=== PATIENT | male | born 1950 | race Caucasian/White ===

== ENCOUNTER → 2017-02-04 | Outpatient (CLI) | payer BC ==
[~2017-02-04] MED LIST: ATOR-24 PO; CLOP1TAB15 PO
[2017-02-04 13:48] LABS: ALT/SGPT 40 U/L (12-78); BLOOD UREA NITROGEN 16 mg/dl (7-18); BUN/CREATININE RATIO 14.3 (10-20); CALCIUM 9.1 mg/dl (8.5-10.1); CARBON DIOXIDE 30 mmol/L (21-32); CHLORIDE 104 mmol/L (98-107); CHOLESTEROL 141 mg/dl (0-200); ESTIMATED AVERAGE GLUCOSE 134 mg/dl; GLUCOSE 109 mg/dl (70-99); HA1C FLAG Normal (Normal); POTASSIUM 4.2 mmol/L (3.5-5.1); SODIUM 140 mmol/L (136-145); TRIGLYCERIDES 83 mg/dl (0-150); VERY LOW DENSITY LIPOPROT CALC 17 mg/dl
[2017-02-04 13:52] LABS: ALB/GLOB RATIO 1.2 (0.9-2); ALKALINE PHOSPHATASE 66 U/L (45-117); AST/SGOT 20 U/L (15-37); CHOLESTEROL/HDL RATIO 3.2; HDL CHOLESTEROL 44 mg/dl; LDL CHOLESTEROL CALCULATED 80 mg/dl
== END | disposition home or self-care (01) ==
LOC: C.LABBC 10:33
PROVIDERS: ATTEND Internal Medicine
DX: I10 Essential (primary) hypertension (principal); R73.01 Impaired fasting glucose; E78.5 Hyperlipidemia, unspecified; Z12.5 Encounter for screening for malignant neoplasm of prostate

== ENCOUNTER 2017-03-09 13:59 | Inpatient (IN) | payer BC, OTHER ==
[~2017-03-09] VITALS: Ht 172.7 cm; Wt 73.0 kg
[~2017-03-09 13:59] MED LIST changes: -ATOR-24 PO
--- NOTE | 2017-03-09 14:53 | DIAGNOSTIC IMAGING REPORT ---
CHEST ONE VIEW PORTABLE CLINICAL HISTORY: Stroke mental status change COMPARISON STUDY: No previous studies for comparison. FINDINGS: The bones soft tissues and hemidiaphragms are normal. The cardiomediastinal silhouette is normal. The lungs are clear. The pulmonary vasculature is normal. There are several old left-sided rib fractures IMPRESSION: Negative chest. Electronically signed by: Jeffry Anguiano M.D. 03/09/2017 2:51 PM Dictated Date/Time: 03/09/2017 2:51 PM
[2017-03-09 15:10] LABS: BASO % 0.3 %; BASO ABS # 0.02 K/uL (0-0.2); COMPLETE YES; EOS % 1.8 %; HEMATOCRIT 48.3 % (42-52); IG% 0.3 %; LYMPH % 13.2 %; LYMPH ABS # 0.97 K/uL (1.2-3.4); MEAN CELL VOLUME 88.6 fL (80-100); MEAN CORPUSCULAR HEMOGLOBIN 30.6 pg (25-34); MEAN CORPUSCULAR HGB CONC 34.6 g/dl (32-36); MONO % 5.7 %; NEUT % 78.7 %; PLATELET COUNT 253 K/uL (130-400); RED BLOOD COUNT 5.45 M/uL (4.7-6.1); WHITE BLOOD COUNT 7.35 K/uL (4.8-10.8)
[2017-03-09 15:23] LABS: PARTIAL THROMBOPLASTIN RATIO 0.9; PROTHROMBIN TIME (PATIENT) 10.6 SECONDS (9.0-12.0)
[2017-03-09 15:29] LABS: BLOOD UREA NITROGEN 20 mg/dl (7-18); BUN/CREATININE RATIO 17.7 (10-20); CALCIUM 9.6 mg/dl (8.5-10.1); CARBON DIOXIDE 29 mmol/L (21-32); CHLORIDE 105 mmol/L (98-107); GLUCOSE 96 mg/dl (70-99); POTASSIUM 3.9 mmol/L (3.5-5.1); SODIUM 141 mmol/L (136-145)
[2017-03-09] MEDS: SODIUM CHLORIDE 0.9% 1000ML 1,000 ML IV SCH ×2 (15:30→18:42)
[2017-03-09 15:34] LABS: CKMB/CK RATIO 1.8 (0-3.0)
--- NOTE | 2017-03-09 15:43 | DIAGNOSTIC IMAGING REPORT ---
LUMBAR SPINE CT CT DOSE: 1724.71 mGy.cm HISTORY: Trauma eval for fx TECHNIQUE: Multiaxial CT images of the lumbar spine were performed and reformatted in the sagittal and coronal plane without the use of contrast. COMPARISON: None. FINDINGS: No fractures. No subluxation. Paraspinal soft tissues are unremarkable. Note is made of moderate multifactorial spinal stenosis L4-L5. IMPRESSION: No fractures within the lumbar spine. No acute bony abnormality. Moderate multifactorial narrowing of spinal canal at L4-L5. Electronically signed by: Jeffry Anguiano M.D. 03/09/2017 3:42 PM Dictated Date/Time: 03/09/2017 3:41 PM
--- NOTE | 2017-03-09 15:45 | DIAGNOSTIC IMAGING REPORT ---
CT SCAN OF THE BRAIN WITHOUT IV CONTRAST CLINICAL HISTORY: Strokelike symptoms. Fall. Left-sided weakness. COMPARISON STUDY: CT of the brain dated 01/01/2015. TECHNIQUE: Unenhanced axial CT scan of the brain is performed from the vertex to the skull base. The skull base was scanned twice due to motion artifact. FINDINGS: Brain parenchyma: Encephalomalacia in the right frontal lobe and the right basal ganglia is unchanged and consistent with remote infarct. Wallerian degeneration is noted in the right aspect of the rupesh. There are age-related involutional changes noting mild subcortical and periventricular microangiopathic change. There is no hemorrhage, mass effect, or evidence of acute territorial ischemia by CT criteria. Vital-white matter is preserved. No extra-axial fluid collection is seen. Ventricles, sulci, cisterns: Prominent secondary to involutional change. There is ex vacuo dilatation of the frontal horn of the right lateral ventricle. Intracranial vasculature: There is atherosclerotic calcification of the cavernous carotid arteries. Calvarium: There is no depressed calvarial fracture. Sinuses and mastoids: Trace mucosal thickening is seen in the left maxillary antrum. Trace fluid is noted in the sphenoid sinuses. The remaining paranasal sinuses are clear. The mastoid air cells are well pneumatized. Orbits: The bony orbits are grossly intact. IMPRESSION: 1. There is no hemorrhage, mass effect, or evidence of acute territorial ischemia by CT criteria. 2. Age-related changes and remote right hemispheric infarct as above. Electronically signed by: Marino King M.D. 03/09/2017 3:44 PM Dictated Date/Time: 03/09/2017 3:40 PM
[2017-03-09] MEDS ORDERED: ATOR-24 PO (17:04)
[2017-03-09 17:13] VITALS: O2SAT 97; Ht 172.7 cm; Wt 73.0 kg
--- NOTE | 2017-03-09 17:13 | History and Physical ---
History & Physical Date & Time of Service: March 09, 2017 at 17:05 Chief Complaint: Back Pain Primary Care Physician: Diego Naidu M.D. History of Present Illness Source: patient, family (sister) Pt is a 66 yo male who presents to the ER with complaints of persistent back pain that began approximately three weeks ago s/p fall he sustained after sneezing and landing on his back. Pt reports following the fall, he was noted to have more weakness in left leg and has almost sedentary since. Pt does have a prior stroke in 2012 in which he does have residual left leg numbness and weakness in which he states has worsened since the fall. Pt normally ambulates with a quad walker but otherwise lives at home with occasional visits from ex who helps with groceries and cooking. Pt denies any difficulty speaking, headache, chest pain, shortness of breath, fever, nausea, vomiting, or recent illness. He denies any right sided weakness or numbness. He has had no fecal or urinary incontinence. He states he has some slight pressure in his lower back but the pain is not severe. Past Medical/Surgical History Medical Problems: (1) Benign hypertension Status: Chronic (2) Eczema Status: Chronic (3) Embolic cerebral infarction Status: Chronic (4) History of - pneumonia Status: Chronic (5) Stroke Status: Resolved Family History Patient reports no known family medical history. Social History Smoking Status: Former Smoker Alcohol Use: socially Marital Status: single Housing status: lives with family Occupational Status: employed, retired Immunizations History of Influenza Vaccine: Yes History of Tetanus Vaccine?: Unknown History of Pneumococcal: No History of Hepatitis B Vaccine: No Multi-Drug Resistant Organisms History of MDRO: No Allergies Coded Allergies: No Known Allergies (Unverified , 03/09/17) Uncoded Allergies: NKA (Allergy, Unknown, 04/10/15) No Known Allergies Home Medications Scheduled Atorvastatin (Lipitor), 40 MG PO DAILY Clopidogrel (Plavix), 75 MG PO DAILY Review of Systems Constitutional: No chills, No sweats Respiratory: No cough, No sputum Cardiovascular: No chest pain, No orthopnea Abdomen: No diarrhea, No nausea, No pain, No vomiting Musculoskeletal: + joint pain, + muscle pain Genitourinary - Male: No dysuria, No hematuria Neurologic: + numbness/tingling, + weakness, No paralysis Psychiatric: No anxiety, No depression symptoms Endocrine: No excessive thirst, No fatigue Physical Exam Vital Signs Date Time Temp Pulse Resp B/P Pulse Ox O2 Delivery O2 Flow Rate FiO2 03/09/17 16:15 81 03/09/17 15:50 75 16 187/110 97 Room Air 03/09/17 15:50 97 Room Air 03/09/17 14:12 36.8 83 16 181/123 96 Room Air General Appearance: WD/WN, no apparent distress Neck: supple, no adenopathy Respiratory/Chest: lungs clear, normal breath sounds Cardiovascular: no edema, no gallop Abdomen/GI: non tender, soft Back: no muscle spasm, + pertinent finding (lower back pain) Neurologic/Psych: alert, normal mood/affect, normal reflexes, oriented x 3, + motor weakness (left lower extremity weakness 4/5), + sensory deficit (numbness left ankle and foot) Diagnostics Laboratory Results Results Past 24 Hours Test 03/09/17 14:53 03/09/17 15:00 Range/Units Bedside Glucose 92 70-99 mg/dl White Blood Count 7.35 4.8-10.8 K/uL Red Blood Count 5.45 4.7-6.1 M/uL Hemoglobin 16.7 14.0-18.0 g/dL Hematocrit 48.3 42-52 % Mean Corpuscular Volume 88.6 80-100 fL Mean Corpuscular Hemoglobin 30.6 25-34 pg Mean Corpuscular Hemoglobin Concent 34.6 32-36 g/dl Platelet Count 253 130-400 K/uL Mean Platelet Volume 9.0 7.4-10.4 fL Neutrophils (%) (Auto) 78.7 % Lymphocytes (%) (Auto) 13.2 % Monocytes (%) (Auto) 5.7 % Eosinophils (%) (Auto) 1.8 % Basophils (%) (Auto) 0.3 % Neutrophils # (Auto) 5.79 1.4-6.5 K/uL Lymphocytes # (Auto) 0.97 1.2-3.4 K/uL Monocytes # (Auto) 0.42 0.11-0.59 K/uL Eosinophils # (Auto) 0.13 0-0.5 K/uL Basophils # (Auto) 0.02 0-0.2 K/uL RDW Standard Deviation 42.5 36.4-46.3 fL RDW Coefficient of Variation 13.1 11.5-14.5 % Immature Granulocyte % (Auto) 0.3 % Immature Granulocyte # (Auto) 0.02 0.00-0.02 K/uL Prothrombin Time 10.6 9.0-12.0 SECONDS Prothromb Time International Ratio 1.0 0.9-1.1 Activated Partial Thromboplast Time 23.8 21.0-31.0 SECONDS Partial Thromboplastin Ratio 0.9 Sodium Level 141 136-145 mmol/L Potassium Level 3.9 3.5-5.1 mmol/L Chloride Level 105 98-107 mmol/L Carbon Dioxide Level 29 21-32 mmol/L Anion Gap 7.0 3-11 mmol/L Blood Urea Nitrogen 20 7-18 mg/dl Creatinine 1.10 0.60-1.40 mg/dl Est Creatinine Clear Calc Drug Dose 64.8 ml/min Estimated GFR () 81.2 Estimated GFR (Non- 70.1 BUN/Creatinine Ratio 17.7 10-20 Random Glucose 96 70-99 mg/dl Calcium Level 9.6 8.5-10.1 mg/dl Total Creatine Kinase 99 39-308 U/L Creatine Kinase MB 1.8 0.5-3.6 ng/ml Creatine Kinase MB Ratio 1.8 0-3.0 Troponin I < 0.015 0-0.045 ng/ml Impression Assessment and Plan Pt is a 66 yo male with hx of CVA, KRIS who presents with worsening left lower ext weakness and numbness s/p fall 3 weeks ago Left leg numbness/weakness likely due to deconditioning s/p fall. CT lumbar spine did not determine any acute fx but did note moderate stenosis. Will consult PT/OT at this time and utilize heating pad in addition to lidoderm path. Case management consulted for dispo as pt and sister deemed his current home unsafe. Hx of CVA will cont statin and plavix at this time. Head CT neg for any intracranial abnormalities VTE Prophylaxis VTE Risk Assessment Done? Y/N: Yes Risk Level: Moderate
[2017-03-09] MEDS ORDERED: ONDANSETRON INJ 2 MG/ML 2 ML VIAL IV PRN (17:15)
[2017-03-09] MEDS ORDERED: CLOPIDOGREL BISULFATE 75 MG TAB PO STA (17:22)
--- NOTE | 2017-03-09 17:28 | EMERGENCY ROOM VISIT NOTE ---
History Report prepared by Gali: Yisel Torres Under the Supervision of: Dr. Dhruv Ardon M.D. First contact with patient: 14:22 Chief Complaint: BACK PAIN Stated Complaint: BACK PAIN History of Present Illness The patient is a 66 year old male who presents to the Emergency Room with complaints of persistent back pain that began approximately three weeks ago. He currently rates his discomfort as a 5/10 in severity. The patient states that he has a history of a stroke in 2011, noting that it has left his left side weak and numb. He states that three weeks ago he sneezed, which caused him to fall onto his back. The patient states that two days after his fall he developed a pressure in his lower back, and increased numbness and weakness to his left leg. The patient states that today around 1230 he fell while walking in his kitchen, noting that he has had difficulty ambulating due to the left leg weakness and numbness. The patient states that he takes Plavix, 75 mg daily. He states that he hit the back of his head during his fall today. The patient denies any difficulty speaking, headache, chest pain, shortness of breath, fever, nausea, vomiting, or recent illness. He denies any right sided weakness or numbness. He has had no fecal or urinary incontinence. He states he has some slight pressure in his lower back but the pain is not severe. Source of History: patient Onset: three weeks ago Position: back (lower) Symptom Intensity: 5/10 Quality: pressure Timing: other (persistent) Associated Symptoms: + numbness (left side), + weakness (left side), No SOB , No chest pain, No fevers, No headache, No nausea, No vomiting Note: Associated Symptoms: difficulty ambulating, two falls Review of Systems See HPI for pertinent positives & negatives. A total of 10 systems reviewed and were otherwise negative. Past Medical & Surgical Medical Problems: (1) Benign hypertension (2) Eczema (3) Embolic cerebral infarction (4) History of - pneumonia (5) Physical deconditioning (6) Stroke Family History Patient reports no known family medical history. Social History Smoking Status: Former Smoker Alcohol Use: occasionally Marital Status: single Housing Status: lives with family, other Occupation Status: employed, retired Current/Historical Medications Scheduled Atorvastatin (Lipitor), 40 MG PO DAILY Clopidogrel (Plavix), 75 MG PO DAILY Allergies Coded Allergies: No Known Allergies (Unverified , 03/09/17) Uncoded Allergies: NKA (Allergy, Unknown, 04/10/15) No Known Allergies Physical Exam Vital Signs Date Time Temp Pulse Resp B/P Pulse Ox O2 Delivery O2 Flow Rate FiO2 03/09/17 17:00 78 21 171/87 97 03/09/17 16:30 77 19 168/103 03/09/17 16:15 81 03/09/17 16:00 72 23 187/108 98 03/09/17 15:50 75 16 187/110 97 Room Air 03/09/17 15:50 187/110 03/09/17 15:50 97 Room Air 03/09/17 15:44 181/101 03/09/17 14:12 36.8 83 16 181/123 96 Room Air Physical Exam Constitutional: Vital signs reviewed. Eyes: Pupils are equal round reactive to light. Conjunctiva are noninjected. ENT: Pharynx is clear without erythema or exudate. Mucous membranes are moist. Neck supple without meningeal signs. No midline tenderness to the cervical spine. Respiratory: Clear to auscultation bilaterally. Breath sounds are equal bilaterally. Cardiovascular: Regular rate and rhythm. No rubs or gallops. GI: Soft, nondistended and nontender. Bowel sounds are present. Musculoskeletal: No tenderness to the hips, no tenderness to the thoracic or lumbosacral spine. Integumentary: No cyanosis. Neurological: Flaccid paralysis of the left wrist and hand. Left upper extremity weakness as well as lower extremity weakness with diminished sensation in the left upper and lower extremity. Left facial droop sparing the forehead. Psychiatric: Normal affect. Medical Decision & Procedures ER Provider Diagnostic Interpretation: Radiology results as stated below per my review and the radiologist's interpretation: CT SCAN OF THE BRAIN WITHOUT IV CONTRAST CLINICAL HISTORY: Strokelike symptoms. Fall. Left-sided weakness. COMPARISON STUDY: CT of the brain dated 01/01/2015. TECHNIQUE: Unenhanced axial CT scan of the brain is performed from the vertex to the skull base. The skull base was scanned twice due to motion artifact. FINDINGS: Brain parenchyma: Encephalomalacia in the right frontal lobe and the right basal ganglia is unchanged and consistent with remote infarct. Wallerian degeneration is noted in the right aspect of the rupesh. There are age-related involutional changes noting mild subcortical and periventricular microangiopathic change. There is no hemorrhage, mass effect, or evidence of acute territorial ischemia by CT criteria. Vital-white matter is preserved. No extra-axial fluid collection is seen. Ventricles, sulci, cisterns: Prominent secondary to involutional change. There is ex vacuo dilatation of the frontal horn of the right lateral ventricle. Intracranial vasculature: There is atherosclerotic calcification of the cavernous carotid arteries. Calvarium: There is no depressed calvarial fracture. Sinuses and mastoids: Trace mucosal thickening is seen in the left maxillary antrum. Trace fluid is noted in the sphenoid sinuses. The remaining paranasal sinuses are clear. The mastoid air cells are well pneumatized. Orbits: The bony orbits are grossly intact. IMPRESSION: 1. There is no hemorrhage, mass effect, or evidence of acute territorial ischemia by CT criteria. 2. Age-related changes and remote right hemispheric infarct as above. Electronically signed by: Marino King M.D. 03/09/2017 3:44 PM Dictated Date/Time: 03/09/2017 3:[address] DOSE: 1724.71 mGy.cm HISTORY: Trauma eval for fx TECHNIQUE: Multiaxial CT images of the lumbar spine were performed and reformatted in the sagittal and coronal plane without the use of contrast. COMPARISON: None. FINDINGS: No fractures. No subluxation. Paraspinal soft tissues are unremarkable. Note is made of moderate multifactorial spinal stenosis L4-L5. IMPRESSION: No fractures within the lumbar spine. No acute bony abnormality. Moderate multifactorial narrowing of spinal canal at L4-L5. Electronically signed by: Jeffry Anguiano M.D. 03/09/2017 3:42 PM Dictated Date/Time: 03/09/2017 3:41 PM CHEST ONE VIEW PORTABLE CLINICAL HISTORY: Stroke mental status change COMPARISON STUDY: No previous studies for comparison. FINDINGS: The bones soft tissues and hemidiaphragms are normal. The cardiomediastinal silhouette is normal. The lungs are clear. The pulmonary vasculature is normal. There are several old left-sided rib fractures IMPRESSION: Negative chest. Electronically signed by: Jeffry Anguiano M.D. 03/09/2017 2:51 PM Dictated Date/Time: 03/09/2017 2:51 PM Laboratory Results 03/09/17 15:00 Red Blood Count 5.45, Mean Corpuscular Volume 88.6, Mean Corpuscular Hemoglobin 30.6, Mean Corpuscular Hemoglobin Concent 34.6, Mean Platelet Volume 9.0, Neutrophils (%) (Auto) 78.7, Lymphocytes (%) (Auto) 13.2, Monocytes (%) (Auto) 5.7, Eosinophils (%) (Auto) 1.8, Basophils (%) (Auto) 0.3, Neutrophils # (Auto) 5.79, Lymphocytes # (Auto) 0.97, Monocytes # (Auto) 0.42, Eosinophils # (Auto) 0.13, Basophils # (Auto) 0.02 03/09/17 15:00 Test 03/09/17 14:53 03/09/17 15:00 Bedside Glucose 92 mg/dl (70-99) White Blood Count 7.35 K/uL (4.8-10.8) Red Blood Count 5.45 M/uL (4.7-6.1) Hemoglobin 16.7 g/dL (14.0-18.0) Hematocrit 48.3 % (42-52) Mean Corpuscular Volume 88.6 fL (80-100) Mean Corpuscular Hemoglobin 30.6 pg (25-34) Mean Corpuscular Hemoglobin Concent 34.6 g/dl (32-36) Platelet Count 253 K/uL (130-400) Mean Platelet Volume 9.0 fL (7.4-10.4) Neutrophils (%) (Auto) 78.7 % Lymphocytes (%) (Auto) 13.2 % Monocytes (%) (Auto) 5.7 % Eosinophils (%) (Auto) 1.8 % Basophils (%) (Auto) 0.3 % Neutrophils # (Auto) 5.79 K/uL (1.4-6.5) Lymphocytes # (Auto) 0.97 K/uL (1.2-3.4) Monocytes # (Auto) 0.42 K/uL (0.11-0.59) Eosinophils # (Auto) 0.13 K/uL (0-0.5) Basophils # (Auto) 0.02 K/uL (0-0.2) RDW Standard Deviation 42.5 fL (36.4-46.3) RDW Coefficient of Variation 13.1 % (11.5-14.5) Immature Granulocyte % (Auto) 0.3 % Immature Granulocyte # (Auto) 0.02 K/uL (0.00-0.02) Prothrombin Time 10.6 SECONDS (9.0-12.0) Prothromb Time International Ratio 1.0 (0.9-1.1) Activated Partial Thromboplast Time 23.8 SECONDS (21.0-31.0) Partial Thromboplastin Ratio 0.9 Anion Gap 7.0 mmol/L (3-11) Est Creatinine Clear Calc Drug Dose 64.8 ml/min Estimated GFR () 81.2 Estimated GFR (Non- 70.1 BUN/Creatinine Ratio 17.7 (10-20) Calcium Level 9.6 mg/dl (8.5-10.1) Total Creatine Kinase 99 U/L (39-308) Creatine Kinase MB 1.8 ng/ml (0.5-3.6) Creatine Kinase MB Ratio 1.8 (0-3.0) Troponin I < 0.015 ng/ml (0-0.045) Laboratory results as reviewed by me. Medications Administered Medications (Trade) Dose Ordered Sig/Florentino Route Start Time Stop Time Status Last Admin Dose Admin Sodium Chloride (Nss 1000ml) 1,000 ml @ 50 mls/hr Q20H IV 03/09/17 14:32 04/08/17 14:31 03/09/17 15:30 50 MLS/HR ECG Indication: weakness Rate (beats per minute): 74 Rhythm: normal sinus Findings: no acute ischemic change, no ectopy ED Course 1425: The patient was evaluated in room C2B. A complete history and physical exam was performed. 1432: Ordered Sodium Chloride 1000 ml @ 50 mls/hr IV. 1553: I reevaluated the patient and he is resting comfortably. I discussed the exam findings with him and I discussed the treatment plan. I recommended evaluation for further treatment. He verbalized complete understanding and agreement. He will be evaluated for further treatment. 1559: I discussed the patients case with Dr. Deras [facility]. He is going to evaluate the patient for further treatment. Medical Decision This is a 66-year-old male who presents with left leg weakness and numbness and back pain as well as head injury after fall. Differential diagnosis includes subacute CVA, acute CVA, intracranial hemorrhage, lumbar disc disease, cauda equina syndrome. I did perform a limited focused review of portions of the patient's old chart on the electronic medical record. The patient has had no recent pertinent visits to this hospital. I did evaluate the patient as noted above. He is presenting with left leg weakness and numbness. It started several weeks ago 2 days after he fell onto his buttocks. He states he has pain in his back but it is a pressure sensation which is not bad. He does have a prior history of stroke. His leg weakness made him fall today. IV access was established. The patient was placed on a continuous administrative program specialist. I did order and personally review the patient's 12- lead EKG and chest x-ray as described above. I did order and review the patient 's blood work as noted in the electronic medical record. I did order a CT of the head and lumbar spine. I did review the images myself as well as the radiology report as described above. There is no evidence of acute stroke. No bleeding. No acute fracture. I did discuss the test results with the patient. I did recommend hospitalization for further evaluation of his symptoms. At this time is not clear whether his symptoms could be an acute or subacute stroke or possibly lumbar disc disease. I did recommend hospitalization for MRI of his head and back. I did discuss the case with the hospitalist and case therapist. Consults Time Called: [phone] Consulting Physician: VICTORINO Martinez Returned Call: [phone] I discussed the patients case with VICTORINO Martinez. He is going to evaluate the patient for further treatment. Impression Primary Impression: Left leg weakness Additional Impressions: Left leg numbness Fall Acute head injury Low back pain Scribe Attestation The scribe's documentation has been prepared under my direct and personally reviewed by me in its entirety. I confirm that the note above accurately reflects all work, treatment, procedures, and medical decision making performed by me. Departure Information Dispostion Being Evaluated By Hospitalist Referrals Diego Naidu M.D. (PCP) Problem Qualifiers Additional Impressions: Fall Encounter type: initial encounter Qualified Codes: W19.XXXA - Unspecified fall, initial encounter Acute head injury Encounter type: initial encounter Qualified Codes: S09.90XA - Unspecified injury of head, initial encounter Low back pain Chronicity: acute Back pain laterality: unspecified Sciatica presence: unspecified whether sciatica present Qualified Codes: M54.5 - Low back pain
[2017-03-09 18:06] VITALS: BP 192/108; PULSE 69; TEMP 36.8; O2SAT 97
[2017-03-09] MEDS ORDERED: NURSING VERBAL MED ORDER ONE (18:30)
[2017-03-09] MEDS ORDERED: HydrALAZINE HCL 20 MG/ML VIAL ONE (18:39)
[2017-03-09 19:53] VITALS: BP 146/90
[2017-03-09 20:00] VITALS: O2SAT 97
[2017-03-09 20:37] VITALS: BP 147/80
[2017-03-09] MEDS: HydrALAZINE HCL 20 MG/ML VIAL IV. PRN (23:01)
[2017-03-09] MEDS: ACETAMINOPHEN 325 MG TAB PO PRN (23:01)
[2017-03-09 23:58] VITALS: BP 163/95; PULSE 82; TEMP 36.4; O2SAT 97
[2017-03-10] VITALS (8 sets, daily range): BP systolic 103–163; BP diastolic 63–90; PULSE 72–99; TEMP 36.6–36.8; O2SAT 95–97
[2017-03-10] MEDS: ATORVASTATIN 20 MG TAB PO SCH (08:11)
[2017-03-10] MEDS: CLOPIDOGREL BISULFATE 75 MG TAB PO SCH (08:11)
[2017-03-10] MEDS: ACETAMINOPHEN 325 MG TAB PO PRN (08:12)
[2017-03-10] MEDS: HydrALAZINE HCL 20 MG/ML VIAL IV. PRN (08:13)
[2017-03-10] MEDS: SODIUM CHLORIDE 0.9% 1000ML 1,000 ML IV SCH (08:20)
[2017-03-10] MEDS ORDERED: LIDODERM (LIDOCAINE) PATCH 5% TD SCH (09:00)
[2017-03-10] MEDS ORDERED: TRAMADOL HCL 50 MG TAB PO PRN (10:30)
--- NOTE | 2017-03-10 14:10 | Progress Note ---
Subjective Date of Service: March 10, 2017. Subjective Pt evaluation today including: conversation w/ patient, physical exam, chart review, lab review, review of studies, review of inpatient medication list Resting comfortably in bed Left lower leg weakness about the same No worsening numbness Problem List Medical Problems: (1) Acute head injury Status: Acute (2) Fall Status: Acute (3) Left leg numbness Status: Acute (4) Left leg weakness Status: Acute (5) Low back pain Status: Acute Review of Systems Constitutional: No chills, No fever Respiratory: No cough, No shortness of breath, No sputum, No wheezing Cardiac: No chest pain, No orthopnea Abdomen: No nausea, No pain, No vomiting Musculoskeletal: No joint pain, No muscle pain Male : No dysuria, No urinary frequency Neurologic: + numbness/tingling, + weakness Psychiatric: No anxiety, No depression symptoms Objective Vital Signs Date Time Temp Pulse Resp B/P Pulse Ox O2 Delivery O2 Flow Rate FiO2 03/10/17 12:51 99 103/63 03/10/17 09:37 Room Air 03/10/17 09:10 99 133/82 96 03/10/17 07:18 36.6 72 20 163/88 95 Room Air 03/10/17 00:39 141/86 03/10/17 00:00 97 Room Air 03/09/17 23:58 36.4 82 20 163/95 97 Room Air 03/09/17 20:37 147/80 03/09/17 20:00 97 Room Air 03/09/17 19:53 146/90 03/09/17 18:06 36.8 69 18 192/108 97 Room Air 03/09/17 17:51 36.8 71 21 156/104 97 03/09/17 17:35 71 21 03/09/17 17:30 156/104 03/09/17 17:13 97 Room Air 03/09/17 17:05 72 17 03/09/17 17:00 78 21 171/87 97 03/09/17 16:30 77 19 168/103 03/09/17 16:15 81 03/09/17 16:00 72 23 187/108 98 03/09/17 15:50 75 16 187/110 97 Room Air 03/09/17 15:50 187/110 03/09/17 15:50 97 Room Air 03/09/17 15:44 181/101 03/09/17 14:12 36.8 83 16 181/123 96 Room Air Physical Exam General Appearance: WD/WN, no apparent distress Neck: supple, no adenopathy Respiratory/Chest: lungs clear, normal breath sounds Cardiovascular: no edema, no gallop Abdomen: non tender, soft Extremities: non-tender, normal inspection Neurologic/Psychiatric: alert, oriented x 3 Laboratory Results Last 24 Hours Test 03/09/17 14:53 03/09/17 15:00 Bedside Glucose 92 mg/dl White Blood Count 7.35 K/uL Red Blood Count 5.45 M/uL Hemoglobin 16.7 g/dL Hematocrit 48.3 % Mean Corpuscular Volume 88.6 fL Mean Corpuscular Hemoglobin 30.6 pg Mean Corpuscular Hemoglobin Concent 34.6 g/dl Platelet Count 253 K/uL Mean Platelet Volume 9.0 fL Neutrophils (%) (Auto) 78.7 % Lymphocytes (%) (Auto) 13.2 % Monocytes (%) (Auto) 5.7 % Eosinophils (%) (Auto) 1.8 % Basophils (%) (Auto) 0.3 % Neutrophils # (Auto) 5.79 K/uL Lymphocytes # (Auto) 0.97 K/uL Monocytes # (Auto) 0.42 K/uL Eosinophils # (Auto) 0.13 K/uL Basophils # (Auto) 0.02 K/uL RDW Standard Deviation 42.5 fL RDW Coefficient of Variation 13.1 % Immature Granulocyte % (Auto) 0.3 % Immature Granulocyte # (Auto) 0.02 K/uL Prothrombin Time 10.6 SECONDS Prothromb Time International Ratio 1.0 Activated Partial Thromboplast Time 23.8 SECONDS Partial Thromboplastin Ratio 0.9 Sodium Level 141 mmol/L Potassium Level 3.9 mmol/L Chloride Level 105 mmol/L Carbon Dioxide Level 29 mmol/L Anion Gap 7.0 mmol/L Blood Urea Nitrogen 20 mg/dl Creatinine 1.10 mg/dl Est Creatinine Clear Calc Drug Dose 64.8 ml/min Estimated GFR () 81.2 Estimated GFR (Non- 70.1 BUN/Creatinine Ratio 17.7 Random Glucose 96 mg/dl Calcium Level 9.6 mg/dl Total Creatine Kinase 99 U/L Creatine Kinase MB 1.8 ng/ml Creatine Kinase MB Ratio 1.8 Troponin I < 0.015 ng/ml Assessment and Plan Pt is a 66 yo male with hx of CVA, KRIS who presents with worsening left lower ext weakness and numbness s/p fall 3 weeks ago Left leg numbness/weakness likely due to deconditioning s/p fall. CT lumbar spine did not determine any acute fx but did note moderate stenosis. Will consult PT/OT at this time and utilize heating pad. Case management consulted for dispo as pt and sister deemed his current home unsafe. Hx of CVA will cont statin and plavix at this time. Head CT neg for any intracranial abnormalities
[2017-03-11 07:13] VITALS: BP 154/81; PULSE 70; TEMP 36.8; O2SAT 94
[2017-03-11] MEDS: ATORVASTATIN 20 MG TAB PO SCH (08:54)
[2017-03-11] MEDS: CLOPIDOGREL BISULFATE 75 MG TAB PO SCH (08:54)
--- NOTE | 2017-03-11 12:33 | Progress Note ---
Subjective Date of Service: March 11, 2017. Subjective Pt evaluation today including: conversation w/ patient, physical exam, chart review, lab review, review of studies, review of inpatient medication list States still feeling weak and doing poorly with PT No worsening numbness, states left ankle pain still but unchanged Problem List Medical Problems: (1) Acute head injury Status: Acute (2) Fall Status: Acute (3) Left leg numbness Status: Acute (4) Left leg weakness Status: Acute (5) Low back pain Status: Acute Review of Systems Constitutional: + fatigue, + weakness, No chills, No fever Respiratory: No cough, No shortness of breath, No sputum, No wheezing Cardiac: No chest pain Abdomen: No diarrhea, No nausea, No pain, No vomiting Musculoskeletal: + joint pain, No muscle pain Male : No dysuria, No urinary frequency Neurologic: + numbness/tingling, + weakness, No memory loss Objective Vital Signs Date Time Temp Pulse Resp B/P Pulse Ox O2 Delivery O2 Flow Rate FiO2 03/11/17 09:00 Room Air 03/11/17 07:13 36.8 70 20 154/81 94 Room Air 03/11/17 00:00 Room Air 03/10/17 23:31 36.8 83 16 155/90 95 Room Air 03/10/17 16:00 Room Air 03/10/17 15:49 36.7 81 18 144/82 95 Room Air 03/10/17 12:51 99 103/63 Physical Exam General Appearance: WD/WN, no apparent distress Neck: supple, no adenopathy Respiratory/Chest: lungs clear, normal breath sounds Cardiovascular: no edema, no gallop Abdomen: non tender, soft Neurologic/Psychiatric: alert, normal mood/affect, oriented x 3 Assessment and Plan Pt is a 66 yo male with hx of CVA, KRIS who presents with worsening left lower ext weakness and numbness s/p fall 3 weeks ago Left leg numbness/weakness likely due to deconditioning s/p fall. CT lumbar spine did not determine any acute fx but did note moderate stenosis. Will consult PT/OT at this time and utilize heating pad. Case management consulted for dispo as pt and sister deemed his current home unsafe. Hx of CVA will cont statin and plavix at this time. Head CT neg for any intracranial abnormalities DISPO: Awaiting rehab at this time
[2017-03-11 14:56] VITALS: BP 153/89; PULSE 73; TEMP 36.6; O2SAT 94
[2017-03-11 23:06] VITALS: BP 154/95; PULSE 74; TEMP 36.7; O2SAT 95
[2017-03-12] MEDS: SODIUM CHLORIDE 0.9% 1000ML 1,000 ML IV SCH (02:17)
[2017-03-12 07:59] VITALS: BP 152/83; PULSE 59; TEMP 36.5; O2SAT 94
[2017-03-12] MEDS: CLOPIDOGREL BISULFATE 75 MG TAB PO SCH (09:08)
[2017-03-12] MEDS: ATORVASTATIN 20 MG TAB PO SCH (09:08)
--- NOTE | 2017-03-12 10:28 | Discharge Instructions ---
Discharge Instructions Date of Service March 12, 2017. Admission Reason for Admission: Fall, Physical Deconditioning Discharge Discharge Diagnosis / Problem: Fall, prvious stroke, deconditioning Discharge Goals Goal(s): Decrease discomfort, Improve function, Increase independence, Improve disease control, Learn about illness, Diagnostic testing, Prevent Disease Progression Activity Recommendations Activity Limitations: resume your previous activity Shower/Bathe: no limitations . Instructions / Follow-Up Instructions / Follow-Up Patient to be discharged to long-term facility Will need extensive rehab therapy No changes in medications at this time If worsening numbness, pain, fevers, or chills please report to ER Current Hospital Diet Patient's current hospital diet: Low Fat Diet Discharge Diet Recommended Diet: Low Fat Diet Pending Studies Studies pending at discharge: no Laboratory Results Hemoglobin A1c Test 02/04/17 10:36 Range/Units Estimated Average Glucose 134 mg/dl Hemoglobin A1c 6.3 H 4.5-5.6 % Lipid Panel Test 02/04/17 10:36 Range/Units Triglycerides Level 83 0-150 mg/dl Cholesterol Level 141 0-200 mg/dl HDL Cholesterol 44 mg/dl Cholesterol/HDL Ratio 3.2 LDL Cholesterol, Calculated 80 mg/dl Medical Emergencies . Who to Call and When: Medical Emergencies: If at any time you feel your situation is an emergency, please call 911 immediately. . Non-Emergent Contact Non-Emergency issues call your: Primary Care Provider Call Non-Emergent contact if: your pain is worsening . . "Provider Documentation" section prepared by Karan Trujillo. . VTE Core Measure Inpt VTE Proph given/why not?: Other Anticoagulation (plavix)
[2017-03-12 11:44] VITALS: BP 152/83; PULSE 59; TEMP 36.5; O2SAT 94
--- NOTE | 2017-03-12 12:13 | DIAGNOSTIC IMAGING REPORT ---
LEFT ANKLE MIN 3 VIEWS ROUTINE CLINICAL HISTORY: left ankle pain pain COMPARISON: None. DISCUSSION: The bones and joint spaces appear intact. There is no evidence of fracture, dislocation or bony disease. There is no evidence for soft tissue swelling. IMPRESSION: Negative study. Electronically signed by: Jeffry Anguiano M.D. 03/12/2017 12:11 PM Dictated Date/Time: 03/12/2017 12:06 PM
--- NOTE | 2017-03-12 14:26 | Discharge Summary ---
Discharge Summary Date of Service March 12, 2017. Discharge Summary Admission Date: March 09, 2017 at 17:02 Discharge Date: March 12, 2017 Discharge Disposition: [facility] facility ([facility]) Principal Diagnosis: Deconditioning Immunizations: Have You Had Influenza Vaccine: Yes History of Tetanus Vaccine?: Unknown History of Pneumococcal: No History of Hepatitis B Vaccine: No Medication Reconciliation Continued Medications: Atorvastatin (Lipitor) 40 Mg Tab 40 MG PO DAILY, TAB Clopidogrel (Plavix) 75 Mg Tab 75 MG PO DAILY, TAB Discharge Exam Review of Systems: Constitutional: No chills, No fever Respiratory: No cough, No dyspnea on exertion, No shortness of breath, No sputum, No wheezing Cardiovascular: No chest pain, No orthopnea Abdomen: No diarrhea, No nausea, No pain, No vomiting Musculoskeletal: + joint pain, No muscle pain Genitourinary - Male: No dysuria, No hematuria, No urinary frequency Neurologic: + weakness, No paralysis Psychiatric: No anxiety, No depression symptoms Physical Exam: General Appearance: WD/WN, no apparent distress Neck: supple, no adenopathy Respiratory/Chest: lungs clear, normal breath sounds Cardiovascular: no edema, no gallop Abdomen / GI: non tender, soft Neurologic/Psychiatric: alert, oriented x 3, + motor weakness (left lower leg weakness 3/5) Hospital Course Pt is a 66 yo male with hx of CVA, KRIS who presents with worsening left lower ext weakness and numbness s/p fall 3 weeks ago Left leg numbness/weakness likely due to deconditioning s/p fall. CT lumbar spine did not determine any acute fx but did note moderate stenosis. Will consult PT/OT at this time and utilize heating pad. Case management consulted for dispo as pt and sister deemed his current home unsafe. Unable to tolerate PT. Discharge to [facility]. Hx of CVA will cont statin and plavix at this time. Head CT neg for any intracranial abnormalities DISPO: Awaiting rehab at this time Total Time Spent: Greater than 30 minutes This includes examination of the patient, discharge planning, medication reconciliation, and communication with other providers. Discharge Instructions Please refer to the electronic Patient Visit Report (Discharge Instructions) for additional information. Additional Copies To Diego Naidu M.D.
== END 2017-03-12 13:15 | disposition home or self-care (01) | DRG 948 ==
LOC: ENRESERVDT → ENRESERVTM → EDBD 13:59 → C.EDC 14:02 → C.MS2W 17:02
PROVIDERS: ADMIT Hospitalist; ATTEND Hospitalist
DX: R53.1 Weakness (principal); I69.354 Hemiplegia and hemiparesis following cerebral infarction affecting left non-dominant side; R20.0 Anesthesia of skin; S09.90XA Unspecified injury of head, initial encounter; M48.06 Spinal stenosis, lumbar region; I10 Essential (primary) hypertension; Z87.891 Personal history of nicotine dependence; Z79.899 Other long term (current) drug therapy; Z79.02 Long term (current) use of antithrombotics/antiplatelets; W19.XXXA Unspecified fall, initial encounter; Y92.000 Kitchen of unspecified non-institutional (private) residence as the place of occurrence of the external cause; Y93.01 Activity, walking, marching and hiking; Y99.8 Other external cause status

== ENCOUNTER → 2017-04-13 | Outpatient (CLI) | payer BC ==
[~2017-04-13] MED LIST changes: +ATOR-24 PO
[2017-04-13 12:21] LABS: HEMATOCRIT 48.8 % (42-52); MEAN CELL VOLUME 89.7 fL (80-100); MEAN CORPUSCULAR HEMOGLOBIN 29.2 pg (25-34); MEAN CORPUSCULAR HGB CONC 32.6 g/dl (32-36); MEAN PLATELET VOLUME 9.1 fL (7.4-10.4); PLATELET COUNT 233 K/uL (130-400); RED BLOOD COUNT 5.44 M/uL (4.7-6.1); WHITE BLOOD COUNT 5.88 K/uL (4.8-10.8)
[2017-04-13 13:46] LABS: BLOOD UREA NITROGEN 16 mg/dl (7-18); BUN/CREATININE RATIO 15.9 (10-20); CARBON DIOXIDE 28 mmol/L (21-32); CHLORIDE 109 mmol/L (98-107); GLUCOSE 92 mg/dl (70-99); SODIUM 146 mmol/L (136-145)
[2017-04-13 13:49] LABS: CALCIUM 8.6 mg/dl (8.5-10.1)
== END | disposition home or self-care (01) ==
LOC: C.LABWYN 10:27
PROVIDERS: ATTEND Internal Medicine
DX: R03.0 Elevated blood-pressure reading, without diagnosis of hypertension (principal)

== ENCOUNTER → 2017-05-04 | Outpatient (CLI) | payer BC ==
[2017-05-04 14:26] LABS: BLOOD UREA NITROGEN 16 mg/dl (7-18); CARBON DIOXIDE 25 mmol/L (21-32); CHLORIDE 108 mmol/L (98-107); CREATININE 0.93 mg/dl (0.60-1.40); GLUCOSE 88 mg/dl (70-99); POTASSIUM 3.8 mmol/L (3.5-5.1); SODIUM 142 mmol/L (136-145)
== END | disposition home or self-care (01) ==
LOC: C.LABWYN 13:17
PROVIDERS: ATTEND Internal Medicine
DX: R26.9 Unspecified abnormalities of gait and mobility (principal)

== ENCOUNTER → 2017-11-11 | Outpatient (CLI) | payer BC ==
[2017-11-11 12:52] LABS: HEMATOCRIT 44.2 % (42-52); HEMOGLOBIN 15.2 g/dL (14.0-18.0); MEAN CELL VOLUME 88.4 fL (80-100); MEAN CORPUSCULAR HEMOGLOBIN 30.4 pg (25-34); MEAN CORPUSCULAR HGB CONC 34.4 g/dl (32-36); MEAN PLATELET VOLUME 8.9 fL (7.4-10.4); PLATELET COUNT 227 K/uL (130-400); RED CELL DISTRIBUTION WIDTH CV 13.1 % (11.5-14.5); RED CELL DISTRIBUTION WIDTH SD 42.1 fL (36.4-46.3); WHITE BLOOD COUNT 5.04 K/uL (4.8-10.8)
[2017-11-11 13:54] LABS: BLOOD UREA NITROGEN 19 mg/dl (7-18); CALCIUM 8.6 mg/dl (8.5-10.1); CARBON DIOXIDE 27 mmol/L (21-32); CREATININE 1.02 mg/dl (0.60-1.40); GLUCOSE 103 mg/dl (70-99); POTASSIUM 3.9 mmol/L (3.5-5.1); SODIUM 139 mmol/L (136-145)
[2017-11-11 14:00] LABS: CHOLESTEROL 137 mg/dl (0-200); LDL CHOLESTEROL CALCULATED 83 mg/dl
== END ==
LOC: C.LABWYN 12:07
PROVIDERS: ATTEND Nurse Practitioner Adult Health
DX: I10 Essential (primary) hypertension (principal); E78.5 Hyperlipidemia, unspecified

== ENCOUNTER 2018-01-03 11:05 | Emergency (ER) | payer BC ==
[~2018-01-03] VITALS: Ht 172.7 cm; Wt 84.6 kg
[2018-01-03 11:15] VITALS: TEMP 36.6; Ht 172.7 cm; Wt 84.6 kg
[2018-01-03 11:17] VITALS: O2SAT 97
[2018-01-03] MEDS ORDERED: CZR25 PO (11:36)
--- NOTE | 2018-01-03 11:46 | EMERGENCY ROOM VISIT NOTE ---
History Report prepared by Gali: Michael Maciel Under the Supervision of: Dr. Diego Leonardo D.O. First contact with patient: 11:11 Chief Complaint: CVA SYMPTOMS Stated Complaint: CVA SYMTPOMS Nursing Triage Summary: pt has hx of cva 2012 with lef sided weakness and facial droop. uses walder at home. this am about 0830 had a feeling of "head bustos and seeing stars in ight eye" had brief h/a. took tylenol. denies pain or sx a this time History of Present Illness The patient is a 67 year old male who presents to the Emergency Room with complaints of mild CVA symptoms that occurred earlier this morning. He has a past medical history of a previous stroke in 2012 resulting in a left-sided deficit. His physician believes the stroke to be from his neck, which has not been treated or followed up recently. This morning, the patient woke up normally with a mild headache and went to breakfast. He was given some Tylenol which resolved his headache. He was eating when he suddenly saw "stars" in his right periphery that only lasted a couple of seconds. He then felt a bustos in the right side of his head. He experienced similar symptoms five years ago associated with his first stroke. He denies any fevers, chest pain, shortness of breath, nausea, vomiting, abdominal pain, palpitations, recent falls, injuries, or medication changes. His ex- says he that is speaking well and normally. Source of History: patient, friend Onset: earlier this morning Position: other (Global) Symptom Intensity: mild Quality: other (CVA symptoms) Timing: resolved Associated Symptoms: No headache, No chest pain, No SOB, No nausea, No vomiting, No abdominal pain Note: He was experiencing a mild headache with right sided "stars" in his periphery. He denies these currently. Review of Systems See HPI for pertinent positives & negatives. A total of 10 systems reviewed and were otherwise negative. Past Medical & Surgical Medical Problems: (1) Benign hypertension (2) Eczema (3) Embolic cerebral infarction (4) History of - pneumonia (5) Physical deconditioning (6) Stroke Family History Patient reports no known family medical history. Social History Smoking Status: Former Smoker Alcohol Use: occasionally Marital Status: single Housing Status: lives with family, other Occupation Status: employed, retired Current/Historical Medications Scheduled Atorvastatin (Lipitor), 40 MG PO DAILY Clopidogrel (Plavix), 75 MG PO DAILY Losartan Potassium (Losartan Potassium), 25 MG PO DAILY Allergies Coded Allergies: No Known Allergies (Unverified , 01/03/18) Physical Exam Vital Signs Date Time Temp Pulse Resp B/P (MAP) Pulse Ox O2 Delivery O2 Flow Rate FiO2 01/03/18 13:18 74 18 144/73 97 Room Air 01/03/18 12:30 86 19 151/102 97 Room Air 01/03/18 11:36 65 01/03/18 11:17 97 Room Air 01/03/18 11:15 36.6 72 17 175/101 97 Room Air Physical Exam GENERAL: Patient is awake, alert, and in no acute distress. Patient is resting comfortably and showing no signs of anxiety EYES: The conjunctivae are clear. The pupils are round and reactive. EARS, NOSE, MOUTH AND THROAT: The nose is without any evidence of any deformity. Mucous membranes are moist tongue is midline NECK: The neck is nontender and supple. RESPIRATORY: Normal respiratory effort is noted there is no evidence of wheezing rhonchi or rales CARDIOVASCULAR: Regular rate and rhythm noted there no murmurs rubs or gallops normal S1 normal S2 GASTROINTESTINAL: The abdomen is soft. Bowel sounds are present in all quadrants. Abdomen is nontender MUSCULOSKELETAL/EXTREMITIES: There is no evidence of gross deformity full range of motion is noted in the hips and shoulders SKIN: Trace pedal edema bilaterally. There is no obvious evidence of any rash. There are no petechiae, pallor or cyanosis noted. NEUROLOGIC: Patient is awake alert and oriented x3. Diminished equipment monitor phototypesetting strength in the LUE compared to the right. Patient was able to lift each leg off of the bed with weakness noted in the LLE. Medical Decision & Procedures ER Provider Diagnostic Interpretation: Radiology results as stated below per my review and radiologist interpretation: HEAD WITHOUT CONTRAST (CT) CLINICAL HISTORY: 67 years-old Male presenting with EVALUATE ALTERED MENTAL STATUS/WEAKNESS. TECHNIQUE: Multidetector CT imaging of the head was performed without the use of intravenous contrast. IV contrast: None. A dose lowering technique was used consistent with the principles of ALARA (as low as reasonably achievable). COMPARISON: 03/09/2017. CT DOSE (mGy.cm): The estimated cumulative dose is 687.98 mGy.cm. FINDINGS: Editor Newspaper topogram: Unremarkable. Ventricles and sulci normal in size. Cystic encephalomalacia and gliosis in the right frontal and right insular cortex consistent with prior infarct. No mass effect or midline shift. No hemorrhage or acute territorial infarct. No extra-axial fluid collection. Extensive mucosal thickening in the bilateral maxillary sinuses. Calvarium intact. IMPRESSION: 1. No acute intracranial abnormality. 2. 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 3. Extensive mucosal thickening in the bilateral maxillary sinuses. Electronically signed by: Good Villar M.D. 01/03/2018 12:11 PM Dictated Date/Time: 01/03/2018 12:08 PM CHEST ONE VIEW PORTABLE CLINICAL HISTORY: 67 years-old Male presenting with EVALUATE ALTERED MENTAL STATUS/WEAKNESS. TECHNIQUE: Portable upright AP view of the chest was obtained. COMPARISON: 03/09/2017. FINDINGS: Atherosclerosis of the aortic arch. Cardiac silhouette normal in size. Lungs and pleural spaces clear. Evidence of old left rib fractures. Upper abdomen normal. IMPRESSION: 1. No acute cardiopulmonary disease. Electronically signed by: Good Villar M.D. 01/03/2018 11:52 AM Dictated Date/Time: 01/03/2018 11:51 AM Laboratory Results 01/03/18 11:48 Red Blood Count 5.32, Mean Corpuscular Volume 87.4, Mean Corpuscular Hemoglobin 30.1, Mean Corpuscular Hemoglobin Concent 34.4, Mean Platelet Volume 8.6, Neutrophils (%) (Auto) 65.6, Lymphocytes (%) (Auto) 20.3, Monocytes (%) (Auto) 10.2, Eosinophils (%) (Auto) 3.5, Basophils (%) (Auto) 0.2, Neutrophils # (Auto ) 3.20, Lymphocytes # (Auto) 0.99, Monocytes # (Auto) 0.50, Eosinophils # (Auto ) 0.17, Basophils # (Auto) 0.01 01/03/18 11:48 Test 01/03/18 11:41 01/03/18 11:47 01/03/18 11:48 01/03/18 12:20 Bedside Glucose 126 mg/dl (70-99) Prothrombin Time 10.4 SECONDS (9.0-12.0) Prothromb Time International Ratio 1.0 (0.9-1.1) Activated Partial Thromboplast Time 25.0 SECONDS (21.0-31.0) Partial Thromboplastin Ratio 1.0 White Blood Count 4.88 K/uL (4.8-10.8) Red Blood Count 5.32 M/uL (4.7-6.1) Hemoglobin 16.0 g/dL (14.0-18.0) Hematocrit 46.5 % (42-52) Mean Corpuscular Volume 87.4 fL (80-100) Mean Corpuscular Hemoglobin 30.1 pg (25-34) Mean Corpuscular Hemoglobin Concent 34.4 g/dl (32-36) Platelet Count 211 K/uL (130-400) Mean Platelet Volume 8.6 fL (7.4-10.4) Neutrophils (%) (Auto) 65.6 % Lymphocytes (%) (Auto) 20.3 % Monocytes (%) (Auto) 10.2 % Eosinophils (%) (Auto) 3.5 % Basophils (%) (Auto) 0.2 % Neutrophils # (Auto) 3.20 K/uL (1.4-6.5) Lymphocytes # (Auto) 0.99 K/uL (1.2-3.4) Monocytes # (Auto) 0.50 K/uL (0.11-0.59) Eosinophils # (Auto) 0.17 K/uL (0-0.5) Basophils # (Auto) 0.01 K/uL (0-0.2) RDW Standard Deviation 41.1 fL (36.4-46.3) RDW Coefficient of Variation 12.8 % (11.5-14.5) Immature Granulocyte % (Auto) 0.2 % Immature Granulocyte # (Auto) 0.01 K/uL (0.00-0.02) Anion Gap 6.0 mmol/L (3-11) Est Creatinine Clear Calc Drug Dose 70.6 ml/min Estimated GFR () 81.5 Estimated GFR (Non- 70.4 BUN/Creatinine Ratio 15.2 (10-20) Calcium Level 8.6 mg/dl (8.5-10.1) Magnesium Level 2.0 mg/dl (1.8-2.4) Total Bilirubin 0.5 mg/dl (0.2-1) Direct Bilirubin 0.1 mg/dl (0-0.2) Aspartate Amino Transf (AST/SGOT) 18 U/L (15-37) Alanine Aminotransferase (ALT/SGPT) 50 U/L (12-78) Alkaline Phosphatase 61 U/L (45-117) Troponin I < 0.015 ng/ml (0-0.045) Total Protein 6.9 gm/dl (6.4-8.2) Albumin 3.6 gm/dl (3.4-5.0) Thyroid Stimulating Hormone (TSH) 1.880 uIu/ml (0.300-4.500) Urine Color YELLOW Urine Appearance CLEAR (CLEAR) Urine pH 6.5 (4.5-7.5) Urine Specific Hercules 1.006 (1.000-1.030) Urine Protein NEG (NEG) Urine Glucose (UA) NEG (NEG) Urine Ketones NEG (NEG) Urine Occult Blood NEG (NEG) Urine Nitrite NEG (NEG) Urine Bilirubin NEG (NEG) Urine Urobilinogen NEG (NEG) Urine Leukocyte Esterase NEG (NEG) Laboratory results per my review. ECG Per My Interpretation Indication: weakness Rate (beats per minute): 73 Rhythm: normal sinus Findings: nonspecific-ST abn (Anterior), other (No PVC) Comparison ECG Date: 03/09/17 Change: no significant change ED Course 1111: The patient was evaluated in room C6. A complete history and physical examination were performed. 1323: Upon reevaluation, the patient is resting. I discussed the results and treatment plan with him. He verbalized agreement of the treatment plan. He was discharged home. Medical Decision Differential diagnosis: Etiologies such as metabolic, infection, hypo/hyperglycemia, electrolyte abnormalities, cardiac sources, intracerebral event, toxicologic, neurologic, as well as others were entertained. Nursing notes reviewed. The patient is a 67-year-old male who presented to the emergency department for a brief episode of floaters and flashing lights in his right eye. The patient has a history of stroke and states that the symptoms were similar in the past. The patient had no new focal neurologic deficits on physical exam. His eye complaints had resolved. I discussed the patient's laboratory and radiographic studies with him. At this time I feel he may have had a TIA but he may also require dilation and direct visualization of his retina. I discussed the patient's laboratory and radiographic studies with him. He was encouraged to follow-up with his family doctor for further evaluation and also for further testing including carotid Dopplers echocardiogram and MRI but also I encouraged him to follow up with his primary circulation worker for further evaluation. I also encouraged him to return the emergency department immediately if symptoms change worsen or the need arises. Medication Reconcilliation Current Medication List: was personally reviewed by me Blood Pressure Screening Patient's blood pressure: Elevated blood pressure Blood pressure disposition: Referred to PCP Impression Primary Impression: TIA (transient ischemic attack) Additional Impression: Floaters Scribe Attestation The scribe's documentation has been prepared under my direction and personally reviewed by me in its entirety. I confirm that the note above accurately reflects all work, treatment, procedures, and medical decision making performed by me. Departure Information Dispostion Home / Self-Care Referrals JEAN PIERRE CRAIG (PCP) Forms HOME CARE DOCUMENTATION FORM, IMPORTANT VISIT INFORMATION, WORK / SCHOOL INSTRUCTIONS Patient Instructions Flashes and Floaters, [facility], TIA Additional Instructions Follow-up with your family doctor for further evaluation. He may require an echocardiogram and carotid Dopplers to further evaluate any further treatment. Return in the emergency department immediately if symptoms change worsen or the need arises. Follow-up with your primary eye doctor as well. He may require a dilation of your eye and a formal evaluation of your retina. Continue all medications as prescribed. Problem Qualifiers Primary Impression: TIA (transient ischemic attack) Transient cerebral ischemia type: unspecified Qualified Codes: G45.9 - Transient cerebral ischemic attack, unspecified Additional Impression: Floaters Laterality: unspecified laterality Qualified Codes: H43.399 - Other vitreous opacities, unspecified eye
--- NOTE | 2018-01-03 11:53 | DIAGNOSTIC IMAGING REPORT ---
CHEST ONE VIEW PORTABLE CLINICAL HISTORY: 67 years-old Male presenting with EVALUATE ALTERED MENTAL STATUS/WEAKNESS. TECHNIQUE: Portable upright AP view of the chest was obtained. COMPARISON: 03/09/2017. FINDINGS: Atherosclerosis of the aortic arch. Cardiac silhouette normal in size. Lungs and pleural spaces clear. Evidence of old left rib fractures. Upper abdomen normal. IMPRESSION: 1. No acute cardiopulmonary disease. Electronically signed by: Good Villar M.D. 01/03/2018 11:52 AM Dictated Date/Time: 01/03/2018 11:51 AM
[2018-01-03 12:00] LABS: BASO % 0.2 %; BASO ABS # 0.01 K/uL (0-0.2); EOS % 3.5 %; EOS ABS # 0.17 K/uL (0-0.5); HEMATOCRIT 46.5 % (42-52); IG# 0.01 K/uL (0.00-0.02); LYMPH % 20.3 %; LYMPH ABS # 0.99 K/uL (1.2-3.4); MEAN CELL VOLUME 87.4 fL (80-100); MEAN CORPUSCULAR HEMOGLOBIN 30.1 pg (25-34); MEAN CORPUSCULAR HGB CONC 34.4 g/dl (32-36); MEAN PLATELET VOLUME 8.6 fL (7.4-10.4); MONO % 10.2 %; NEUT % 65.6 %; PLATELET COUNT 211 K/uL (130-400); RED CELL DISTRIBUTION WIDTH CV 12.8 % (11.5-14.5); RED CELL DISTRIBUTION WIDTH SD 41.1 fL (36.4-46.3); WHITE BLOOD COUNT 4.88 K/uL (4.8-10.8)
--- NOTE | 2018-01-03 12:12 | DIAGNOSTIC IMAGING REPORT ---
HEAD WITHOUT CONTRAST (CT) CLINICAL HISTORY: 67 years-old Male presenting with EVALUATE ALTERED MENTAL STATUS/WEAKNESS. TECHNIQUE: Multidetector CT imaging of the head was performed without the use of intravenous contrast. IV contrast: None. A dose lowering technique was used consistent with the principles of ALARA (as low as reasonably achievable). COMPARISON: 03/09/2017. CT DOSE (mGy.cm): The estimated cumulative dose is 687.98 mGy.cm. FINDINGS: Radiology Receptionist topogram: Unremarkable. Ventricles and sulci normal in size. Cystic encephalomalacia and gliosis in the right frontal and right insular cortex consistent with prior infarct. No mass effect or midline shift. No hemorrhage or acute territorial infarct. No extra-axial fluid collection. Extensive mucosal thickening in the bilateral maxillary sinuses. Calvarium intact. IMPRESSION: 1. No acute intracranial abnormality. 2. 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 3. Extensive mucosal thickening in the bilateral maxillary sinuses. Electronically signed by: Good Villar M.D. 01/03/2018 12:11 PM Dictated Date/Time: 01/03/2018 12:08 PM
[2018-01-03 12:14] LABS: ALBUMIN 3.6 gm/dl (3.4-5.0); ALT/SGPT 50 U/L (12-78); BLOOD UREA NITROGEN 17 mg/dl (7-18); CALCIUM 8.6 mg/dl (8.5-10.1); CARBON DIOXIDE 28 mmol/L (21-32); CREATININE 1.09 mg/dl (0.60-1.40); GLUCOSE 119 mg/dl (70-99); POTASSIUM 3.6 mmol/L (3.5-5.1); SODIUM 140 mmol/L (136-145)
[2018-01-03 12:24] LABS: ALKALINE PHOSPHATASE 61 U/L (45-117); AST/SGOT 18 U/L (15-37); TOTAL PROTEIN 6.9 gm/dl (6.4-8.2)
[2018-01-03 13:18] VITALS: BP 144/73; PULSE 74; O2SAT 97
== END 2018-01-03 13:31 | disposition home or self-care (01) ==
LOC: EDBD 11:05 → C.EDC 11:06
DX: G45.9 Transient cerebral ischemic attack, unspecified (principal); H43.391 Other vitreous opacities, right eye; I10 Essential (primary) hypertension; Z79.02 Long term (current) use of antithrombotics/antiplatelets; Z87.891 Personal history of nicotine dependence; Z86.73 Personal history of transient ischemic attack (TIA), and cerebral infarction without residual deficits

== ENCOUNTER 2018-06-04 19:47 | Emergency (ER) | payer BC ==
[~2018-06-04 19:47] MED LIST changes: +CZR25 PO
[2018-06-04 19:51] VITALS: TEMP 36.8; Ht 172.7 cm
--- NOTE | 2018-06-04 20:06 | EMERGENCY ROOM VISIT NOTE ---
History Report prepared by Gali: Dhruv Jimenez Under the Supervision of: Dr. Alexys Ambrosio M.D. First contact with patient: 19:52 Chief Complaint: HYPERTENSION Stated Complaint: HIGH BLOOD PRESSURE History of Present Illness The patient is a 67 year old male who presents to the Emergency Room with complaints of intermittent hypertension that began today. Patient states his blood pressure is "out of control" with it hovering around the "160's". He states he started a new blood pressure medication which caused him to feel fatigued and "washed out". Patient adds he also has an intermittent headache that began a week ago. He states the headache is located in the back of his neck /head. He denies a history of headaches. Patient states he was seen in the ER in December for similar symptoms. Past medical history includes a stroke in 2012. Patient states he is a former smoker. He adds he lives at [facility]. Patient states he took Losartan and Plavix today. He adds he has taken Cozaar in the past. Patient denies trouble speaking, changes in vision, recent falls, chest pain, generalized pain, and leg swelling/soreness. Patient is present with his daughter. Source of History: patient Onset: Today Position: chest Symptom Intensity: "160's" Quality: other ("out of control") Timing: intermittent Modifying Factors (Relieving): other (None) Associated Symptoms: + headache, + fatigue, + weakness, No chest pain Note: Negative trouble speaking, changes in vision, recent falls, generalized pain, and leg swelling/soreness. Review of Systems See HPI for pertinent positives and negatives. A total of ten systems were reviewed and were otherwise negative. Past Medical & Surgical Medical Problems: (1) Benign hypertension (2) Eczema (3) Embolic cerebral infarction (4) History of - pneumonia (5) Physical deconditioning (6) Stroke Family History Patient reports no known family medical history. Social History Smoking Status: Former Smoker Alcohol Use: occasionally Marital Status: single Housing Status: lives with family, other Occupation Status: employed, retired Current/Historical Medications Scheduled Amlodipine Besylate (Norvasc), 2.5 MG PO QAM Atorvastatin (Lipitor), 40 MG PO QPM Clopidogrel (Plavix), 75 MG PO DAILY Losartan Potassium (Losartan Potassium), 25 MG PO QPM Scheduled PRN Acetaminophen Tab (Tylenol), 650 MG PO Q6H PRN for Mild Pain Tramadol (Ultram), 50 MG PO Q6H PRN for Headache Allergies Coded Allergies: No Known Allergies (Unverified , 01/03/18) Physical Exam Vital Signs Date Time Temp Pulse Resp B/P (MAP) Pulse Ox O2 Delivery O2 Flow Rate FiO2 06/04/18 21:08 69 18 153/102 95 Room Air 06/04/18 20:35 96 Room Air 06/04/18 20:35 96 Room Air 06/04/18 20:29 82 06/04/18 20:26 73 06/04/18 20:19 174/93 06/04/18 19:51 36.8 83 18 198/106 94 Room Air Physical Exam GENERAL: Awake, alert, well-appearing, in no distress HENT: Normocephalic, atraumatic. Oropharynx unremarkable. EYES: Normal conjunctiva. Sclera non-icteric. NECK: Supple. No nuchal rigidity. RESPIRATORY: Clear to auscultation. No wheezes. Normal respiratory effort. CARDIAC: Normal rate. Normal rhythm. Extremities warm and well perfused. GI: Soft, non-distended. No tenderness to palpation. No rebound or guarding. No masses. RECTAL: Deferred. MUSCULOSKELETAL: Atraumatic. Chest examination reveals no tenderness. The back is symmetrical on inspection without obvious abnormality. There is no CVA tenderness to palpation. LOWER EXTREMITIES: Calves are equal size bilaterally and non-tender. No edema NEURO: LUE weakness and mild contractures particularly in forearm and hand reported to be at baseline. LLE with muscle contracture and decreased movement/ weakness reported to be at baseline. Slight left facial droop reported to be at baseline otherwise normal sensorium. No sensory or motor deficits noted. SKIN: Warm and dry. No rash or jaundice noted. Medical Decision & Procedures ER Provider Diagnostic Interpretation: Radiology results as stated below per my review and radiologist interpretation: CHEST ONE VIEW PORTABLE CLINICAL HISTORY: severe hypertension COMPARISON STUDY: January 03, 2018 FINDINGS: The cardiac and mediastinal contours remain stable. There is mild basilar interstitial thickening unchanged the prior study. There are old left-sided rib fractures. There is no overt failure. There is no lobar consolidation. There are no pleural effusions.[ IMPRESSION: No active disease in the chest. Electronically signed by: Balta Jones M.D. 06/04/2018 8:24 PM Laboratory Results 06/04/18 20:11 Red Blood Count 5.49, Mean Corpuscular Volume 89.6, Mean Corpuscular Hemoglobin 30.4, Mean Corpuscular Hemoglobin Concent 33.9, Mean Platelet Volume 8.9, Neutrophils (%) (Auto) 50.6, Lymphocytes (%) (Auto) 33.9, Monocytes (%) (Auto) 10.5, Eosinophils (%) (Auto) 4.5, Basophils (%) (Auto) 0.3, Neutrophils # (Auto ) 3.12, Lymphocytes # (Auto) 2.09, Monocytes # (Auto) 0.65, Eosinophils # (Auto ) 0.28, Basophils # (Auto) 0.02 06/04/18 20:11 Test 06/04/18 20:11 06/04/18 20:32 White Blood Count 6.17 K/uL (4.8-10.8) Red Blood Count 5.49 M/uL (4.7-6.1) Hemoglobin 16.7 g/dL (14.0-18.0) Hematocrit 49.2 % (42-52) Mean Corpuscular Volume 89.6 fL (80-100) Mean Corpuscular Hemoglobin 30.4 pg (25-34) Mean Corpuscular Hemoglobin Concent 33.9 g/dl (32-36) Platelet Count 230 K/uL (130-400) Mean Platelet Volume 8.9 fL (7.4-10.4) Neutrophils (%) (Auto) 50.6 % Lymphocytes (%) (Auto) 33.9 % Monocytes (%) (Auto) 10.5 % Eosinophils (%) (Auto) 4.5 % Basophils (%) (Auto) 0.3 % Neutrophils # (Auto) 3.12 K/uL (1.4-6.5) Lymphocytes # (Auto) 2.09 K/uL (1.2-3.4) Monocytes # (Auto) 0.65 K/uL (0.11-0.59) Eosinophils # (Auto) 0.28 K/uL (0-0.5) Basophils # (Auto) 0.02 K/uL (0-0.2) RDW Standard Deviation 43.6 fL (36.4-46.3) RDW Coefficient of Variation 13.2 % (11.5-14.5) Immature Granulocyte % (Auto) 0.2 % Immature Granulocyte # (Auto) 0.01 K/uL (0.00-0.02) Prothrombin Time 9.7 SECONDS (9.0-12.0) Prothromb Time International Ratio 0.9 (0.9-1.1) Activated Partial Thromboplast Time 22.9 SECONDS (21.0-31.0) Partial Thromboplastin Ratio 0.9 Anion Gap 7.0 mmol/L (3-11) Estimated GFR () 67.8 Estimated GFR (Non- 58.5 BUN/Creatinine Ratio 14.7 (10-20) Calcium Level 8.6 mg/dl (8.5-10.1) Total Bilirubin 0.3 mg/dl (0.2-1) Direct Bilirubin 0.1 mg/dl (0-0.2) Aspartate Amino Transf (AST/SGOT) 24 U/L (15-37) Alanine Aminotransferase (ALT/SGPT) 68 U/L (12-78) Alkaline Phosphatase 61 U/L (45-117) Troponin I < 0.015 ng/ml (0-0.045) Total Protein 7.8 gm/dl (6.4-8.2) Albumin 3.9 gm/dl (3.4-5.0) Lipase 158 U/L (73-393) Thyroid Stimulating Hormone (TSH) 2.730 uIu/ml (0.300-4.500) Urine Color YELLOW Urine Appearance CLEAR (CLEAR) Urine pH 5.0 (4.5-7.5) Urine Specific [place] 1.012 (1.000-1.030) Urine Protein NEG (NEG) Urine Glucose (UA) NEG (NEG) Urine Ketones NEG (NEG) Urine Occult Blood NEG (NEG) Urine Nitrite NEG (NEG) Urine Bilirubin NEG (NEG) Urine Urobilinogen NEG (NEG) Urine Leukocyte Esterase NEG (NEG) Laboratory results reviewed by me ECG Per My Interpretation Indication: weakness Rate (beats per minute): 77 Rhythm: normal sinus Findings: other (Normal axis, normal intervals, no ST segment elevations) Comparison ECG Date: 01/03/18 Change: no significant change (Nonspecific inferior T-wave changes which are unchanged) ED Course 1952: The patient was evaluated in room C4. A complete history and physical exam was performed. 2119: I reevaluated the patient and updated him on his findings. Discussed results and discharge instructions. He verbalized understanding and agreement. The patient is ready for discharge. Medical Decision Prior records/ancillary studies reviewed regarding the history above. Triage Nursing notes reviewed. The patient's history was concerning for hypertension. Differential diagnosis: Etiologies such as benign hypertension, hypertensive emergency, cardiovascular pathology, pheochromocytoma, electrolyte abnormality, renal disease, endorgan damage, as well as others were entertained. Patient presents stating all week she has had some issues with hypertension with blood pressures transiently in the 160s over 90s. Lives at the [facility] and talked with his regular doctor who has increased his regular losartan and added today for the first time amlodipine. States that this he felt a little bit of stomach upset and again continues to endorse generalized and posterior headache intermittently at times and generalized fatigue. Denies any new neurological symptoms. Denies and no evidence of new weakness or numbness or dysarthria or speech change. Patient does have some residual deficits from prior CVA. States that he is here just because he wants to get his blood pressure under better control. Very anxious regarding this. Denies fevers or other infectious symptomatologies. Basic labs, EKG, chest x-ray were completed. Discussed with him options head CT but has is not having any neurological symptoms at this time do not believe it has acute utility and they are in agreement. He seems acutely anxious and preoccupied about his blood pressure numbers. Not in acute hypertensive emergency. Discussed with him findings and recommended that he continue to follow with his regular doctor as an outpatient. BP improving during stay here. Discussed with him that aggressive blood pressure control acutely may result in hypotension and possible stroke. Recommended again that he continue to follow with his outpatient doctor. Recommended Tylenol as necessary for his headache. Medication Reconcilliation Current Medication List: was personally reviewed by me Blood Pressure Screening Patient's blood pressure: Elevated blood pressure Blood pressure disposition: Referred to PCP Impression Primary Impression: Hypertension Scribe Attestation The scribe's documentation has been prepared under my direction and personally reviewed by me in its entirety. I confirm that the note above accurately reflects all work, treatment, procedures, and medical decision making performed by me. Departure Information Dispostion Home / Self-Care Referrals Dmitri Watt D.O. (PCP) Forms HOME CARE DOCUMENTATION FORM, IMPORTANT VISIT INFORMATION, WORK / SCHOOL INSTRUCTIONS Patient Instructions Hypertension Control, My [facility] Additional Instructions Continue to keep good hydration and good fluid intake. Please monitor for any new symptoms developing particularly any neurological symptoms such as numbness weakness or visual change. As we discussed here, given that you just took your new blood pressure medicine several hours ago would give it some time before determining how effective it is. Will continue to take it tomorrow and the next day and see how your blood pressure is doing over this time. We will continue to follow closely with your regular doctor regarding your blood pressure control. If you have new symptoms or concerns at any time please feel free to return here for reevaluation. Problem Qualifiers Primary Impression: Hypertension Hypertension type: essential hypertension Qualified Codes: I10 - Essential ( primary) hypertension
[2018-06-04 20:21] LABS: BASO % 0.3 %; BASO ABS # 0.02 K/uL (0-0.2); EOS % 4.5 %; EOS ABS # 0.28 K/uL (0-0.5); HEMATOCRIT 49.2 % (42-52); HEMOGLOBIN 16.7 g/dL (14.0-18.0); IG# 0.01 K/uL (0.00-0.02); LYMPH % 33.9 %; LYMPH ABS # 2.09 K/uL (1.2-3.4); MEAN CELL VOLUME 89.6 fL (80-100); MEAN CORPUSCULAR HEMOGLOBIN 30.4 pg (25-34); MEAN CORPUSCULAR HGB CONC 33.9 g/dl (32-36); MEAN PLATELET VOLUME 8.9 fL (7.4-10.4); MONO % 10.5 %; MONO ABS # 0.65 K/uL (0.11-0.59); NEUT % 50.6 %; NEUT ABS # 3.12 K/uL (1.4-6.5); PLATELET COUNT 230 K/uL (130-400); RED CELL DISTRIBUTION WIDTH CV 13.2 % (11.5-14.5); RED CELL DISTRIBUTION WIDTH SD 43.6 fL (36.4-46.3); WHITE BLOOD COUNT 6.17 K/uL (4.8-10.8)
--- NOTE | 2018-06-04 20:25 | DIAGNOSTIC IMAGING REPORT ---
CHEST ONE VIEW PORTABLE CLINICAL HISTORY: severe hypertension COMPARISON STUDY: January 03, 2018 FINDINGS: The cardiac and mediastinal contours remain stable. There is mild basilar interstitial thickening unchanged the prior study. There are old left-sided rib fractures. There is no overt failure. There is no lobar consolidation. There are no pleural effusions.[ IMPRESSION: No active disease in the chest. Electronically signed by: Balta Jones M.D. 06/04/2018 8:24 PM Dictated Date/Time: 06/04/2018 8:23 PM
[2018-06-04 20:33] LABS: INR 0.9 (0.9-1.1); PTT PATIENT 22.9 SECONDS (21.0-31.0)
[2018-06-04 20:35] VITALS: O2SAT 96
[2018-06-04] MEDS ORDERED: ATOR-24 PO (20:56)
[2018-06-04] MEDS ORDERED: AMLO2.5T PO (20:56)
[2018-06-04] MEDS ORDERED: TRAM-10 PO (20:56)
[2018-06-04] MEDS ORDERED: ACET-1693 PO (20:56)
[2018-06-04 20:57] LABS: ALBUMIN 3.9 gm/dl (3.4-5.0); ALKALINE PHOSPHATASE 61 U/L (45-117); ALT/SGPT 68 U/L (12-78); AST/SGOT 24 U/L (15-37); BLOOD UREA NITROGEN 19 mg/dl (7-18); CALCIUM 8.6 mg/dl (8.5-10.1); CARBON DIOXIDE 26 mmol/L (21-32); CREATININE 1.27 mg/dl (0.60-1.40); GLUCOSE 145 mg/dl (70-99); LIPASE 158 U/L (73-393); POTASSIUM 3.6 mmol/L (3.5-5.1); SODIUM 139 mmol/L (136-145); TOTAL PROTEIN 7.8 gm/dl (6.4-8.2)
[2018-06-04 21:08] VITALS: BP 153/102; PULSE 69; O2SAT 95
== END 2018-06-04 21:20 | disposition home or self-care (01) ==
LOC: C.EDB 19:48 → C.EDC 21:20
DX: I10 Essential (primary) hypertension (principal); R51 Headache; R53.83 Other fatigue; R53.1 Weakness; Z79.02 Long term (current) use of antithrombotics/antiplatelets; Z79.899 Other long term (current) drug therapy; Z86.73 Personal history of transient ischemic attack (TIA), and cerebral infarction without residual deficits; Z87.891 Personal history of nicotine dependence

== ENCOUNTER 2023-10-20 00:03 | Observation (INO) ==
[2023-10-20] MEDS ORDERED: FAMOTIDINE 20MG IV PUSH 20 MG/5 ML SYR IV STA (00:10)
--- NOTE | 2023-10-20 00:15 | Emergency Department Note ---
History of Present Illness General Chief complaint: Chest Pain Stated complaint: CHEST PAIN Time Seen by Provider: 10/20/23 00:06 History of Present Illness This 71-year-old male presents the ER complaining of chest pain for the past few nights that has been lasting for about half hour. Nothing makes it better or worse. EMS gave aspirin and nitroglycerin. Patient denies fever, chills, cough, congestion, abdominal pain, back pain, leg pain or swelling. He has a distant history of a PE. No prior heart attack. 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 Home Medications Medication Instructions Recorded Confirmed Type atorvastatin 40 mg tablet 40 mg PO QPM #90 tabs 06/22/19 10/20/23 Rx hydrochlorothiazide 12.5 mg tablet 12.5 mg PO QAM 01/01/20 10/20/23 History losartan 50 mg tablet 50 mg PO BID 01/01/20 10/20/23 History acetaminophen 325 mg tablet 650 mg PO QID 10/20/23 10/20/23 History (Tylenol) amlodipine 5 mg tablet 5 mg PO QAM 10/20/23 10/20/23 History clopidogrel 75 mg tablet 75 mg PO QDL 10/20/23 10/20/23 History glipizide 10 mg tablet 10 mg PO BID 10/20/23 10/20/23 History metformin 850 mg tablet 850 mg PO BID 10/20/23 10/20/23 History polyethylene glycol 3350 17 17 g PO DAILY 10/20/23 10/20/23 History gram/dose oral powder (Miralax) Allergies Allergy/AdvReac Type Severity Reaction Status Date / Time No Known Allergies Allergy Verified 10/20/23 01:09 Past Med/Surg History Medical History (Updated 10/20/23 @ 02:46 by Beverly Russell PA-C) History of eczema History of stroke History of palpitations History of pulmonary embolism Surgical History No significant past surgical history Family History Other Coronary arteriosclerosis Diabetes Hypertension Denies family history of Ovarian cancer Prostate cancer Myocardial infarction Breast cancer Social History Smoking Status: Former smoker Tobacco Type: Cigarettes Do You Dip or Chew Tobacco: No; Hx Alcohol Use: Yes Hx Substance Use: No Preferred Language: Hebrew Communication Ability: Effective Visual Impairment: No Limitations Hearing 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: Normal 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 marital status: Current Living Situation: Personal Care Facility current occupational status: disabled Feels Safe at Home: Yes Review of Systems A total of 10 systems reviewed and were otherwise negative Physical Exam Vital Signs Vital Signs - 24 hr 10/20/23 00:09 10/20/23 00:09 10/20/23 00:11 Temperature 36.7 C Temperature Source Oral Pulse Rate 112 H 110 H Pulse Rate [Apical] Respiratory Rate 20 Respiratory Effort / Characteristics Non-Labored Spontaneous Respiratory Depth Normal Respiratory Pattern Regular Blood Pressure 146/85 H Blood Pressure [Right Arm] Blood Pressure Mean 105 Blood Pressure Mean [Right Arm] Pulse Oximetry 94 94 Oxygen Delivery Method Room Air Room Air Sepsis New/Unexplained Change in Mental Status No Sepsis Action Taken by Nursing No Action Required 10/20/23 00:50 10/20/23 02:01 Temperature Temperature Source Pulse Rate Pulse Rate [Apical] 98 H 85 Respiratory Rate 21 20 Respiratory Effort / Characteristics Non-Labored Spontaneous Non-Labored Spontaneous Respiratory Depth Normal Normal Respiratory Pattern Regular Regular Blood Pressure Blood Pressure [Right Arm] 117/66 130/92 Blood Pressure Mean Blood Pressure Mean [Right Arm] 83 104 Pulse Oximetry 95 93 Oxygen Delivery Method Room Air Room Air Sepsis New/Unexplained Change in Mental Status Sepsis Action Taken by Nursing VITALS: Vitals are noted on the nurse's note and reviewed by myself. Vital signs stable. GENERAL: Pleasant gentleman, in no acute distress, nondiaphoretic, well- developed well-nourished. SKIN: Capillary reflex less than 2 seconds. HEENT: Normocephalic. PERRLA. EOMI. Nares patent. Mucous membranes moist. Neck is supple without nuchal rigidity. HEART: Regular rate and rhythm LUNGS: Clear to auscultation bilaterally without wheezes, rales or rhonchi. No retractions or accessory muscle use. ABDOMEN: Positive bowel sounds x 4. Normal tympanic percussion. Soft, nontender, without masses or organomegaly. Pelaez sign negative. No guarding or rebound tenderness. MUSCULOSKELETAL: No gross musculoskeletal defects. NEURO: Patient was alert and oriented to person place and time. No focal neurological deficits. Course Administered Medications Discontinued Medications Famotidine (Pepcid 20mg Iv Push) 20 mg in 5 mls @ 2.5 mls/min IV NOW STA Stop: 10/20/23 00:11 Last Admin: 10/20/23 00:44 Dose: 2.5 mls/min Documented By: ELISE Ioversol (Optiray 320 125ml) 125 ml IV ONCE ONE Stop: 10/20/23 01:08 Last Admin: 10/20/23 01:08 Dose: 90 ml Documented By: PARAM Medical Decision Making Medical Records Attestation: I reviewed the patient's medical records. Home Medications Current Medication List: was personally reviewed by me Laboratory Data Attestation: I reviewed the patient's lab results. 10/20/23 00:30 10/20/23 00:30 Lab Results 10/20/23 10/20/23 10/20/23 Range/Units 00:30 00:40 01:30 WBC 8.65 (4.8-10.8) K/ul RBC 5.48 (4.70-6.10) M/uL Hgb 16.5 (14.0-18.0) g/dl POC Hgb 17.3 (14.0-18.0) g/dl Hct 48.9 (42.0-52.0) % POC Hct 51 (42-52) % MCV 89.2 (80.0-100.0) fL MCH 30.1 (25.0-34.0) pg MCHC 33.7 (32.0-36.0) g/dL RDW Std Deviation 40.3 (36.4-46.3) fL RDW Coeff of Megan 12.3 (11.5-14.5) % Plt Count 364 (130-400) K/uL MPV 8.6 L (9.4-12.4) fL Immature Gran % (Auto) 0.3 % Neut % (Auto) 63.8 % Lymph % (Auto) 25.5 % Gordon % (Auto) 6.4 % Eos % (Auto) 3.5 % Baso % (Auto) 0.5 % Neut # (Auto) 5.52 (1.40-6.50) K/uL Lymph # (Auto) 2.21 (1.20-3.40) K/uL Gordon # (Auto) 0.55 (0.11-0.59) K/uL Eos # (Auto) 0.30 (0.00-0.50) K/uL Baso # (Auto) 0.04 (0.00-0.20) K/uL Immature Gran # (Auto) 0.03 (0.01-0.20) K/uL POC Sodium 139 (135-144) mmol/L Sodium 139 (136-145) mmol/L POC Potassium 3.6 (3.3-5.0) mmol/L Potassium 3.7 (3.5-5.1) mmol/L POC Chloride 101 (101-112) mmol/L Chloride 99 (98-107) mmol/L Carbon Dioxide 27 (21-32) mmol/L POC Total CO2 26 (24-31) mmol/L Anion Gap 13 H (3-11) POC Anion Gap 17.0 (16-25) mmol/L POC BUN 21 H (7-18) mg/dl BUN 20 (6-23) mg/dl Creatinine 1.05 (0.6-1.4) mg/dl POC Creatinine 1.0 (0.6-1.3) mg/dl Est Cr Clr Drug Dosing 67.1 ml/min Est GFR ( Amer) 81.8 ml/min Est GFR (Non-Af Amer) 70.6 ml/min BUN/Creatinine Ratio 19.0 (10-20) Glucose 117 H (70-99(Fasting)) mg/dl POC Glucose (other) 123 H (70-99) mg/dl Calcium 10.6 H (8.6-10.3) mg/dl POC Ioniz Calcium Lev 1.21 (1.12-1.32) mmol/l Total Bilirubin 0.6 (0.2-1.0) mg/dl AST 27 (13-39) U/L ALT 43 (7-52) U/L Alkaline Phosphatase 59 (34-104) U/L Troponin I High Sens 22.7 H (0-20) pg/ml Total Protein 8.3 (6.0-8.3) gm/dl Albumin 4.9 (3.4-5.0) gm/dl Globulin 3.4 (2.5-4.0) gm/dl Albumin/Globulin Ratio 1.4 (0.9-2) Lipase 69 (11-82) U/L SARS-CoV-2, RNA, NAAT POSITIVE A* (NEGATIVE) Imaging Data Attestation: I personally reviewed and interpreted this imaging study as follows: Radiologist's Impression: Chest CTA 10/20/23 00:10 Exam(s): CTA CHEST IV Amt: 90 ML OPTIRAY 320 EXAM: CT Angiography Chest With Intravenous Contrast CLINICAL HISTORY: Chest Pain, eval for PE, hx PE. TECHNIQUE: Axial computed tomographic angiography images of the chest with intravenous contrast. CTDI is 34.68 mGy and DLP is 781.99 mGy-cm. Automated exposure control was utilized for the study. A dose lowering technique was utilized adhering to the principles of ALARA. MIP reconstructed images were created and reviewed. COMPARISON: CTA chest dated 02/27/2013 FINDINGS: Limitations: There is respiratory artifact, most notable through the lung bases, which degrades image quality on multiple image slices. Pulmonary arteries: Accounting for limitations with respiratory artifact, there is no evidence for pulmonary embolism. Several distal subsegmental pulmonary artery segments are of nondiagnostic quality, particularly through the lung bases. No obvious residual thrombotic burden in the pulmonary artery segments serving the left lower lobe. Aorta: No acute findings. No thoracic aortic aneurysm. Lungs: Dependent subsegmental changes noted involving both lungs. No focal airspace consolidation. Pleural space: Unremarkable. No significant effusion. No pneumothorax. Heart: Cardiac chambers are within normal limits in size. Coronary artery calcification is of uncertain clinical significance in patients of this age group. No pericardial effusion. Bones/joints: No acute fracture. No dislocation. Soft tissues: Unremarkable. Lymph nodes: Unremarkable. No enlarged lymph nodes. IMPRESSION: 1. Accounting for limitations with respiratory artifact, there is no evidence for pulmonary embolism. Several distal subsegmental pulmonary artery segments are of nondiagnostic quality, particularly through the lung bases. 2. Dependent subsegmental presumed atelectatic changes noted involving both lungs with expiratory lung volumes. No focal airspace consolidation. No pleural effusion or pneumothorax. Electronically signed by: Nahid Strauss MD 10/20/23 02:[address] [facility] Narrative Prior records/ancillary studies reviewed. Triage Nursing notes reviewed. Additional history obtained from EMS. The patient's history was concerning for chest pain. Differential diagnosis: Etiologies such as cardiac ischemia, aortic dissection, pulmonary embolism, pneumonia, pneumothorax, musculoskeletal, infections, pericarditis, myocarditis, esophageal rupture, gastrointestinal, as well as others were entertained. Physical examination: As above. ER treatment provided: An order was placed for continuous cardiac monitoring. The monitor shows a rate of 60-120 with a sinus rhythm per my interpretation. Pepcid was ordered On reassessment the patient felt better. Diagnostic interpretation by me: #1 the electrocardiogram was ordered for chest pain EKG: Normal sinus, poor baseline, ST depression in the anterolateral leads, rate of 115. Impression sinus tachycardia with ST depression in the anterior lateral leads independently interpreted by myself and compared to EKG from 01-JAN-2020 and findings seem similar in appearance per my independent interpretation. I think arrhythmia is unlikely. EKG shows normal sinus rhythm with no interval abnormalities such as QT prolongation or WPW. There are no findings to suggest Brugada syndrome. Cardiac monitoring in the emergency department reveals no tachycardic or bradycardic dysrhythmia. Hypertrophic cardiomyopathy was considered but there are no clear historical elements pointing toward this. EKG is not suggestive. The QRS voltage is not extremely large and there are no suggestive Q waves. #2 the electrocardiogram was ordered for chest pain EKG: Normal sinus, poor baseline, ST depression in the anterolateral leads, rate of 115. Impression sinus tachycardia with ST depression in the anterior lateral leads independently interpreted by myself and compared to EKG from 01-JAN-2020 and findings seem similar in appearance per my independent interpretation. I think arrhythmia is unlikely. EKG shows normal sinus rhythm with no interval abnormalities such as QT prolongation or WPW. There are no findings to suggest Brugada syndrome. Cardiac monitoring in the emergency department reveals no tachycardic or bradycardic dysrhythmia. Hypertrophic cardiomyopathy was considered but there are no clear historical elements pointing toward this. EKG is not suggestive. The QRS voltage is not extremely large and there are no suggestive Q waves. The labs Independently Interpreted by myself revealed minimally elevated troponin and repeat was ordered No worrisome leukocytosis, stable H&H Imaging studies: Chest x-ray with no acute consolidation, pneumothorax or free air per my independent interpretation CTA was negative PE per radiology and per my independent review HEART SCORE: Hx: high/mod/low suspicion: 1 ECG: ST depression/nonspecific changes/normal: 1 Age: Greater than 65/45-64/less than 45: 2 Risk factors: (Hypertension, hyperlipidemia, diabetes, coronary disease, tobacco use, cocaine use): 1 Troponin: Greater than 2 times normal limits/1-2 times normal limits/normal: 1 Total: 6 Consultation: A consultation was placed with the hospitalist. The case was discussed and diagnostics were reviewed. The patient was evaluated in the ER for further treatment. Exam and history seem consistent chest pain with concerns for possible cardiac in etiology. First troponin was slightly elevated. Repeat was ordered. Repeat EKG was unchanged. Patient is agreeable treatment plan of admission. No recent cardiac workup and patient has no prior cardiac disease. Medicine was consulted and the case was discussed. Patient will be admitted to the medical service. By the evaluation outlined above emergent etiologies such as aortic dissection, pulmonary embolism, pneumonia, pneumothorax, infections, pericarditis, myocarditis, gastrointestinal, as well as others were deemed relatively unlikely. The pt informed about the findings as listed above. All questions were answered and pleased with the treatment. The chart was completed utilizing [employer] Speech voice recognition software. Grammatical errors, random word insertions, pronoun errors, and incomplete sentences are an occassional consequence of this system due to software limitations, ambient noise, and hardware issues. Any formal questions or concerns about the content, text, or information contained within the body of this dictation should be directly addressed to the physician collections assistant for clarification. Impression & Plan Chest pain, COVID-19, Elevated troponin Discharge Plan Visit Data Chief Complaint: Chest Pain Stated Complaint: CHEST PAIN ED Provider: Turner Saleh ED Midlevel Provider: Beveryl Russell Discharge Problem: Chest pain, COVID-19, Elevated troponin Patient Disposition: Admitted As Inpatient Condition: Good Discharge Instructions Interventions: ED Discharge Assessment Last Done: 10/20/23 02:39 Discharge Problem: Chest pain Qualifiers: Chest pain type: unspecified Qualified Code(s): R07.9 - Chest pain, unspecified
[2023-10-20 00:53] LABS: iSTAT Hemoglobin 17.3 g/dl (14.0-18.0); iSTAT Ionized Calcium 1.21 mmol/l (1.12-1.32); iSTAT Potassium 3.6 mmol/L (3.3-5.0)
[2023-10-20 00:56] LABS: Basophils # (auto) 0.04 K/uL (0.00-0.20); Basophils % (auto) 0.5 %; Eosinophils % (auto) 3.5 %; Hematocrit (blood only) 48.9 % (42.0-52.0); Hemoglobin 16.5 g/dl (14.0-18.0); Immature Granulocytes # (auto) 0.03 K/uL (0.01-0.20); Immature Granulocytes % (auto) 0.3 %; Lymphocytes # (auto) 2.21 K/uL (1.20-3.40); Lymphocytes % (auto) 25.5 %; Mean Corpuscular Hemoglobin 30.1 pg (25.0-34.0); Mean Corpuscular Hgb Conc 33.7 g/dL (32.0-36.0); Mean Corpuscular Volume 89.2 fL (80.0-100.0); Mean Platelet Volume 8.6 fL (9.4-12.4); Monocytes # (auto) 0.55 K/uL (0.11-0.59); Monocytes % (auto) 6.4 %; Neutrophils # (auto) 5.52 K/uL (1.40-6.50); Neutrophils % (auto) 63.8 %; Platelet Count 364 K/uL (130-400); RDW Coefficient of Variation 12.3 % (11.5-14.5); RDW Standard Deviation 40.3 fL (36.4-46.3); Red Blood Count 5.48 M/uL (4.70-6.10); White Blood Count 8.65 K/ul (4.8-10.8)
[2023-10-20 01:06] LABS: Est GFR (African American) 81.8 ml/min; Potassium 3.7 mmol/L (3.5-5.1)
[2023-10-20 01:07] LABS: Albumin Globulin Ratio 1.4 (0.9-2); Albumin Level 4.9 gm/dl (3.4-5.0); Bilirubin,Total 0.6 mg/dl (0.2-1.0); Calcium 10.6 mg/dl (8.6-10.3); Creatinine Clr Calc Pharmacy 67.1 ml/min; Est GFR (Non-African American) 70.6 ml/min; Globulin 3.4 gm/dl (2.5-4.0); Total Protein 8.3 gm/dl (6.0-8.3)
[2023-10-20] MEDS ORDERED: OPTIRAY 320 125ml IV ONE (01:07)
[2023-10-20 01:13] LABS: Troponin I High Sensitivity 22.7 pg/ml (0-20)
--- NOTE | 2023-10-20 01:22 | Emergency Department Note ---
ED Visit Note I was consulted by the Advanced Practice Provider. I personally made/approved the management plan and take responsibility for the patient management. I performed a substantive portion of the visit. This includes the aspects of: [-History/Physical/Personally seeing the patient] [-MDM] [-I independently interpreted the following studies:][Studies and results] [-I consulted with] [who recommended,] [- >50% time spent by physician] .
[2023-10-20] MEDS ORDERED: NITROGLYCERIN SL 0.4 MG/TAB TAB SL PRN (02:38)
[2023-10-20] MEDS ORDERED: GLUCOSE 40% GEL 15 GM TUBE PO PRN (02:38)
[2023-10-20] MEDS ORDERED: POLYETHYLENE (MIRALAX) 17 GM PACK PO PRN (02:38)
[2023-10-20] MEDS ORDERED: ACETAMINOPHEN 325 MG TAB PO PRN (02:38)
[2023-10-20] MEDS ORDERED: CARBOHYDRATES FOR HYPOGLYCEMIA PO PRN (02:38)
[2023-10-20] MEDS ORDERED: GLUCAGON FOR INJ 1 MG VIAL SQ PRN (02:38)
[2023-10-20] MEDS ORDERED: DEXTROSE 50% 50 ML SYRINGE IV PRN (02:38)
[2023-10-20] MEDS ORDERED: GLUCOSE 10 TAB/TUBE PO PRN (02:38)
--- NOTE | 2023-10-20 02:41 | History & Physical Report ---
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 Patient states since last 4 nights he is having chest pains radiating to his throat seems someone pressing with a fist ,moderate in severity and it last for 30 minutes and goes on its own and comes back next night Chest pain Comes in the night for 30 minutes for last 4 days EKG okay Troponin 22.7 Will observe in tele N.p.o. for now Serial cardiac enzymes and echocardiogram Consult cardiology in a.m. History of hypertension on hydrochlorothiazide, amlodipine and losartan We will monitor History of CVA Left-sided flaccid paralysis Wheelchair-bound On Plavix and statin Hyperlipidemia On statin Diabetes Hold home p.o. 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 Patient states since last 4 nights he is having chest pains radiating to his throat seems someone pressing with a fist ,moderate in severity and it last for 30 minutes and goes on its own and comes back next night. Currently resting comfortably. Denies any headache. No nausea. No sweating. States had cold symptoms couple of weeks ago. Has mild cough. No fevers. No shortness of breath. No abdominal pain. Constipated and uses MiraLAX. Normal bladder movements. Past medical history. As mentioned above Past surgical history. Cyst removal on his left arm Social history. Currently living at [facility]. Smoked 1 pack a day for 35 years. Quit in 2012. Currently not drinking alcohol. No drug use. Family history. Father had diabetes, heart disorder, hypertension. Mother had hypertension Allergies Allergy/AdvReac Type Severity Reaction Status Date / Time No Known Allergies Allergy Verified 10/20/23 01:09 Home Medications Medication Instructions Recorded Confirmed Type atorvastatin 40 mg tablet 40 mg PO QPM #90 tabs 06/22/19 10/20/23 Rx hydrochlorothiazide 12.5 mg tablet 12.5 mg PO QAM 01/01/20 10/20/23 History losartan 50 mg tablet 50 mg PO BID 01/01/20 10/20/23 History acetaminophen 325 mg tablet 650 mg PO QID 10/20/23 10/20/23 History (Tylenol) amlodipine 5 mg tablet 5 mg PO QAM 10/20/23 10/20/23 History clopidogrel 75 mg tablet 75 mg PO QDL 10/20/23 10/20/23 History glipizide 10 mg tablet 10 mg PO BID 10/20/23 10/20/23 History metformin 850 mg tablet 850 mg PO BID 10/20/23 10/20/23 History polyethylene glycol 3350 17 17 g PO DAILY 10/20/23 10/20/23 History gram/dose oral powder (Miralax) Past Med/Surg History Medical History (Updated 10/20/23 @ 02:46 by Beverly Russell PA-C) History of eczema History of stroke History of palpitations History of pulmonary embolism Surgical History No significant past surgical history Family History Other Coronary arteriosclerosis Diabetes Hypertension Denies family history of Ovarian cancer Prostate cancer Myocardial infarction Breast cancer Social History Smoking Status: Former smoker Tobacco Type: Cigarettes Do You Dip or Chew Tobacco: No; Hx Alcohol Use: No Hx Substance Use: No Preferred Language: Kinyarwanda Communication Ability: Effective Visual Impairment: No Limitations Hearing Ability: Normal 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 ENT- oropharynx clear Neck- supple, no JVD. Lungs- clear to auscultation, no wheezing or crackles Heart- regular rhythm; no murmur, no gallop. Abdomen- normal bowel sounds, soft, nontender, no distension. Extremities- no pretibial edema, no erythema seen. Neuro- alert, oriented x 3; PERRL, no dysarthria; Left sided weakness Skin- warm & dry Results & Data Results & Data Vital Signs (Past 12 Hours) Vital Signs Temp Pulse Pulse Resp BP BP Pulse Ox 10/20/23 00:50 98 H 21 117/66 95 10/20/23 00:11 110 H 10/20/23 00:09 94 10/20/23 00:09 36.7 C 112 H 20 146/85 H 94 O2 Del Method 10/20/23 00:50 Room Air 10/20/23 00:11 10/20/23 00:09 Room Air 10/20/23 00:09 Room Air Diagnostic Findings Laboratory Results WBC 8.65 K/ul (4.8-10.8) 10/20/23 00:30 RBC 5.48 M/uL (4.70-6.10) 10/20/23 00:30 Hgb 16.5 g/dl (14.0-18.0) 10/20/23 00:30 POC Hgb 17.3 g/dl (14.0-18.0) 10/20/23 00:40 Hct 48.9 % (42.0-52.0) 10/20/23 00:30 POC Hct 51 % (42-52) 10/20/23 00:40 MCV 89.2 fL (80.0-100.0) 10/20/23 00:30 MCH 30.1 pg (25.0-34.0) 10/20/23 00:30 MCHC 33.7 g/dL (32.0-36.0) 10/20/23 00:30 RDW Std Deviation 40.3 fL (36.4-46.3) 10/20/23 00:30 RDW Coeff of Megan 12.3 % (11.5-14.5) 10/20/23 00:30 Plt Count 364 K/uL (130-400) 10/20/23 00:30 MPV 8.6 fL (9.4-12.4) L 10/20/23 00:30 Immature Gran % (Auto) 0.3 % 10/20/23 00:30 Neut % (Auto) 63.8 % 10/20/23 00:30 Lymph % (Auto) 25.5 % 10/20/23 00:30 Towns % (Auto) 6.4 % 10/20/23 00:30 Eos % (Auto) 3.5 % 10/20/23 00:30 Baso % (Auto) 0.5 % 10/20/23 00:30 Neut # (Auto) 5.52 K/uL (1.40-6.50) 10/20/23 00:30 Lymph # (Auto) 2.21 K/uL (1.20-3.40) 10/20/23 00:30 Towns # (Auto) 0.55 K/uL (0.11-0.59) 10/20/23 00:30 Eos # (Auto) 0.30 K/uL (0.00-0.50) 10/20/23 00:30 Baso # (Auto) 0.04 K/uL (0.00-0.20) 10/20/23 00:30 Immature Gran # (Auto) 0.03 K/uL (0.01-0.20) 10/20/23 00:30 POC Sodium 139 mmol/L (135-144) 10/20/23 00:40 Sodium 139 mmol/L (136-145) 10/20/23 00:30 POC Potassium 3.6 mmol/L (3.3-5.0) 10/20/23 00:40 Potassium 3.7 mmol/L (3.5-5.1) 10/20/23 00:30 POC Chloride 101 mmol/L (101-112) 10/20/23 00:40 Chloride 99 mmol/L (98-107) 10/20/23 00:30 Carbon Dioxide 27 mmol/L (21-32) 10/20/23 00:30 POC Total CO2 26 mmol/L (24-31) 10/20/23 00:40 Anion Gap 13 (3-11) H 10/20/23 00:30 POC Anion Gap 17.0 mmol/L (16-25) 10/20/23 00:40 POC BUN 21 mg/dl (7-18) H 10/20/23 00:40 BUN 20 mg/dl (6-23) 10/20/23 00:30 Creatinine 1.05 mg/dl (0.6-1.4) 10/20/23 00:30 POC Creatinine 1.0 mg/dl (0.6-1.3) 10/20/23 00:40 Est Cr Clr Drug Dosing 67.1 ml/min 10/20/23 00:30 Est GFR ( Amer) 81.8 ml/min 10/20/23 00:30 Est GFR (Non-Af Amer) 70.6 ml/min 10/20/23 00:30 BUN/Creatinine Ratio 19.0 (10-20) 10/20/23 00:30 Glucose 117 mg/dl (70-99(Fasting)) H 10/20/23 00:30 POC Glucose (other) 123 mg/dl (70-99) H 10/20/23 00:40 Calcium 10.6 mg/dl (8.6-10.3) H 10/20/23 00:30 POC Ioniz Calcium Lev 1.21 mmol/l (1.12-1.32) 10/20/23 00:40 Total Bilirubin 0.6 mg/dl (0.2-1.0) 10/20/23 00:30 AST 27 U/L (13-39) 10/20/23 00:30 ALT 43 U/L (7-52) 10/20/23 00:30 Alkaline Phosphatase 59 U/L (34-104) 10/20/23 00:30 Troponin I High Sens 22.7 pg/ml (0-20) H 10/20/23 00:30 Total Protein 8.3 gm/dl (6.0-8.3) 10/20/23 00:30 Albumin 4.9 gm/dl (3.4-5.0) 10/20/23 00:30 Globulin 3.4 gm/dl (2.5-4.0) 10/20/23 00:30 Albumin/Globulin Ratio 1.4 (0.9-2) 10/20/23 00:30 Lipase 69 U/L (11-82) 10/20/23 00:30 SARS-CoV-2, RNA, NAAT POSITIVE (NEGATIVE) A* 10/20/23 01:30 ECG Additional Comments: ECG. Normal sinus rhythm rate of 97. Nonspecific ST-T abnormalities. No significant change was found. Code Status & VTE Plan VTE Prophylaxis Plan VTE Prophylaxis will be ordered: Yes (1) Chest pain Chest pain type: unspecified Qualified Code(s): R07.9 - Chest pain, unspecified
--- NOTE | 2023-10-20 02:44 | CT Scan Report ---
Exam(s): CTA CHEST IV Amt: 90 ML OPTIRAY 320 EXAM: CT Angiography Chest With Intravenous Contrast CLINICAL HISTORY: Chest Pain, eval for PE, hx PE. TECHNIQUE: Axial computed tomographic angiography images of the chest with intravenous contrast. CTDI is 34.68 mGy and DLP is 781.99 mGy-cm. Automated exposure control was utilized for the study. A dose lowering technique was utilized adhering to the principles of ALARA. MIP reconstructed images were created and reviewed. COMPARISON: CTA chest dated 02/27/2013 FINDINGS: Limitations: There is respiratory artifact, most notable through the lung bases, which degrades image quality on multiple image slices. Pulmonary arteries: Accounting for limitations with respiratory artifact, there is no evidence for pulmonary embolism. Several distal subsegmental pulmonary artery segments are of nondiagnostic quality, particularly through the lung bases. No obvious residual thrombotic burden in the pulmonary artery segments serving the left lower lobe. Aorta: No acute findings. No thoracic aortic aneurysm. Lungs: Dependent subsegmental changes noted involving both lungs. No focal airspace consolidation. Pleural space: Unremarkable. No significant effusion. No pneumothorax. Heart: Cardiac chambers are within normal limits in size. Coronary artery calcification is of uncertain clinical significance in patients of this age group. No pericardial effusion. Bones/joints: No acute fracture. No dislocation. Soft tissues: Unremarkable. Lymph nodes: Unremarkable. No enlarged lymph nodes. IMPRESSION: 1. Accounting for limitations with respiratory artifact, there is no evidence for pulmonary embolism. Several distal subsegmental pulmonary artery segments are of nondiagnostic quality, particularly through the lung bases. 2. Dependent subsegmental presumed atelectatic changes noted involving both lungs with expiratory lung volumes. No focal airspace consolidation. No pleural effusion or pneumothorax. Electronically signed by: Nahid Strauss MD 10/20/23 02:43 AM
[2023-10-20 05:59] LABS: Basophils # (auto) 0.03 K/uL (0.00-0.20); Basophils % (auto) 0.4 %; Eosinophils # (auto) 0.14 K/uL (0.00-0.50); Eosinophils % (auto) 1.9 %; Hematocrit (blood only) 41.7 % (42.0-52.0); Hemoglobin 14.1 g/dl (14.0-18.0); Immature Granulocytes # (auto) 0.03 K/uL (0.01-0.20); Immature Granulocytes % (auto) 0.4 %; Lymphocytes # (auto) 1.39 K/uL (1.20-3.40); Lymphocytes % (auto) 18.5 %; Mean Corpuscular Hemoglobin 29.9 pg (25.0-34.0); Mean Corpuscular Hgb Conc 33.8 g/dL (32.0-36.0); Mean Corpuscular Volume 88.5 fL (80.0-100.0); Mean Platelet Volume 8.5 fL (9.4-12.4); Monocytes # (auto) 0.57 K/uL (0.11-0.59); Monocytes % (auto) 7.6 %; Neutrophils # (auto) 5.34 K/uL (1.40-6.50); Neutrophils % (auto) 71.2 %; Platelet Count 303 K/uL (130-400); RDW Coefficient of Variation 12.3 % (11.5-14.5); RDW Standard Deviation 39.8 fL (36.4-46.3); Red Blood Count 4.71 M/uL (4.70-6.10)
[2023-10-20 06:16] LABS: BUN Creatinine Ratio 18.9 (10-20); Calcium 9.8 mg/dl (8.6-10.3); Creatinine Clr Calc Pharmacy 78.3 ml/min; Est GFR (African American) 98.5 ml/min; Magnesium 1.7 mg/dl (1.7-2.4); Potassium 3.8 mmol/L (3.5-5.1)
[2023-10-20 06:23] LABS: Troponin I High Sensitivity 25.2 pg/ml (0-20)
[2023-10-20] MEDS: INSULIN ASPART PER UNIT CHARGE SC SCH ×4 (06:39→20:07)
--- NOTE | 2023-10-20 06:58 | XRay Report ---
SINGLE VIEW CHEST CLINICAL HISTORY: Atypical chest pain FINDINGS: An AP, portable, upright chest radiograph is compared to study dated 06/04/2018. The heart i s enlarged noting atherosclerotic calcification of the thoracic aorta. The pulmonary vasculature is n oncongested. Chronic interstitial thickening is similar to previous. Scarring/atelectasis is noted at the lung bases. The lungs and pleural spaces are otherwise clear. No pneumothorax is seen. The skele luis manuel structures are osteopenic. There are chronic/healed left-sided rib fractures. IMPRESSION: Cardiomegaly with no active disease in the chest. ACT 112: Negative or not required by law. Electronically signed by: Marino King M.D. 10/20/2023 6:57 AM
[2023-10-20 07:40] LABS: Estimated Average Glucose 177 mg/dl; Hemoglobin A1C 7.8 % (4.5-5.6)
--- NOTE | 2023-10-20 08:05 | Cardiology Consultation ---
Date of Consultation October 20, 2023 Assessment & Plan (1) Chest pain: (2) Elevated troponin: (3) COVID-19: Plan Assessment: 73 year old male presents from assisted living facility with 4 day history of intermittent Atypical chest pain at night time with no other associated symptoms, aggravating or alleviating factors. Found to be COVID positive. Plan: Case discussed with Dr. Meza, please see attestation for further recommendations and plan of care. Supervising Physician Co-Signing Physician Notes Attending Staff: Pt seen and evaluated with [facility] staff Concur with observations and plans 73 yo man presenting with 4-days of intermittent chest pain * Nocturnal * Central Chest pain * Radiation to neck * Noted mostly after taking PM meds * Occasionally alleviated by Tums * Resolved Spontaneously * 30 min in duration * No exertional symptoms * Pt s/p CVA - moves around with wheelchair - no challenges * No exertional dyspnea or chest discomfort * EKG - ST depressions in V2 - nonspecific ST/T wave abnormalities - no major acute ischemic changes * Troponin - 22, 20, 25 * CXR- No infiltrates, no CHF. No effusions. No caridomegaly * CT PE - negative for PE * COVID + * No hypoxia on presentation (94% on RA) ASCVD hx: * HTN * Hyperlipidemia * DM Type II * Previous CVA * Remote PE Plans: * Atypical chest pain * Suspect that chest pain may be related to taking PM meds (pill esophagitis?) vs GERD (positional) * Start PPI * ECHOcardiogram - Ordered * No major troponin elevation * SBP 149 mmHg * Continue Losartan 50 mg po BID (may consider consolidating to one dose) * Stop HCTZ * Start Chlorthalindone 25 mg po per day * Start Toprol XL 12.5 mg po per day * Norvasc (HOLD) until we see ECHO * K+ goal 4.5-5 * Kdur 40 meq po x 1 * Mag goal >1 * Check fasting lipid panel * Continue Lipitor 40 mg per day * Continue Plavix 75 mg po per day (S/P CVA) * DM management * + COVID - no hypoxia Juan Meza History of Present Illness Reason for Consultation: Chest pain Requesting Physician: [facility] Attending Physician: Lola Sheriff MD History of Present Illness Patient is a 73 year old male with PMHx significant for HTN, 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 EKG obtained in the ED showing Sinus Tachycardia rate [address]-T wave abnormality, also cited on EKG dating back to 2019. Troponin 22.7 with flat trend 20.8 and 25.2pg/ml CTA negative for PE. Patient is scheduled for echocardiogram today Allergies Allergy/AdvReac Type Severity Reaction Status Date / Time No Known Allergies Allergy Verified 10/20/23 01:09 Home Medications Medication Instructions Recorded Confirmed Type atorvastatin 40 mg tablet 40 mg PO QPM #90 tabs 06/22/19 10/20/23 Rx hydrochlorothiazide 12.5 mg tablet 12.5 mg PO QAM 01/01/20 10/20/23 History losartan 50 mg tablet 50 mg PO BID 01/01/20 10/20/23 History acetaminophen 325 mg tablet 650 mg PO QID 10/20/23 10/20/23 History (Tylenol) amlodipine 5 mg tablet 5 mg PO QAM 10/20/23 10/20/23 History clopidogrel 75 mg tablet 75 mg PO QDL 10/20/23 10/20/23 History glipizide 10 mg tablet 10 mg PO BID 10/20/23 10/20/23 History metformin 850 mg tablet 850 mg PO BID 10/20/23 10/20/23 History polyethylene glycol 3350 17 17 g PO DAILY 10/20/23 10/20/23 History gram/dose oral powder (Miralax) Patient History Medical History (Updated 10/20/23 @ 02:46 by Beverly Russell PA-C) History of eczema History of stroke History of palpitations History of pulmonary embolism Surgical History No significant past surgical history Family History Other Coronary arteriosclerosis Diabetes Hypertension Denies family history of Ovarian cancer Prostate cancer Myocardial infarction Breast cancer Social History Smoking Status: Former smoker Tobacco Type: Cigarettes Do You Dip or Chew Tobacco: No; Hx Alcohol Use: No Hx Substance Use: No Preferred Language: Filipino Communication Ability: Effective Visual Impairment: No Limitations Hearing Ability: Normal 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 [employer] 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 Paralegal Required: No Beliefs That Will Affect Care: Orthodoxy marital status: Current Living Situation: Alone Current Living Situation Comment: [facility] current occupational status: disabled Other Information That Helps Us Care for You: No Feels Safe at Home: Yes Assistive Devices: Glasses and Wheelchair Review of Systems Review of Systems: All systems reviewed & are unremarkable except as noted in HPI & below Physical Exam Physical Exam: in NAD JVP at base of neck No chest pain elicited with palpation S1S2 Soft 2/6 systolic murmur CTA B No C/C/E Warm and perfusing Results & Data Vital Signs (Past 12 Hours) Vital Signs Temp Pulse Pulse Resp BP BP Pulse Ox 10/20/23 07:07 82 10/20/23 04:17 86 10/20/23 02:52 10/20/23 02:52 82 20 130/92 96 10/20/23 02:01 85 20 130/92 93 10/20/23 00:50 98 H 21 117/66 95 10/20/23 00:11 110 H 10/20/23 00:09 94 10/20/23 00:09 36.7 C 112 H 20 146/85 H 94 Pulse Ox O2 Del Method O2 Del Method 10/20/23 07:07 10/20/23 04:17 10/20/23 02:52 95 Room Air 10/20/23 02:52 Room Air 10/20/23 02:01 Room Air 10/20/23 00:50 Room Air 10/20/23 00:11 10/20/23 00:09 Room Air 10/20/23 00:09 Room Air Laboratory Results Cardiac Enzymes 10/20/23 10/20/23 10/20/23 Range/Units 00:30 02:33 05:32 AST 27 (13-39) U/L Troponin I High Sens 22.7 H 20.8 H 25.2 H (0-20) pg/ml CBC 10/20/23 10/20/23 Range/Units 00:30 05:32 WBC 8.65 7.50 (4.8-10.8) K/ul RBC 5.48 4.71 (4.70-6.10) M/uL Hgb 16.5 14.1 (14.0-18.0) g/dl Hct 48.9 41.7 L (42.0-52.0) % Plt Count 364 303 (130-400) K/uL Neut # (Auto) 5.52 5.34 (1.40-6.50) K/uL Lymph # (Auto) 2.21 1.39 (1.20-3.40) K/uL Grady # (Auto) 0.55 0.57 (0.11-0.59) K/uL Eos # (Auto) 0.30 0.14 (0.00-0.50) K/uL Baso # (Auto) 0.04 0.03 (0.00-0.20) K/uL Comprehensive Metabolic Panel 10/20/23 10/20/23 Range/Units 00:30 05:32 Sodium 139 139 (136-145) mmol/L Potassium 3.7 3.8 (3.5-5.1) mmol/L Chloride 99 104 (98-107) mmol/L Carbon Dioxide 27 26 (21-32) mmol/L BUN 20 17 (6-23) mg/dl Creatinine 1.05 0.90 (0.6-1.4) mg/dl Glucose 117 H 148 H (70-99(Fasting)) mg/dl Calcium 10.6 H 9.8 (8.6-10.3) mg/dl AST 27 (13-39) U/L ALT 43 (7-52) U/L Alkaline Phosphatase 59 (34-104) U/L Total Protein 8.3 (6.0-8.3) gm/dl Albumin 4.9 (3.4-5.0) gm/dl Intake and Output 10/19/23 10/20/23 10/20/23 22:59 06:59 14:59 Other: Weight 84 kg Weight Measurement Method Chair Scale Medications Administered Current Inpatient Medications Acetaminophen (Acetaminophen 325 Mg Tab) 650 mg PO Q4H PRN PRN Reason: Pain or Fever Stop: 11/19/23 02:37 Acetaminophen (Acetaminophen 325 Mg Tab) 650 mg PO QID [facility] Stop: 11/19/23 08:59 Last Admin: 10/20/23 12:30 Dose: 650 mg Amlodipine Besylate (Amlodipine Besylate 5 Mg Tab) 5 mg PO QAM [facility] Stop: 11/19/23 08:59 Last Admin: 10/20/23 09:09 Dose: 5 mg Atorvastatin Calcium (Atorvastatin 40 Mg Tab) 40 mg PO QPM [facility] Stop: 11/19/23 20:59 Chlorthalidone (Chlorthalidone 25 Mg Tab) 25 mg PO QAM [facility] Stop: 11/20/23 08:59 Clopidogrel Bisulfate (Clopidogrel Bisulfate 75 Mg Tab) 75 mg PO QDL [facility] Stop: 11/19/23 11:29 Last Admin: 10/20/23 12:30 Dose: 75 mg Dextrose (Dextrose 50% 50 Ml Syringe) 25 - 50 ml IV UD PRN; Protocol PRN Reason: Hypoglycemia Protocol Stop: 11/19/23 02:37 Glucagon (Glucagon For Inj 1 Mg Vial) 1 mg SQ UD PRN; Protocol PRN Reason: Hypoglycemia Protocol Stop: 11/19/23 02:37 Glucose (Glucose 10 Tab/Tube) 4 - 8 tab PO UD PRN; Protocol PRN Reason: Hypoglycemia Treatment Stop: 11/19/23 02:37 Glucose (Glucose 40% Gel 15 Gm Tube) 15 - 30 gm PO UD PRN; Protocol PRN Reason: Hypoglycemia Protocol Stop: 11/19/23 02:37 Insulin Aspart (Insulin Aspart Per Unit Charge) 0 units SC Q6 [facility] Stop: 11/19/23 05:59 Last Admin: 10/20/23 12:57 Dose: Not Given Losartan Potassium (Losartan Potassium 50 Mg Tab) 50 mg PO BID [facility] Stop: 11/19/23 08:59 Last Admin: 10/20/23 09:09 Dose: 50 mg Metoprolol Succinate (Metoprolol Succ 25mg Ext Rel Tab) [facility] [place] Stop: 11/19/23 11:14 Last Admin: 10/20/23 12:56 Dose: 12.5 mg Miscellaneous (Carbohydrates For Hypoglycemia ) 15 - 30 gm PO UD PRN PRN Reason: Hypoglycemia Protocol Stop: 11/19/23 02:37 Nitroglycerin (Nitroglycerin Sl 0.4 Mg/Tab Tab) 0.4 mg SL Q5M PRN PRN Reason: Chest Pain Stop: 11/19/23 02:37 Pantoprazole Sodium (Pantoprazole 40 Mg Tab) 40 mg PO QAM [facility] Stop: 11/19/23 14:59 Polyethylene Glycol (Polyethylene (Miralax) 17 Gm Pack) 17 gm PO DAILY PRN PRN Reason: Constipation Stop: 11/19/23 02:37 Polyethylene Glycol (Polyethylene (Miralax) 17 Gm Pack) 17 gm PO DAILY [facility] Stop: 11/19/23 08:59 Last Admin: 10/20/23 09:08 Dose: 17 gm (1) Chest pain Chest pain type: unspecified Qualified Code(s): R07.9 - Chest pain, unspecified
[2023-10-20] MEDS ORDERED: amLODIPine BESYLATE 5 MG TAB PO SCH (09:00)
[2023-10-20] MEDS ORDERED: hydroCHLOROthiazide 25 MG TAB PO SCH (09:00)
[2023-10-20] MEDS: ACETAMINOPHEN 325 MG TAB PO SCH ×4 (09:08→22:13)
[2023-10-20] MEDS: POLYETHYLENE (MIRALAX) 17 GM PACK PO SCH (09:08)
[2023-10-20] MEDS: LOSARTAN POTASSIUM 50 MG TAB PO SCH ×2 (09:09→21:05)
[2023-10-20] MEDS ORDERED: POTASSIUM CHLORIDE CRTAB 20 MEQ TABCR PO STA (11:11)
[2023-10-20] MEDS: CLOPIDOGREL BISULFATE 75 MG TAB PO SCH (12:30)
[2023-10-20] MEDS: METOPROLOL SUCC 25MG EXT REL TAB PO SCH (12:56)
--- NOTE | 2023-10-20 14:28 | Electrocardiogram Report ---
Test Reason : Blood Pressure : / mmHG Vent. Rate : 115 BPM Atrial Rate : 115 BPM P-R Int : 134 ms QRS Dur : 074 ms QT Int : 326 ms P-R-T Axes : 044 024 050 degrees QTc Int : 450 ms Sinus tachycardia Nonspecific ST and T wave abnormality Abnormal ECG When compared with ECG of 01-JAN-2020 18:21, No significant change was found Confirmed by Harvey Kaiser ([id number]) on 10/20/2023 2:28:29 PM Referred By: Rachid Freitas [place] Confirmed By:Harvey Kaiser
[2023-10-20] MEDS ORDERED: PANTOprazole 40 MG TAB PO SCH (15:00)
--- NOTE | 2023-10-20 20:44 | Communication Note ---
Date of Service: October 20, 2023 Pt was seen and examined at bedside for CP r/o ACS. Troponin trends in 20s to 30s. EKG w/ nonspecific t wave abn. ECHO reviewed. Cardio following. Also reports some improvement in chest symptoms w/ tums and iv famotidine received in the ED. More likely reflux dz as symptoms occuring w/ lying down in bed. Will use PPI BID, cosider OP GI f/u. Will observe overnight for further chest symptoms or resolution of such. will follow cardio recs as well.
[2023-10-20] MEDS ORDERED: ATORVASTATIN 40 MG TAB PO SCH (21:00)
[2023-10-20] MEDS: PANTOprazole 40 MG TAB PO SCH (21:05)
[2023-10-21 06:22] LABS: Hematocrit (blood only) 42.4 % (42.0-52.0); Hemoglobin 14.3 g/dl (14.0-18.0); Mean Corpuscular Hemoglobin 30.2 pg (25.0-34.0); Mean Corpuscular Hgb Conc 33.7 g/dL (32.0-36.0); Mean Corpuscular Volume 89.5 fL (80.0-100.0); Mean Platelet Volume 8.6 fL (9.4-12.4); Platelet Count 320 K/uL (130-400); RDW Coefficient of Variation 12.5 % (11.5-14.5); RDW Standard Deviation 41.1 fL (36.4-46.3); Red Blood Count 4.74 M/uL (4.70-6.10); White Blood Count 6.04 K/ul (4.8-10.8)
[2023-10-21 06:36] LABS: Calcium 9.5 mg/dl (8.6-10.3); Magnesium 1.9 mg/dl (1.7-2.4); Potassium 3.9 mmol/L (3.5-5.1)
[2023-10-21 06:42] LABS: BUN Creatinine Ratio 19.4 (10-20); Creatinine Clr Calc Pharmacy 75.8 ml/min; Est GFR (African American) 94.7 ml/min; Est GFR (Non-African American) 81.7 ml/min; Phosphorus 4.1 mg/dl (2.5-4.9)
[2023-10-21 06:46] LABS: Chol HDL Ratio 3.9 (0-5)
--- NOTE | 2023-10-21 07:58 | Cardiology Progress Note ---
Date of Service October 21, 2023 Assessment & Plan Admission and Anticipated Discharge Date Admission Date: October 20, 2023 Supervising Physician Co-Signing Physician Notes Attending Staff: Pt seen and evaluated with [facility] staff Concur with observations and plans 73 yo man presenting with 4-days of intermittent chest pain * Nocturnal * Central Chest pain * Radiation to neck * Noted mostly after taking PM meds * Occasionally alleviated by Tums * Resolved Spontaneously * 30 min in duration * No exertional symptoms * Pt s/p CVA - moves around with wheelchair - no challenges * No exertional dyspnea or chest discomfort * EKG - ST depressions in V2 - nonspecific ST/T wave abnormalities - no major acute ischemic changes * Troponin - 22, 20, 25 * CXR- No infiltrates, no CHF. No effusions. No caridomegaly * CT PE - negative for PE * COVID + * No hypoxia on presentation (94% on RA) ASCVD hx: * HTN * Hyperlipidemia * DM Type II * Previous CVA * Remote PE Plans: * Atypical chest pain * Suspect that chest pain may be related to taking PM meds (pill esophagitis?) vs GERD (positional) * On Protonix * ECHOcardiogram - LVEF 60-65%, No WMA. RV normal size and function. Aortic Sclerosis - no stenosis. * No major troponin elevation * SBP 134 mmHg * Continue Losartan 50 mg po BID (may consider consolidating to one dose) * HCTZ (OFF) * Continue Chlorthalindone 25 mg po per day * Increase Toprol XL to 25 mg po per day * Norvasc (would not restart) - re-evaluate need for Norvasc as an outpt * K+ goal 4.5-5 * Kdur 40 meq po x 1 * Mag goal >2 * LDL - 72 * Continue Lipitor 40 mg per day * Consider adding Zetia 10 mg po per day * Continue Plavix 75 mg po per day (S/P CVA) * DM management * + COVID - no hypoxia * Plans to follow up with [facility] * Would re-evaluate as an outpt with low threshold for Ischemic Risk stratification if Sx recur - Coronary CTA may prove helpful Juan Meza Subjective Events overnight: * No events * Chest pain resolved Subjective: * No complaints Review of Systems Review of Systems: All systems reviewed & are unremarkable except as noted in HPI & below Physical Exam Physical Exam: in NAD JVP at base of neck No chest pain elicited with palpation S1S2 Soft 2/6 systolic murmur CTA B No C/C/E Warm and perfusing Results & Data Vital Signs (Past 12 Hours) Vital Signs Temp Pulse Pulse Resp BP Pulse Ox O2 Del Method 10/21/23 07:54 36.7 C 90 18 134/81 95 Room Air 10/20/23 23:03 90 10/20/23 22:52 36.7 C 97 H 18 132/85 93 Room Air 10/20/23 22:18 92 H Laboratory Results Cardiac Enzymes 10/20/23 10/20/23 Range/Units 10:58 16:54 Troponin I High Sens 34.6 H 32.3 H (0-20) pg/ml Lipids 10/21/23 Range/Units 05:12 Triglycerides 153 H (0-150) mg/dl Cholesterol 114 (0-200) mg/dl HDL Cholesterol 29 mg/dl Cholesterol/HDL Ratio 3.9 (0-5) CBC 10/21/23 Range/Units 05:12 WBC 6.04 (4.8-10.8) K/ul RBC 4.74 (4.70-6.10) M/uL Hgb 14.3 (14.0-18.0) g/dl Hct 42.4 (42.0-52.0) % Plt Count 320 (130-400) K/uL Comprehensive Metabolic Panel 10/21/23 Range/Units 05:12 Sodium 140 (136-145) mmol/L Potassium 3.9 (3.5-5.1) mmol/L Chloride 106 (98-107) mmol/L Carbon Dioxide 25 (21-32) mmol/L BUN 18 (6-23) mg/dl Creatinine 0.93 (0.6-1.4) mg/dl Glucose 122 H (70-99(Fasting)) mg/dl Calcium 9.5 (8.6-10.3) mg/dl Intake and Output 10/20/23 10/21/23 10/21/23 22:59 06:59 14:59 Intake Total 200 / 300 100 / 300 Output Total 20 / 20 Balance 200 / 280 80 / 280 Intake: Oral 200 / 300 100 / 300 Output: Urine 20 / 20 Other: Weight 84 kg Weight Measurement Method [facility] Medications Administered Current Inpatient Medications Acetaminophen (Acetaminophen 325 Mg Tab) 650 mg PO Q4H PRN PRN Reason: Pain or Fever Stop: 11/19/23 02:37 Acetaminophen (Acetaminophen 325 Mg Tab) 650 mg PO QID [facility] Stop: 11/19/23 08:59 Last Admin: 10/20/23 22:13 Dose: Not Given Amlodipine Besylate (Amlodipine Besylate 5 Mg Tab) 5 mg PO QAM [facility] Stop: 11/19/23 08:59 Last Admin: 10/20/23 09:09 Dose: 5 mg Atorvastatin Calcium (Atorvastatin 40 Mg Tab) 40 mg PO QPM [facility] Stop: 11/19/23 20:59 Last Admin: 10/20/23 21:05 Dose: 40 mg Chlorthalidone (Chlorthalidone 25 Mg Tab) 25 mg PO QAM [facility] Stop: 11/20/23 08:59 Clopidogrel Bisulfate (Clopidogrel Bisulfate 75 Mg Tab) 75 mg PO QDL [facility] Stop: 11/19/23 11:29 Last Admin: 10/20/23 12:30 Dose: 75 mg Dextrose (Dextrose 50% 50 Ml Syringe) 25 - 50 ml IV UD PRN; Protocol PRN Reason: Hypoglycemia Protocol Stop: 11/19/23 02:37 Glucagon (Glucagon For Inj 1 Mg Vial) 1 mg SQ UD PRN; Protocol PRN Reason: Hypoglycemia Protocol Stop: 11/19/23 02:37 Glucose (Glucose 10 Tab/Tube) 4 - 8 tab PO UD PRN; Protocol PRN Reason: Hypoglycemia Treatment Stop: 11/19/23 02:37 Glucose (Glucose 40% Gel 15 Gm Tube) 15 - 30 gm PO UD PRN; Protocol PRN Reason: Hypoglycemia Protocol Stop: 11/19/23 02:37 Insulin Aspart (Insulin Aspart Per Unit Charge) 0 units SC ACHS [facility] Stop: 11/19/23 20:59 Last Admin: 10/20/23 20:07 Dose: Not Given Losartan Potassium (Losartan Potassium 50 Mg Tab) 50 mg PO BID [facility] Stop: 11/19/23 08:59 Last Admin: 10/20/23 21:05 Dose: 50 mg Metoprolol Succinate (Metoprolol Succ 25mg Ext Rel Tab) 12.5 mg PO QAM [facility] Stop: 11/19/23 11:14 Last Admin: 10/20/23 12:56 Dose: 12.5 mg Miscellaneous (Carbohydrates For Hypoglycemia ) 15 - 30 gm PO UD PRN PRN Reason: Hypoglycemia Protocol Stop: 11/19/23 02:37 Nitroglycerin (Nitroglycerin Sl 0.4 Mg/Tab Tab) 0.4 mg SL Q5M PRN PRN Reason: Chest Pain Stop: 11/19/23 02:37 Pantoprazole Sodium (Pantoprazole 40 Mg Tab) 40 mg PO BID [facility] Stop: 11/19/23 20:59 Last Admin: 10/20/23 21:05 Dose: 40 mg Polyethylene Glycol (Polyethylene (Miralax) 17 Gm Pack) 17 gm PO DAILY PRN PRN Reason: Constipation Stop: 11/19/23 02:37 Polyethylene Glycol (Polyethylene (Miralax) 17 Gm Pack) 17 gm PO DAILY [facility] Stop: 11/19/23 08:59 Last Admin: 10/20/23 09:08 Dose: 17 gm
--- NOTE | 2023-10-21 08:40 | Electrocardiogram Report ---
Test Reason : Blood Pressure : / mmHG Vent. Rate : 071 BPM Atrial Rate : 071 BPM P-R Int : 134 ms QRS Dur : 088 ms QT Int : 398 ms P-R-T Axes : 025 001 002 degrees QTc Int : 432 ms Normal sinus rhythm Diffuse Nonspecific T wave abnormality Abnormal ECG When compared with ECG of 20-OCT-2023 00:09, Vent. rate has decreased BY [address] no longer depressed in Septal leads Nonspecific T wave abnormality, worse in Lateral leads Confirmed by Kenn Arenas ([id number]) on 10/21/2023 8:39:53 AM Referred By: Rachid Freitas [place] Confirmed By:Kenn Arenas
--- NOTE | 2023-10-21 08:41 | Electrocardiogram Report ---
Test Reason : Blood Pressure : / mmHG Vent. Rate : 085 BPM Atrial Rate : 085 BPM P-R Int : 130 ms QRS Dur : 092 ms QT Int : 384 ms P-R-T Axes : 039 008 -10 degrees QTc Int : 456 ms Normal sinus rhythm Abnormal ECG When compared with ECG of 20-OCT-2023 08:36, T-wave inversion in Anterior leads now present Confirmed by Kenn Arenas ([id number]) on 10/21/2023 8:40:18 AM Referred By: Rachid Freitas [place] Confirmed By:Kenn Arenas
[2023-10-21] MEDS ORDERED: CHLORTHALIDONE 25 MG TAB PO SCH (09:00)
[2023-10-21] MEDS: INSULIN ASPART PER UNIT CHARGE SC SCH ×2 (09:21→11:03)
[2023-10-21] MEDS: ACETAMINOPHEN 325 MG TAB PO SCH ×2 (09:22→11:52)
[2023-10-21] MEDS: METOPROLOL SUCC 25MG EXT REL TAB PO SCH (09:23)
[2023-10-21] MEDS: PANTOprazole 40 MG TAB PO SCH (09:23)
[2023-10-21] MEDS: LOSARTAN POTASSIUM 50 MG TAB PO SCH (09:25)
[2023-10-21] MEDS: POLYETHYLENE (MIRALAX) 17 GM PACK PO SCH (09:25)
[2023-10-21] MEDS ORDERED: POTASSIUM CHLORIDE CRTAB 20 MEQ TABCR PO STA (10:19)
[2023-10-21] MEDS ORDERED: METOPROLOL SUCC 25MG EXT REL TAB PO STA (10:29)
[2023-10-21] MEDS ORDERED: EZETIMIBE 10 MG TAB PO SCH (10:30)
--- NOTE | 2023-10-21 11:51 | Discharge Summary ---
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 Patient states since last 4 nights he is having chest pains radiating to his throat seems someone pressing with a fist ,moderate in severity and it last for 30 minutes and goes on its own and comes back next night. Currently resting comfortably. Denies any headache. No nausea. No sweating. States had cold symptoms couple of weeks ago. Has mild cough. No fevers. No shortness of breath. No abdominal pain. Constipated and uses MiraLAX. Normal bladder movements. Past medical history. As mentioned above Past surgical history. Cyst removal on his left arm Social history. Currently living at [facility]. Smoked 1 pack a day for 35 years. Quit in 2012. Currently not drinking alcohol. No drug use. Family history. Father had diabetes, heart disorder, hypertension. Mother had hypertension Admission Exam Per Admitting Provider General- Not in distress Head- atraumatic Eyes- PERRL. ENT- oropharynx clear Neck- supple, no JVD. Lungs- clear to auscultation, no wheezing or crackles Heart- regular rhythm; no murmur, no gallop. Abdomen- normal bowel sounds, soft, nontender, no distension. Extremities- no pretibial edema, no erythema seen. Neuro- alert, oriented x 3; PERRL, no dysarthria; Left sided weakness Skin- warm & dry Principal Diagnosis Atypical chest pain Likely reflux disease Discharge Exam GENERAL: Alert and oriented x3. NAD, on RA. HEENT: No pallor, no icterus. Pupils equal, round and reactive to light. Oral mucosa moist. NECK: No JVD, no neck masses. HEART: S1 and S2 heard. Regular rate and rhythm. No murmur, no gallop. RESPIRATORY SYSTEM: Normal AP diameter. No accessory muscle use. No wheezing, no crackles. ABDOMEN: Soft, bowel sounds present, nontender, no distention. CENTRAL NERVOUS SYSTEM: No facial droop. Speech is clear. Obeys simple commands. Moves extremities. EXTREMITIES: No edema, no erythema seen. 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 He reported somewhat improvement with Tums and IV famotidine. Cardiology evaluated him, medications has been opti mized, metoprolol added, amlodipine discontinued, hydrochlorothiazide discontinued, chlorthalidone added. EKG and echo reviewed, troponin flat trended in 20s to 30s. Patient with no further chest pain. Patient being discharged on Protonix in the line of reflux disease, if not improving patient to follow-up with GI as an outpatient in coordination with his PCP office. Patient to follow-up with cardiology for further evaluation in 2 to 4 weeks time upon discharge. He is being discharged back to [facility] with following instruction at the point of discharge: Follow-up with your primary care physician within a week time and likely you will need labs CBC/CMP/magnesium/phosphorus. For possible gastric reflux disease, you will be discharged on Protonix twice a day for 4 weeks, then you can take once a day protonix. Do not use Prilosec as you are on Plavix. If ongoing symptoms, you will benefit from GI doctor evaluation. Coordinate with the PCP office to set up the referral in that case. Cardiology evaluated you for atypical chest pain, your medications has been optimized. Take your medications as prescribed. Follow-up with cardiology in 2 to 4 weeks time upon discharge. You were diagnosed with COVID on 10/20/2023, maintain self-isolation for 5 days and then use facial mask around people for next 5 days. Take your medications as prescribed. Please make sure that you are able to get your medications today by calling your pharmacy before you leave the hospital so that your treatment continuity is not broken. [facility] Attestation I certify that this patient is under my care and that I, or a physicians child life assistant working with me, had a face to-face encounter that meets the [id number] encounter requirements with this patient. The encounter with the patient was in whole, or in part, for the following medical condition, which is the primary reason for home health care (list medical condition): I certify that, based on my findings, the following services are medically necessary home health services: My clinical findings support the need for the above services because: Further, I certify that my clinical findings support that this patient is homebound (i.e. absences from home require considerable and taxing effort and are for medical reasons or restorationism services or infrequently or of short duration when for other reasons) because: Certification for Home Health Services: Based on the above findings, I certify that this patient is confined to the home and needs intermittent halfway care, physical therapy and/or speech therapy or continues to need occupational therapy. The patient is under my care, and I have initiated the establishment of the plan of care. This patient will be followed by a physician who will periodically review the plan of care. Total Time Total Time Spent Total Time Spent (In Minutes): 45 Discharge Plan Discharge Items Patient Disposition: Personal Custodial Reason For Visit: CHEST PAIN Discharge Diagnosis: Atypical chest pain Likely reflux disease Condition on Discharge: Good Activity: Resume your previous activity Non-emergency contact: Primary Care Provider Call non-emergency contact if: you have any medication questions, your pain is not controlled and your temperature is above 101.5 Follow-up/Referrals: Rachid Lozano [Primary Care Provider] - Kaila Villanueva CRNP [Nurse Practitioner] - (Date & Time 12/13/2023 11:30 AM Provider Kaila Villanueva CRNP Department Cardiology, [facility] ) Diet: Heart Healthy Add Attending Provider Instructions: Follow-up with your primary care physician within a week time and likely you will need labs CBC/CMP/magnesium/phosphorus. For possible gastric reflux disease, you will be discharged on Protonix twice a day for 4 weeks, then you can take once a day protonix. Do not use Prilosec as you are on Plavix. If ongoing symptoms, you will benefit from GI doctor evaluation. Coordinate with the PCP office to set up the referral in that case. Cardiology evaluated you for atypical chest pain, your medications has been optimized. Take your medications as prescribed. Follow-up with cardiology in 2 to 4 weeks time upon discharge. You were diagnosed with COVID on 10/20/2023, maintain self-isolation for 5 days and then use facial mask around people for next 5 days. Take your medications as prescribed. Please make sure that you are able to get your medications today by calling your pharmacy before you leave the hospital so that your treatment continuity is not broken. Pending Studies at Discharge: No Stand-Alone Forms: My [facility] [employer], Smoking Cessation Skilled Items Patient informed of condition?: Yes DNR: No Discharge Level of Care: Other Communicable Disease: Yes Discharge Prognosis: Stable Lines: None Urinary Catheter: No Medications and DC Order Prescriptions: New losartan 100 mg tablet 100 mg PO DAILY Qty: 30 0RF ezetimibe 10 mg Tablet 10 mg PO QAM Qty: 30 0RF metoprolol succinate 25 mg Tablet Extended Release 24 Hr 25 mg PO QAM Qty: 30 0RF nitroglycerin [Nitrostat] 0.4 mg Tablet, Sublingual 0.4 mg sublingual UD PRN (Reason: chest pain) Qty: 20 0RF chlorthalidone 25 mg Tablet 25 mg PO QAM Qty: 30 0RF pantoprazole 40 mg Tablet,Delayed Release (Dr/Ec) 40 mg PO BID Qty: 60 0RF Continued atorvastatin 40 mg tablet 40 mg PO QPM Qty: 90 3RF acetaminophen [Tylenol] 325 mg Tablet 650 mg PO QID MDD 3 GRAMS APAP/24 HOURS Rx Instructions: 0800, 1200, 1600, & 2000 glipizide 10 mg tablet 10 mg PO BID Rx Instructions: 0800 & 1900 metformin 850 mg tablet 850 mg PO BID polyethylene glycol 3350 [Miralax] 17 gram/dose Powder 17 g PO DAILY clopidogrel 75 mg tablet 75 mg PO QDL Rx Instructions: TAKE THIS MED DAILY AT NOON. Discontinued losartan 50 mg tablet 50 mg PO BID Rx Instructions: HOLD SBP < 110 hydrochlorothiazide 12.5 mg tablet 12.5 mg PO QAM amlodipine 5 mg tablet 5 mg PO QAM Discharge Orders: Discharge Order (Routine); Ordered 10/21/23 Ordered By: Lola Sheriff Admission Data Admit Date/Time: 10/20/23 02:13 Attending Provider: Lola Sheriff Admit Provider: Hammad Flores Primary Care Provider: Rachid Lozano Other Providers: Hammad Flores
[2023-10-21] MEDS: CLOPIDOGREL BISULFATE 75 MG TAB PO SCH (11:52)
[2023-10-22] MEDS ORDERED: METOPROLOL SUCC 25MG EXT REL TAB PO SCH (09:00)
== END 2023-10-21 14:12 | disposition home or self-care (01) ==
LOC: EDINP 00:03 → ED 00:03 → 2W 02:39

== ENCOUNTER 2023-10-29 23:27 | Inpatient (IN) ==
--- OUTSIDE RECORDS SUMMARY | 2023-10-29 23:34 | External Medical Summary | Summary of Care ---
Author Name Unknown Organization [facility] Address [address] [facility] [place] [address] Phone [phone] Care Team Providers Care Umbrella Tipper Hand Name Role Phone Unavailable Primary Care Provider Unavailabl e Reason for Visit * Reason Onset Date Comments Appointment 10/21/2023 Encounter Details Date Type Department Care Team (Late st Contact Info) Description 10/21/2023 Telephone Cardiology, [facility] [address] [address] Kaila Villanueva CRNP [address] [place] [address] Appointment Allergies Active Allergy Reactions Criticality Noted Date Comments Dust Itching 03/02/2011 documented as of this encounter (statuses as of 10/21/2023) Medications Medication Sig Dispensed Refills Start Date End Date Status atorvaSTATin (LIPITOR) 40 MG Tablet Take 1 Tab by mouth at bedtime. 30 Tab 0 03/29/2017 Active clopidogrel (PLAVIX) 75 MG Tablet Take 1 Tab by mouth daily. 30 Tab 0 03/29/2017 Active acetaminophen (TYLENOL) 325 MG Tablet Take 2 Tabs by mouth every 4 hours as needed for Pain or Fever (mild pain). 100 Tab 0 03/29/2017 Active traMADol (ULTRAM) 50 MG Tablet Take 0.5-1 Tabs by mouth every 8 hours as needed for Pain. 15 Tab 0 03/29/2017 Active Ezetimibe 10 MG Oral Tablet (Zetia) Take 1 Tablet by mouth in the morning. 0 10/21/2023 Active Chlorthalidone 25 MG Oral Tablet (Hygroton) Take 1 Tablet by mouth in the morning. 0 10/21/2023 Active Losartan Potassium 50 MG Oral Tablet (Cozaar) Take 1 Tablet by mouth in the morning and 1 Tablet before bedtime. 0 10/21/2023 Active Metoprolol Succinate ER 25 MG Oral Tablet Extended Release 24 Hour (toPROL XL) Take 1 Tablet by mouth in the morning. 0 10/21/2023 Active documented as of this encounter (statuses as of 10/21/2023) Active Problems Problem Noted Date Diagnosed Date Flaccid hemiplegia of left n ondominant side due to infarction of brain 03/21/2017 Left leg weakness 03/21/2017 Lumbar spinal stenosis 03/21/2017 H/O: CVA (cerebrovascular accident) 03/21/2017 Insomnia 03/02/2011 Overview: ICD-10 update of inactive term Other atopic dermatitis 10/16/2010 Overview: ICD-10 update of inactive term HYPERTENSION NOS documented as of this encounter (statuses as of 10/21/2023) Resolved Problems Problem Noted Date Diagnosed Date Resolved Date Major depressive disorder 11/18/2001 Overview: ICD-10 update of inactive term documented as of this encounter (statuses as of 10/21/2023) Social History Tobacco Use Types Packs/Day Years Used Date Smoking Tobacco: Every Day Cigarettes 1 35 Smokeless Tobacco: Never Comments:no passive smoke Alcohol Use Standard Drinks/Week Comments Yes 1.7 (1 standard drink = 0.6 oz p ure alcohol) Sex and Gender Information Value Date Recorded Sex Assigned at Not on file Gender Identity Not on file Sexual Orientation Not on file documented as of this encounter Miscellaneous Notes * Telephone Encounter - Felisa Randhawa OSA - 10/21/2023 10:32 AM EST HD scheduled 12/13 @ 11:30 with Kaila Villanueva. * Telephone Encounter - Kaila Villanueva CRNP - 10/21/2023 10:19 AM EST Patient admitted to [facility] on 10/20 Anticipate Discharge within the next 24 to 48 hours. Scheduling: Please assist with [facility] follow-up within the next 6-8 weeks. This is a NEW patient. Any provider appropriate. Seen by the undersigned or [facility] inpatient If scheduling with [facility] please allow 60 minutes for this appointment and label appt [facility]. Labs in 1 week. Cards progress note 10/21/2023: 73 yo man presenting with 4-days of intermittent chest pain Nocturnal Central Chest pain Radiation to neck Noted mostly after taking PM meds Occasionally alleviated by Tums Resolved Spontaneously 30 min in duration No exertional symptoms Pt s/p CVA - moves around with wheelchair - no challenges No exertional dyspnea or chest discomfort EKG - ST depressions in V2 - nonspecific ST/T wave abnormalities - no major acute ischemic changes Troponin - 22, 20, 25 CXR- No infiltrates, no CHF. No effusions. No caridomegaly CT PE - negative for PE COVID + No hypoxia on presentation (94% on RA) ASCVD hx: HTN Hyperlipidemia DM Type II Previous CVA Remote PE Plans: Atypical chest pain Suspect that chest pain may be related to taking PM meds (pill esophagitis?) vs GERD (positional) On Protonix ECHOcardiogram - LVEF 60-65%, No WMA. RV normal size and function. Aortic Sclerosis - no stenosis. No major troponin elevation SBP 134 mmHg Continue Losartan 50 mg po BID (may consider consolidating to one dose) HCTZ (OFF) Continue Chlorthalindone 25 mg po per day Increase Toprol XL to 25 mg po per day Norvasc (would not restart) - re-evaluate need for Norvasc as an outpt K+ goal 4.5-5 Kdur 40 meq po x 1 Mag goal >2 LDL - 72 Continue Lipitor 40 mg per day Consider adding Zetia 10 mg po per day Continue Plavix 75 mg po per day (S/P CVA) DM management + COVID - no hypoxia Plans to follow up with [facility] Cardiology Would re-evaluate as an outpt with low threshold for Ischemic Risk stratification if Sx recur - Coronary CTA may prove helpful -Juan Meza documented in this encounter Plan of Treatment Upcoming Encounters Date Type Department Care Team (Late st Contact Info) Description 12/13/2023 11:30 AM EST Office Visit Cardiology, [facility] [address] [place] [address] Kaila Villanueva CRNP [address] [place] [address] Scheduled Orders Name Type Priority Associated Diagnoses Orde r Schedule BASIC METABOLIC PANEL Lab Routine HTN, goal below 140/90 Expected: 10/28/2023, Expires: 10/21/2024 Health Maintenance Due Date Last Done Comments COVID-19 Vaccine (#1) 1950 Pneumococcal Vaccine: 65+ Years (1 - PCV) 1957 Depression Screening 1963 Albumin/Creatinine Ratio 1969 Hepatitis C Screening 1969 DTaP,Tdap,and Td Vaccines (1 - Tdap) 1970 Cologuard 1996 Colonoscopy 1996 Colorectal Cancer Screening 1996 Fecal Occult Blood Test 1996 Sigmoidoscopy 1996 LUNG CANCER SCREENING - USE SMARTSET [id number] 2001 Zoster Vaccines (1 of 2) 2001 GFR 09/10/2011 09/10/2010, 04/21/2001 AAA Screening 2016 Influenza Vaccine (FLU shot) (#1) 2023 GARDASIL-HPV IMMUNIZATION SERIES Aged Out No longer eligible b ased on patient's age to complete this topic Hepatitis B Aged Out No longer eligi ble based on patient's age to complete this topic MENINGOCOCCAL (MENACTRA/MENVEO) Aged Out No longer eligible b ased on patient's age to complete this topic documented as of this encounter Medical Devices Not on filedocumented as of this encounter Visit Diagnoses Diagnosis HTN, goal below 140/90- Primary Unspecified essential hypertension documented in this encounter
[2023-10-29] MEDS ORDERED: ASPIRIN CHEW 324 MG PO STA (23:49)
[2023-10-29] MEDS ORDERED: ONDANSETRON INJ 2 MG/ML 2 ML VIAL IV STA (23:49)
[2023-10-29] MEDS ORDERED: MoRPHine SULFATE 4 MG/ML 1 ML CARP\\VIAL IV STA (23:49)
[2023-10-29] MEDS ORDERED: SODIUM CHLORIDE 0.9% 1,000 ML IV ONE (23:50)
--- NOTE | 2023-10-29 23:55 | Emergency Department Note ---
Impression & Plan ST elevation myocardial infarction (STEMI) ADMIT ED Provider Note HPI: History obtained from patient. The patient is a 74-year-old gentleman with history of type 2 diabetes, hyperlipidemia, previous CVA, longstanding smoking history, presents emergency department with chief complaint of chest pain. Patient states he has had some pain for about the past 4 hours that is on the right side towards the upper part of his chest that radiates up the right side of his neck. Patient does note that he was here about a week ago for chest pain and was admitted to the inpatient service and ultimately discharged home. Patient states at that time his chest pain was more central and now is more radiating off to the right side. Patient denies any nausea or vomiting, denies any abdominal pain. On arrival here to the ED the patient is hypertensive at 152/97, he is otherwise hemodynamically stable and saturating well on room air. ROS: - Per HPI Differential Diagnosis: Acute coronary syndrome, pulmonary embolism, aortic dissection, pneumothorax, esophagitis, amongst other potential pathologies. *Outpatient medications and allergy history reviewed. PE: General: Alert HEENT: Normocephalic, trachea midline Eyes: Extraocular eye movement is intact, no scleral erythema Pulmonary: Clear to auscultation bilaterally, no wheezing Cardio: Regular rate and rhythm GI: Abdomen is soft to palpation : No suprapubic tenderness MSK: No evidence of trauma or malformation of the extremities, no edema Skin: No evidence of rash Neuro: Alert, no focal deficits Psychiatric: Cooperative INDEPENDENT INTERPRETATIONS: property assessment monitor: (As interpreted by myself): - An order was placed for continuous cardiac monitoring - Patient was noted to be in sinus rhythm with a rate of 105 EKG: (As interpreted by myself): Rate: 99 Rhythm: Normal sinus rhythm Intervals: Within normal limits ST changes: Marked ST depression in lead V2 with ST elevation noted in lead III consistent with acute myocardial infarction Time: 2343 Chest x-ray: (As interpreted by myself): -No acute disease Interventions provided in ED: -Aspirin, IV morphine, IV Zofran Medical Decision Making: Patient presented to the emergency department with a chief complaint of right- sided chest pain that radiated up his right side of the neck. Patient is hypertensive but otherwise hemodynamically stable on arrival and saturating well on room air. EKG reviewed by myself shortly after the patient arrived shows evidence of deep ST depressions in lead V2 as well as some ST elevation in lead III concerning for ST elevation myocardial infarction in the inferior wall and possible posterior wall involvement. Given the patient's pain and risk factors, heart alert was activated. Patient was given IV morphine and IV Zofran for his pain, patient was also given aspirin. Heart alert was activated, patient was transferred to the cardiac catheterization lab in stable condition for further care. Consultants: -Interventional cardiology Disposition discussion held by myself with: -Patient * CRITICAL CARE TIME: ( 33 ) minutes -Time spent at the bedside and management of patient with ST elevation myocardial infarction requiring cardiac catheterization lab to be activated, interpretation of EKG and diagnostic studies Diagnosis: 1. ST elevation myocardial infarction, inferior wall 2. Chest pain, acute Disposition: Admission Jeffry Cardona DO Emergency Medicine Past Med/Surg History Medical History HLD (hyperlipidemia) DMII (diabetes mellitus, type 2) History of eczema History of stroke History of palpitations History of pulmonary embolism Surgical History No significant past surgical history Family History Other Coronary arteriosclerosis Diabetes Hypertension Denies family history of Ovarian cancer Prostate cancer Myocardial infarction Breast cancer Social History Smoking Status: Former smoker Tobacco Type: Cigarettes Second Hand Exposure: No; Do You Dip or Chew Tobacco: No; Hx Alcohol Use: No Hx Substance Use: No Preferred Language: Serbian Communication Ability: Unable Visual Impairment: No Limitations Hearing Ability: Normal Credit Collection Associate Required: No Beliefs That Will Affect Care: None marital status: Current Living Situation: Personal Care Facility Current Living Situation Comment: [facility] [employer] current occupational status: disabled Feels Safe at Home: Yes Assistive Devices: Walker Allergies Allergies Allergy/AdvReac Type Severity Reaction Status Date / Time No Known Allergies Allergy Verified 10/20/23 01:09 Home Meds Home Medications Medication Instructions Recorded Confirmed acetaminophen 325 mg tablet 650 mg PO QID 10/20/23 10/20/23 (Tylenol) clopidogrel 75 mg tablet 75 mg PO QDL 10/20/23 10/30/23 glipizide 10 mg tablet 10 mg PO BID 10/20/23 10/20/23 metformin 850 mg tablet 850 mg PO BID 10/20/23 10/20/23 polyethylene glycol 3350 17 17 g PO DAILY 10/20/23 10/20/23 gram/dose oral powder (Miralax) Previous Rx's Medication Instructions Recorded atorvastatin 40 mg tablet 40 mg PO QPM #90 tabs 06/22/19 chlorthalidone 25 mg tablet 25 mg PO QAM #30 tabs 10/21/23 ezetimibe 10 mg tablet 10 mg PO QAM #30 tabs 10/21/23 losartan 100 mg tablet 100 mg PO DAILY #30 tabs 10/21/23 metoprolol succinate 25 mg 25 mg PO QAM #30 tabs 10/21/23 tablet,extended release 24 hr nitroglycerin 0.4 mg sublingual 0.4 mg sublingual UD PRN chest 10/21/23 tablet (Nitrostat) pain #20 tabs pantoprazole 40 mg tablet,delayed 40 mg PO BID #60 tabs 10/21/23 release Results & Data (ED) Vital Signs Vital Signs - 24 hr 10/29/23 23:23 Pulse Rate 98 H Respiratory Rate 18 Blood Pressure 152/97 H Blood Pressure Mean 115 Pulse Oximetry 97 Oxygen Delivery Method Room Air Sepsis Recent Fever Within 48 Hours No Sepsis New/Unexplained Change in Mental Status No Sepsis Action Taken by Nursing No Action Required Laboratory Data 10/30/23 03:17 10/30/23 03:17 Lab Results 10/29/23 Range/Units 23:59 WBC 15.01 H (4.8-10.8) K/ul RBC 5.12 (4.70-6.10) M/uL Hgb 15.4 (14.0-18.0) g/dl Hct 45.0 (42.0-52.0) % MCV 87.9 (80.0-100.0) fL MCH 30.1 (25.0-34.0) pg MCHC 34.2 (32.0-36.0) g/dL RDW Std Deviation 40.1 (36.4-46.3) fL RDW Coeff of Megan 12.2 (11.5-14.5) % Plt Count 400 (130-400) K/uL MPV 8.7 L (9.4-12.4) fL Immature Gran % (Auto) 0.3 % Neut % (Auto) 81.5 % Lymph % (Auto) 11.3 % [place] % (Auto) 6.3 % Eos % (Auto) 0.3 % Baso % (Auto) 0.3 % Neut # (Auto) 12.24 H (1.40-6.50) K/uL Lymph # (Auto) 1.70 (1.20-3.40) K/uL [place] # (Auto) 0.94 H (0.11-0.59) K/uL Eos # (Auto) 0.05 (0.00-0.50) K/uL Baso # (Auto) 0.04 (0.00-0.20) K/uL Immature Gran # (Auto) 0.04 (0.01-0.20) K/uL PT 10.9 (9.0-12.0) Seconds INR 1.0 (0.9-1.1) Sodium 136 (136-145) mmol/L Potassium 3.6 (3.5-5.1) mmol/L Chloride 96 L (98-107) mmol/L Carbon Dioxide 26 (21-32) mmol/L Anion Gap 14 H (3-11) BUN 27 H (6-23) mg/dl Creatinine 1.51 H (0.6-1.4) mg/dl Est Cr Clr Drug Dosing 42.8 ml/min Est GFR ( Amer) 52.7 ml/min Est GFR (Non-Af Amer) 45.5 ml/min BUN/Creatinine Ratio 17.9 (10-20) Glucose 158 H (70-99(Fasting)) mg/dl Calcium 10.3 (8.6-10.3) mg/dl Total Bilirubin 0.7 (0.2-1.0) mg/dl AST 39 (13-39) U/L ALT 28 (7-52) U/L Alkaline Phosphatase 50 (34-104) U/L Troponin I High Sens 3720.0 H* (0-20) pg/ml Total Protein 8.0 (6.0-8.3) gm/dl Albumin 4.5 (3.4-5.0) gm/dl Globulin 3.5 (2.5-4.0) gm/dl Albumin/Globulin Ratio 1.3 (0.9-2) Lipase 50 (11-82) U/L Administered Medications Aspirin (Aspirin 81 Mg Ectab) [facility] Stop: 11/29/23 08:59 Last Admin: 10/30/23 11:04 Dose: 81 mg Documented By: RIAZ Atorvastatin Calcium (Atorvastatin 40 Mg Tab) [facility] Stop: 11/29/23 08:59 Last Admin: 10/30/23 11:05 Dose: 80 mg Documented By: RIAZ Parenteral Electrolytes (Plasma-Lyte A Ph 7.4) 1,000 mls @ 80 mls/hr IV .[id number] ONE Stop: 10/30/23 16:23 Last Admin: 10/30/23 04:53 Dose: 80 mls/hr Documented By: JOY Magnesium Sulfate/Dextrose (Magnesium Sulfate / D5w) 1 gm in 100 mls @ 50 mls/hr IV Q2H [facility] Stop: 10/30/23 15:59 Last Admin: 10/30/23 14:12 Dose: 50 mls/hr Documented By: Infusion: 10/30/23 14:12 Dose: Infused Documented By: Admin: 10/30/23 12:39 Dose: 50 mls/hr Documented By: Infusion: 10/30/23 12:39 Dose: Infused Documented By: Admin: 10/30/23 11:08 Dose: 50 mls/hr Documented By: Infusion: 10/30/23 11:00 Dose: Infused Documented By: Admin: 10/30/23 09:00 Dose: 50 mls/hr Documented By: RIAZ Losartan Potassium (Losartan Potassium 50 Mg Tab) 100 mg PO [facility] Stop: 11/29/23 08:59 Last Admin: 10/30/23 10:12 Dose: Not Given Documented By: RIAZ Metoprolol Succinate (Metoprolol Succ 25mg Ext Rel Tab) 25 mg PO [facility] Stop: 11/29/23 08:59 Last Admin: 10/30/23 11:05 Dose: 25 mg Documented By: RIAZ Miscellaneous (Icu Protocol For Hyperglycemia) 1 each N/A ACHS [facility] Stop: 11/01/23 07:29 Last Admin: 10/30/23 11:36 Dose: 1 each Documented By: Admin: 10/30/23 08:59 Dose: 1 each Documented By: RIAZ Miscellaneous (Icu Electrolyte Replacement Protocol) 1 each N/A BID@,18 [facility]; Protocol Stop: 11/06/23 05:59 Last Admin: 10/30/23 07:30 Dose: 1 each Documented By: RIAZ Pantoprazole Sodium (Pantoprazole 40 Mg Tab) 40 mg PO BID [facility] Stop: 11/29/23 08:59 Last Admin: 10/30/23 11:05 Dose: 40 mg Documented By: RIAZ Discontinued Medications Aspirin (Aspirin Chew 324 Mg) 324 mg PO NOW STA Stop: 10/29/23 23:50 Last Admin: 10/30/23 00:00 Dose: 324 mg Documented By: YUMIKO Atropine Sulfate (Atropine Sulfate 0.1 Mg/Ml 10ml Syr) Confirm Administered Dose 1 mg IV .STK-MED ONE Stop: 10/30/23 10:22 Last Admin: 10/30/23 12:40 Dose: Not Given Documented By: RIAZ Dopamine HCl/Dextrose (Dopamine 400mg / 250ml D5w ([employer] Use Only)) Confirm Administered Dose 400 mg IV .STK-MED ONE Stop: 10/30/23 00:41 Last Admin: 10/30/23 02:36 Dose: Not Given Documented By: RICO Fentanyl Citrate (Fentanyl Citrate Pf 100 Mcg/2 Ml Vial) Confirm Administered Dose 100 mcg .ROUTE .STK-MED ONE Stop: 10/30/23 00:11 Last Admin: 10/30/23 02:33 Dose: 125 mcg Documented By: RICO Fentanyl Citrate (Fentanyl Citrate Pf 100 Mcg/2 Ml Vial) Confirm Administered Dose 100 mcg .ROUTE .STK-MED ONE Stop: 10/30/23 02:27 Last Admin: 10/30/23 02:37 Dose: Not Given Documented By: RICO Heparin Sodium (Porcine) (Heparin (Porcine) 1000 Unit/Ml 10 Ml ([employer] Use Only)) Confirm Administered Dose 10,000 units .ROUTE .STK-MED ONE Stop: 10/30/23 00:11 Last Admin: 10/30/23 02:33 Dose: 11,000 units Documented By: RICO Heparin Sodium (Porcine) (Heparin (Porcine) 1000 Unit/Ml 10 Ml ([employer] Use Only)) Confirm Administered Dose 10,000 units .ROUTE .STK-MED ONE Stop: 10/30/23 02:16 Last Admin: 10/30/23 02:36 Dose: Not Given Documented By: RICO Heparin Sodium/Sodium Chloride (Heparin In Nss Infusion 1000 Unit/500 Ml (2 U/Ml) Bag) Confirm Administered Dose 3,000 units IV .STK-MED ONE Stop: 10/30/23 00:11 Last Admin: 10/30/23 02:34 Dose: 3,000 units Documented By: RICO Sodium Chloride (Nss) 1,000 mls @ 999 mls/hr IV .Q1H1M ONE Stop: 10/30/23 00:50 Last Infusion: 10/30/23 03:42 Dose: Infused Documented By: Admin: 10/30/23 00:01 Dose: 999 mls/hr Documented By: YUMIKO Sodium Chloride (Nss) 1,000 mls @ 75 mls/hr IV .[id number] [facility] Stop: 11/29/23 02:44 Last Admin: 10/30/23 05:09 Dose: Not Given Documented By: JOY Insulin Aspart (Insulin Aspart Per Unit Charge) 0 units SC Q6 [facility] Stop: 11/29/23 05:59 Last Admin: 10/30/23 11:46 Dose: Not Given Documented By: Admin: 10/30/23 06:53 Dose: Not Given Documented By: JOY Lidocaine HCl (Lidocaine 1% Local 20 Ml Vial) Confirm Administered Dose 1 ml .ROUTE .STK-MED ONE Stop: 10/30/23 00:12 Last Admin: 10/30/23 02:35 Dose: 1 ml Documented By: RICO Midazolam HCl (Midazolam Hcl 1 Mg/Ml 2ml Vial) Confirm Administered Dose 2 mg .ROUTE .STK-MED ONE Stop: 10/30/23 00:11 Last Admin: 10/30/23 02:34 Dose: 3 mg Documented By: RICO Midazolam HCl (Midazolam Hcl 1 Mg/Ml 2ml Vial) Confirm Administered Dose 2 mg .ROUTE .STK-MED ONE Stop: 10/30/23 01:50 Last Admin: 10/30/23 02:36 Dose: Not Given Documented By: RICO Morphine Sulfate (Morphine Sulfate 4 Mg/Ml 1 Ml Carp\Vial) 4 mg IV NOW [facility] Stop: 10/29/23 23:50 Last Admin: 10/30/23 00:00 Dose: 4 mg Documented By: YUMIKO Nicardipine HCl (Nicardipine Hcl Inj 2.5 Mg/Ml 10 Ml Amp) Confirm Administered Dose 25 mg .ROUTE .STK-MED ONE Stop: 10/30/23 00:11 Last Admin: 10/30/23 02:34 Dose: 25 mg Documented By: RICO Nitroglycerin/Dextrose (Nitroglycerin/D5w 100mcg/Ml 20ml Syr) Confirm Administered Dose 2,000 mcg .ROUTE .STK-MED ONE Stop: 10/30/23 00:11 Last Admin: 10/30/23 02:35 Dose: 2,000 mcg Documented By: RICO Ondansetron HCl (Ondansetron Inj 2 Mg/Ml 2 Ml Vial) 4 mg IV NOW STA Stop: 10/29/23 23:50 Last Admin: 10/30/23 00:01 Dose: 4 mg Documented By: YUMIKO Potassium Chloride (Potassium Chloride Crtab 20 Meq Tabcr) 20 meq PO NOW STA Stop: 10/30/23 07:54 Last Admin: 10/30/23 11:04 Dose: 20 meq Documented By: RIAZ Potassium Chloride (Potassium Chloride Crtab 20 Meq Tabcr) 20 meq PO ONE ONE Stop: 10/30/23 15:01 Last Admin: 10/30/23 14:52 Dose: 20 meq Documented By: RIAZ Ticagrelor (Ticagrelor 90 Mg Tab) Confirm Administered Dose 180 mg .ROUTE .STK- MED ONE Stop: 10/30/23 02:44 Last Admin: 10/30/23 08:59 Dose: Not Given Documented By: RIAZ Imaging Data Radiologist's Impression: Chest X-Ray 10/29/23 23:49 XR chest 1V portable CLINICAL HISTORY: Chest pain, nonspecific. COMPARISON STUDY: Chest radiograph and chest CT October 20, 2023. FINDINGS: There is no pneumothorax or pleural effusion. No consolidation is identified. There is no evidence for pulmonary edema. Cardiomediastinal silhouette is stable. Multiple old left-sided rib fractures are incidentally noted. IMPRESSION: No acute cardiopulmonary findings. No change in appearance of the chest. ACT 112: Negative or not required by law. Electronically signed by: Feroz Waller M.D. 10/30/2023 7:24 AM Discharge Plan Visit Data Chief Complaint: Cardiac Assessment Stated Complaint: CHEST PAIN, HERE 1 WK AGO FOR SAME ED Provider: Jeffry Cardona Discharge Problem: ST elevation myocardial infarction (STEMI) Patient Disposition: Admitted As Inpatient Discharge Instructions Interventions: ED Discharge Assessment Last Done: 10/30/23 00:28 Discharge Problem: ST elevation myocardial infarction (STEMI) Qualifiers: Involved coronary artery: unspecified coronary artery Qualified Code(s): I21.3 - ST elevation (STEMI) myocardial infarction of unspecified site
[2023-10-30] MEDS ORDERED: MIDAZOLAM HCL 1 MG/ML 2ML VIAL ONE ×2 (00:10→01:49)
[2023-10-30] MEDS ORDERED: HEPARIN (PORCINE) 1000 UNIT/ML 10 ML (CATH LAB USE ONLY) ONE ×2 (00:10→02:15)
[2023-10-30] MEDS ORDERED: fentaNYL citrate PF 100 MCG/2 ML VIAL ONE ×2 (00:10→02:26)
[2023-10-30] MEDS ORDERED: niCARdipine HCL INJ 2.5 MG/ML 10 ML AMP ONE (00:10)
[2023-10-30] MEDS ORDERED: NITROGLYCERIN/D5W 100MCG/ML 20ML SYR ONE (00:10)
[2023-10-30] MEDS ORDERED: LIDOCAINE 1% LOCAL 20 ML VIAL ONE (00:11)
[2023-10-30 00:35] LABS: Basophils # (auto) 0.04 K/uL (0.00-0.20); Basophils % (auto) 0.3 %; Eosinophils # (auto) 0.05 K/uL (0.00-0.50); Eosinophils % (auto) 0.3 %; Hemoglobin 15.4 g/dl (14.0-18.0); Immature Granulocytes # (auto) 0.04 K/uL (0.01-0.20); Immature Granulocytes % (auto) 0.3 %; Lymphocytes % (auto) 11.3 %; Mean Corpuscular Hemoglobin 30.1 pg (25.0-34.0); Mean Corpuscular Hgb Conc 34.2 g/dL (32.0-36.0); Mean Corpuscular Volume 87.9 fL (80.0-100.0); Mean Platelet Volume 8.7 fL (9.4-12.4); Monocytes # (auto) 0.94 K/uL (0.11-0.59); Monocytes % (auto) 6.3 %; Neutrophils # (auto) 12.24 K/uL (1.40-6.50); Neutrophils % (auto) 81.5 %; Platelet Count 400 K/uL (130-400); RDW Coefficient of Variation 12.2 % (11.5-14.5); RDW Standard Deviation 40.1 fL (36.4-46.3); Red Blood Count 5.12 M/uL (4.70-6.10); White Blood Count 15.01 K/ul (4.8-10.8)
[2023-10-30] MEDS ORDERED: DOPamine 400MG / 250ML D5W (Cath Lab Use ONLY) IV ONE (00:40)
[2023-10-30 00:41] LABS: Albumin Globulin Ratio 1.3 (0.9-2); Albumin Level 4.5 gm/dl (3.4-5.0); BUN Creatinine Ratio 17.9 (10-20); Bilirubin,Total 0.7 mg/dl (0.2-1.0); Calcium 10.3 mg/dl (8.6-10.3); Creatinine Clr Calc Pharmacy 42.8 ml/min; Est GFR (African American) 52.7 ml/min; Est GFR (Non-African American) 45.5 ml/min; Globulin 3.5 gm/dl (2.5-4.0); Potassium 3.6 mmol/L (3.5-5.1)
[2023-10-30 00:55] LABS: Prothrombin Time 10.9 Seconds (9.0-12.0)
[2023-10-30] MEDS ORDERED: TICAGRELOR 90 MG TAB ONE (02:43)
[2023-10-30] MEDS ORDERED: SODIUM CHLORIDE 0.9% 1,000 ML IV SCH (02:45)
--- NOTE | 2023-10-30 02:55 | Pre Anesthesia Assessment ---
Date of Service October 30, 2023 Pre Sedation Assessment Vital Signs Pulse Resp BP Pulse Ox O2 Del Method 10/29/23 23:23 98 H 18 152/97 H 97 Room Air Cardiovascular RRR, no murmur, no edema Respiratory normal respiratory effort, lungs clear to auscultation Pre-Sedation Airway Assessment Smoking Status: Former smoker Mallampati 3 ASA 4 Notes The planned sedation has been discussed with the patient. Informed Consent was obtained. I have identified the patient, determined the appropriateness of sedation and have assessed the patient immediately prior to the procedure. All medicine(s) and interventions are by my order.
--- NOTE | 2023-10-30 02:57 | Post Anesthesia Assessment ---
Date of Service October 30, 2023 Post Sedation Assessment Vital Signs Pulse Resp BP Pulse Ox O2 Del Method 10/29/23 23:23 98 H 18 152/97 H 97 Room Air Recovery Score Activity: Moves 4 extremities Respiration: Deep Breath/Cough Circulation: +/-20% PreAnes Value Consciousness: Fully Awake Oxygen Saturation: > 92% On Room Air Discharge Sedation Level of Care: Fast Track Phase II Post Sedation Plan On clinical assessment, the patient appears to have tolerated the sedation without complications. Patient is recovering as anticipated. Patient will continue to be monitored by nursing and may be discharged when se dation discharge criteria are met per below protocol. Upon Completions of procedure up to 15 minutes continue every 5 minute vital signs and the P.A.R. score; then discharge to a Phase I or Fast Track to Phase II per the following guidelines: * Discharge Patient to appropriate Phase II area if PAR is 8 or greater or return to pre- procedure baseline. The post - procedure orders will be as directed. * If PAR score is less than 8 or not return to pre-procedure baseline then patient will follow Phase I monitoring till PAR is reached for Phase II. The Phase I may be done in procedure room or may call to secure a Phase I area. * If naloxone or flumazenil are used for reversal, hold in Phase I for continued monitoring from when last reversal dose was given for a minimum of 60 minutes or longer pending the nurse and/or physician discretion of patient condition before discharge to Phase II. Please call the Sedation Physician to re-evaluate and complete post-note for discharge to Phase II area. Do NOT discharge from procedure sedation or Phase 1 until post- sedation evaluation note is complete by procedure /sedation MD Sedation Discharge Instructions to be given to the patient at discharge to home. [facility] Procedure Codes (Charges) Indication for Procedure Indication for procedure: Acute AR Sedation/Anesthesia Procedure 1: Sedation/Anesthesia: 61981 Mod Sedation by the same physician;Init15 Min Child Age 5 & Up (Initial 15 minutes, start 1229) Total Sedation Time (minutes): 123 Procedure 2: Sedation/Anesthesia: 94960 Mod Sedation by the same physician; Ea [id number] Minutes (Additional 108 minutes, end time 0232) Total Sedation Time (minutes): 123
--- NOTE | 2023-10-30 02:59 | Critical Care Consultation ---
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 He is to the ICU without vasopressors and with right groin sheath in place. Neuro - HX of CVA with residual left sided weakness CAM ICU: Negative - No acute needs, patient is awake and alert following commands following procedure - DAPT therapy per Cardiology Cardiac - STEMI, s/p CESAR to RCA, HTN, HLD - Presenting symptoms have resolved, ECG is improved following CESAR - DAPT therapy per cardiology- ASA and Brilinta currently - Continue ARB- pending renal function - Continue BB as hemodynamics permit - High intensity statin - ECHO in morning - Lipid panel pending - HGB A1c Pending - StopBANG- 3- Age, HTN, Male- consider YESSI screening as outpatient - Right groin Sheath with ACT at 0600 - call tech to pull when < 150 - Right radial TR band per protocol Respiratory - No acute needs - Previous smoker GI - GERD - Continue PPI RENAL/LYTES - LAILA, - 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 relation to starting ARB last admission - follow - Provide crystalloid x1 - No acute needs ENDO - DMII - Hold oral hyperglycemics while inpatient- ICU hyperglycemic protocol goal <180 HEME - No acute needs ID - No concern for infectious etiology LINES/IV ACCESS - PIV, right femoral artery sheath Continue use of these lines DVT PROPHYLAXIS - SCDS, chemoprophy when sheath his removed DISPO: ICU until hemodynamics proven stable and monitoring for occlusion is completed I have personally spent 45 minutes of critical care time in the direct management of this patient. This is a life/limb threatening event. This includes time spent evaluating patient, direct bedside care, chart review, placing orders, interpretation of diagnostic studies, discussion with consultants, patient, and family members, as well as other required patient management ac tivities. This time is exclusive of all separately billable procedures, and teaching time and separate from and in addition to any other critical care service time. Thank you for allowing us to participate in the care of this patient. Please refer to my attending physician's documentation for any further recommendations. 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 He is normally wheel chair dependant. Patient presented to the EMD late at night on 10/29/23 as a STEMI alert in the setting of ~ 4 hours of chest pain. Patient reports the pain was 10/10 on his right side of chest that radiated to his back and up in his right neck. This was not associated with dyspnea, diaphoresis, n/v, or jaw pain. Patient was emergently taken to the cardiac cath suite where he underwent angiography via right groin access site and received CESAR x1 to RCA. He arrives to the ICU with TR Band on right wrist, from failed access and right groin femoral sheath in place. He is awake, conversant, on NC, and currently with adequate hemodynamics without any vasopressor agents on. Patient was evaluated last week for complaints of chest pain and was without significant HsCTNI elevation, had an ECHO performed that was with normal EF and no RWMA. He had his hypertensive medications adjusted at that time as well, and feels like he has been tolerating them without difficulty. He was also COVID + during that admission. He has been on Plavix previously following his CVA. Patient reports that the pain he experienced this time was different than the pain he had experienced last admission as this pain was more intense and sharp. CODE: FULL Allergies Allergy/AdvReac Type Severity Reaction Status Date / Time No Known Allergies Allergy Verified 10/20/23 01:09 Home Medications Medication Instructions Recorded Confirmed Type atorvastatin 40 mg tablet 40 mg PO QPM #90 tabs 06/22/19 10/30/23 Rx acetaminophen 325 mg tablet 650 mg PO QID 10/20/23 10/20/23 History (Tylenol) clopidogrel 75 mg tablet 75 mg PO QDL 10/20/23 10/30/23 History glipizide 10 mg tablet 10 mg PO BID 10/20/23 10/20/23 History metformin 850 mg tablet 850 mg PO BID 10/20/23 10/20/23 History polyethylene glycol 3350 17 17 g PO DAILY 10/20/23 10/20/23 History gram/dose oral powder (Miralax) chlorthalidone 25 mg tablet 25 mg PO QAM #30 tabs 10/21/23 10/30/23 Rx ezetimibe 10 mg tablet 10 mg PO QAM #30 tabs 10/21/23 Rx losartan 100 mg tablet 100 mg PO DAILY #30 tabs 10/21/23 Rx metoprolol succinate 25 mg 25 mg PO QAM #30 tabs 10/21/23 Rx tablet,extended release 24 hr nitroglycerin 0.4 mg sublingual 0.4 mg sublingual UD PRN chest 10/21/23 Rx tablet (Nitrostat) pain #20 tabs pantoprazole 40 mg tablet,delayed 40 mg PO BID #60 tabs 10/21/23 Rx release Patient History Medical History (Updated 10/30/23 @ 03:35 by MURRAY De Jesus) HLD (hyperlipidemia) DMII (diabetes mellitus, type 2) History of eczema History of stroke History of palpitations History of pulmonary embolism Surgical History No significant past surgical history Family History Other Coronary arteriosclerosis Diabetes Hypertension Denies family history of Ovarian cancer Prostate cancer Myocardial infarction Breast cancer Social History Smoking Status: Former smoker Tobacco Type: Cigarettes Do You Dip or Chew Tobacco: No; Hx Alcohol Use: No Hx Substance Use: No Preferred Language: Greenlandic Communication Ability: Effective Visual Impairment: No Limitations Hearing Ability: Normal Vision Impaired Teacher Required: No Beliefs That Will Affect Care: Yazdanism marital status: Current Living Situation: Alone Current Living Situation Comment: [facility] current occupational status: disabled Feels Safe at Home: Yes Assistive Devices: Glasses and Wheelchair Review of Systems Review of Systems: REVIEW OF SYSTEMS: Constitutional: No fever, sweats or chills Eyes: No diplopia, no worsening or blurred vision ENT: normal hearing, no trouble swallowing Respiratory: No cough, sputum, dyspnea at rest or on exertion Cardiovascular: (+) chest pain, tightness or palpitations Abdomen: No pain, nausea, vomiting, diarrhea or constipation Musculoskeletal: No joint pain, calf pain, swelling Neurologic: (+) left arm residual weakness with contracture of left hand, No weakness, numbness/tingling, or balance problems Psychiatric: No anxiety or depression Skin: No rash or itch Physical Exam Physical Exam: PHYSICAL EXAM: General: awake, alert, no apparent distress Head: Normocephalic, atraumatic ENT: PERRLA, EOMI, no pharyngeal exudate, mucous membranes moist Neuro: AAO x 3, speech clear and appropriate, strength intact bilaterally 5/5 right upper and lower, 4/5 LLe, 3/5 LUE, and sensation intact and equal all extremities and dermatomes, Chest: equal rise and fall of the chest, no accessory muscle use, no heaves or thrills, Clear to auscultation, on room air, Cardiac: Regular rate and rhythm, telemetry reviewed- NSR ECG reviewed and improved from EMD, skin warm dry, cap refill <3 seconds, peripheral pulses +2 no JVD, no murmur, no edema, Right groin sheath intact without strikethrough, or hematoma, right radial with TR band in place, right ulnar pulse 2+ and sensation intact to all fingers right hand GI: NABS x 4 quadrants, soft, nontender to palpation, no rebound, guarding or tenderness : Spontaneously voiding, no pain, no CVA tenderness, Psych: Normal mood and affect Skin: no rash or erythema Results & Data Results & Data Vital Signs (Past 12 Hours) Vital Signs Pulse Resp BP Pulse Ox O2 Del Method 10/29/23 23:23 98 H 18 152/97 H 97 Room Air Laboratory Results Abnormal lab results 10/29/23 10/30/23 10/30/23 Range/Units 23:59 00:53 01:32 WBC 15.01 H (4.8-10.8) K/ul MPV 8.7 L (9.4-12.4) fL Neut # (Auto) 12.24 H (1.40-6.50) K/uL [place] # (Auto) 0.94 H (0.11-0.59) K/uL Activ Coag Time Kaolin 288 H 277 H (94-140) SECONDS Chloride 96 L (98-107) mmol/L Anion Gap 14 H (3-11) BUN 27 H (6-23) mg/dl Creatinine 1.51 H (0.6-1.4) mg/dl Glucose 158 H (70-99(Fasting)) mg/dl Troponin I High Sens 3720.0 H* (0-20) pg/ml 10/30/23 10/30/23 Range/Units 02:10 02:31 WBC (4.8-10.8) K/ul MPV (9.4-12.4) fL Neut # (Auto) (1.40-6.50) K/uL [place] # (Auto) (0.11-0.59) K/uL Activ Coag Time Kaolin 255 H 266 H (94-140) SECONDS Chloride (98-107) mmol/L Anion Gap (3-11) BUN (6-23) mg/dl Creatinine (0.6-1.4) mg/dl Glucose (70-99(Fasting)) mg/dl Troponin I High Sens (0-20) pg/ml Medications Administered Home Medications atorvastatin 40 mg tablet 40 mg PO QPM #90 tabs 06/22/19 [Rx Confirmed 10/30/23] acetaminophen 325 mg tablet (Tylenol) 650 mg PO QID 10/20/23 [History Confirmed 10/20/23] clopidogrel 75 mg tablet 75 mg PO QDL 10/20/23 [History Confirmed 10/30/23] glipizide 10 mg tablet 10 mg PO BID 10/20/23 [History Confirmed 10/20/23] metformin 850 mg tablet 850 mg PO BID 10/20/23 [History Confirmed 10/20/23] polyethylene glycol 3350 17 gram/dose oral powder (Miralax) 17 g PO DAILY 10/20/23 [History Confirmed 10/20/23] chlorthalidone 25 mg tablet 25 mg PO QAM #30 tabs 10/21/23 [Rx Confirmed 10/30/23] ezetimibe 10 mg tablet 10 mg PO QAM #30 tabs 10/21/23 [Rx] losartan 100 mg tablet 100 mg PO DAILY #30 tabs 10/21/23 [Rx] metoprolol succinate 25 mg tablet,extended release 24 hr 25 mg PO QAM #30 tabs 10/21/23 [Rx] nitroglycerin 0.4 mg sublingual tablet (Nitrostat) 0.4 mg sublingual UD PRN chest pain #20 tabs 10/21/23 [Rx] pantoprazole 40 mg tablet,delayed release 40 mg PO BID #60 tabs 10/21/23 [Rx] Active Medications Aspirin (Aspirin 81 Mg Ectab) 81 mg PO QAM [facility] Stop: 11/29/23 08:59 Atorvastatin Calcium (Atorvastatin 40 Mg Tab) 80 mg PO QAM [facility] Stop: 11/29/23 08:59 Sodium Chloride (Nss) 1,000 mls @ 75 mls/hr IV .[id number] [facility] Stop: 11/29/23 02:44 Losartan Potassium (Losartan Potassium 50 Mg Tab) 100 [facility] [place] Stop: 11/29/23 08:59 Metoprolol Succinate (Metoprolol Succ 25mg Ext Rel Tab) [address] [facility] Stop: 11/29/23 08:59 Miscellaneous (Icu Protocol For Hyperglycemia) 1 each N/A ACHS [facility] Stop: 11/01/23 07:29 Ticagrelor (Ticagrelor 90 Mg Tab) 90 mg PO BID [facility] Stop: 11/29/23 20:59 ECG Additional Comments: Normal sinus rhythm Inferior-posterior infarct , age undetermined Abnormal ECG When compared with ECG of 29-OCT-2023 23:44, (unconfirmed) Inferior-posterior infarct is now Present ST no longer depressed in Lateral leads Coding Level of Care Code 90581 CRITICAL CARE 1ST 30-74M Diagnoses ST elevation myocardial infarction (STEMI) I21.3 Involved coronary artery: unspecified coronary artery Hypertension I10 Stroke I63.9 HLD (hyperlipidemia) E78.5 DMII (diabetes mellitus, type 2) E11.9 (1) ST elevation myocardial infarction (STEMI) Involved coronary artery: unspecified coronary artery Qualified Code(s): I21.3 - ST elevation (STEMI) myocardial infarction of unspecified site
--- NOTE | 2023-10-30 03:01 | Cardiac Catheterization ---
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 Cardiac Status Clinical evaluation leading to the procedure CAD Presenation: STEMI Anginal Classification: CCS IV Heart Failure: No Cardiogenic Shock within 24 Hours: No Cardiac Arrest within 24 Hours: No Imaging Studies Past 6 Months: Yes Stress Studies Past 6 Months: No STEMI OR Non-STEMI Symptom Onset Date: 10/29/23 Symptom Onset Time: 22:00 Thrombolytics: No Coronary Anatomy Dominant: Right Left Main (% Stenosis): Normal LAD (% Stenosis): Proximal (Mild), Mid (Mild) and Distal (70%) D1 (% Stenosis): Normal Circumflex (% Stenosis): Normal OM1 (% Stenosis): Normal L PL1 (% Stenosis): Proximal (50%) RCA (% Stenosis): Proximal (70%), Mid (90 and 95% with thrombus) and Distal (50%) R PDA (% Stenosis): Normal R PL1 (% Stenosis): Normal Diagnostic Physicians Name: Nayan August MD, PhD Closure Device Percutaneous Entry Location: Radial followed by femoral Recommendations: Medical Therapy and/or Counseling and PCI without planned CABG PCI Indication: PCI for STEMI - Stable Reason For Delay in PCI:: Difficult vascular access Lesion Segment Name: Proximal and mid RCA Culprit Artery: Yes Stenosis Prior to Rx (%): Up to 95% Pre-Procedure PABLO Flow: 1 Previously Treated Lesion: No Lesion Complexity: High/C Lesion Length (mm): 25 Thrombus Present: Yes Bifurcation Lesion: No Guidewire Across Lesion: Yes Intraprocedure Events Significant Disection: No Perforation: No Cardiac Cath Procedure Full Procedure Date October 30, 2023 Pre-Procedure Diagnosis Pre-Procedure Diagnosis: STEMI AUC Score AUC Score: 09 Post-Procedure Diagnosis Post-Procedure Diagnosis: Severe CAD and Successful PCI Procedure(s) Performed Procedure(s) Performed: Coronary Angiography, Drug Eluting Stent and Ultrasound Guided Vascular Access Community Action Worker Nayan August MD, PhD Estimated Blood Loss Estimated Blood Loss: 30 mL Medication(s) Medication(s): Fentanyl, Heparin, Lidocaine 1%, Nicardipine, Nitroglycerin and Versed Summary of Findings Brief description: Patient was brought to the cardiac catheterization suite where he was shaved and prepped in a sterile fashion. Sedated using IV Versed and fentanyl. Soft tissues of the right wrist were anesthetized using 2 mL of 1% Xylocaine. The right radial artery was accessed with a modified Seldinger technique and a 6 Gabonese radial artery glide sheath was placed. All catheters were advanced and exchanged over a 0.035 J-tip wire. Patient received antispasmodics including nicardipine and nitroglycerin. Anticoagulation was provided with IV heparin. Right coronary angiography was performed in orthogonal views using a 6 [place]onese JR4 guide catheter. This required use of a Wholey wire to deliver the catheter because of tortuosity in the innominate. Because of the emergent nature of this case we proceeded directly to PCI. A BMW versa guidewire was advanced through the guide catheter and with significant difficulty we were able to position the wire distally. However, we were unable to advance the balloon because of the tortuous innominate artery and the geometry of the ascending aorta. More importantly, the angle of the RCA takeoff and blackburn's crook portion precluded delivery of balloons or stents. Decision was made to abandon radial approach. The guide catheter was removed over the J-wire. Soft tissue the right groin were anesthetized using 10 mL of 1% Xylocaine. Using ultrasound for guidance (image saved), the right femoral artery was accessed and a 6 Gabonese femoral artery sheath was placed. We again encountered difficulty in the abdominal aorta suggesting tortuosity and potential abdominal aortic aneurysm. We were able to deliver catheters using initially a Sarahi wire and then a long exchange J-wire. A 6 Gabonese JR4 guide catheter was used to engage the right coronary. Through this, a BMW versa guidewire was advanced and positioned distally in the RCA. However, we could not advance any additional equipment. We ended up attempting a 6 Gabonese AR-1 and finally a 6 Gabonese AL-1 which gave reasonable backup support allowing delivery of not only the BMW versa guidewire but also the guide liner. Through this a 2.5 x 12 mm trek balloon was used and predilatation was performed to the RCA with 3 inflations up to 14 sam. We were then able to deliver a 2.75 x 15 mm drug-eluting stent across the lesion in the midportion of the RCA and deployed at 19 sam. This was then postdilated using a 3.0 x 9 mm sprinter NC balloon inflated up to 20 sam. We next attempted to deliver a 2.75 x 12 mm Xience stent distal to the initial stent. However, we could not advance a stent distally and further attempts at that approach were abandoned. We decided to attempt a delivery of a 2.75 x 12 mm drug-eluting stent but were again unsuccessful. Decision was made to change guide catheters. A 6 Gabonese 3 DRC guide catheter was used to engage the right coronary. The BMW reversal was again positioned distally and the guide liner catheter was advanced. A 3.0 x 12 mm trek balloon was then used to predilate the proximal lesion up to 17 sam. We attempted to deliver a 3.25 x 15 mm drug-eluting stent multiple times but were unsuccessful because of the blackburn's crook configuration of that segment of the vessel. Therefore, the guidewire, guide liner, and guide catheter were removed. We next performed left coronary angiography using a 5 Gabonese JL 3.5 diagnostic catheter. Decision was made to reattempt PCI of the proximal RCA stenosis. A 6 [place]onese JR4 guide catheter was advanced and used to engage the right coronary. Through this a BMW number so guidewire was positioned distally in the RCA. The guide liner catheter was then advanced over this. A 3.0 x 12 mm trek balloon was then advanced and used to predilate the proximal lesion up to 17 sam. Then, a 3.0 x 12 mm Xience drug-eluting stent was advanced and positioned across the lesion where it was deployed initially at 20 sam. Second inflation up to 22 sam was performed. Finally, the stent was postdilated using a 3.25 x 9 mm NC sprinter balloon up to 13 sam. The balloon was removed followed by the guidewire, and guide liner. Final angiographic evaluation was performed. Guide catheter was removed. Limited right femoral artery angiography was performed to evaluate for closure. Findings were not favorable, therefore, the sheath was sutured in place with plans for removal and manual compression to obtain hemostasis once ACT was less than or equal to 150 seconds. The right radial artery sheath was removed and hemostasis at the air was obtained by using the TR band. Patient was then admitted to the ICU for further workup and management. This ended the case. Coronary angiography findings: LFO-jbeav-bjseuuc vessel with mild proximal to mid calcification. Blackburn's crook takeoff. Proximal lesion of 70% and then as it transitions to the mid segment there is a 95% stenosis with thrombus. There is diffuse mild disease with a focal narrowing of 30 to 40% followed by ectasia and then a early distal lesion of 50 to 60%. Beyond this the vessel has mild luminal irregularities and bifurcates into a branching posterior lateral and the PDA. Peers to be some competitive flow in the PDA and there is only PABLO I to PABLO II flow on initial injection. YWW-yicji-rvektew vessel trifurcating into LAD, ramus, and circumflex. Diffuse mild disease. WSG-lxmud-mtbtclw and apical vessel. Proximal segment with diffuse mild disease with mild calcification less than 30 to 40% stenosis. LAD gives to septal branches and a medium to large caliber branching first diagonal. This has mild luminal irregularities. There is a 70% narrowing in the early distal LAD but the vessel is relatively small caliber and then terminates. JGz-ooxzf-zrvttid and nondominant. Travels in the AV groove. First branch arises almost immediately and goes to the atrium. Proximal vessel has mild lum inal irregularities and provides a small to medium caliber OM1. The AV groove circumflex continues in the mid segment where there is diffuse mild luminal irregularities. Then the vessel essentially becomes a posterolateral and its earliest portion has a focal stenosis of 50%. Ramus-small to medium caliber branching vessel with diffuse luminal irregularities. PCI of RCA Severe mid LAD lesion is reduced to less than 10% residual stenosis post PCI. Proximal severe lesion is reduced to 0% residual stenosis post PCI PABLO-3 flow post PCI No evidence of dissection or perforation post PCI There is residual early distal lesion of 50%. Summary: 1. Severe occlusive coronary disease in the RCA is culprit for acute inferior ST elevation ID. This was successfully treated with implantation of 2 overlapped drug-eluting stents covering the proximal and mid RCA stenosis. Moderate residual early distal RCA stenosis. 2. Predominantly mild left coronary artery system disease. However there is a angiographically severe lesion in the early distal LAD which is not the culprit and may be too small for PCI. 3. Patient has significant tortuosity in the innominate artery making catheterization difficult from the right radial artery approach. He also seems to have significant vascular disease when approached from the right femoral artery and may have aneurysm or tortuosity in the abdominal aorta. This should be evaluated further. 4. Patient will be on dual antiplatelet therapy with aspirin 81 mg daily and Brilinta 90 mg p.o. twice daily. 5. Initiate guideline directed medical therapy for secondary prevention of coronary disease including low-dose aspirin, high intensity statin therapy, beta-catherine, and angiotensin receptor catherine. 6. Recommend echocardiogram to evaluate EF. 7. Patient was seen by [facility] cardiology last week. I would recommend they be consulted for further workup and management at this time. Hemodynamics Rest Ao:: 129/73 mmHg Final Ao: 137/79 mmHg LV: Not performed Recommendations Recommendations: Medical Therapy and/or Counseling and PCI without planned CABG Radiation Exposure (mGy) 4479 mGy, fluoroscopy time 42.8 minutes Contrast (mls) 200 mL Anesthesia 3 mg IV Versed, 125 mcg IV fentanyl. Start 0029, end O232 Procedural Complication(s) None Disposition ICU I attest to the content of the Intraoperative Record and any orders documented therein. Any exceptions are noted below. [facility] Card Cath Procedure Codes Cardiac Catheterization Procedure 1: Cardiovascular Cath Procedures: 51092 Coronaries Therapeutic Services & Ancillary Procedure 1: Cardiovascular Tx and Anc Procedures: 70531 Ultrasonic Guidance Vascular Access Moderate Sedation Procedure 1: Sedation/Anesthesia: 19439 Mod Sedation by the same physician;Init15 Min Child Age 5 & Up (Initial 15 min, start time 0029) Procedure 2: Sedation/Anesthesia: 12900 Mod Sedation by the same physician; Ea [id number] Minutes (Additional 108 min, end time 0232) Stenting Procedure 1: Cardiovascular Stent Procedures: 02543 Perc transluminal revascularization of acute sub/total occl, aMI (RCA) PG Care Time/CCT Total # of Minutes Spent Total Time Spent with Patient: Total time spent is greater than 50% in coordination of care (as documented) at patient's floor/unit and/or counseling patient:
[2023-10-30 03:44] LABS: Basophils # (auto) 0.04 K/uL (0.00-0.20); Basophils % (auto) 0.3 %; Eosinophils # (auto) 0.02 K/uL (0.00-0.50); Eosinophils % (auto) 0.1 %; Hematocrit (blood only) 38.4 % (42.0-52.0); Hemoglobin 13.1 g/dl (14.0-18.0); Immature Granulocytes # (auto) 0.06 K/uL (0.01-0.20); Immature Granulocytes % (auto) 0.4 %; Lymphocytes # (auto) 1.31 K/uL (1.20-3.40); Lymphocytes % (auto) 8.6 %; Mean Corpuscular Hgb Conc 34.1 g/dL (32.0-36.0); Mean Corpuscular Volume 88.1 fL (80.0-100.0); Mean Platelet Volume 8.7 fL (9.4-12.4); Monocytes # (auto) 0.73 K/uL (0.11-0.59); Monocytes % (auto) 4.8 %; Neutrophils # (auto) 13.12 K/uL (1.40-6.50); Neutrophils % (auto) 85.8 %; Platelet Count 330 K/uL (130-400); RDW Coefficient of Variation 12.3 % (11.5-14.5); RDW Standard Deviation 39.8 fL (36.4-46.3); Red Blood Count 4.36 M/uL (4.70-6.10); White Blood Count 15.28 K/ul (4.8-10.8)
[2023-10-30] MEDS ORDERED: PLASMA-LYTE A 1,000 ML IV ONE (03:54)
--- NOTE | 2023-10-30 04:20 | History & Physical Report ---
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 Patient states around 8 PM he noticed severe pain in the right side of his chest about 10/10 in severity and he could not go to sleep. No sweating. No shortness of breath. No nausea. No radiation of the pain. He came to the ER and heart alert was called s/p cardiac cath and stent to the RCA. States currently chest pain is mostly gone. Resting comfortably. ST elevated LA S/p stent to RCA Cardiac started high-dose statin, aspirin, Brilinta and beta-catherine Close monitoring ICU Follow echo Post cath management as per cardiology History of hypertension Currently on losartan and metoprolol succinate Will monitor History of CVA Flaccid hemiplegia of left nondominant side Wheelchair-bound Can transfer bed to wheelchair Currently On aspirin and Brilinta and statin. Diabetes Will hold home p.o. medications Sliding scale HbA1c was 7.8 on October 20, 2023 Will monitor COVID Was positive on October 20 Will continue COVID precautions for now covid test came back negative today. 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 Patient states around 8 PM he noticed severe pain in the right side of his chest about 10/10 in severity and he could not go to sleep. No sweating. No shortness of breath. No nausea. No radiation of the pain. He came to the ER and heart alert was called s/p cardiac cath and stent to the RCA. States currently chest pain is mostly gone. Resting comfortably. Recently was diagnosed with COVID on October 20. He states he has some mild headache today. Has some slight runny nose and cough. Feeling weak and tired. Appetite is okay. No abdominal pain. Normal bowel and bladder movements. Past medical history. As mentioned above Past surgical history. Cyst removal on his left arm Social history. Currently living at [facility]. Smoked 1 pack a day for 35 years. Quit in 2012. Currently not drinking alcohol. No drug use. Allergies Allergy/AdvReac Type Severity Reaction Status Date / Time No Known Allergies Allergy Verified 10/20/23 01:09 Home Medications Medication Instructions Recorded Confirmed Type atorvastatin 40 mg tablet 40 mg PO QPM #90 tabs 06/22/19 10/30/23 Rx acetaminophen 325 mg tablet 650 mg PO QID 10/20/23 10/20/23 History (Tylenol) clopidogrel 75 mg tablet 75 mg PO QDL 10/20/23 10/30/23 History glipizide 10 mg tablet 10 mg PO BID 10/20/23 10/20/23 History metformin 850 mg tablet 850 mg PO BID 10/20/23 10/20/23 History polyethylene glycol 3350 17 17 g PO DAILY 10/20/23 10/20/23 History gram/dose oral powder (Miralax) chlorthalidone 25 mg tablet 25 mg PO QAM #30 tabs 10/21/23 10/30/23 Rx ezetimibe 10 mg tablet 10 mg PO QAM #30 tabs 10/21/23 Rx losartan 100 mg tablet 100 mg PO DAILY #30 tabs 10/21/23 Rx metoprolol succinate 25 mg 25 mg PO QAM #30 tabs 10/21/23 Rx tablet,extended release 24 hr nitroglycerin 0.4 mg sublingual 0.4 mg sublingual UD PRN chest 10/21/23 Rx tablet (Nitrostat) pain #20 tabs pantoprazole 40 mg tablet,delayed 40 mg PO BID #60 tabs 10/21/23 Rx release Past Med/Surg History Medical History (Updated 10/30/23 @ 03:35 by MURRAY De Jesus) HLD (hyperlipidemia) DMII (diabetes mellitus, type 2) History of eczema History of stroke History of palpitations History of pulmonary embolism Surgical History No significant past surgical history Family History Other Coronary arteriosclerosis Diabetes Hypertension Denies family history of Ovarian cancer Prostate cancer Myocardial infarction Breast cancer Social History Smoking Status: Former smoker Tobacco Type: Cigarettes Second Hand Exposure: No; Do You Dip or Chew Tobacco: No; Tobacco Cessation Education Requested by Patient: No Hx Alcohol Use: No Hx Substance Use: No Preferred Language: Faroese Communication Ability: Effective Visual Impairment: No Limitations Hearing Ability: Normal Top Stitcher Required: No Beliefs That Will Affect Care: None marital status: Current Living Situation: Personal Care Facility Current Living Situation Comment: [facility] current occupational status: disabled Other Information That Helps Us Care for You: No Feels Safe at Home: Yes Safety Concerns: Feels Safe At This Time Assistive Devices: Wheelchair Review of Systems Review of Systems: All systems reviewed & are unremarkable except as noted in HPI & below Physical Exam Physical Exam: General- Not in distress Head- atraumatic Eyes- EOMI, Neck- supple, no JVD. Lungs- clear to auscultation no wheezing or crackles. Heart- regular rhythm; no murmur, no gallop. Abdomen- normal bowel sounds, soft, nontender, no distension.Right groin cath site no obvious erythema seen. Extremities- no pretibial edema, no erythema Neuro- alert, oriented x 3; EOMI; no dysarthria; left sided weakness. Skin- warm & dry Results & Data Results & Data Vital Signs (Past 12 Hours) Vital Signs Temp Pulse Pulse Resp BP BP Pulse Ox 10/30/23 03:33 106/70 10/30/23 03:33 85 24 97 10/30/23 03:30 87 17 96 10/30/23 03:28 87 10/30/23 03:25 10/30/23 03:15 88 24 97 10/30/23 03:09 36.3 C L 87 21 107/63 97 10/29/23 23:23 98 H 18 152/97 H 97 O2 Del Method O2 Flow Rate 10/30/23 03:33 10/30/23 03:33 10/30/23 03:30 10/30/23 03:28 10/30/23 03:25 Nasal Cannula 2 10/30/23 03:15 10/30/23 03:09 Nasal Cannula 2 10/29/23 23:23 Room Air Diagnostic Findings Laboratory Results WBC 15.28 K/ul (4.8-10.8) H 10/30/23 03:17 RBC 4.36 M/uL (4.70-6.10) L 10/30/23 03:17 Hgb 13.1 g/dl (14.0-18.0) L 10/30/23 03:17 Hct 38.4 % (42.0-52.0) L 10/30/23 03:17 MCV 88.1 fL (80.0-100.0) 10/30/23 03:17 MCH 30.0 pg (25.0-34.0) 10/30/23 03:17 MCHC 34.1 g/dL (32.0-36.0) 10/30/23 03:17 RDW Std Deviation 39.8 fL (36.4-46.3) 10/30/23 03:17 RDW Coeff of Megan 12.3 % (11.5-14.5) 10/30/23 03:17 Plt Count 330 K/uL (130-400) 10/30/23 03:17 MPV 8.7 fL (9.4-12.4) L 10/30/23 03:17 Immature Gran % (Auto) 0.4 % 10/30/23 03:17 Neut % (Auto) 85.8 % 10/30/23 03:17 Lymph % (Auto) 8.6 % 10/30/23 03:17 [place] % (Auto) 4.8 % 10/30/23 03:17 Eos % (Auto) 0.1 % 10/30/23 03:17 Baso % (Auto) 0.3 % 10/30/23 03:17 Neut # (Auto) 13.12 K/uL (1.40-6.50) H 10/30/23 03:17 Lymph # (Auto) 1.31 K/uL (1.20-3.40) 10/30/23 03:17 [place] # (Auto) 0.73 K/uL (0.11-0.59) H 10/30/23 03:17 Eos # (Auto) 0.02 K/uL (0.00-0.50) 10/30/23 03:17 Baso # (Auto) 0.04 K/uL (0.00-0.20) 10/30/23 03:17 Immature Gran # (Auto) 0.06 K/uL (0.01-0.20) 10/30/23 03:17 PT 10.9 Seconds (9.0-12.0) 10/29/23 23:59 INR 1.0 (0.9-1.1) 10/29/23 23:59 Activ Coag Time Kaolin 266 SECONDS (94-140) H 10/30/23 02:31 Sodium 136 mmol/L (136-145) 10/29/23 23:59 Potassium 3.6 mmol/L (3.5-5.1) 10/29/23 23:59 Chloride 96 mmol/L (98-107) L 10/29/23 23:59 Carbon Dioxide 26 mmol/L (21-32) 10/29/23 23:59 Anion Gap 14 (3-11) H 10/29/23 23:59 BUN 27 mg/dl (6-23) H 10/29/23 23:59 Creatinine 1.51 mg/dl (0.6-1.4) H 10/29/23 23:59 Est Cr Clr Drug Dosing 42.8 ml/min 10/29/23 23:59 Est GFR ( Amer) 52.7 ml/min 10/29/23 23:59 Est GFR (Non-Af Amer) 45.5 ml/min 10/29/23 23:59 BUN/Creatinine Ratio 17.9 (10-20) 10/29/23 23:59 Glucose 158 mg/dl (70-99(Fasting)) H 10/29/23 23:59 Calcium 10.3 mg/dl (8.6-10.3) 10/29/23 23:59 Total Bilirubin 0.7 mg/dl (0.2-1.0) 10/29/23 23:59 AST 39 U/L (13-39) 10/29/23 23:59 ALT 28 U/L (7-52) 10/29/23 23:59 Alkaline Phosphatase 50 U/L (34-104) 10/29/23 23:59 Troponin I High Sens 3720.0 pg/ml (0-20) H* 10/29/23 23:59 Total Protein 8.0 gm/dl (6.0-8.3) 10/29/23 23:59 Albumin 4.5 gm/dl (3.4-5.0) 10/29/23 23:59 Globulin 3.5 gm/dl (2.5-4.0) 10/29/23 23:59 Albumin/Globulin Ratio 1.3 (0.9-2) 10/29/23 23:59 Triglycerides 87 mg/dl (0-150) 10/30/23 03:17 Cholesterol 91 mg/dl (0-200) 10/30/23 03:17 LDL Cholesterol, Calc 44 mg/dl 10/30/23 03:17 VLDL Cholesterol, Calc 17 mg/dl (0-30) 10/30/23 03:17 HDL Cholesterol 30 mg/dl 10/30/23 03:17 Cholesterol/HDL Ratio 3.0 (0-5) 10/30/23 03:17 Lipase 50 U/L (11-82) 10/29/23 23:59 ECG Additional Comments: ECG. Normal sinus rhythm at rate of 99. Possible acute posterior infarct. ST depression in anterolateral leads. Code Status & VTE Plan VTE Prophylaxis Plan VTE Prophylaxis will be ordered: Yes (1) ST elevation myocardial infarction (STEMI) Involved coronary artery: unspecified coronary artery Qualified Code(s): I21.3 - ST elevation (STEMI) myocardial infarction of unspecified site
[2023-10-30] MEDS ORDERED: GLUCOSE 40% GEL 15 GM TUBE PO PRN (04:31)
[2023-10-30] MEDS ORDERED: GLUCOSE 10 TAB/TUBE PO PRN (04:31)
[2023-10-30] MEDS ORDERED: GLUCAGON FOR INJ 1 MG VIAL SQ PRN (04:31)
[2023-10-30] MEDS ORDERED: DEXTROSE 50% 50 ML SYRINGE IV PRN (04:31)
[2023-10-30] MEDS ORDERED: CARBOHYDRATES FOR HYPOGLYCEMIA PO PRN (04:31)
[2023-10-30] MEDS: INSULIN ASPART PER UNIT CHARGE SC SCH ×4 (06:53→19:46)
[2023-10-30 07:15] LABS: Estimated Average Glucose 174 mg/dl; Hemoglobin A1C 7.7 % (4.5-5.6)
[2023-10-30 07:21] LABS: BUN Creatinine Ratio 18.9 (10-20); Calcium 9.1 mg/dl (8.6-10.3); Creatinine Clr Calc Pharmacy 48.9 ml/min; Est GFR (Non-African American) 53.5 ml/min; Magnesium 1.5 mg/dl (1.7-2.4); Phosphorus 4.4 mg/dl (2.5-4.9); Potassium 3.6 mmol/L (3.5-5.1)
--- NOTE | 2023-10-30 07:25 | XRay Report ---
XR chest 1V portable CLINICAL HISTORY: Chest pain, nonspecific. COMPARISON STUDY: Chest radiograph and chest CT October 20, 2023. FINDINGS: There is no pneumothorax or pleural effusion. No consolidation is identified. There is no e vidence for pulmonary edema. Cardiomediastinal silhouette is stable. Multiple old left-sided rib frac tures are incidentally noted. IMPRESSION: No acute cardiopulmonary findings. No change in appearance of the chest. ACT 112: Negative or not required by law. Electronically signed by: Feroz Waller M.D. 10/30/2023 7:24 AM
[2023-10-30] MEDS: ICU ELECTROLYTE REPLACEMENT PROTOCOL SCH ×2 (07:30→18:00)
[2023-10-30] MEDS ORDERED: POTASSIUM CHLORIDE CRTAB 20 MEQ TABCR PO STA (07:53)
--- NOTE | 2023-10-30 08:56 | Cardiology Consultation ---
Date of Consultation October 30, 2023 Assessment & Plan (1) ST elevation myocardial infarction (STEMI) of inferior wall: (2) HLD (hyperlipidemia): (3) DMII (diabetes mellitus, type 2): Plan Hold a.m. losartan due to borderline hypotension. Continue metoprolol succinate 25 mg daily. Atorvastatin titrated to 80 mg daily. Continue dual antiplatelet therapy with Brilinta and aspirin for minimum of 1 year post percutaneous intervention/myocardial infarction. Review echocardiogram when available. History of Present Illness Reason for Consultation: STEMI Requesting Physician: Dr. Flores Attending Physician: Rai Bartlett MD History of Present Illness 73-year-old male present to the emergency department last night with chest pain. Discomfort began approximately 4 hours prior to arrival. ECG demonstrating inferior ST elevation. History of diabetes, CVA, dyslipidemia, and longstanding tobacco history. He was taken to the cardiac catheterization lab emergently by Dr. August. 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 Moderate residual proximal disease managed medically. Residual 70% mid LAD stenosis felt to be too small for PCI. Patient prescribed Brilinta and aspirin. Concerns per cath report regarding "significant vascular disease from right femoral approach" possible abdominal aortic aneurysm and/or PVD. Patient feeling well post procedure. No recurrent chest discomfort. Telemetry reveals sinus rhythm in the 80s. Borderline hypotensive blood pressures noted this a.m., however, pressures were obtained via leg cuff. Pressures have improved using a left upper arm cuff although systolic blood pressures remain below 110 mmHg. Losartan placed on hold by the undersigned. Has not received a.m. beta-catherine. Allergies Allergy/AdvReac Type Severity Reaction Status Date / Time No Known Allergies Allergy Verified 10/20/23 01:09 Home Medications Medication Instructions Recorded Confirmed Type atorvastatin 40 mg tablet 40 mg PO QPM #90 tabs 06/22/19 10/30/23 Rx acetaminophen 325 mg tablet 650 mg PO QID 10/20/23 10/20/23 History (Tylenol) clopidogrel 75 mg tablet 75 mg PO QDL 10/20/23 10/30/23 History glipizide 10 mg tablet 10 mg PO BID 10/20/23 10/20/23 History metformin 850 mg tablet 850 mg PO BID 10/20/23 10/20/23 History polyethylene glycol 3350 17 17 g PO DAILY 10/20/23 10/20/23 History gram/dose oral powder (Miralax) chlorthalidone 25 mg tablet 25 mg PO QAM #30 tabs 10/21/23 10/30/23 Rx ezetimibe 10 mg tablet 10 mg PO QAM #30 tabs 10/21/23 Rx losartan 100 mg tablet 100 mg PO DAILY #30 tabs 10/21/23 Rx metoprolol succinate 25 mg 25 mg PO QAM #30 tabs 10/21/23 Rx tablet,extended release 24 hr nitroglycerin 0.4 mg sublingual 0.4 mg sublingual UD PRN chest 10/21/23 Rx tablet (Nitrostat) pain #20 tabs pantoprazole 40 mg tablet,delayed 40 mg PO BID #60 tabs 10/21/23 Rx release Patient History Medical History HLD (hyperlipidemia) DMII (diabetes mellitus, type 2) History of eczema History of stroke History of palpitations History of pulmonary embolism Surgical History No significant past surgical history Family History Other Coronary arteriosclerosis Diabetes Hypertension Denies family history of Ovarian cancer Prostate cancer Myocardial infarction Breast cancer Social History Smoking Status: Former smoker Tobacco Type: Cigarettes Second Hand Exposure: No; Do You Dip or Chew Tobacco: No; Hx Alcohol Use: No Hx Substance Use: No Preferred Language: Indonesian Communication Ability: Effective Visual Impairment: No Limitations Hearing Ability: Normal Oven Unloader Required: No Beliefs That Will Affect Care: None marital status: Current Living Situation: Personal Care Facility Current [facility]: [facility] current occupational status: disabled Feels Safe at Home: Yes Assistive Devices: Wheelchair Review of Systems Review of Systems: All systems reviewed & are unremarkable except as noted in Subjective Physical Exam Constitutional: well nourished; no acute distress Cardiovascular: Rate/Rhythm: regular rate and regular rhythm Heart Sounds: normal S1 and normal S2; no murmur Vessels: radial pulses present; no JVD Extremities: no edema Gastrointestinal (Abdomen): Inspection/Auscultation: abdomen normal to inspe ction and normal bowel sounds; abdomen not distended Percussion/Palpation: abdomen soft; abdomen nontender, no guarding and abdomen not rigid Neurologic: Left-sided weakness. Results & Data Vital Signs (Past 12 Hours) Vital Signs Temp Pulse Pulse Resp BP BP Pulse Ox 10/30/23 06:01 103 H 24 97 10/30/23 06:01 97/73 L 10/30/23 06:00 102 H 29 H 97 10/30/23 05:45 103 H 26 H 99 10/30/23 05:31 111 H 25 H 96 10/30/23 05:30 106 H 25 H 95 10/30/23 05:15 97 H 21 104/79 96 10/30/23 05:00 90 18 98 10/30/23 04:45 88 20 97 10/30/23 04:30 93 H 20 97 10/30/23 04:15 91 H 23 95 10/30/23 04:00 86 16 118/64 97 10/30/23 03:45 85 24 105/82 98 10/30/23 03:33 106/70 10/30/23 03:33 85 24 97 10/30/23 03:30 87 17 96 10/30/23 03:28 87 10/30/23 03:25 10/30/23 03:15 88 24 97 10/30/23 03:09 36.3 C L 87 21 107/63 97 10/29/23 23:23 98 H 18 152/97 H 97 O2 Del Method O2 Flow Rate 10/30/23 06:01 10/30/23 06:01 10/30/23 06:00 10/30/23 05:45 10/30/23 05:31 10/30/23 05:30 10/30/23 05:15 10/30/23 05:00 10/30/23 04:45 10/30/23 04:30 10/30/23 04:15 10/30/23 04:00 10/30/23 03:45 10/30/23 03:33 10/30/23 03:33 10/30/23 03:30 10/30/23 03:28 10/30/23 03:25 Nasal Cannula 2 10/30/23 03:15 10/30/23 03:09 Nasal Cannula 2 12/22/23 23:23 Room Air Laboratory Results Cardiac Enzymes 10/29/23 10/30/23 10/30/23 Range/Units 23:59 03:17 08:32 AST 39 (13-39) U/L Troponin I High Sens 3720.0 H* 09367.3 H* D 39155.1 H* D (0-20) pg/ml Coagulation 10/29/23 Range/Units 23:59 PT 10.9 (9.0-12.0) Seconds Lipids 10/30/23 Range/Units 03:17 Triglycerides 87 (0-150) mg/dl Cholesterol 91 (0-200) mg/dl HDL Cholesterol 30 mg/dl Cholesterol/HDL Ratio 3.0 (0-5) CBC 10/29/23 10/30/23 Range/Units 23:59 03:17 WBC 15.01 H 15.28 H (4.8-10.8) K/ul RBC 5.12 4.36 L (4.70-6.10) M/uL Hgb 15.4 13.1 L (14.0-18.0) g/dl Hct 45.0 38.4 L (42.0-52.0) % Plt Count 400 330 (130-400) K/uL Neut # (Auto) 12.24 H 13.12 H (1.40-6.50) K/uL Lymph # (Auto) 1.70 1.31 (1.20-3.40) K/uL [place] # (Auto) 0.94 H 0.73 H (0.11-0.59) K/uL Eos # (Auto) 0.05 0.02 (0.00-0.50) K/uL Baso # (Auto) 0.04 0.04 (0.00-0.20) K/uL Comprehensive Metabolic Panel 10/29/23 10/30/23 Range/Units 23:59 03:17 Sodium 136 134 L (136-145) mmol/L Potassium 3.6 3.6 (3.5-5.1) mmol/L Chloride 96 L 98 (98-107) mmol/L Carbon Dioxide 26 23 (21-32) mmol/L BUN 27 H 25 H (6-23) mg/dl Creatinine 1.51 H 1.32 (0.6-1.4) mg/dl Glucose 158 H 159 H (70-99(Fasting)) mg/dl Calcium 10.3 9.1 (8.6-10.3) mg/dl AST 39 (13-39) U/L ALT 28 (7-52) U/L Alkaline Phosphatase 50 (34-104) U/L Total Protein 8.0 (6.0-8.3) gm/dl Albumin 4.5 (3.4-5.0) gm/dl Intake and Output 10/29/23 10/30/23 10/30/23 22:59 06:59 14:59 Intake Total 1000 / 1000 100 / 100 Output Total 900 / 900 Balance 1000 / 1000 -800 / -800 Intake: IV 1000 / 1000 100 / 100 Magnesium Sulfate / D5w 1 gm In 100 / 100 100 ml @ 50 mls/hr IV Q2H SWAPNIL Rx#:[id number] Sodium Chloride 0.9% 1,000 ml @ 1000 / 1000 999 mls/hr IV .Q1H1M ONE Rx#: [id number] Oral 0 / 0 0 / 0 Output: Urine Amount (Catheter) 900 / 900 Straight 900 / 900 Other: # Unmeasured Voids 0 0 Weight 75.6 kg Weight Measurement Method Built in [facility] (2) HLD (hyperlipidemia) Hyperlipidemia type: pure hypercholesterolemia Qualified Code(s): E78.00 - Pure hypercholesterolemia, unspecified (3) DMII (diabetes mellitus, type 2) Diabetes mellitus longterm insulin use: without longterm use Diabetes mellitus complication status: with circulatory complication Diabetes mellitus complication detail: with other circulatory complications Qualified Code(s): E11.59 - Type 2 diabetes mellitus with other circulatory complications
[2023-10-30] MEDS: ICU Protocol for HYPERglycemia SCH ×4 (08:59→19:46)
[2023-10-30] MEDS: MAGNESIUM SULFATE / D5W 1 GM/100 ML BAG IV SCH ×4 (09:00→14:12)
[2023-10-30] MEDS ORDERED: LOSARTAN POTASSIUM 50 MG TAB PO SCH (09:00)
[2023-10-30] MEDS ORDERED: ATROPINE SULFATE 0.1 MG/ML 10ML SYR IV ONE (10:21)
[2023-10-30] MEDS: ASPIRIN 81 MG ECTAB PO SCH (11:04)
[2023-10-30] MEDS: ATORVASTATIN 40 MG TAB PO SCH (11:05)
[2023-10-30] MEDS: PANTOprazole 40 MG TAB PO SCH ×2 (11:05→20:49)
[2023-10-30] MEDS: METOPROLOL SUCC 25MG EXT REL TAB PO SCH (11:05)
[2023-10-30] MEDS ORDERED: POTASSIUM CHLORIDE CRTAB 20 MEQ TABCR PO ONE (15:00)
[2023-10-30] MEDS ORDERED: Nursing to Pharmacy Communication SCH (15:45)
[2023-10-30] MEDS: TICAGRELOR 90 MG TAB PO SCH (20:49)
[2023-10-31 03:35] LABS: Basophils # (auto) 0.05 K/uL (0.00-0.20); Basophils % (auto) 0.6 %; Eosinophils % (auto) 1.2 %; Hematocrit (blood only) 38.5 % (42.0-52.0); Hemoglobin 13.1 g/dl (14.0-18.0); Immature Granulocytes # (auto) 0.02 K/uL (0.01-0.20); Immature Granulocytes % (auto) 0.2 %; Lymphocytes # (auto) 1.46 K/uL (1.20-3.40); Lymphocytes % (auto) 17.3 %; Mean Corpuscular Hemoglobin 30.4 pg (25.0-34.0); Mean Corpuscular Volume 89.3 fL (80.0-100.0); Mean Platelet Volume 8.7 fL (9.4-12.4); Monocytes # (auto) 0.72 K/uL (0.11-0.59); Monocytes % (auto) 8.5 %; Neutrophils # (auto) 6.11 K/uL (1.40-6.50); Neutrophils % (auto) 72.2 %; Platelet Count 324 K/uL (130-400); RDW Coefficient of Variation 12.4 % (11.5-14.5); RDW Standard Deviation 40.7 fL (36.4-46.3); Red Blood Count 4.31 M/uL (4.70-6.10); White Blood Count 8.46 K/ul (4.8-10.8)
[2023-10-31 03:40] LABS: Calcium 9.1 mg/dl (8.6-10.3); Creatinine Clr Calc Pharmacy 47.9 ml/min; Est GFR (African American) 60.4 ml/min; Est GFR (Non-African American) 52.1 ml/min; Magnesium 2.2 mg/dl (1.7-2.4); Phosphorus 3.1 mg/dl (2.5-4.9); Potassium 3.5 mmol/L (3.5-5.1)
[2023-10-31] MEDS: POTASSIUM CHLORIDE CRTAB 20 MEQ TABCR PO SCH ×2 (04:29→08:30)
[2023-10-31] MEDS: ICU ELECTROLYTE REPLACEMENT PROTOCOL SCH ×2 (04:29→16:40)
[2023-10-31] MEDS: ICU Protocol for HYPERglycemia SCH ×4 (08:14→20:20)
[2023-10-31] MEDS: ASPIRIN 81 MG ECTAB PO SCH (08:27)
[2023-10-31] MEDS: INSULIN ASPART PER UNIT CHARGE SC SCH ×4 (08:27→20:27)
[2023-10-31] MEDS: ATORVASTATIN 40 MG TAB PO SCH (08:28)
[2023-10-31] MEDS: PANTOprazole 40 MG TAB PO SCH ×2 (08:28→20:19)
[2023-10-31] MEDS: TICAGRELOR 90 MG TAB PO SCH ×2 (08:30→20:19)
--- NOTE | 2023-10-31 09:34 | Electrocardiogram Report ---
Test Reason : Blood Pressure : / mmHG Vent. Rate : 099 BPM Atrial Rate : 099 BPM P-R Int : 126 ms QRS Dur : 096 ms QT Int : 350 ms P-R-T Axes : 037 045 087 degrees QTc Int : 449 ms Normal sinus rhythm Posterior infarct , possibly acute Acute inferior infarction ACUTE MN / STEMI Abnormal ECG When compared with ECG of 21-OCT-2023 06:32, Non-specific change in ST segment in Inferior leads ST now depressed in Anterolateral leads T wave inversion no longer evident in Anterior leads Confirmed by Harvey Kaiser ([id number]) on 10/31/2023 9:34:21 AM Referred By: Rachid Freitas [place] Confirmed By:Harvey Kaiser
--- NOTE | 2023-10-31 09:37 | Electrocardiogram Report ---
Test Reason : Blood Pressure : / mmHG Vent. Rate : 090 BPM Atrial Rate : 090 BPM P-R Int : 126 ms QRS Dur : 096 ms QT Int : 380 ms P-R-T Axes : 043 -09 025 degrees QTc Int : 464 ms Normal sinus rhythm Inferior-posterior infarct , age undetermined Abnormal ECG When compared with ECG of 29-OCT-2023 23:44, (unconfirmed) Serial changes of evolving Inferior-posterior infarct is now Present Confirmed by Harvey Kaiser ([id number]) on 10/31/2023 9:36:38 AM Referred By: Rachid Freitas [place] Confirmed By:Harvey Kaiser
[2023-10-31] MEDS: METOPROLOL SUCC 25MG EXT REL TAB PO SCH (10:34)
--- NOTE | 2023-10-31 11:19 | Cardiology Progress Note ---
Date of Service October 31, 2023 Assessment & Plan (1) ST elevation myocardial infarction (STEMI) of inferior wall: (2) HLD (hyperlipidemia): (3) DMII (diabetes mellitus, type 2): (4) Labile hypertension: Plan Intermittent asymptomatic hypotension noted. Continue metoprolol succinate 25 mg daily. Reduce losartan to 25 mg daily. Atorvastatin titrated to 80 mg daily. Continue dual antiplatelet therapy with Brilinta and aspirin for minimum of 1 year post percutaneous intervention/myocardial infarction. Postprocedural activity restrictions noted below. Patient requesting cardiology follow-up with Dr. August. Please schedule as requested. ACTIVITY RECOMMENDATIONS: It is common to feel weak and fatigue for a few days. * Do not drive or operate any motorized equipment for the next three days. * Limit stair usage (2 or 3 trips a day only) for the next three days. * Do not lift anything heavier than 10 pounds for the next three days. * Do not engage in vigorous exercise or any sports for the next five days. * You may shower the day after your procedure, but do not immerse the area for three days. Cleanse the site gently with soap and water. SPECIAL CARE INSTRUCTIONS: * You may replace the pressure dressing or band-aid the morning after the procedure. * After your procedure, it is normal to have a small bruise or small lump at the site. Examine your site daily for any change in the bruise or lump, redness, swelling, drainage or numbness. Notify your doctor if any change. BLEEDING: * If there is a small amount of bleeding at the site, lie down and apply firm pressure with a clean cloth for ten minutes. When the bleeding stops, lie quietly keeping the procedure limb straight for six hours. Notify your doctor as soon as possible. * If the bleeding does not stop after ten minutes or if there is a large amount of bleeding or spurting, call 911 immediately. Continue to lie down and hold firm pressure until help arrives. SKIN IRRITATION: * You may experience some redness and/or swelling in the area where radiation was administered. If any skin irritation occurs, please contact your family physician. FOLLOW UP VISIT: Keep any scheduled doctor appointments. Admission and Anticipated Discharge Date Admission Date: October 30, 2023 Subjective Patient seen examined the bedside. Feeling better today. Blood pressure labile with episodes of asymptomatic hypotension. Reports that is not unusual for him in the outpatient setting. No recurrent chest discomfort. Telemetry reveals sinus rhythm. Requesting follow-up with Dr. August of [facility] [place]. Offers no other concerns/complaints. Review of Systems Review of Systems: All systems reviewed & are unremarkable except as noted in Subjective Physical Exam Constitutional: well nourished; no acute distress Cardiovascular: Rate/Rhythm: regular rate and regular rhythm Heart Sounds: normal S1 and normal S2; no murmur Vessels: radial pulses present; no JVD Extremities: no edema Gastrointestinal (Abdomen): Inspection/Auscultation: abdomen normal to inspection and normal bowel sounds; abdomen not distended Percussion/Palpation: abdomen soft; abdomen nontender, no guarding and abdomen not rigid Neurologic: CN's II-XI intact bilaterally and moves all extremities; no focal motor deficits Results & Data Vital Signs (Past 12 Hours) Vital Signs Temp Pulse Resp BP Pulse Ox 10/31/23 10:02 89 15 93 10/31/23 10:02 109/69 10/31/23 10:00 78/66 L 10/31/23 10:00 85 16 94 10/31/23 09:01 97/66 L 10/31/23 09:01 82 26 H 95 10/31/23 09:00 80 17 97 10/31/23 08:00 88/62 L 10/31/23 08:00 82 23 93 10/31/23 07:00 84 21 95 10/31/23 07:00 93/74 L 10/31/23 06:01 83 28 H 97/63 L 94 10/31/23 06:00 83 25 H 93 10/31/23 05:00 78 21 106/67 93 10/31/23 04:00 83 20 94/63 L 92 10/31/23 03:30 78 19 97 10/31/23 03:00 97 H 21 112/69 97 10/31/23 02:30 95 H 16 92 10/31/23 02:00 99 H 19 91/65 L 95 10/31/23 01:30 85 22 94 10/31/23 01:06 84 10/31/23 01:01 85 14 96 10/31/23 01:00 82 13 87/61 L 95 10/31/23 00:30 74 14 91 10/31/23 00:00 82 12 92/62 L 96 10/30/23 23:58 36.3 C L 10/30/23 23:30 76 15 90 Laboratory Results Cardiac Enzymes 10/30/23 10/30/23 Range/Units 15:09 21:12 Troponin I High Sens 43472.2 H* D 9616.5 H* D (0-20) pg/ml CBC 10/31/23 Range/Units 03:10 WBC 8.46 (4.8-10.8) K/ul RBC 4.31 L (4.70-6.10) M/uL Hgb 13.1 L (14.0-18.0) g/dl Hct 38.5 L (42.0-52.0) % Plt Count 324 (130-400) K/uL Neut # (Auto) 6.11 (1.40-6.50) K/uL Lymph # (Auto) 1.46 (1.20-3.40) K/uL [place] # (Auto) 0.72 H (0.11-0.59) K/uL Eos # (Auto) 0.10 (0.00-0.50) K/uL Baso # (Auto) 0.05 (0.00-0.20) K/uL Comprehensive Metabolic Panel 10/31/23 Range/Units 03:10 Sodium 136 (136-145) mmol/L Potassium 3.5 (3.5-5.1) mmol/L Chloride 99 (98-107) mmol/L Carbon Dioxide 27 (21-32) mmol/L BUN 23 (6-23) mg/dl Creatinine 1.35 (0.6-1.4) mg/dl Glucose 131 H (70-99(Fasting)) mg/dl Calcium 9.1 (8.6-10.3) mg/dl Intake and Output 10/30/23 10/31/23 10/31/23 22:59 06:59 14:59 Intake Total 1100 / 1400 0 / 0 Output Total 450 / 1675 200 / 1675 250 / 250 Balance 650 / -275 -200 / -275 -250 / -250 Intake: IV 1100 / 1400 Magnesium Sulfate / D5w 1 gm In 100 / 400 100 ml @ 50 mls/hr IV Q2H [facility] Rx#:[id number] Plasma-Lyte A 1,000 ml @ 80 mls 1000 / 1000 /hr IV .[id number] Rx#: [id number] Oral 0 / 0 Output: Urine 350 / 675 200 / 675 250 / 250 Urine Amount (Catheter) 100 / 1000 Straight 100 / 1000 Other: # Unmeasured Voids 0 1 Weight 75.5 kg Weight Measurement Method Built in [facility] (2) HLD (hyperlipidemia) Hyperlipidemia type: pure hypercholesterolemia Qualified Code(s): E78.00 - Pure hypercholesterolemia, unspecified (3) DMII (diabetes mellitus, type 2) Diabetes mellitus care home insulin use: without care home use Diabetes mellitus complication status: with circulatory complication Diabetes mellitus complication detail: with other circulatory complications Qualified Code(s): E11.59 - Type 2 diabetes mellitus with other circulatory complications
--- NOTE | 2023-10-31 17:56 | Hospitalist Progress Note ---
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 Patient states around 8 PM he noticed severe pain in the right side of his chest about 10/10 in severity and he could not go to sleep. No sweating. No shortness of breath. No nausea. No radiation of the pain. He came to the ER and heart alert was called s/p cardiac cath and stent to the RCA. ST elevated [place] S/p stent to RCA Cardiology started high-dose statin, aspirin, Brilinta and beta-catherine Close hemodynamic monitoring Echo obtained - EF 50 to 55%. There is a large sized septal, inferior, and posterior wall motion abnormality with hypokinesis to akinesis of the segments. Aortic valve sclerosis mild, without significant aortic valvular stenosis. There is mild mitral regurg. There is trace tricuspid regurg. Doppler findings do not suggest pulmonary hypertension. Post cath management as per cardiology - Continue metoprolol succinate 25 mg daily. Reduce losartan to 25 mg daily. Atorvastatin titrated to 80 mg daily. Continue dual antiplatelet therapy with Brilinta and aspirin for minimum of 1 year post percutaneous intervention/myocardial infarction. Patient requesting cardiology follow-up with Dr. August. Please schedule as requested. History of hypertension Currently on losartan and metoprolol succinate Will monitor History of CVA Flaccid hemiplegia of left nondominant side Wheelchair-bound Can transfer bed to wheelchair Currently On aspirin and Brilinta and statin. Diabetes Will hold home p.o. medications Sliding scale HbA1c was 7.8 on October 20, 2023 Will monitor COVID Was positive on October 20 Will continue COVID precautions for now covid test came back negative on current admission Hyperlipidemia On statin DVT prophylaxis SCD's Disposition Close monitoring ICU Full code Admission and Anticipated Discharge Date Admission Date: October 30, 2023 Subjective Pt seen in follow up STEMI s/p stents to RCA Currently laying in bed in NAD Reports feeling well, says all the pain stopped as soon as his coronary stents were placed No shortness of breath, or palpitations No abd. pain, n/v Review of Systems Review of Systems: All systems reviewed & are unremarkable except as noted in Subjective Physical Exam Physical Exam: General- Not in distress Head- atraumatic Eyes- EOMI, Neck- supple, no JVD. Lungs- clear to auscultation no wheezing or crackles. Heart- regular rhythm; no murmur Abdomen- normal bowel sounds, soft, nontender, no distension. Extremities- no pretibial edema, no erythema Neuro- alert, oriented x 3; EOMI; no dysarthria; left sided weakness. Skin- warm & dry Results & Data Results & Data Vital Signs (Past 12 Hours) Vital Signs Temp Pulse Resp BP Pulse Ox 10/31/23 16:00 77 10/31/23 15:41 36.8 C 10/31/23 15:00 77 31 H 94 10/31/23 15:00 98/69 L 10/31/23 14:00 109/69 10/31/23 14:00 75 25 H 95 10/31/23 13:01 83 23 94 10/31/23 13:01 103/67 10/31/23 13:00 82 22 96 10/31/23 13:00 77/61 L 10/31/23 12:00 84 22 95 10/31/23 12:00 105/71 10/31/23 11:00 84 22 94 10/31/23 11:00 100/71 10/31/23 10:02 89 15 93 10/31/23 10:02 109/69 10/31/23 10:00 78/66 L 10/31/23 10:00 85 16 94 10/31/23 09:01 97/66 L 10/31/23 09:01 82 26 H 95 10/31/23 09:00 80 17 97 10/31/23 08:00 36.4 C L 10/31/23 08:00 88/62 L 10/31/23 08:00 82 23 93 10/31/23 07:00 84 21 95 10/31/23 07:00 93/74 L 10/31/23 06:01 83 28 H 97/63 L 94 10/31/23 06:00 83 25 H 93 Laboratory Results 10/31/23 10/30/23 Range/Units 03:10 21:12 WBC 8.46 (4.8-10.8) K/ul RBC 4.31 L (4.70-6.10) M/uL Hgb 13.1 L (14.0-18.0) g/dl Hct 38.5 L (42.0-52.0) % MCV 89.3 (80.0-100.0) fL MCH 30.4 (25.0-34.0) pg MCHC 34.0 (32.0-36.0) g/dL RDW Std Deviation 40.7 (36.4-46.3) fL RDW Coeff of Megan 12.4 (11.5-14.5) % Plt Count 324 (130-400) K/uL MPV 8.7 L (9.4-12.4) fL Immature Gran % (Auto) 0.2 % Neut % (Auto) 72.2 % Lymph % (Auto) 17.3 % [place] % (Auto) 8.5 % Eos % (Auto) 1.2 % Baso % (Auto) 0.6 % Neut # (Auto) 6.11 (1.40-6.50) K/uL Lymph # (Auto) 1.46 (1.20-3.40) K/uL [place] # (Auto) 0.72 H (0.11-0.59) K/uL Eos # (Auto) 0.10 (0.00-0.50) K/uL Baso # (Auto) 0.05 (0.00-0.20) K/uL Immature Gran # (Auto) 0.02 (0.01-0.20) K/uL Sodium 136 (136-145) mmol/L Potassium 3.5 (3.5-5.1) mmol/L Chloride 99 (98-107) mmol/L Carbon Dioxide 27 (21-32) mmol/L Anion Gap 10 (3-11) BUN 23 (6-23) mg/dl Creatinine 1.35 (0.6-1.4) mg/dl Est Cr Clr Drug Dosing 47.9 ml/min Est GFR ( Amer) 60.4 ml/min Est GFR (Non-Af Amer) 52.1 ml/min BUN/Creatinine Ratio 17.0 (10-20) Glucose 131 H (70-99(Fasting)) mg/dl Calcium 9.1 (8.6-10.3) mg/dl Phosphorus 3.1 D (2.5-4.9) mg/dl Magnesium 2.2 (1.7-2.4) mg/dl Troponin I High Sens 9616.5 H* D (0-20) pg/ml Medications Administered Current Inpatient Medications Aspirin (Aspirin 81 Mg Ectab) [address] [facility] Stop: 11/29/23 08:59 Last Admin: 10/31/23 08:27 Dose: 81 mg Atorvastatin Calcium (Atorvastatin 40 Mg Tab) [address] [facility] Stop: 11/29/23 08:59 Last Admin: 10/31/23 08:28 Dose: 80 mg Dextrose (Dextrose 50% 50 Ml Syringe) 25 - 50 ml IV UD PRN; Protocol PRN Reason: Hypoglycemia Protocol Stop: 11/29/23 04:30 Glucagon (Glucagon For Inj 1 Mg Vial) 1 mg SQ UD PRN; Protocol PRN Reason: Hypoglycemia Protocol Stop: 11/29/23 04:30 Glucose (Glucose 10 Tab/Tube) 4 - 8 tab PO UD PRN; Protocol PRN Reason: Hypoglycemia Treatment Stop: 11/29/23 04:30 Glucose (Glucose 40% Gel 15 Gm Tube) 15 - 30 gm PO UD PRN; Protocol PRN Reason: Hypoglycemia Protocol Stop: 11/29/23 04:30 Insulin Aspart (Insulin Aspart Per Unit Charge) 0 units SC [facility] Stop: 11/29/23 16:29 Last Admin: 10/31/23 16:40 Dose: Not Given Losartan Potassium (Losartan Potassium 25 Mg Tab) [address] [facility] Stop: 12/01/23 08:59 Metoprolol Succinate (Metoprolol Succ 25mg Ext Rel Tab) [address] [facility] Stop: 11/29/23 08:59 Last Admin: 10/31/23 10:34 Dose: 25 mg Miscellaneous (Icu Protocol For Hyperglycemia) 1 each N/A ACHS [facility] Stop: 11/01/23 07:29 Last Admin: 10/31/23 16:40 Dose: Not Given Miscellaneous (Icu Electrolyte Replacement Protocol) 1 each N/A BID@06,18 [facility]; Protocol Stop: 11/06/23 05:59 Last Admin: 10/31/23 16:40 Dose: Not Given Miscellaneous (Carbohydrates For Hypoglycemia ) 15 - 30 gm PO UD PRN PRN Reason: Hypoglycemia Protocol Stop: 11/29/23 04:30 Pantoprazole Sodium (Pantoprazole 40 Mg Tab) 40 mg PO BID [facility] Stop: 11/29/23 08:59 Last Admin: 10/31/23 08:28 Dose: 40 mg Ticagrelor (Ticagrelor 90 Mg Tab) 90 mg PO BID [facility] Stop: 11/29/23 20:59 Last Admin: 10/31/23 08:30 Dose: 90 mg (1) ST elevation myocardial infarction (STEMI) Involved coronary artery: unspecified coronary artery Qualified Code(s): I21.3 - ST elevation (STEMI) myocardial infarction of unspecified site
[2023-11-01] MEDS: ICU ELECTROLYTE REPLACEMENT PROTOCOL SCH ×2 (05:24→07:35)
--- NOTE | 2023-11-01 06:23 | Electrocardiogram Report ---
Test Reason : Blood Pressure : / mmHG Vent. Rate : 083 BPM Atrial Rate : 083 BPM P-R Int : 120 ms QRS Dur : 092 ms QT Int : 374 ms P-R-T Axes : 050 011 062 degrees QTc Int : 439 ms Normal sinus rhythm Possible Inferior infarct (cited on or before 30-OCT-2023) Abnormal ECG When compared with ECG of 30-OCT-2023 03:00, (unconfirmed) Nonspecific T wave abnormality no longer evident in Inferior leads Confirmed by Harvey Kaiser ([id number]) on 11/01/2023 6:23:10 AM Referred By: Rachid Freitas [place] Confirmed By:Harvey Kaiser
--- NOTE | 2023-11-01 06:59 | Electrocardiogram Report ---
Test Reason : Blood Pressure : / mmHG Vent. Rate : 084 BPM Atrial Rate : 084 BPM P-R Int : 122 ms QRS Dur : 102 ms QT Int : 364 ms P-R-T Axes : 049 004 033 degrees QTc Int : 430 ms Normal sinus rhythm Inferior infarct (cited on or before 30-OCT-2023) Abnormal ECG When compared with ECG of 31-OCT-2023 05:57, Nonspecific T wave abnormality now evident in Inferior leads Nonspecific T wave abnormality now evident in Anterior leads Confirmed by Harvey Kaiser ([id number] on 11/01/2023 6:58:35 AM Referred By: Rachid Freitas [place] Confirmed By:Harvey Kaiser
[2023-11-01] MEDS: METOPROLOL SUCC 25MG EXT REL TAB PO SCH (07:31)
[2023-11-01] MEDS: ATORVASTATIN 40 MG TAB PO SCH (07:31)
[2023-11-01] MEDS: INSULIN ASPART PER UNIT CHARGE SC SCH (07:31)
[2023-11-01] MEDS: ASPIRIN 81 MG ECTAB PO SCH (07:31)
[2023-11-01] MEDS: PANTOprazole 40 MG TAB PO SCH (07:32)
[2023-11-01] MEDS: TICAGRELOR 90 MG TAB PO SCH (07:35)
[2023-11-01] MEDS ORDERED: LOSARTAN POTASSIUM 25 MG TAB PO SCH (09:00)
--- NOTE | 2023-11-01 09:32 | Discharge Summary ---
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 Patient states around 8 PM he noticed severe pain in the right side of his chest about 10/10 in severity and he could not go to sleep. No sweating. No shortness of breath. No nausea. No radiation of the pain. He came to the ER and heart alert was called s/p cardiac cath and stent to the RCA. States currently chest pain is mostly gone. Resting comfortably. Recently was diagnosed with COVID on October 20. He states he has some mild headache today. Has some slight runny nose and cough. Feeling weak and tired. Appetite is okay. No abdominal pain. Normal bowel and bladder movements. Past medical history. As mentioned above Past surgical history. Cyst removal on his left arm Social history. Currently living at [facility]. Smoked 1 pack a day for 3 5 years. Quit in 2012. Currently not drinking alcohol. No drug use. Admission Exam Per Admitting Provider General- Not in distress Head- atraumatic Eyes- EOMI, Neck- supple, no JVD. Lungs- clear to auscultation no wheezing or crackles. Heart- regular rhythm; no murmur, no gallop. Abdomen- normal bowel sounds, soft, nontender, no distension.Right groin cath site no obvious erythema seen. Extremities- no pretibial edema, no erythema Neuro- alert, oriented x 3; EOMI; no dysarthria; left sided weakness. Skin- warm & dry Principal Diagnosis ST elevation myocardial infarction Discharge Exam General- Not in distress Head- atraumatic Eyes- EOMI, Neck- supple, no JVD. Lungs- clear to auscultation no wheezing or crackles. Heart- regular rhythm; no murmur Abdomen- normal bowel sounds, soft, nontender, no distension. Extremities- no pretibial edema, no erythema Neuro- alert, oriented x 3; EOMI; no dysarthria; left sided weakness. Skin- warm & dry Discharge Data Allergies Allergy/AdvReac Type Severity Reaction Status Date / Time No Known Allergies Allergy Verified 10/20/23 01:09 Consultations 10/30/23 03:28 Consult Manager Data Center Routine 10/30/23 08:00 Consult Cardiology Routine Procedures Performed Operation Date: 10/30/23 00:30 Actual Procedures s Cineradiography w/Routine Exam - Nayan August MD, PhD p Cath, Coronaries ONLY (no LV) - Nayan August MD, PhD s Drug Eluting Stent SGl Vessel - Nayan August MD, PhD s Ultrasound Vascular Access - Nayan August MD, PhD Ordered Studies 10/30/23 00:08 CL Cath Imgs for PACS use only Stat Hospital Course (1) ST elevation myocardial infarction (STEMI): 73-year-old male with past med history significant for hypertension, 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 Patient states around 8 PM he noticed severe pain in the right side of his chest about 10/10 in severity and he could not go to sleep. No sweating. No shortness of breath. No nausea. No radiation of the pain. He came to the ER and heart alert was called s/p cardiac cath and stent to the RCA. ST elevated [place] S/p stent to RCA Cardiology started high-dose statin, aspirin, Brilinta and beta-catherine Close hemodynamic monitoring Echo obtained - EF 50 to 55%. There is a large sized septal, inferior, and posterior wall motion abnormality with hypokinesis to akinesis of the segments. Aortic valve sclerosis mild, without significant aortic valvular stenosis. There is mild mitral regurg. There is trace tricuspid regurg. Doppler findings do not suggest pulmonary hypertension. Post cath management as per cardiology - Continue metoprolol succinate 25 mg daily. Reduce losartan to 25 mg daily. Atorvastatin titrated to 80 mg daily. Continue dual antiplatelet therapy with Brilinta and aspirin for minimum of 1 year post percutaneous intervention/myocardial infarction. Patient requesting cardiology follow-up with Dr. August. Please schedule as requested. History of hypertension Currently on losartan and metoprolol succinate Will monitor History of CVA Flaccid hemiplegia of left nondominant side Wheelchair-bound Can transfer bed to wheelchair Currently On aspirin and Brilinta and statin. Diabetes Will hold home p.o. medications Sliding scale HbA1c was 7.8 on October 20, 2023 Will monitor COVID Was positive on October 20 Will continue COVID precautions for now covid test came back negative on current admission Hyperlipidemia On statin Total Time Total Time Spent Total Time Spent (In Minutes): 40 Discharge Plan Discharge Items Patient Disposition: Home - Self-Care Reason For Visit: ACUTE [place] Discharge Diagnosis: ST elevation myocardial infarction Activity: Per Instructions section Non-emergency contact: Primary Care Provider and Manager Division Call non-emergency contact if: you have any medication questions and your sym ptoms worsen Follow-up/Referrals: Rachid Lozano [Primary Care Provider] - Diet: Carb Consistent or DM2 and Heart Healthy Addtl Attending Provider Instructions: Follow up with your primary care doctor and green ware caster. You should be seen by your primary care physician within 1 week. You will be contacted about your follow up visit with cardiology. Make sure to take aspirin and Brillinta every day as prescribed (aspirin daily and Brillinta twice a day) for at least 1 year. Take metoprolol succinate 25 mg daily and losartan 25 mg daily. Take atorvastatin 80 mg daily. Stop taking chlorthalidone, and stop taking clopidogrel. ACTIVITY RECOMMENDATIONS: It is common to feel weak and fatigue for a few days. * Do not drive or operate any motorized equipment for the next three days. * Limit stair usage (2 or 3 trips a day only) for the next three days. * Do not lift anything heavier than 10 pounds for the next three days. * Do not engage in vigorous exercise or any sports for the next five days. * You may shower the day after your procedure, but do not immerse the area for three days. Cleanse the site gently with soap and water. SPECIAL CARE INSTRUCTIONS: * You may replace the pressure dressing or band-aid the morning after the procedure. * After your procedure, it is normal to have a small bruise or small lump at the site. Examine your site daily for any change in the bruise or lump, redness, swelling, drainage or numbness. Notify your doctor if any change. BLEEDING: * If there is a small amount of bleeding at the site, lie down and apply firm pressure with a clean cloth for ten minutes. When the bleeding stops, lie quietly keeping the procedure limb straight for six hours. Notify your doctor as soon as possible. * If the bleeding does not stop after ten minutes or if there is a large amount of bleeding or spurting, call 911 immediately. Continue to lie down and hold firm pressure until help arrives. SKIN IRRITATION: * You may experience some redness and/or swelling in the area where radiation was administered. If any skin irritation occurs, please contact your family physician. FOLLOW UP VISIT: Keep any scheduled doctor appointments. Pending Studies at Discharge: No Stand-Alone Forms: My [facility], Smoking Cessation Medications and DC Order Prescriptions: New Brilinta 90 mg Tablet 90 mg PO BID Qty: 60 0RF losartan 25 mg Tablet 25 mg PO QAM Qty: 30 0RF aspirin 81 mg Tablet,Delayed Release (Dr/Ec) 81 mg PO QAM Qty: 30 0RF atorvastatin 80 mg tablet 80 mg PO DAILY Qty: 30 0RF Continued acetaminophen [Tylenol] 325 mg Tablet 650 mg PO QID MDD 3 GRAMS APAP/24 HOURS Rx Instructions: 0800, 1200, 1600, & 2000 glipizide 10 mg tablet 10 mg PO BID Rx Instructions: 0800 & 1900 metformin 850 mg tablet 850 mg PO BID polyethylene glycol 3350 [Miralax] 17 gram/dose Powder 17 g PO DAILY metoprolol succinate 25 mg Tablet Extended Release 24 Hr 25 mg PO QAM Qty: 30 0RF nitroglycerin [Nitrostat] 0.4 mg Tablet, Sublingual 0.4 mg sublingual UD PRN (Reason: chest pain) Qty: 20 0RF pantoprazole 40 mg Tablet,Delayed Release (Dr/Ec) 40 mg PO BID Qty: 60 0RF Discontinued atorvastatin 40 mg tablet 40 mg PO QPM Qty: 90 3RF clopidogrel 75 mg tablet 75 mg PO QDL Rx Instructions: TAKE THIS MED DAILY AT NOON. losartan 100 mg tablet 100 mg PO DAILY Qty: 30 0RF ezetimibe 10 mg Tablet 10 mg PO QAM Qty: 30 0RF chlorthalidone 25 mg Tablet 25 mg PO QAM Qty: 30 0RF Discharge Orders: Discharge Order (Routine); Ordered 11/01/23 Ordered By: Rai Bartlett Admission Data Admit Date/Time: 10/30/23 00:30 Attending Provider: Rai Bartlett Admit Provider: Hammad Flores Primary Care Provider: Rachid Lozano Other Providers: Gracia Wright I.; Jose Luis Wilde; Kaila Degroot; Nayan Levi; Anson Luna; Dhruv Cali; Dmitri Alexander; Jeffry Dove; Evelyn Falcon; Lizzy aMlave; Kaila Villanueva; Kevan Friedman; Earle Schenider; Masha Armas; Ruby Loza; Violet Fleming; Juan Meza
[2023-11-02] MEDS ORDERED: LOSARTAN POTASSIUM 25 MG TAB PO SCH
[2023-11-02] MEDS ORDERED: METOPROLOL SUCC 25MG EXT REL TAB PO SCH
[2023-11-02] MEDS ORDERED: TICAGRELOR 90 MG TAB PO SCH
[2023-11-02] MEDS ORDERED: ASPIRIN 81 MG ECTAB PO SCH
[2023-11-02] MEDS ORDERED: ATORVASTATIN 40 MG TAB PO SCH
--- NOTE | 2023-11-02 10:24 | Electrocardiogram Report ---
Test Reason : Blood Pressure : / mmHG Vent. Rate : 099 BPM Atrial Rate : 099 BPM P-R Int : 132 ms QRS Dur : 092 ms QT Int : 344 ms P-R-T Axes : 030 014 094 degrees QTc Int : 441 ms Normal sinus rhythm ST elevation consider inferior injury or acute infarct ACUTE VA / STEMI Consider right ventricular involvement in acute inferior infarct Abnormal ECG When compared with ECG of 21-OCT-2023 06:32, Non-specific change in ST segment in Inferior leads ST now depressed in Lateral leads T wave inversion no longer evident in Inferior leads T wave inversion less evident in Anterior leads Confirmed by Matias Patel ([id number]) on 11/02/2023 10:24:18 AM Referred By: Rachid Freitas Ray Confirmed By:Quentin Patel
--- NOTE | 2023-11-09 12:20 | Coding Query ---
CODING QUERY To promote full compliance with coding requirements relating to patient care, provider participation is requested in all cases of certified procedural coder uncertainty. Please assist us with the question(s) below: Coding Question(s): The History of Present Illness on the H&P and Admission HPI, as on the Discharge Summary document, " Recently was diagnosed with COVID on October 20. He states he has some mild headache today. Has some slight runny nose and cough. Feeling weak and tired", and the 10/30 Critical Care Consultation documents, under History of Present Illness, "COVID 19 (10/20/23), and the H&P, Hospitalist Progress Notes, and Discharge Summary document (as on Discharge Summary), " COVID Was positive on October 20 Will continue COVID precautions for now covid test came back negative on current admission". Please specify below, the COVID-19 diagnosis during this admission: ( ) Ongoing COVID-19, despite negative Covid-19 test ( x ) History of COVID-19 ( ) Other: Please Specify Physician's Response(s): Thank you Desiree Porras Principal Diagnosis: "that condition established after study, to be chiefly responsible for occasioning the admission of the patient to the hospital for care." Co-Existing Principal Diagnosis: "when two or more diagnoses equally meet the criteria for principal diagnosis as determined by the circumstances of admission, diagnostic work up, and/or therapy provided, and the Alphabetic Index, Tabular List, or another coding guideline does not provide sequencing direction, any one of the diagnoses may be sequenced first." "When the physician has documented what appears to be a current diagnosis in the body of the record, but has not included the diagnosis in the final diagnostic statement, the physician should be asked whether the diagnosis should be added." (Source [facility] 2 QTR90. p3-4) JOSE JUAND
== END 2023-11-01 10:45 | disposition home or self-care (01) | DRG 322 ==
LOC: ED 23:27 → SUATTDRO 10-30 00:30 → 1E 10-30 00:30
PROC: CLB.CCO (2023-10-30 00:30)

== ENCOUNTER 2025-08-16 19:43 | Observation (INO) ==
[2025-08-16 20:36] LABS: Hematocrit (blood only) 41.7 % (42.0-52.0); Hemoglobin 13.7 g/dl (14.0-18.0); Mean Corpuscular Hemoglobin 29.7 pg (25.0-34.0); Mean Corpuscular Volume 90.5 fL (80.0-100.0); Platelet Count 278 K/uL (130-400); RDW Standard Deviation 42.5 fL (36.4-46.3); Red Blood Count 4.61 M/uL (4.70-6.10); White Blood Count 19.38 K/ul (4.8-10.8)
--- NOTE | 2025-08-16 20:39 | Emergency Department Note ---
Impression & Plan Weakness, Fall, Systemic inflammatory response syndrome (SIRS) ED Provider Note Provider: Alexys Ambrosio MD CHIEF COMPLAINT: Illness, fall HISTORY OF PRESENT ILLNESS: Patient is a 75-year-old gentleman past medical history of CAD, type 2 diabetes, stroke with resultant left-sided hemiplegia presenting here today via ambulance from his long-term care facility. Patient evidently has been feeling under the weather today. Reports he had just been feeling achy and fatigued and not himself. Took some Tylenol around 4 PM. This evening was going to transfer from his wheelchair and his left side seemed weaker than normal and he fell to the ground. States is more of a slide. Did not hit his head. Denies pain from the fall. Denies nausea or vomiting or shortness of breath or significant cough or cold. Did have a flu shot several days ago by his report. No sick contacts reported. PAST MEDICAL HISTORY: As noted above MEDICATIONS: Reviewed no medications SOCIAL HISTORY: Resides at long-term [facility] PHYSICAL EXAM: GENERAL: alert and oriented in no acute distress on stretcher Head: normocephalic and atraumatic EYES: No injection, discharge or icterus. PERRL, EOMI. NECK: Trachea midline. Supple Without posterior midline tenderness ENT: Mucous membranes pink and moist. Pharynx without erythema or exudate. LUNGS: Airway patent. No retractions. Breath sounds clear with good air entry bilaterally. HEART: Regular tachycardic rate and rhythm. No chest wall tenderness ABDOMEN: Soft and non-tender, without guarding or rebound. Stable pelvis SKIN: Acyanotic, warm, dry, without rashes EXTREMITIES: Without swelling, tenderness or deformity NEUROLOGICAL:No aphasia. No facial droop or slurred speech. Significant left- sided weakness patient record chronic from prior CVA. Some contracture left lower extremity noted. EK bpm sinus tachycardia. No PVC or PAC. No acute ST segment lobation or depression with QTc of 443. CONTINUOUS CARDIAC MONITORING: was ordered and showed a heart rate of 110s to 130s bpm in sinus tachycardia GCS 15. Patient's laboratory studies and imaging reviewed. Differential includes Fracture, dislocation, contusion, intra-abdominal, pneumothorax, intrathoracic, intracranial, neurologic, compartment syndrome, rhabdomyolysis, infection, pneumonia, UTI, as well as other pathologies. IMPRESSION/MEDICAL DECISION MAKING: ATLS primary and secondary survey completed. No significant pain or tenderness or injury noted. Did complete olsen scan given his use of antiplatelet agents. Seems febrile. Just took Tylenol. Given some Toradol here. Sent for CT imaging. Blood cultures procalcitonin lactate ordered given his fever and tachycardia. Question sepsis. No apparent source based on history. Given a liter of IV fluid. Blood work with a significant leukocytosis of 19.3. No significant anemia. No significant electrolyte abnormality with creatinine 1.4. Magnesium slightly low at 1.6. No signs of troponin elevation or liver dysfunction. Procalcitonin 0.[address] imaging completed here without evidence of pneumonia, head bleed, traumatic injury but question of diverticulitis. Still awaiting urine sample. Empirically covered with Zosyn for antibiotic coverage. Patient's daughter did call. Updated on patient's condition with his permission. She is quite anxious as she is lives out of state in [place] if she needs to be here. Advised her he does not appear to be needing ICU care but does appear to be in sepsis condition and with systemic infection will require hospitalization. Advised at this time I do not feel he is in a life- threatening position but this could always change going forward. Advised we continue to update her. CT imaging with some fatty liver but no evidence of acute diverticulitis reported. No evidence of pneumonia on imaging reported. No evidence of intracranial bleed or cervical fracture noted. Some cervical spine stenosis is noted but does not seem to correlate with any of his symptoms and can be followed up on. Tickborne panel added. Will bring in for further care but do not see obvious signs of sepsis source. UA is negative. Discussed with the hospitalist team. A total of 2.5 L of IV fluid administered. Repeat lactate still 3.5 but afebrile now and not having chills. Slightly tachycardic in the 110s.. Given some Tylenol. Respiratory viral panel still pending and could explain some of his symptoms. DIAGNOSIS: Weakness, fall, sirs criteria DISPOSITION: Hospitalist will evaluate Patient was agreeable with this plan. Past Med/Surg History Problem List (Updated 08/16/25 @ 23:31 by Alexys Ambrosio M.D.) Systemic inflammatory response syndrome (SIRS) (Acute) Fall (Acute) Weakness (Acute) Carotid artery stenosis AAA (abdominal aortic aneurysm) without rupture PAD (peripheral artery disease) Presence of drug-eluting stent in right coronary artery CAD (coronary artery disease) Labile hypertension ST elevation myocardial infarction (STEMI) of inferior wall HLD (hyperlipidemia) DMII (diabetes mellitus, type 2) ST elevation myocardial infarction (STEMI) (Acute) Elevated troponin (Acute) COVID-19 (Acute) Chest pain (Acute) Skin tag (Acute) Diabetes mellitus (Chronic) Bilateral impacted cerumen (Acute) Embolic cerebral infarction (Chronic ~02/2013) Fall (Acute) Hypertension (Acute) Physical deconditioning Vertigo (Acute) Vertigo (Acute) Visual changes (Acute) Visual changes (Acute) Medical History History of eczema History of stroke History of palpitations History of pulmonary embolism Surgical History No significant past surgical history Family History Other Coronary arteriosclerosis Diabetes Hypertension Denies family history of Ovarian cancer Prostate cancer Myocardial infarction Breast cancer Social History Smoking Status: Former smoker Tobacco Type: Cigarettes Second Hand Exposure: No; Do You Dip or Chew Tobacco: No; Hx Alcohol Use: No Hx Substance Use: No Preferred Language: Armenian Communication Ability: Unable Visual Impairment: No Limitations Hearing Ability: Normal Public Health Officer Required: No Beliefs That Will Affect Care: None marital status: Current Living Situation: Personal Care Facility Current Living Situation Comment: [facility] current occupational status: disabled Feels Safe at Home: Yes Assistive Devices: Walker Allergies Allergies Allergy/AdvReac Type Severity Reaction Status Date / Time No Known Allergies Allergy Verified 08/16/25 21:55 Home Meds Home Medications Medication Instructions Recorded Confirmed acetaminophen 325 mg tablet 650 mg PO QID 10/20/23 08/16/25 (Tylenol) glipizide 10 mg tablet 10 mg PO BID 10/20/23 08/16/25 metformin 850 mg tablet 850 mg PO BID 10/20/23 08/16/25 aspirin 81 mg tablet,delayed 81 mg PO QAM 06/24/24 08/16/25 release atorvastatin 80 mg tablet 80 mg PO QAM 06/24/24 08/16/25 clopidogrel 75 mg tablet 75 mg PO QAM 06/24/24 08/16/25 ezetimibe 10 mg tablet 10 mg PO QAM 06/24/24 08/16/25 metoprolol succinate 25 mg 25 mg PO QAM 06/24/24 08/16/25 tablet,extended release 24 hr amlodipine 5 mg tablet 5 mg PO QAM 08/16/25 08/16/25 Previous Rx's Medication Instructions Recorded losartan 50 mg tablet 50 mg PO BID #180 tabs 07/07/24 Results & Data (ED) Vital Signs Vital Signs - 24 hr 08/16/25 19:50 08/16/25 19:59 08/16/25 19:59 Temperature 38.7 C H 38.7 C H Temperature Source Oral Oral Pulse Rate 130 H 130 H Pulse Rate [Apical] 130 H Respiratory Rate 18 18 Blood Pressure 107/79 Blood Pressure [Right Arm] 107/79 Blood Pressure Mean 88 Blood Pressure Mean [Right Arm] 88 Pulse Oximetry 94 94 Oxygen Delivery Method Room Air Room Air Sepsis Recent Fever Within 48 Hours Yes Sepsis New/Unexplained Change in Mental Status No Sepsis Action Taken by Nursing Physician Notified 08/16/25 20:53 08/16/25 21:00 08/16/25 22:00 Temperature Temperature Source Pulse Rate Pulse Rate [Apical] 128 H 127 H 120 H Respiratory Rate 18 18 20 Blood Pressure Blood Pressure [Right Arm] 134/97 149/87 H 139/75 Blood Pressure Mean Blood Pressure Mean [Right Arm] 109 107 96 Pulse Oximetry 94 94 94 Oxygen Delivery Method Room Air Room Air Room Air Sepsis Recent Fever Within 48 Hours Sepsis New/Unexplained Change in Mental Status Sepsis Action Taken by Nursing 08/16/25 23:00 Temperature Temperature Source Pulse Rate Pulse Rate [Apical] 115 H Respiratory Rate 18 Blood Pressure Blood Pressure [Right Arm] 137/80 Blood Pressure Mean Blood Pressure Mean [Right Arm] 99 Pulse Oximetry 94 Oxygen Delivery Method Room Air Sepsis Recent Fever Within 48 Hours Sepsis New/Unexplained Change in Mental Status Sepsis Action Taken by Nursing Laboratory Data 08/16/25 20:18 08/16/25 20:18 Lab Results 08/16/25 08/16/25 08/16/25 Range/Units 20:18 20:29 22:49 WBC 19.38 H (4.8-10.8) K/ul RBC 4.61 L (4.70-6.10) M/uL Hgb 13.7 L (14.0-18.0) g/dl POC Hgb 14.6 (14.0-18.0) g/dl Hct 41.7 L (42.0-52.0) % POC Hct 43 (42-52) % MCV 90.5 (80.0-100.0) fL MCH 29.7 (25.0-34.0) pg MCHC 32.9 (32.0-36.0) g/dL RDW Std Deviation 42.5 (36.4-46.3) fL RDW Coeff of Megan 13.0 (11.5-14.5) % Plt Count 278 (130-400) K/uL MPV 8.6 L (9.4-12.4) fL Immature Gran % (Auto) 0.4 % Neut % (Auto) 92.8 % Lymph % (Auto) 3.1 % [place] % (Auto) 3.3 % Eos % (Auto) 0.2 % Baso % (Auto) 0.2 % Neut # (Auto) 18.00 H (1.40-6.50) K/uL Lymph # (Auto) 0.60 L (1.20-3.40) K/uL [place] # (Auto) 0.63 H (0.11-0.59) K/uL Eos # (Auto) 0.03 (0.00-0.50) K/uL Baso # (Auto) 0.04 (0.00-0.20) K/uL Immature Gran # (Auto) 0.08 (0.01-0.20) K/uL PT 10.6 (9.0-12.0) Seconds INR 1.0 (0.9-1.1) POC Sodium 139 (135-144) mmol/L Sodium 137 (136-145) mmol/L POC Potassium 4.0 (3.3-5.0) mmol/L Potassium 4.0 (3.5-5.1) mmol/L POC Chloride 102 (101-112) mmol/L Chloride 102 (98-107) mmol/L Carbon Dioxide 23 (21-32) mmol/L POC Total CO2 22 L (24-31) mmol/L Anion Gap 12 H (3-11) POC Anion Gap 19.0 (16-25) mmol/L POC BUN 20 H (7-18) mg/dl BUN 19 (6-23) mg/dl Creatinine 1.40 (0.6-1.4) mg/dl POC Creatinine 1.5 H (0.6-1.3) mg/dl Est Cr Clr Drug Dosing 44.8 ml/min eGFR 52.74 BUN/Creatinine Ratio 13.6 (10-20) Glucose 214 H (70-99(Fasting)) mg/dl POC Glucose (other) 215 H (70-99) mg/dl Lactate 3.5 H* 3.5 H* (0.4-2.0) mmol/L Calcium 9.4 (8.6-10.3) mg/dl POC Ioniz Calcium Lev 1.12 (1.12-1.32) mmol/l Magnesium 1.6 L (1.7-2.4) mg/dl Total Bilirubin 0.6 (0.2-1.0) mg/dl AST 23 (13-39) U/L ALT 36 (7-52) U/L Alkaline Phosphatase 58 (34-104) U/L Total Creatine Kinase 79 (30-223) U/L Troponin I High Sens 13.2 (0-20) pg/ml Total Protein 7.9 (6.0-8.3) gm/dl Albumin 4.5 (3.4-5.0) gm/dl Globulin 3.4 (2.5-4.0) gm/dl Albumin/Globulin Ratio 1.3 (0.9-2) Procalcitonin 0.40 (0-0.5) ng/ml TSH 1.146 (0.300-4.500) uIu/ml Urine Color Urine Appearance (Clear) Urine pH (4.5-7.5) Ur Specific [place] (1.000-1.030) Urine Protein (Negative) Urine Glucose (UA) (Negative) Urine Ketones (Negative) Urine Blood (Negative) Urine Nitrite (Negative) Urine Bilirubin (Negative) Urine Urobilinogen (Negative) Ur Leukocyte Esterase (Negative) Urine WBC (Auto) (0-5) /hpf Urine RBC (Auto) (0-2) /hpf U Hyaline Cast (Auto) (0-2) /lpf U Epithel Cells (Auto) (0-2) /hpf Urine Bacteria (Auto) (None Seen) Urine Comment 08/16/25 Range/Units 22:50 WBC (4.8-10.8) K/ul RBC (4.70-6.10) M/uL Hgb (14.0-18.0) g/dl POC Hgb (14.0-18.0) g/dl Hct (42.0-52.0) % POC Hct (42-52) % MCV (80.0-100.0) fL MCH (25.0-34.0) pg MCHC (32.0-36.0) g/dL RDW Std Deviation (36.4-46.3) fL RDW Coeff of Megan (11.5-14.5) % Plt Count (130-400) K/uL MPV (9.4-12.4) fL Immature Gran % (Auto) % Neut % (Auto) % Lymph % (Auto) % [place] % (Auto) % Eos % (Auto) % Baso % (Auto) % Neut # (Auto) (1.40-6.50) K/uL Lymph # (Auto) (1.20-3.40) K/uL [place] # (Auto) (0.11-0.59) K/uL Eos # (Auto) (0.00-0.50) K/uL Baso # (Auto) (0.00-0.20) K/uL Immature Gran # (Auto) (0.01-0.20) K/uL PT (9.0-12.0) Seconds INR (0.9-1.1) POC Sodium (135-144) mmol/L Sodium (136-145) mmol/L POC Potassium (3.3-5.0) mmol/L Potassium (3.5-5.1) mmol/L POC Chloride (101-112) mmol/L Chloride (98-107) mmol/L Carbon Dioxide (21-32) mmol/L POC Total CO2 (24-31) mmol/L Anion Gap (3-11) POC Anion Gap (16-25) mmol/L POC BUN (7-18) mg/dl BUN (6-23) mg/dl Creatinine (0.6-1.4) mg/dl POC Creatinine (0.6-1.3) mg/dl Est Cr Clr Drug Dosing ml/min eGFR BUN/Creatinine Ratio (10-20) Glucose (70-99(Fasting)) mg/dl POC Glucose (other) (70-99) mg/dl Lactate (0.4-2.0) mmol/L Calcium (8.6-10.3) mg/dl POC Ioniz Calcium Lev (1.12-1.32) mmol/l Magnesium (1.7-2.4) mg/dl Total Bilirubin (0.2-1.0) mg/dl AST (13-39) U/L ALT (7-52) U/L Alkaline Phosphatase (34-104) U/L Total Creatine Kinase (30-223) U/L Troponin I High Sens (0-20) pg/ml Total Protein (6.0-8.3) gm/dl Albumin (3.4-5.0) gm/dl Globulin (2.5-4.0) gm/dl Albumin/Globulin Ratio (0.9-2) Procalcitonin (0-0.5) ng/ml TSH (0.300-4.500) uIu/ml Urine Color Yellow Urine Appearance Clear (Clear) Urine pH 5.5 (4.5-7.5) Ur Specific [place] 1.036 H (1.000-1.030) Urine Protein Negative (Negative) Urine Glucose (UA) Negative (Negative) Urine Ketones Negative (Negative) Urine Blood Trace H (Negative) Urine Nitrite Negative (Negative) Urine Bilirubin Negative (Negative) Urine Urobilinogen Negative (Negative) Ur Leukocyte Esterase Negative (Negative) Urine WBC (Auto) 0-5 (0-5) /hpf Urine RBC (Auto) 0-2 (0-2) /hpf U Hyaline Cast (Auto) 0-2 (0-2) /lpf U Epithel Cells (Auto) 0-2 (0-2) /hpf Urine Bacteria (Auto) None Seen (None Seen) Urine Comment Administered Medications Discontinued Medications Sodium Chloride (Nss) 1,000 mls @ 999 mls/hr IV .Q1H1M SWAPNIL Stop: 08/16/25 21:15 Last Infusion: 08/16/25 22:50 Dose: Infused Documented By: Admin: 08/16/25 21:12 Dose: 999 mls/hr Documented By: NRB Piperacillin Sod/Tazobactam Sod (Zosyn) 4.5 gm in 100 mls @ 200 mls/hr IV NOW ONE; Protocol Stop: 08/16/25 23:06 Last Infusion: 08/16/25 23:57 Dose: Infused Documented By: Admin: 08/16/25 23:12 Dose: 200 mls/hr Documented By: DAVID Sodium Chloride (Nss) 1,000 mls @ 999 mls/hr IV .Q1H1M ONE Stop: 08/17/25 00:49 Last Admin: 08/16/25 23:59 Dose: Not Given Documented By: CORNEL Ioversol (Optiray 320 100ml) 93 ml IV ONCE ONE Stop: 08/16/25 22:07 Last Admin: 08/16/25 22:06 Dose: 93 ml Documented By: TABITHA Ketorolac Tromethamine (Ketorolac Tromethamine 15 Mg/Ml Vial) 10 mg IV NOW ONE Stop: 08/16/25 20:45 Last Admin: 08/16/25 21:13 Dose: 10 mg Documented By: DAVID Imaging Data Radiologist's Impression: Abdomen/Pelvis CT 08/16/25 20:07 Exam(s): CT ABDOMEN + PELVIS With Contrast IV Amt: 93 ml optiray 320 EXAM: CT Abdomen and Pelvis With Intravenous Contrast CLINICAL HISTORY: Reason for exam: fall, fever. TECHNIQUE: Axial computed tomography images of the abdomen and pelvis with intravenous contrast. CTDI is 23.7 mGy and DLP is 1369.72 mGy-cm. Automated exposure control was utilized for the study. A dose lowering technique was utilized adhering to the principles of ALARA. CONTRAST: Patient received 93 ml optiray 320 of IV contrast COMPARISON: No relevant prior studies available. FINDINGS: Lung bases: Unremarkable. No mass. No consolidation. ABDOMEN: Liver: Fatty infiltration of the liver and hepatomegaly with the liver measuring 19 cm craniocaudad. No focal liver mass lesion is seen. Gallbladder and bile ducts: Several 3 mm gallstones within a nondilated gallbladder. No surrounding inflammation, biliary duct dilation, or choledocholithiasis. Pancreas: Unremarkable. No mass. No ductal dilation. Spleen: Unremarkable. No splenomegaly. Adrenals: Unremarkable. No mass. Kidneys and ureters: Unremarkable. No solid mass. No hydronephrosis. Stomach and bowel: Bowel loops are nondilated. There is severe diverticulosis of the sigmoid colon without evidence of acute diverticulitis. No acute inflammatory changes are seen involving the bowel. PELVIS: Appendix: No findings to suggest acute appendicitis. Bladder: Unremarkable. No mass. Reproductive: Unremarkable as visualized. ABDOMEN and PELVIS: Intraperitoneal space: Unremarkable. No free air. No significant fluid collection. Bones/joints: Mild degenerative changes in the spine. No acute fracture or subluxation is seen. Soft tissues: Unremarkable. Vasculature: The abdominal aorta is severely calcified but nondilated measuring 2.2 cm. No aneurysm or dissection. Lymph nodes: Unremarkable. No enlarged lymph nodes. IMPRESSION: 1. Fatty infiltration of the liver and hepatomegaly with the liver measuring 19 cm craniocaudad. No focal liver mass lesion is seen. 2. Bowel loops are nondilated. There is severe diverticulosis of the sigmoid colon without evidence of acute diverticulitis. No acute inflammatory changes are seen involving the bowel. Electronically signed by: Alexys New MD 08/16/25 23:[address] 08/16/25 20:07 Exam(s): CT C SPINE EXAM: CT Cervical Spine Without Intravenous Contrast CLINICAL HISTORY: Reason for exam: fall. TECHNIQUE: Axial computed tomography images of the cervical spine without intravenous contrast. CTDI is 22.1 mGy and DLP is 483.72 mGy-cm. Automated exposure control was utilized for the study. A dose lowering technique was utilized adhering to the principles of ALARA. COMPARISON: No relevant prior studies available. FINDINGS: Vertebrae: There is a mild generalized curved to the right and mild kyphosis. No acute fracture. Discs/spinal canal/neural foramina: No acute findings. There is a critical spinal canal stenosis at C5-6 and severe stenosis at C3-4 and C6- 7. Soft tissues: Unremarkable. IMPRESSION: No evidence of acute cervical spine pathology. Critical spinal canal stenosis at C5-6. Recommend MRI of the cervical spine to evaluate for myelopathy Electronically signed by: Barbie Jacinto MD 08/16/25 23:[address] 08/16/25 20:07 Exam(s): CT CHEST With Contrast IV Amt: 93 cc opti 320 EXAM: CT Chest With Intravenous Contrast CLINICAL HISTORY: Reason for exam: fall, fever. TECHNIQUE: Axial computed tomography images of the chest with intravenous contrast. CTDI is 25.66 mGy and DLP is 802.92 mGy-cm. Automated exposure control was utilized for the study. A dose lowering technique was utilized adhering to the principles of ALARA. CONTRAST: Patient received 93 cc Optiray 320 of IV contrast COMPARISON: 10/20/2023 FINDINGS: Lungs: Underinflated lungs and 4 cm elevation of the right diaphragm. There is bronchovascular crowding bilaterally and small amount of right basilar atelectasis versus infiltrate. No lobar consolidation. Pleural space: Unremarkable. No significant effusion. No pneumothorax. Heart: The heart is upper normal in size. There is moderate coronary calcification throughout all coronary vessels. No pericardial effusion. No cardiomegaly. Bones/joints: Mild degenerative changes in the spine. No acute fracture or destructive bone lesion is seen. Mild degenerative changes throughout the spine. No acute fracture or destructive bone lesion is seen. Soft tissues: Unremarkable. Vasculature: The thoracic aorta is mildly calcified. The aorta is nondilated. There is no aneurysm or dissection. Pulmonary arterial tree is well opacified with contrast. The lower lobe branches are mildly blurred by motion. No pulmonary embolism is identified. Lymph nodes: Unremarkable. No enlarged lymph nodes. IMPRESSION: 1. Underinflated lungs and 4 cm elevation of the right diaphragm. There is bronchovascular crowding bilaterally and small amount of right basilar atelectasis versus infiltrate. No lobar consolidation. 2. The heart is upper normal in size. There is moderate coronary calcification throughout all coronary vessels. No pericardial effusion. 3. The thoracic aorta is mildly calcified. The aorta is nondilated. There is no aneurysm or dissection. 4. Pulmonary arterial tree is well opacified with contrast. The lower lobe branches are mildly blurred by motion. No pulmonary embolism is identified. Electronically signed by: Alexys New MD 08/16/25 23:20 PM Chest X-Ray 08/16/25 20:07 Exam(s): XR CXR 1 VIEW EXAM: XR Chest, 1 View CLINICAL HISTORY: Reason for exam: weakness, fall, fever. TECHNIQUE: Frontal view of the chest. COMPARISON: No relevant prior studies available. FINDINGS: Lungs: Left basilar discoid atelectasis. Pleural space: Unremarkable. No pneumothorax. Heart: Unremarkable. No cardiomegaly. Mediastinum: Unremarkable. Normal mediastinal contour. Bones/joints: Unremarkable. No acute fracture. IMPRESSION: No acute pulmonary process identified Electronically signed by: Jaime Chan MD 08/16/25 22:[address] 08/16/25 20:07 Exam(s): CT HEAD Without Contrast EXAM: CT Head Without Intravenous Contrast CLINICAL HISTORY: Reason for exam: fall, fever. TECHNIQUE: Axial computed tomography images of the head/brain without intravenous contrast. CTDI is 35.79 mGy and DLP is 702.46 mGy-cm. Automated exposure control was utilized for the study. A dose lowering technique was utilized adhering to the principles of ALARA. COMPARISON: Prior head CT from June 24, 2024. 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 No hemorrhage. No significant white matter disease. No edema. Ventricles: Mild to moderate ventriculomegaly. Bones/joints: Unremarkable. No acute fracture. Soft tissues: Unremarkable. Sinuses: Chronic maxillary and right maxillary sinusitis. No acute sinusitis. Mastoid air cells: Unremarkable as visualized. No mastoid effusion. IMPRESSION: No evidence of acute intracranial pathology. Electronically signed by: Barbie Jacinto MD 08/16/25 23:45 PM Discharge Plan Visit Data Chief Complaint: Weakness Stated Complaint: L Sided Weakness, Fall ED Provider: Alexys Ambrosio Discharge Problem: Weakness, Fall, Systemic inflammatory response syndrome (SIRS) Patient Disposition: Being Evaluated by Hospitalist Condition: Fair Forms Stand Alone Forms: My [facility] [place] Prescriptions Prescriptions: No Action losartan 50 mg tablet 50 mg PO BID Qty: 180 3RF acetaminophen [Tylenol] 325 mg Tablet 650 mg PO QID MDD 3 GRAMS APAP/24 HOURS Rx Instructions: 0800, 1200, 1600, & 2000 glipizide 10 mg tablet 10 mg PO BID Rx Instructions: 0800 & 1900 metformin 850 mg tablet 850 mg PO BID Rx Instructions: 0800 & 1900 amlodipine 5 mg tablet 5 mg PO QAM atorvastatin 80 mg tablet 80 mg PO QAM clopidogrel 75 mg tablet 75 mg PO QAM aspirin 81 mg tablet,delayed release (DR/EC) 81 mg PO QAM metoprolol succinate 25 mg tablet extended release 24 hr 25 mg PO QAM ezetimibe 10 mg tablet 10 mg PO QAM Referrals Referrals: Rachid Lozano [Primary Care Provider] -
[2025-08-16 20:54] LABS: Alanine Aminotransferase 36.0 U/L (7-52); Albumin Globulin Ratio 1.3 (0.9-2); Albumin Level 4.5 gm/dl (3.4-5.0); Alkaline Phosphatase 58.0 U/L (34-104); Anion Gap 12.0 (3-11); Bilirubin,Total 0.6 mg/dl (0.2-1.0); Blood Urea Nitrogen 19.0 mg/dl (6-23); Calcium 9.4 mg/dl (8.6-10.3); Carbon Dioxide 23.0 mmol/L (21-32); Chloride 102.0 mmol/L (98-107); Creatine Kinase 79.0 U/L (30-223); Creatinine Clr Calc Pharmacy 44.8 ml/min; Globulin 3.4 gm/dl (2.5-4.0); Glucose 214.0 mg/dl (70-99(Fasting)); Magnesium 1.6 mg/dl (1.7-2.4); Potassium 4.0 mmol/L (3.5-5.1); Sodium 137.0 mmol/L (136-145); Total Protein 7.9 gm/dl (6.0-8.3)
[2025-08-16 20:56] LABS: Immature Granulocytes # (auto) 0.08 K/uL (0.01-0.20); Immature Granulocytes % (auto) 0.4 %
[2025-08-16 21:09] LABS: Thyroid Stimulating Hormone 1.146 uIu/ml (0.300-4.500)
[2025-08-16] MEDS: SODIUM CHLORIDE 0.9% 1,000 ML IV SCH (21:12)
[2025-08-16] MEDS: KETOROLAC TROMETHAMINE 15 MG/ML VIAL IV ONE (21:13)
[2025-08-16 21:26] LABS: INR 1.0 (0.9-1.1); Prothrombin Time 10.6 Seconds (9.0-12.0)
--- NOTE | 2025-08-16 22:01 | XRay Report ---
Exam(s): XR CXR 1 VIEW EXAM: XR Chest, 1 View CLINICAL HISTORY: Reason for exam: weakness, fall, fever. TECHNIQUE: Frontal view of the chest. COMPARISON: No relevant prior studies available. FINDINGS: Lungs: Left basilar discoid atelectasis. Pleural space: Unremarkable. No pneumothorax. Heart: Unremarkable. No cardiomegaly. Mediastinum: Unremarkable. Normal mediastinal contour. Bones/joints: Unremarkable. No acute fracture. IMPRESSION: No acute pulmonary process identified Electronically signed by: Jaime Chan MD 08/16/25 22:00 PM
[2025-08-16] MEDS: OPTIRAY 320 100ml IV ONE (22:06)
[2025-08-16] MEDS: PIPERACILLIN/TAZOBACTAM 4.5 GM/100 ML BAG IV ONE (23:12)
[2025-08-16 23:13] LABS: Appearance Urine Clear (Clear); Bacteria Urine Automated None Seen (None Seen); Cast Urine Automated 0-2 /lpf (0-2); Epithelial Cell Urine Auto 0-2 /hpf (0-2); Glucose Urine UA Negative (Negative); RBC Urine Automated 0-2 /hpf (0-2); WBC Urine Automated 0-5 /hpf (0-5)
--- NOTE | 2025-08-16 23:21 | CT Scan Report ---
Exam(s): CT CHEST With Contrast IV Amt: 93 cc opti 320 EXAM: CT Chest With Intravenous Contrast CLINICAL HISTORY: Reason for exam: fall, fever. TECHNIQUE: Axial computed tomography images of the chest with intravenous contrast. CTDI is 25.66 mGy and DLP is 802.92 mGy-cm. Automated exposure control was utilized for the study. A dose lowering technique was utilized adhering to the principles of ALARA. CONTRAST: Patient received 93 cc Optiray 320 of IV contrast COMPARISON: 10/20/2023 FINDINGS: Lungs: Underinflated lungs and 4 cm elevation of the right diaphragm. There is bronchovascular crowding bilaterally and small amount of right basilar atelectasis versus infiltrate. No lobar consolidation. Pleural space: Unremarkable. No significant effusion. No pneumothorax. Heart: The heart is upper normal in size. There is moderate coronary calcification throughout all coronary vessels. No pericardial effusion. No cardiomegaly. Bones/joints: Mild degenerative changes in the spine. No acute fracture or destructive bone lesion is seen. Mild degenerative changes throughout the spine. No acute fracture or destructive bone lesion is seen. Soft tissues: Unremarkable. Vasculature: The thoracic aorta is mildly calcified. The aorta is nondilated. There is no aneurysm or dissection. Pulmonary arterial tree is well opacified with contrast. The lower lobe branches are mildly blurred by motion. No pulmonary embolism is identified. Lymph nodes: Unremarkable. No enlarged lymph nodes. IMPRESSION: 1. Underinflated lungs and 4 cm elevation of the right diaphragm. There is bronchovascular crowding bilaterally and small amount of right basilar atelectasis versus infiltrate. No lobar consolidation. 2. The heart is upper normal in size. There is moderate coronary calcification throughout all coronary vessels. No pericardial effusion. 3. The thoracic aorta is mildly calcified. The aorta is nondilated. There is no aneurysm or dissection. 4. Pulmonary arterial tree is well opacified with contrast. The lower lobe branches are mildly blurred by motion. No pulmonary embolism is identified. Electronically signed by: Alexys New MD 08/16/25 23:20 PM
--- NOTE | 2025-08-16 23:23 | CT Scan Report ---
Exam(s): CT ABDOMEN + PELVIS With Contrast IV Amt: 93 ml optiray 320 EXAM: CT Abdomen and Pelvis With Intravenous Contrast CLINICAL HISTORY: Reason for exam: fall, fever. TECHNIQUE: Axial computed tomography images of the abdomen and pelvis with intravenous contrast. CTDI is 23.7 mGy and DLP is 1369.72 mGy-cm. Automated exposure control was utilized for the study. A dose lowering technique was utilized adhering to the principles of ALARA. CONTRAST: Patient received 93 ml optiray 320 of IV contrast COMPARISON: No relevant prior studies available. FINDINGS: Lung bases: Unremarkable. No mass. No consolidation. ABDOMEN: Liver: Fatty infiltration of the liver and hepatomegaly with the liver measuring 19 cm craniocaudad. No focal liver mass lesion is seen. Gallbladder and bile ducts: Several 3 mm gallstones within a nondilated gallbladder. No surrounding inflammation, biliary duct dilation, or choledocholithiasis. Pancreas: Unremarkable. No mass. No ductal dilation. Spleen: Unremarkable. No splenomegaly. Adrenals: Unremarkable. No mass. Kidneys and ureters: Unremarkable. No solid mass. No hydronephrosis. Stomach and bowel: Bowel loops are nondilated. There is severe diverticulosis of the sigmoid colon without evidence of acute diverticulitis. No acute inflammatory changes are seen involving the bowel. PELVIS: Appendix: No findings to suggest acute appendicitis. Bladder: Unremarkable. No mass. Reproductive: Unremarkable as visualized. ABDOMEN and PELVIS: Intraperitoneal space: Unremarkable. No free air. No significant fluid collection. Bones/joints: Mild degenerative changes in the spine. No acute fracture or subluxation is seen. Soft tissues: Unremarkable. Vasculature: The abdominal aorta is severely calcified but nondilated measuring 2.2 cm. No aneurysm or dissection. Lymph nodes: Unremarkable. No enlarged lymph nodes. IMPRESSION: 1. Fatty infiltration of the liver and hepatomegaly with the liver measuring 19 cm craniocaudad. No focal liver mass lesion is seen. 2. Bowel loops are nondilated. There is severe diverticulosis of the sigmoid colon without evidence of acute diverticulitis. No acute inflammatory changes are seen involving the bowel. Electronically signed by: Alexys New MD 08/16/25 23:22 PM
--- NOTE | 2025-08-16 23:45 | CT Scan Report ---
Exam(s): CT HEAD Without Contrast EXAM: CT Head Without Intravenous Contrast CLINICAL HISTORY: Reason for exam: fall, fever. TECHNIQUE: Axial computed tomography images of the head/brain without intravenous contrast. CTDI is 35.79 mGy and DLP is 702.46 mGy-cm. Automated exposure control was utilized for the study. A dose lowering technique was utilized adhering to the principles of ALARA. COMPARISON: Prior head CT from June 24, 2024. 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 No hemorrhage. No significant white matter disease. No edema. Ventricles: Mild to moderate ventriculomegaly. Bones/joints: Unremarkable. No acute fracture. Soft tissues: Unremarkable. Sinuses: Chronic maxillary and right maxillary sinusitis. No acute sinusitis. Mastoid air cells: Unremarkable as visualized. No mastoid effusion. IMPRESSION: No evidence of acute intracranial pathology. Electronically signed by: Barbie Jacinto MD 08/16/25 23:45 PM
--- NOTE | 2025-08-16 23:49 | CT Scan Report ---
Exam(s): CT C SPINE EXAM: CT Cervical Spine Without Intravenous Contrast CLINICAL HISTORY: Reason for exam: fall. TECHNIQUE: Axial computed tomography images of the cervical spine without intravenous contrast. CTDI is 22.1 mGy and DLP is 483.72 mGy-cm. Automated exposure control was utilized for the study. A dose lowering technique was utilized adhering to the principles of ALARA. COMPARISON: No relevant prior studies available. FINDINGS: Vertebrae: There is a mild generalized curved to the right and mild kyphosis. No acute fracture. Discs/spinal canal/neural foramina: No acute findings. There is a critical spinal canal stenosis at C5-6 and severe stenosis at C3-4 and C6- 7. Soft tissues: Unremarkable. IMPRESSION: No evidence of acute cervical spine pathology. Critical spinal canal stenosis at C5-6. Recommend MRI of the cervical spine to evaluate for myelopathy Electronically signed by: Barbie Jacinto MD 08/16/25 23:48 PM
[2025-08-16] MEDS: SODIUM CHLORIDE 0.9% 1,000 ML IV ONE (23:59)
[2025-08-17] MEDS: SODIUM CHLORIDE 0.9% 500 ML IV ONE (00:07)
[2025-08-17 00:35] LABS: Chlamydia pneumoniae PCR Not Detected (NotDetected); Coronavirus 229E PCR Not Detected (NotDetected); Coronavirus CoV-2 (COVID19)PCR Not Detected (NotDetected); Coronavirus HKU1 PCR Not Detected (NotDetected); Coronavirus NL63 PCR Not Detected (NotDetected); Coronavirus OC43PCR Not Detected (NotDetected); Human Metapneumovirus PCR Not Detected (NotDetected); Parainfluenza Virus 1 PCR Not Detected (NotDetected); Parainfluenza Virus 2 PCR Not Detected (NotDetected); Parainfluenza Virus 3 PCR Not Detected (NotDetected); Parainfluenza Virus 4 PCR Not Detected (NotDetected); Respiratory Syncytial VirusPCR Not Detected (NotDetected); Rhinovirus/Enterovirus PCR Not Detected (NotDetected)
[2025-08-17] MEDS: MAGNESIUM SULFATE / D5W 1 GM/100 ML BAG IV SCH (01:01)
[2025-08-17] MEDS: ACETAMINOPHEN 500 MG TAB PO STA (01:08)
[2025-08-17] MEDS: LACTATED RINGER'S 1,000 ML IV ONE (01:08)
--- NOTE | 2025-08-17 04:12 | History & Physical Report ---
Date of Service August 17, 2025 Assessment & Plan (1) Sepsis: Plan: 75-year-old male with past medical history significant for hypertension, history of CVA and left-sided weakness currently wheelchair-bound can transfer to the wheelchair, lumbar spinal stenosis, history of CAD status post stent, hyperlipidemia, bilateral carotid stenosis, who currently lives at [facility] comes because of not feeling well and fall. Patient was not feeling well today. In the evening when he was getting transferred from his wheelchair his left side felt weaker than normal and fell to the ground. Did not hit his head. No loss of consciousness. He had a flu shot a couple of days ago. Patient denies any headache. No chest pain. No back pain. Complains of mild abdominal discomfort. States he has prostate issues and micturate frequently. Say he was shaky when he fell down. No nausea. No cough. No runny nose or sore throat. Appetite is okay. No difficulty swallowing. Normal bowel and bladder movements. In the ER patient was spiking temperature. WBC 19. Lactic acid 3.5. UA is unremarkable. Lyme screen and respiratory BioFire negative. Imaging studies no acute findigs. Refused to exam for any sacral ulcers and says no ulcers in the back. Currently resting comfortably and hemodynamically stable. Possible sepsis Fever, tachycardia, elevated lactic acid, leukocytosis UA is unremarkable. Respiratory bio fire negative. Lyme screen negative. Anaplasma ,Babesia screen negative. CT chest no lobar consolidation. In the ER empirically received Zosyn. Continue Zosyn and Doxy. Will check MRSA screen Will follow blood cultures Will recommend IV fluids Follow repeat labs and lactic acid Closely monitor hemodynamics History of CVA Left-sided weakness Wheelchair-bound Continue home aspirin and Plavix and statin and Zetia Critical Cervical stenosis on Ct scan will order Mri scan. History of CAD status post stent On aspirin, Plavix, statin and Zetia and metoprolol succinate Hyperlipidemia On atorvastatin and Zetia Diabetes On glipizide and metformin Sliding scale Will monitor Hypertension Continue amlodipine, metoprolol succinate and losartan with holding parameters LAILA Presented with creatinine 1.4 Baseline seems to be around 1 Avoid nephrotoxic agents Will follow repeat labs DVT prophylaxis Heparin subcu Disposition Telemetry CODE STATUS full code if there is chance of recovery as per my discussion with the patient History of Present Illness Chief Complaint: Possible sepsis Primary Care Provider: [facility] Rachid 75-year-old male with past medical history significant for hypertension, history of CVA and left-sided weakness currently wheelchair-bound can transfer to the wheelchair, lumbar spinal stenosis, history of CAD status post stent, hyperlipidemia, bilateral carotid stenosis, who currently lives at [facility] comes because of not feeling well and fall. Patient was not feeling well today. In the evening when he was getting transferred from his wheelchair his left side felt weaker than normal and fell to the ground. Did not hit his head. No loss of consciousness. He had a flu shot a couple of days ago. Patient denies any headache. No chest pain. No back pain. Complains of mild abdominal discomfort. States he has prostate issues and micturate frequently. Say he was shaky when he fell down. No nausea. No cough. No runny nose or sore throat. Appetite is okay. No difficulty swallowing. Normal bowel and bladder movements. In the ER patient was spiking temperature. WBC 19. Lactic acid 3.5. UA is unremarkable. Lyme screen and respiratory BioFire negative. Imaging studies no acute findigs. Refused to exam for any sacral ulcers and says no ulcers in the back. Currently resting comfortably and hemodynamically stable. Past medical history as mentioned above. Past surgical history. Cyst removal on his left arm. Cardiac cath. Social history. Currently living at [facility]. Smoked 1 pack a day for 35 years. Quit in 2012 per records. Currently not drinking alcohol. No drug use. Family history significant for father had diabetes, hypertension, heart disorder. Mother had hypertension Allergies Allergy/AdvReac Type Severity Reaction Status Date / Time No Known Allergies Allergy Verified 08/16/25 21:55 Home Medications Medication Instructions Recorded Confirmed Type acetaminophen 325 mg tablet 650 mg PO QID 10/20/23 08/16/25 History (Tylenol) glipizide 10 mg tablet 10 mg PO BID 10/20/23 08/16/25 History metformin 850 mg tablet 850 mg PO BID 10/20/23 08/16/25 History aspirin 81 mg tablet,delayed 81 mg PO QAM 06/24/24 08/16/25 History release atorvastatin 80 mg tablet 80 mg PO QAM 06/24/24 08/16/25 History clopidogrel 75 mg tablet 75 mg PO QAM 06/24/24 08/16/25 History ezetimibe 10 mg tablet 10 mg PO QAM 06/24/24 08/16/25 History metoprolol succinate 25 mg 25 mg PO QAM 06/24/24 08/16/25 History tablet,extended release 24 hr losartan 50 mg tablet 50 mg PO BID #180 tabs 07/07/24 08/16/25 Rx amlodipine 5 mg tablet 5 mg PO QAM 08/16/25 08/16/25 History Past Med/Surg History Problem List (Updated 08/17/25 @ 04:17 by Hammad Flores MD) Sepsis Systemic inflammatory response syndrome (SIRS) (Acute) Fall (Acute) Weakness (Acute) Carotid artery stenosis AAA (abdominal aortic aneurysm) without rupture PAD (peripheral artery disease) Presence of drug-eluting stent in right coronary artery CAD (coronary artery disease) Labile hypertension ST elevation myocardial infarction (STEMI) of inferior wall HLD (hyperlipidemia) DMII (diabetes mellitus, type 2) ST elevation myocardial infarction (STEMI) (Acute) Elevated troponin (Acute) COVID-19 (Acute) Chest pain (Acute) Skin tag (Acute) Diabetes mellitus (Chronic) Bilateral impacted cerumen (Acute) Embolic cerebral infarction (Chronic ~02/2013) Fall (Acute) Hypertension (Acute) Physical deconditioning Vertigo (Acute) Vertigo (Acute) Visual changes (Acute) Visual changes (Acute) Medical History History of eczema History of stroke History of palpitations History of pulmonary embolism Surgical History No significant past surgical history Family History Other Coronary arteriosclerosis Diabetes Hypertension Denies family history of Ovarian cancer Prostate cancer Myocardial infarction Breast cancer Social History Smoking Status: Former smoker Tobacco Type: Cigarettes Second Hand Exposure: No; Do You Dip or Chew Tobacco: No; Tobacco Cessation Education Requested by Patient: No Hx Alcohol Use: No Hx Substance Use: No Preferred Language: Cypriot Communication Ability: Effective Visual Impairment: No Limitations Hearing Ability: Normal 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 ENT- oropharynx clear Neck- supple, no JVD. Lungs- clear to auscultation no wheezing or crackles Heart- regular rhythm; no murmur, no gallop. Abdomen- normal bowel sounds, soft, mild diffuse discomfort, no distension. Extremities- no pretibial edema, no erythema seen Neuro- alert, oriented PERRL, EOMI; no facial palsy; Left sided weakness Results & Data Results & Data Vital Signs (Past 12 Hours) Vital Signs Temp Pulse Pulse Resp BP BP Pulse Ox 08/17/25 02:30 97 H 21 126/72 08/17/25 02:00 106 H 28 H 144/82 H 95 08/17/25 01:00 116 H 35 H 134/87 08/17/25 00:30 116 H 29 H 158/90 H 08/16/25 23:30 118 H 17 116/76 08/16/25 23:00 137/80 08/16/25 23:00 115 H 18 137/80 94 08/16/25 22:00 120 H 20 139/75 94 08/16/25 21:00 127 H 18 149/87 H 94 08/16/25 20:53 128 H 18 134/97 94 08/16/25 19:59 38.7 C H 130 H 18 107/79 94 08/16/25 19:59 38.7 C H 130 H 18 107/79 94 08/16/25 19:50 130 H O2 Del Method 08/17/25 02:30 08/17/25 02:00 08/17/25 01:00 08/17/25 00:30 08/16/25 23:30 08/16/25 23:00 08/16/25 23:00 Room Air 08/16/25 22:00 Room Air 08/16/25 21:00 Room Air 08/16/25 20:53 Room Air 08/16/25 19:59 Room Air 08/16/25 19:59 Room Air 08/16/25 19:50 Diagnostic Findings Laboratory Results WBC 19.38 K/ul (4.8-10.8) H 08/16/25 20:18 RBC 4.61 M/uL (4.70-6.10) L 08/16/25 20:18 Hgb 13.7 g/dl (14.0-18.0) L 08/16/25 20:18 POC Hgb 14.6 g/dl (14.0-18.0) 08/16/25 20:29 Hct 41.7 % (42.0-52.0) L 08/16/25 20:18 POC Hct 43 % (42-52) 08/16/25 20:29 MCV 90.5 fL (80.0-100.0) 08/16/25 20:18 MCH 29.7 pg (25.0-34.0) 08/16/25 20:18 MCHC 32.9 g/dL (32.0-36.0) 08/16/25 20:18 RDW Std Deviation 42.5 fL (36.4-46.3) 08/16/25 20:18 RDW Coeff of Megan 13.0 % (11.5-14.5) 08/16/25 20:18 Plt Count 278 K/uL (130-400) 08/16/25 20:18 MPV 8.6 fL (9.4-12.4) L 08/16/25 20:18 Immature Gran % (Auto) 0.4 % 08/16/25 20:18 Neut % (Auto) 92.8 % 08/16/25 20:18 Lymph % (Auto) 3.1 % 08/16/25 20:18 Gallia % (Auto) 3.3 % 08/16/25 20:18 Eos % (Auto) 0.2 % 08/16/25 20:18 Baso % (Auto) 0.2 % 08/16/25 20:18 Neut # (Auto) 18.00 K/uL (1.40-6.50) H 08/16/25 20:18 Lymph # (Auto) 0.60 K/uL (1.20-3.40) L 08/16/25 20:18 Gallia # (Auto) 0.63 K/uL (0.11-0.59) H 08/16/25 20:18 Eos # (Auto) 0.03 K/uL (0.00-0.50) 08/16/25 20:18 Baso # (Auto) 0.04 K/uL (0.00-0.20) 08/16/25 20:18 Immature Gran # (Auto) 0.08 K/uL (0.01-0.20) 08/16/25 20:18 PT 10.6 Seconds (9.0-12.0) 08/16/25 20:18 INR 1.0 (0.9-1.1) 08/16/25 20:18 POC Sodium 139 mmol/L (135-144) 08/16/25 20:29 Sodium 137 mmol/L (136-145) 08/16/25 20:18 POC Potassium 4.0 mmol/L (3.3-5.0) 08/16/25 20:29 Potassium 4.0 mmol/L (3.5-5.1) 08/16/25 20:18 POC Chloride 102 mmol/L (101-112) 08/16/25 20:29 Chloride 102 mmol/L (98-107) 08/16/25 20:18 Carbon Dioxide 23 mmol/L (21-32) 08/16/25 20:18 POC Total CO2 22 mmol/L (24-31) L 08/16/25 20:29 Anion Gap 12 (3-11) H 08/16/25 20:18 POC Anion Gap 19.0 mmol/L (16-25) 08/16/25 20:29 POC BUN 20 mg/dl (7-18) H 08/16/25 20:29 BUN 19 mg/dl (6-23) 08/16/25 20:18 Creatinine 1.40 mg/dl (0.6-1.4) 08/16/25 20:18 POC Creatinine 1.5 mg/dl (0.6-1.3) H 08/16/25 20:29 Est Cr Clr Drug Dosing 44.8 ml/min 08/16/25 20:18 eGFR 52.74 08/16/25 20:18 BUN/Creatinine Ratio 13.6 (10-20) 08/16/25 20:18 Glucose 214 mg/dl (70-99(Fasting)) H 08/16/25 20:18 POC Glucose (other) 215 mg/dl (70-99) H 08/16/25 20:29 Lactate 3.5 mmol/L (0.4-2.0) H* 08/16/25 22:49 Calcium 9.4 mg/dl (8.6-10.3) 08/16/25 20:18 POC Ioniz Calcium Lev 1.12 mmol/l (1.12-1.32) 08/16/25 20:29 Magnesium 1.6 mg/dl (1.7-2.4) L 08/16/25 20:18 Total Bilirubin 0.6 mg/dl (0.2-1.0) 08/16/25 20:18 AST 23 U/L (13-39) 08/16/25 20:18 ALT 36 U/L (7-52) 08/16/25 20:18 Alkaline Phosphatase 58 U/L (34-104) 08/16/25 20:18 Total Creatine Kinase 79 U/L (30-223) 08/16/25 20:18 Troponin I High Sens 13.2 pg/ml (0-20) 08/16/25 20:18 Total Protein 7.9 gm/dl (6.0-8.3) 08/16/25 20:18 Albumin 4.5 gm/dl (3.4-5.0) 08/16/25 20:18 Globulin 3.4 gm/dl (2.5-4.0) 08/16/25 20:18 Albumin/Globulin Ratio 1.3 (0.9-2) 08/16/25 20:18 Procalcitonin 0.40 ng/ml (0-0.5) 08/16/25 20:18 TSH 1.146 uIu/ml (0.300-4.500) 08/16/25 20:18 Urine Color Yellow 08/16/25 22:50 Urine Appearance Clear (Clear) 08/16/25 22:50 Urine pH 5.5 (4.5-7.5) 08/16/25 22:50 Ur Specific Wilsons 1.036 (1.000-1.030) H 08/16/25 22:50 Urine Protein Negative (Negative) 08/16/25 22:50 Urine Glucose (UA) Negative (Negative) 08/16/25 22:50 Urine Ketones Negative (Negative) 08/16/25 22:50 Urine Blood Trace (Negative) H 08/16/25 22:50 Urine Nitrite Negative (Negative) 08/16/25 22:50 Urine Bilirubin Negative (Negative) 08/16/25 22:50 Urine Urobilinogen Negative (Negative) 08/16/25 22:50 Ur Leukocyte Esterase Negative (Negative) 08/16/25 22:50 Urine WBC (Auto) 0-5 /hpf (0-5) 08/16/25 22:50 Urine RBC (Auto) 0-2 /hpf (0-2) 08/16/25 22:50 U Hyaline Cast (Auto) 0-2 /lpf (0-2) 08/16/25 22:50 U Epithel Cells (Auto) 0-2 /hpf (0-2) 08/16/25 22:50 Urine Bacteria (Auto) None Seen (None Seen) 08/16/25 22:50 Urine Comment 08/16/25 22:50 Adenovirus (PCR) Not Detected (NotDetected) 08/16/25 23:15 Anaplasma Smear See Comment 08/16/25 20:18 Babesia Smear See Comment 08/16/25 20:18 B. pertussis DNA (PCR) Not Detected (NotDetected) 08/16/25 23:15 B.parapertussis DNA PCR Not Detected (NotDetected) 08/16/25 23:15 Lyme Disease Screen Negative (Negative) 08/16/25 20:18 C. pneumoniae DNA (PCR) Not Detected (NotDetected) 08/16/25 23:15 Coronavirus OC43 (PCR) Not Detected (NotDetected) 08/16/25 23:15 Coronavirus HKU1 (PCR) Not Detected (NotDetected) 08/16/25 23:15 Coronavirus 229E (PCR) Not Detected (NotDetected) 08/16/25 23:15 SARS-CoV-2 (PCR) Not Detected (NotDetected) 08/16/25 23:15 Coronavirus NL63 (PCR) Not Detected (NotDetected) 08/16/25 23:15 Human Metapneumovir PCR Not Detected (NotDetected) 08/16/25 23:15 Influenza Type A (PCR) Not Detected (NotDetected) 08/16/25 23:15 Influenza Type B (PCR) Not Detected (NotDetected) 08/16/25 23:15 M. pneumoniae (PCR) Not Detected (NotDetected) 08/16/25 23:15 Parainfluenza 1 (PCR) Not Detected (NotDetected) 08/16/25 23:15 Parainfluenza 2 (PCR) Not Detected (NotDetected) 08/16/25 23:15 Parainfluenza 3 (PCR) Not Detected (NotDetected) 08/16/25 23:15 Parainfluenza 4 (PCR) Not Detected (NotDetected) 08/16/25 23:15 RSV (PCR) Not Detected (NotDetected) 08/16/25 23:15 Entero/Rhino (PCR) Not Detected (NotDetected) 08/16/25 23:15 Impressions Abdomen/Pelvis CT 08/16/25 20:07 Exam(s): CT ABDOMEN + PELVIS With Contrast IV Amt: 93 ml optiray 320 EXAM: CT Abdomen and Pelvis With Intravenous Contrast CLINICAL HISTORY: Reason for exam: fall, fever. TECHNIQUE: Axial computed tomography images of the abdomen and pelvis with intravenous contrast. CTDI is 23.7 mGy and DLP is 1369.72 mGy-cm. Automated exposure control was utilized for the study. A dose lowering technique was utilized adhering to the principles of ALARA. CONTRAST: Patient received 93 ml optiray 320 of IV contrast COMPARISON: No relevant prior studies available. FINDINGS: Lung bases: Unremarkable. No mass. No consolidation. ABDOMEN: Liver: Fatty infiltration of the liver and hepatomegaly with the liver measuring 19 cm craniocaudad. No focal liver mass lesion is seen. Gallbladder and bile ducts: Several 3 mm gallstones within a nondilated gallbladder. No surrounding inflammation, biliary duct dilation, or choledocholithiasis. Pancreas: Unremarkable. No mass. No ductal dilation. Spleen: Unremarkable. No splenomegaly. Adrenals: Unremarkable. No mass. Kidneys and ureters: Unremarkable. No solid mass. No hydronephrosis. Stomach and bowel: Bowel loops are nondilated. There is severe diverticulosis of the sigmoid colon without evidence of acute diverticulitis. No acute inflammatory changes are seen involving the bowel. PELVIS: Appendix: No findings to suggest acute appendicitis. Bladder: Unremarkable. No mass. Reproductive: Unremarkable as visualized. ABDOMEN and PELVIS: Intraperitoneal space: Unremarkable. No free air. No significant fluid collection. Bones/joints: Mild degenerative changes in the spine. No acute fracture or subluxation is seen. Soft tissues: Unremarkable. Vasculature: The abdominal aorta is severely calcified but nondilated measuring 2.2 cm. No aneurysm or dissection. Lymph nodes: Unremarkable. No enlarged lymph nodes. IMPRESSION: 1. Fatty infiltration of the liver and hepatomegaly with the liver measuring 19 cm craniocaudad. No focal liver mass lesion is seen. 2. Bowel loops are nondilated. There is severe diverticulosis of the sigmoid colon without evidence of acute diverticulitis. No acute inflammatory changes are seen involving the bowel. Electronically signed by: Alexys New MD 08/16/25 23:[address] 08/16/25 20:07 Exam(s): CT C SPINE EXAM: CT Cervical Spine Without Intravenous Contrast CLINICAL HISTORY: Reason for exam: fall. TECHNIQUE: Axial computed tomography images of the cervical spine without intravenous contrast. CTDI is 22.1 mGy and DLP is 483.72 mGy-cm. Automated exposure control was utilized for the study. A dose lowering technique was utilized adhering to the principles of ALARA. COMPARISON: No relevant prior studies available. FINDINGS: Vertebrae: There is a mild generalized curved to the right and mild kyphosis. No acute fracture. Discs/spinal canal/neural foramina: No acute findings. There is a critical spinal canal stenosis at C5-6 and severe stenosis at C3-4 and C6- 7. Soft tissues: Unremarkable. IMPRESSION: No evidence of acute cervical spine pathology. Critical spinal canal stenosis at C5-6. Recommend MRI of the cervical spine to evaluate for myelopathy Electronically signed by: Barbie Jacinto MD 08/16/25 23:[address] 08/16/25 20:07 Exam(s): CT CHEST With Contrast IV Amt: 93 cc opti 320 EXAM: CT Chest With Intravenous Contrast CLINICAL HISTORY: Reason for exam: fall, fever. TECHNIQUE: Axial computed tomography images of the chest with intravenous contrast. CTDI is 25.66 mGy and DLP is 802.92 mGy-cm. Automated exposure control was utilized for the study. A dose lowering technique was utilized adhering to the principles of ALARA. CONTRAST: Patient received 93 cc Optiray 320 of IV contrast COMPARISON: 10/20/2023 FINDINGS: Lungs: Underinflated lungs and 4 cm elevation of the right diaphragm. There is bronchovascular crowding bilaterally and small amount of right basilar atelectasis versus infiltrate. No lobar consolidation. Pleural space: Unremarkable. No significant effusion. No pneumothorax. Heart: The heart is upper normal in size. There is moderate coronary calcification throughout all coronary vessels. No pericardial effusion. No cardiomegaly. Bones/joints: Mild degenerative changes in the spine. No acute fracture or destructive bone lesion is seen. Mild degenerative changes throughout the spine. No acute fracture or destructive bone lesion is seen. Soft tissues: Unremarkable. Vasculature: The thoracic aorta is mildly calcified. The aorta is nondilated. There is no aneurysm or dissection. Pulmonary arterial tree is well opacified with contrast. The lower lobe branches are mildly blurred by motion. No pulmonary embolism is identified. Lymph nodes: Unremarkable. No enlarged lymph nodes. IMPRESSION: 1. Underinflated lungs and 4 cm elevation of the right diaphragm. There is bronchovascular crowding bilaterally and small amount of right basilar atelectasis versus infiltrate. No lobar consolidation. 2. The heart is upper normal in size. There is moderate coronary calcification throughout all coronary vessels. No pericardial effusion. 3. The thoracic aorta is mildly calcified. The aorta is nondilated. There is no aneurysm or dissection. 4. Pulmonary arterial tree is well opacified with contrast. The lower lobe branches are mildly blurred by motion. No pulmonary embolism is identified. Electronically signed by: Alexys New MD 08/16/25 23:20 PM Chest X-Ray 08/16/25 20:07 Exam(s): XR CXR 1 VIEW EXAM: XR Chest, 1 View CLINICAL HISTORY: Reason for exam: weakness, fall, fever. TECHNIQUE: Frontal view of the chest. COMPARISON: No relevant prior studies available. FINDINGS: Lungs: Left basilar discoid atelectasis. Pleural space: Unremarkable. No pneumothorax. Heart: Unremarkable. No cardiomegaly. Mediastinum: Unremarkable. Normal mediastinal contour. Bones/joints: Unremarkable. No acute fracture. IMPRESSION: No acute pulmonary process identified Electronically signed by: Jaime Chan MD 08/16/25 22:[address] 08/16/25 20:07 Exam(s): CT HEAD Without Contrast EXAM: CT Head Without Intravenous Contrast CLINICAL HISTORY: Reason for exam: fall, fever. TECHNIQUE: Axial computed tomography images of the head/brain without intravenous contrast. CTDI is 35.79 mGy and DLP is 702.46 mGy-cm. Automated exposure control was utilized for the study. A dose lowering technique was utilized adhering to the principles of ALARA. COMPARISON: Prior head CT from June 24, 2024. 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 No hemorrhage. No significant white matter disease. No edema. Ventricles: Mild to moderate ventriculomegaly. Bones/joints: Unremarkable. No acute fracture. Soft tissues: Unremarkable. Sinuses: Chronic maxillary and right maxillary sinusitis. No acute sinusitis. Mastoid air cells: Unremarkable as visualized. No mastoid effusion. IMPRESSION: No evidence of acute intracranial pathology. Electronically signed by: Barbie Jacinto MD 08/16/25 23:45 PM ECG Additional Comments: ECG. Sinus tach rate of 126. T wave inversions more evident inferior leads. QTc 443 Code Status & VTE Plan VTE Prophylaxis Plan VTE Prophylaxis will be ordered: Yes
[2025-08-17] MEDS ORDERED: NITROGLYCERIN SL 0.4 MG/TAB TAB SL PRN (05:51)
[2025-08-17] MEDS ORDERED: ACETAMINOPHEN 325 MG TAB PO PRN (05:51)
[2025-08-17] MEDS: HEPARIN SOD 5,000 UNIT/0.5 ML VIAL SQ SCH (06:27)
[2025-08-17] MEDS: PIPERACILLIN/TAZOBACTAM 4.5 GM/100 ML BAG IV SCH (06:27)
[2025-08-17] MEDS: SODIUM CHLORIDE 0.9% 1,000 ML IV SCH (06:27)
[2025-08-17 07:11] LABS: Hematocrit (blood only) 39.6 % (42.0-52.0); Hemoglobin 12.8 g/dl (14.0-18.0); Mean Corpuscular Hemoglobin 29.4 pg (25.0-34.0); Mean Corpuscular Volume 90.8 fL (80.0-100.0); Platelet Count 253 K/uL (130-400); RDW Standard Deviation 43.2 fL (36.4-46.3); Red Blood Count 4.36 M/uL (4.70-6.10); White Blood Count 20.10 K/ul (4.8-10.8)
[2025-08-17 07:30] LABS: Anion Gap 11.0 (3-11); Blood Urea Nitrogen 17.0 mg/dl (6-23); Calcium 8.8 mg/dl (8.6-10.3); Carbon Dioxide 22.0 mmol/L (21-32); Chloride 105.0 mmol/L (98-107); Creatinine Clr Calc Pharmacy 52.7 ml/min; Glucose 193.0 mg/dl (70-99(Fasting)); Magnesium 2.2 mg/dl (1.7-2.4); Potassium 4.0 mmol/L (3.5-5.1); Sodium 138.0 mmol/L (136-145)
[2025-08-17 07:39] LABS: Immature Granulocytes # (auto) 0.15 K/uL (0.01-0.20); Immature Granulocytes % (auto) 0.7 %
[2025-08-17 07:47] LABS: Hemoglobin A1C 7.2 % (4.5-5.6)
[2025-08-17] MEDS ORDERED: GLUCOSE 10 TAB/TUBE PO PRN (08:02)
[2025-08-17] MEDS ORDERED: DEXTROSE 50% 50 ML SYRINGE IV PRN (08:02)
[2025-08-17] MEDS ORDERED: GLUCAGON FOR INJ 1 MG VIAL SQ PRN (08:02)
[2025-08-17] MEDS ORDERED: CARBOHYDRATES FOR HYPOGLYCEMIA PO PRN (08:02)
[2025-08-17] MEDS ORDERED: GLUCOSE 40% GEL 15 GM TUBE PO PRN (08:02)
[2025-08-17] MEDS: EZETIMIBE 10 MG TAB PO SCH (09:49)
[2025-08-17] MEDS: CLOPIDOGREL BISULFATE 75 MG TAB PO SCH (09:49)
[2025-08-17] MEDS: GADOBUTROL 65ML VIAL IV ONE (09:49)
[2025-08-17] MEDS: ATORVASTATIN 40 MG TAB PO SCH (09:50)
[2025-08-17] MEDS: LOSARTAN POTASSIUM 50 MG TAB PO SCH (09:50)
[2025-08-17] MEDS: ACETAMINOPHEN 325 MG TAB PO SCH (09:50)
[2025-08-17] MEDS: METOPROLOL SUCC 25MG EXT REL TAB PO SCH (09:50)
[2025-08-17] MEDS: ASPIRIN 81 MG ECTAB PO SCH (09:50)
[2025-08-17] MEDS: DOXYCYCLINE HYCLATE 100 MG in DEXTROSE 5% MINI-B 100 ML IV SCH (09:50)
--- NOTE | 2025-08-17 10:41 | Magnetic Resonance Report ---
MRI OF THE CERVICAL SPINE WITH AND WITHOUT CONTRAST CLINICAL HISTORY: Critical cervical spine stenosis on ct scan. COMPARISON: Cervical spine CT August 16, 2025. TECHNIQUE: Utilizing a 3 Leigh Ann magnet and dedicated coil, multiplanar, multiecho imaging of the cerv ical spine was performed before and after intravenous administration of 8 of Gadavist. FINDINGS: This exam is mildly compromised by motion artifact although is diagnostic. Reversal of the cervical l ordosis is again noted. No cervical spine fractures are identified by MRI. No marrow edema or marrow replacement is present. Cervical cord signal and caliber are normal. There is no intracanalicular mas s or fluid collection. Paravertebral soft tissues are unremarkable. C2-C3: The central canal and neural foramen are patent. There is mild facet arthrosis. C3-C4: Mild disc space narrowing. Posterior disc osteophyte complex indents the ventral aspect of th e cord. There is mild to moderate central canal stenosis. Facet arthrosis and uncovertebral hypertrop hy result in moderate right and mild left neural foraminal stenosis. C4-C5: There is moderate disc space narrowing. Posterior disc osteophyte complex contacts the ventra l aspect of the cord. There is mild central canal stenosis. Left neural foramen is patent. Facet arth rosis and uncovertebral hypertrophy result in moderate right neural foraminal stenosis. C5-C6: There is moderate to space narrowing. Posterior disc osteophyte complex contacts the ventral aspect of the cord. There is mild to moderate central canal narrowing. Facet arthrosis and uncoverteb ral hypertrophy result in moderate bilateral neural foraminal stenosis. C6-C7: Moderate disc space narrowing. There is minimal posterior disc osteophyte complex without keegan tral canal stenosis. Right neural foramen is patent. There is mild left neural foraminal stenosis. C7-T1: The central canal and neural foramen are patent. IMPRESSION: 1. No severe central canal stenosis. Mild to moderate multilevel central canal stenosis, as detailed above. 2. Moderate multilevel degenerative disc disease and facet arthrosis within the cervical spine, as de scribed above. 3. No cervical spine fractures by MRI. 4. Moderate multilevel neural foraminal stenosis. ACT 112: Negative or not required by law. Electronically signed by: Feroz Waller M.D. 08/17/2025 10:39 AM
[2025-08-17] MEDS: INSULIN ASPART PER UNIT CHARGE SC SCH (12:24)
--- NOTE | 2025-08-17 13:25 | Electrocardiogram Report ---
Test Reason : Blood Pressure : */* mmHG Vent. Rate : 126 BPM Atrial Rate : 127 BPM P-R Int : 136 ms QRS Dur : 84 ms QT Int : 306 ms P-R-T Axes : -13 -11 -14 degrees QTcB Int : 443 ms Sinus tachycardia Inferior infarct (cited on or before 30-Oct-2023) Abnormal ECG When compared with ECG of 24-Jun-2024 15:37, Vent. rate has increased by 64 bpm T wave inversion more evident in Inferior leads Confirmed by Diego Lopez ([id number]) on 08/17/2025 1:25:21 PM Referred By: Rachid Freitas [place] Confirmed By: Diego Lopez
[2025-08-17] MEDS ORDERED: DICLOFENAC SOD 1% GEL 100 GM TUBE EXT PRN (20:38)
--- NOTE | 2025-08-17 23:01 | Ultrasound Report ---
Exam(s): US VENOUS BILATERAL LOWER EXTREMITIES EXAM: US Duplex Bilateral Lower Extremities Veins CLINICAL HISTORY: Reason for exam: r/o dvt. TECHNIQUE: Real-time duplex ultrasound scan of the bilateral lower extremity veins integrating B-mode two-dimensional vascular structure, Doppler spectral analysis, color flow Doppler imaging and compression. COMPARISON: No relevant prior studies available. FINDINGS: Right deep veins: Unremarkable. The visualized deep veins of the right lower extremity are compressible with color flow. No visualized thrombus. Right superficial veins: Unremarkable. Left deep veins: Unremarkable. The visualized deep veins of the left lower extremity are compressible with color flow. No visualized thrombus. Left superficial veins: Unremarkable. No visualized thrombus in the GSV. Soft tissues: No acute findings. IMPRESSION: No DVT within the bilateral lower extremities. Electronically signed by: Aron Lanza MD 08/17/25 23:00 PM
[2025-08-18 07:20] LABS: Hematocrit (blood only) 36.5 % (42.0-52.0); Hemoglobin 12.1 g/dl (14.0-18.0); Mean Corpuscular Hemoglobin 29.8 pg (25.0-34.0); Mean Corpuscular Volume 89.9 fL (80.0-100.0); Platelet Count 211 K/uL (130-400); RDW Standard Deviation 44.1 fL (36.4-46.3); Red Blood Count 4.06 M/uL (4.70-6.10); White Blood Count 13.63 K/ul (4.8-10.8)
[2025-08-18 07:49] LABS: Alanine Aminotransferase 35.0 U/L (7-52); Albumin Globulin Ratio 1.3 (0.9-2); Albumin Level 3.6 gm/dl (3.4-5.0); Alkaline Phosphatase 43.0 U/L (34-104); Anion Gap 8.0 (3-11); Bilirubin,Total 0.5 mg/dl (0.2-1.0); Blood Urea Nitrogen 12.0 mg/dl (6-23); Calcium 8.0 mg/dl (8.6-10.3); Carbon Dioxide 23.0 mmol/L (21-32); Chloride 109.0 mmol/L (98-107); Creatinine Clr Calc Pharmacy 59.7 ml/min; Globulin 2.7 gm/dl (2.5-4.0); Glucose 149.0 mg/dl (70-99(Fasting)); Magnesium 1.8 mg/dl (1.7-2.4); Potassium 3.7 mmol/L (3.5-5.1); Sodium 140.0 mmol/L (136-145); Total Protein 6.3 gm/dl (6.0-8.3)
--- NOTE | 2025-08-18 14:08 | Hospitalist Progress Note ---
Date of Service August 18, 2025 Assessment & Plan (1) Sepsis: Plan: 75-year-old male with past medical history significant for hypertension, history of CVA and left-sided weakness currently wheelchair-bound can transfer to the wheelchair, lumbar spinal stenosis, history of CAD status post stent, hyperlipidemia, bilateral carotid stenosis, who currently lives at [facility] comes because of not feeling well and fall. Patient was not feeling well today. In the evening when he was getting transferred from his wheelchair his left side felt weaker than normal and fell to the ground. Did not hit his head. No loss of consciousness. He had a flu shot a couple of days ago. Patient denies any headache. No chest pain. No back pain. Complains of mild abdominal discomfort. States he has prostate issues and micturate frequently. Say he was shaky when he fell down. No nausea. No cough. No runny nose or sore throat. Appetite is okay. No difficulty swallowing. Normal bowel and bladder movements. In the ER patient was spiking temperature. WBC 19. Lactic acid 3.5. UA is unremarkable. Lyme screen and respiratory BioFire negative. Imaging studies no acute findigs. Refused to exam for any sacral ulcers and says no ulcers in the back. Currently resting comfortably and hemodynamically stable. Possible sepsis, + SIRS criteria Fever, tachycardia, elevated lactic acid, leukocytosis UA is unremarkable. Respiratory bio fire negative. Lyme screen negative. Anaplasma ,Babesia screen negative. CTA chest no lobar consolidation. NO PE CT abd/pelvis - 1. Fatty infiltration of the liver and hepatomegaly with the liver measuring 19 cm craniocaudad. No focal liver mass lesion is seen. 2. Bowel loops are nondilated. There is severe diverticulosis of the sigmoid colon without evidence of acute diverticulitis. No acute inflammatory changes are seen involving the bowel. In the ER empirically received Zosyn. Continue Zosyn and Doxy. Nasal MRSA screen negative Blood cultures - negat. in 24 hrs received IV fluids Follow repeat labs and lactic acid, lactic acid down trended Closely monitor hemodynamics 08/18 WBC down from 20K to 13K. Pt afebrile. Pt is feeling well. cultures so far negative. SIRS criteria met on admission possibly secondary to urinary retention, now pt w/ Plunkett History of CVA Left-sided weakness Wheelchair-bound Continue home aspirin and Plavix and statin and Zetia LEs US doppler - negat. Urinary retention - pt found to retain 1L of urine, Plunkett placed Critical Cervical stenosis on Ct scan - obtained Mri of c-spine - ruled out. History of CAD status post stent On aspirin, Plavix, statin and Zetia and metoprolol succinate Hyperlipidemia On atorvastatin and Zetia Diabetes On glipizide and metformin Sliding scale Will monitor Hypertension Continue amlodipine, metoprolol succinate and losartan with holding parameters LAILA Presented with creatinine 1.4 Baseline seems to be around 1 Avoid nephrotoxic agents Will follow repeat labs DVT prophylaxis Heparin subcu Disposition Telemetry CODE STATUS full code if there is chance of recovery as per admitting provider's discussion with the patient Admission and Anticipated Discharge Date Admission Date: August 17, 2025 Subjective Pt seen in follow up Presented w/ poss. sepsis given positive SIRS criteria, fever, elev. WBC, elev. lactate Source not found on admission. CT chest/ abdomen/pelvis obtained. Blood culture, urine culture. Doppler of legs also obtained Pt was started empirically on zosyn Pt is feeling well, awake, alert. Currently afebrile Had lower abd. discomfort when he first came. Found to retain urine overnight and Plunkett catheter was placed. Denies any more abd. tenderness. Afebrile. WBC much improved today from 20K to 13K Pt's daughter also updated over the phone Review of Systems Review of Systems: All systems reviewed & are unremarkable except as noted in Subjective Physical Exam Physical Exam: General- WD/WN M Not in distress Head- atraumatic Eyes- PERRL. Neck- supple Lungs- clear to auscultation no wheezing or crackles Heart- regular rhythm; no murmur Abdomen- normal bowel sounds, soft, nontender (improved from previous exam) Extremities- no pretibial edema, no erythema seen Neuro- alert, oriented PERRL, EOMI; no facial palsy; Left sided weakness Results & Data Results & Data Vital Signs (Past 12 Hours) Vital Signs Temp Pulse Pulse Resp BP Pulse Ox O2 Del Method 08/18/25 07:00 36.7 C 94 H 22 161/85 H 92 Room Air 08/18/25 07:00 83 08/18/25 03:18 36.7 C 90 18 146/86 H 96 Room Air Laboratory Results 08/18/25 08/18/25 08/18/25 Range/Units 11:17 07:20 06:53 WBC 13.63 H (4.8-10.8) K/ul RBC 4.06 L (4.70-6.10) M/uL Hgb 12.1 L (14.0-18.0) g/dl Hct 36.5 L (42.0-52.0) % MCV 89.9 (80.0-100.0) fL MCH 29.8 (25.0-34.0) pg MCHC 33.2 (32.0-36.0) g/dL RDW Std Deviation 44.1 (36.4-46.3) fL RDW Coeff of Megan 13.4 (11.5-14.5) % Plt Count 211 (130-400) K/uL MPV 8.6 L (9.4-12.4) fL Sodium 140 (136-145) mmol/L Potassium 3.7 (3.5-5.1) mmol/L Chloride 109 H (98-107) mmol/L Carbon Dioxide 23 (21-32) mmol/L Anion Gap 8 (3-11) BUN 12 (6-23) mg/dl Creatinine 1.05 (0.6-1.4) mg/dl Est Cr Clr Drug Dosing 59.7 ml/min eGFR 74.49 BUN/Creatinine Ratio 11.4 (10-20) Glucose 149 H (70-99(Fasting)) mg/dl POC Glucose 181 H 145 H (70-99) mg/dl Calcium 8.0 L (8.6-10.3) mg/dl Phosphorus 2.2 L (2.5-4.9) mg/dl Magnesium 1.8 (1.7-2.4) mg/dl Total Bilirubin 0.5 (0.2-1.0) mg/dl AST 36 (13-39) U/L ALT 35 (7-52) U/L Alkaline Phosphatase 43 (34-104) U/L Total Protein 6.3 D (6.0-8.3) gm/dl Albumin 3.6 (3.4-5.0) gm/dl Globulin 2.7 (2.5-4.0) gm/dl Albumin/Globulin Ratio 1.3 (0.9-2) 08/17/25 08/17/25 Range/Units 20:06 16:23 WBC (4.8-10.8) K/ul RBC (4.70-6.10) M/uL Hgb (14.0-18.0) g/dl Hct (42.0-52.0) % MCV (80.0-100.0) fL MCH (25.0-34.0) pg MCHC (32.0-36.0) g/dL RDW Std Deviation (36.4-46.3) fL RDW Coeff of Megan (11.5-14.5) % Plt Count (130-400) K/uL MPV (9.4-12.4) fL Sodium (136-145) mmol/L Potassium (3.5-5.1) mmol/L Chloride (98-107) mmol/L Carbon Dioxide (21-32) mmol/L Anion Gap (3-11) BUN (6-23) mg/dl Creatinine (0.6-1.4) mg/dl Est Cr Clr Drug Dosing ml/min eGFR BUN/Creatinine Ratio (10-20) Glucose (70-99(Fasting)) mg/dl POC Glucose 166 H 183 H (70-99) mg/dl Calcium (8.6-10.3) mg/dl Phosphorus (2.5-4.9) mg/dl Magnesium (1.7-2.4) mg/dl Total Bilirubin (0.2-1.0) mg/dl AST (13-39) U/L ALT (7-52) U/L Alkaline Phosphatase (34-104) U/L Total Protein (6.0-8.3) gm/dl Albumin (3.4-5.0) gm/dl Globulin (2.5-4.0) gm/dl Albumin/Globulin Ratio (0.9-2) Medications Administered Current Inpatient Medications Acetaminophen (Acetaminophen 325 Mg Tab) 650 mg PO QID@0800,1200,1600,2000 [facility] Stop: 09/16/25 07:59 Last Admin: 08/18/25 13:08 Dose: 650 mg Amlodipine Besylate (Amlodipine Besylate 5 Mg Tab) [facility] [place]: 09/16/25 08:59 Last Admin: 08/18/25 08:12 Dose: 5 mg Aspirin (Aspirin 81 Mg Ectab) [facility] [place]: 09/16/25 08:59 Last Admin: 08/18/25 08:11 Dose: 81 mg Atorvastatin Calcium (Atorvastatin 40 Mg Tab) 80 mg PO [facility] Stop: 09/16/25 08:59 Last Admin: 08/18/25 08:12 Dose: 80 mg Clopidogrel Bisulfate (Clopidogrel Bisulfate 75 Mg Tab) 75 mg PO [facility] Stop: 09/16/25 08:59 Last Admin: 08/18/25 08:11 Dose: 75 mg Dextrose (Dextrose 50% 50 Ml Syringe) 25 - 50 ml IV UD PRN; Protocol PRN Reason: Hypoglycemia Protocol Stop: 09/16/25 08:01 Diclofenac Sodium (Diclofenac Sod 1% Gel 100 Gm Tube) 2 gm EXT BID PRN; Protocol PRN Reason: pain Stop: 09/16/25 20:59 Ezetimibe (Ezetimibe 10 Mg Tab) 10 mg PO [facility] Stop: 09/16/25 08:59 Last Admin: 08/18/25 08:11 Dose: 10 mg Glucagon (Glucagon For Inj 1 Mg Vial) 1 mg SQ UD PRN; Protocol PRN Reason: Hypoglycemia Protocol Stop: 09/16/25 08:01 Glucose (Glucose 40% Gel 15 Gm Tube) 15 - 30 gm PO UD PRN; Protocol PRN Reason: Hypoglycemia Protocol Stop: 09/16/25 08:01 Glucose (Glucose 10 Tab/Tube) 4 - 8 tab PO UD PRN; Protocol PRN Reason: Hypoglycemia Protocol Stop: 09/16/25 08:01 Heparin Sodium (Porcine) (Heparin Sod 5,000 Unit/0.5 Ml Vial) 5,000 units SQ Q8 [facility] Stop: 09/16/25 05:59 Last Admin: 08/18/25 13:56 Dose: Not Given Sodium Chloride (Nss) 1,000 mls @ 125 mls/hr IV .Q8H [facility] Stop: 08/20/25 05:50 Last Admin: 08/18/25 13:55 Dose: 125 mls/hr Piperacillin Sod/Tazobactam Sod (Zosyn) 4.5 gm in 100 mls @ 25 mls/hr IV Q8H [facility]; Protocol Stop: 08/24/25 05:59 Last Admin: 08/18/25 13:57 Dose: 25 mls/hr Doxycycline Hyclate 100 mg/ (Dextrose) 100 mls @ 50 mls/hr IV Q12H [facility] Stop: 08/22/25 07:59 Last Infusion: 08/18/25 12:10 Dose: Infused Insulin Aspart (Insulin Aspart Per Unit Charge) 0 units SC ACHS [facility] Stop: 09/16/25 11:29 Last Admin: 08/18/25 12:41 Dose: Not Given Losartan Potassium (Losartan Potassium 50 Mg Tab) 50 mg PO BID [facility] Stop: 09/16/25 08:59 Last Admin: 08/18/25 08:11 Dose: 50 mg Metoprolol Succinate (Metoprolol Succ 25mg Ext Rel Tab) 25 mg PO QAM [facility] Stop: 09/16/25 08:59 Last Admin: 08/18/25 08:11 Dose: 25 mg Miscellaneous (Carbohydrates For Hypoglycemia ) 15 - 30 gm PO UD PRN PRN Reason: Hypoglycemia Protocol Stop: 09/16/25 08:01 Nitroglycerin (Nitroglycerin Sl 0.4 Mg/Tab Tab) 0.4 mg SL Q5M PRN PRN Reason: Chest Pain Stop: 09/16/25 05:50
[2025-08-19 08:06] LABS: Hematocrit (blood only) 35.0 % (42.0-52.0); Hemoglobin 11.4 g/dl (14.0-18.0); Mean Corpuscular Hemoglobin 29.5 pg (25.0-34.0); Mean Corpuscular Volume 90.4 fL (80.0-100.0); Platelet Count 213 K/uL (130-400); RDW Standard Deviation 42.7 fL (36.4-46.3); Red Blood Count 3.87 M/uL (4.70-6.10); White Blood Count 9.57 K/ul (4.8-10.8)
[2025-08-19 08:33] LABS: Anion Gap 9.0 (3-11); Blood Urea Nitrogen 10.0 mg/dl (6-23); Calcium 7.8 mg/dl (8.6-10.3); Carbon Dioxide 22.0 mmol/L (21-32); Chloride 110.0 mmol/L (98-107); Creatinine Clr Calc Pharmacy 62.7 ml/min; Glucose 151.0 mg/dl (70-99(Fasting)); Magnesium 1.7 mg/dl (1.7-2.4); Potassium 3.3 mmol/L (3.5-5.1); Sodium 141.0 mmol/L (136-145)
[2025-08-19] MEDS: MAGNESIUM SULFATE / D5W 1 GM/100 ML BAG IV ONE (10:06)
[2025-08-19] MEDS: POTASSIUM CHLORIDE CRTAB 20 MEQ TABCR PO STA (10:23)
[2025-08-19] MEDS: TAMSULOSIN HCL 0.4 MG CAP PO SCH (20:28)
[2025-08-20 06:15] LABS: Hematocrit (blood only) 34.5 % (42.0-52.0); Hemoglobin 11.6 g/dl (14.0-18.0); Mean Corpuscular Hemoglobin 30.0 pg (25.0-34.0); Mean Corpuscular Volume 89.1 fL (80.0-100.0); Platelet Count 240 K/uL (130-400); RDW Standard Deviation 41.9 fL (36.4-46.3); Red Blood Count 3.87 M/uL (4.70-6.10); White Blood Count 8.07 K/ul (4.8-10.8)
[2025-08-20 06:31] LABS: Anion Gap 10.0 (3-11); Blood Urea Nitrogen 12.0 mg/dl (6-23); Calcium 7.9 mg/dl (8.6-10.3); Carbon Dioxide 21.0 mmol/L (21-32); Chloride 107.0 mmol/L (98-107); Creatinine Clr Calc Pharmacy 60.3 ml/min; Glucose 145.0 mg/dl (70-99(Fasting)); Magnesium 1.8 mg/dl (1.7-2.4); Potassium 3.4 mmol/L (3.5-5.1); Sodium 138.0 mmol/L (136-145)
[2025-08-20] MEDS: POTASSIUM CHLORIDE CRTAB 20 MEQ TABCR PO STA (09:30)
--- NOTE | 2025-08-20 10:59 | Hospitalist Progress Note ---
Date of Service August 19, 2025 Assessment & Plan (1) Sepsis: Plan: 75-year-old male with past medical history significant for hypertension, history of CVA and left-sided weakness currently wheelchair-bound can transfer to the wheelchair, lumbar spinal stenosis, history of CAD status post stent, hyperlipidemia, bilateral carotid stenosis, who currently lives at [facility] comes because of not feeling well and fall. Patient was not feeling well today. In the evening when he was getting transferred from his wheelchair his left side felt weaker than normal and fell to the ground. Did not hit his head. No loss of consciousness. He had a flu shot a couple of days ago. Patient denies any headache. No chest pain. No back pain. Complains of mild abdominal discomfort. States he has prostate issues and micturate frequently. Say he was shaky when he fell down. No nausea. No cough. No runny nose or sore throat. Appetite is okay. No difficulty swallowing. Normal bowel and bladder movements. In the ER patient was spiking temperature. WBC 19. Lactic acid 3.5. UA is unremarkable. Lyme screen and respiratory BioFire negative. Imaging studies no acute findigs. Refused to exam for any sacral ulcers and says no ulcers in the back. Currently resting comfortably and hemodynamically stable. Possible sepsis, + SIRS criteria Fever, tachycardia, elevated lactic acid, leukocytosis UA is unremarkable. Respiratory bio fire negative. Lyme screen negative. Anaplasma ,Babesia screen negative. CTA chest no lobar consolidation. NO PE CT abd/pelvis - 1. Fatty infiltration of the liver and hepatomegaly with the liver measuring 19 cm craniocaudad. No focal liver mass lesion is seen. 2. Bowel loops are nondilated. There is severe diverticulosis of the sigmoid colon without evidence of acute diverticulitis. No acute inflammatory changes are seen involving the bowel. In the ER empirically received Zosyn and doxy Nasal MRSA screen negative Blood cultures - negat. in 48 hrs received IV fluids Follow repeat labs and lactic acid, lactic acid down trended Closely monitor hemodynamics 08/18 WBC down from 20K to 13K. Pt afebrile. Pt is feeling well. cultures so far negative. SIRS criteria met on admission possibly secondary to urinary retention, now pt w/ Plunkett 08/19 WBC down to 8K, afebrile, feeling well. History of CVA Left-sided weakness Wheelchair-bound Continue home aspirin and Plavix and statin and Zetia LEs US doppler - negat. Urinary retention - pt found to retain 1L of urine, Plunkett placed Critical Cervical stenosis on CT scan - obtained Mri of c-spine - ruled out. History of CAD status post stent On aspirin, Plavix, statin and Zetia and metoprolol succinate Hyperlipidemia On atorvastatin and Zetia Diabetes On glipizide and metformin Sliding scale Will monitor Hypertension Continue amlodipine, metoprolol succinate and losartan with holding parameters LAILA Presented with creatinine 1.4 -> now back to baseline Baseline seems to be around 1 Avoid nephrotoxic agents DVT prophylaxis Heparin subcu Disposition Telemetry CODE STATUS full code if there is chance of recovery as per admitting provider's discussion with the patient Admission and Anticipated Discharge Date Admission Date: August 17, 2025 Subjective Pt seen in follow up Presented w/ poss. sepsis given positive SIRS criteria, fever, elev. WBC, elev. lactate Source not found on admission. CT chest/ abdomen/pelvis obtained. Blood culture, urine culture. Doppler of legs also obtained Pt was started empirically on zosyn Pt is feeling well, awake, alert. Currently afebrile Had lower abd. discomfort when he first came. Found to retain urine overnight and Plunkett catheter was placed. Denies any more abd. tenderness. Afebrile. WBC normalized from 20K to 8K Pt from [place], will discuss w/ CM DC Review of Systems Review of Systems: All systems reviewed & are unremarkable except as noted in Subjective Physical Exam Physical Exam: General- WD/WN M Not in distress Head- atraumatic Eyes- PERRL. Neck- supple Lungs- clear to auscultation no wheezing or crackles Heart- regular rhythm; no murmur Abdomen- normal bowel sounds, soft, nontender (improved from previous exam) Extremities- no pretibial edema, no erythema seen Neuro- alert, oriented PERRL, EOMI; no facial palsy; Left sided weakness Results & Data Results & Data Vital Signs (Past 12 Hours) Vital Signs Temp Pulse Pulse Resp BP Pulse Ox O2 Del Method 08/19/25 23:58 36.9 C 90 17 161/83 H 95 Room Air 08/19/25 23:50 86 Laboratory Results 08/19/25 08/19/25 Range/Units 16:18 11:14 WBC (4.8-10.8) K/ul RBC (4.70-6.10) M/uL Hgb (14.0-18.0) g/dl Hct (42.0-52.0) % MCV (80.0-100.0) fL MCH (25.0-34.0) pg MCHC (32.0-36.0) g/dL RDW Std Deviation (36.4-46.3) fL RDW Coeff of Megan (11.5-14.5) % Plt Count (130-400) K/uL MPV (9.4-12.4) fL Sodium (136-145) mmol/L Potassium (3.5-5.1) mmol/L Chloride (98-107) mmol/L Carbon Dioxide (21-32) mmol/L Anion Gap (3-11) BUN (6-23) mg/dl Creatinine (0.6-1.4) mg/dl Est Cr Clr Drug Dosing ml/min eGFR BUN/Creatinine Ratio (10-20) Glucose (70-99(Fasting)) mg/dl POC Glucose 148 H 171 H (70-99) mg/dl Calcium (8.6-10.3) mg/dl Phosphorus (2.5-4.9) mg/dl Magnesium (1.7-2.4) mg/dl Medications Administered Current Inpatient Medications Acetaminophen (Acetaminophen 325 Mg Tab) 650 mg PO QID@0800,1200,1600,2000 [facility] Stop: 09/16/25 07:59 Last Admin: 08/20/25 09:24 Dose: 650 mg Amlodipine Besylate (Amlodipine Besylate 5 Mg Tab) [facility] [place]: 09/16/25 08:59 Last Admin: 08/20/25 09:25 Dose: 5 mg Aspirin (Aspirin 81 Mg Ectab) [facility] [place]: 09/16/25 08:59 Last Admin: 08/20/25 09:25 Dose: 81 mg Atorvastatin Calcium (Atorvastatin 40 Mg Tab) 80 [facility] [place]: 09/16/25 08:59 Last Admin: 08/20/25 09:25 Dose: 80 mg Clopidogrel Bisulfate (Clopidogrel Bisulfate 75 Mg Tab) [facility] [place] 09/16/25 08:59 Last Admin: 08/20/25 09:25 Dose: 75 mg Dextrose (Dextrose 50% 50 Ml Syringe) 25 - 50 ml IV UD PRN; Protocol PRN Reason: Hypoglycemia Protocol Stop: 09/16/25 08:01 Diclofenac Sodium (Diclofenac Sod 1% Gel 100 Gm Tube) 2 gm EXT BID PRN; Protocol PRN Reason: pain Stop: 09/16/25 20:59 Ezetimibe (Ezetimibe 10 Mg Tab) 10 mg PO QAM [facility] Stop: 09/16/25 08:59 Last Admin: 08/20/25 09:26 Dose: 10 mg Glucagon (Glucagon For Inj 1 Mg Vial) 1 mg SQ UD PRN; Protocol PRN Reason: Hypoglycemia Protocol Stop: 09/16/25 08:01 Glucose (Glucose 40% Gel 15 Gm Tube) 15 - 30 gm PO UD PRN; Protocol PRN Reason: Hypoglycemia Protocol Stop: 09/16/25 08:01 Glucose (Glucose 10 Tab/Tube) 4 - 8 tab PO UD PRN; Protocol PRN Reason: Hypoglycemia Protocol Stop: 09/16/25 08:01 Heparin Sodium (Porcine) (Heparin Sod 5,000 Unit/0.5 Ml Vial) 5,000 units SQ Q8 [facility] Stop: 09/16/25 05:59 Last Admin: 08/20/25 06:07 Dose: 5,000 units Piperacillin Sod/Tazobactam Sod (Zosyn) 4.5 gm in 100 mls @ 25 mls/hr IV Q8H [facility]; Protocol Stop: 08/24/25 05:59 Last Infusion: 08/20/25 10:12 Dose: Infused Doxycycline Hyclate 100 mg/ (Dextrose) 100 mls @ 50 mls/hr IV Q12H [facility] Stop: 08/22/25 07:59 Last Admin: 08/20/25 09:24 Dose: 50 mls/hr Insulin Aspart (Insulin Aspart Per Unit Charge) 0 units SC ACHS [facility] Stop: 09/16/25 11:29 Last Admin: 08/20/25 08:26 Dose: Not Given Losartan Potassium (Losartan Potassium 50 Mg Tab) 50 mg PO BID [facility] Stop: 09/16/25 08:59 Last Admin: 08/20/25 09:26 Dose: 50 mg Metoprolol Succinate (Metoprolol Succ 25mg Ext Rel Tab) 25 mg PO QAM [facility] Stop: 09/16/25 08:59 Last Admin: 08/20/25 09:26 Dose: 25 mg Miscellaneous (Carbohydrates For Hypoglycemia ) 15 - 30 gm PO UD PRN PRN Reason: Hypoglycemia Protocol Stop: 09/16/25 08:01 Nitroglycerin (Nitroglycerin Sl 0.4 Mg/Tab Tab) 0.4 mg SL Q5M PRN PRN Reason: Chest Pain Stop: 09/16/25 05:50 Tamsulosin HCl (Tamsulosin Hcl 0.4 Mg Cap) 0.4 mg PO HS [facility] Stop: 09/18/25 20:59 Last Admin: 08/19/25 20:28 Dose: 0.4 mg
[2025-08-20 11:27] VITALS: BP 162/92; PULSE 86; RESP 19; TEMP 98.4; O2SAT 94
[2025-08-20] MEDS ORDERED: ADVANCED PROBIOTIC 625 MG CAPSULE PO SCH (11:45)
--- NOTE | 2025-08-20 11:54 | Discharge Summary ---
Date of Service August 20, 2025 Admission HPI Per Admitting Provider 75-year-old male with past medical history significant for hypertension, history of CVA and left-sided weakness currently wheelchair-bound can transfer to the wheelchair, lumbar spinal stenosis, history of CAD status post stent, hyperlipidemia, bilateral carotid stenosis, who currently lives at [facility] comes because of not feeling well and fall. Patient was not feeling well today. In the evening when he was getting transferred from his wheelchair his left side felt weaker than normal and fell to the ground. Did not hit his head. No loss of consciousness. He had a flu shot a couple of days ago. Patient denies any headache. No chest pain. No back pain. Complains of mild abdominal discomfort. States he has prostate issues and micturate frequently. Say he was shaky when he fell down. No nausea. No cough. No runny nose or sore throat. Appetite is okay. No difficulty swallowing. Normal bowel and bladder movements. In the ER patient was spiking temperature. WBC 19. Lactic acid 3.5. UA is unremarkable. Lyme screen and respiratory BioFire negative. Imaging studies no acute findigs. Refused to exam for any sacral ulcers and says no ulcers in the back. Currently resting comfortably and hemodynamically stable. Past medical history as mentioned above. Past surgical history. Cyst removal on his left arm. Cardiac cath. Social history. Currently living at [facility]. Smoked 1 pack a day for 35 years. Quit in 2012 per records. Currently not drinking alcohol. No drug use. Family history significant for father had diabetes, hypertension, heart disorder. Mother had hypertension Admission Exam Per Admitting Provider General- Not in distress Head- atraumatic Eyes- PERRL. ENT- oropharynx clear Neck- supple, no JVD. Lungs- clear to auscultation no wheezing or crackles Heart- regular rhythm; no murmur, no gallop. Abdomen- normal bowel sounds, soft, mild diffuse discomfort, no distension. Extremities- no pretibial edema, no erythema seen Neuro- alert, oriented PERRL, EOMI; no facial palsy; Left sided weakness Principal Diagnosis +SIRS, Urinary retention, poss. sepsis Discharge Exam General- WD/WN M in NAD Head- atraumatic Eyes- PERRL. Neck- supple Lungs- clear to auscultation no wheezing Heart- regular rhythm; no murmur Abdomen- normal bowel sounds, soft, nontender (improved from previous exam) Gu - Plunkett placed , draining clear yellow urine Extremities- no pretibial edema, no erythema seen Neuro- alert, oriented PERRL, EOMI; no facial palsy; Left sided weakness Discharge Data Allergies Allergy/AdvReac Type Severity Reaction Status Date / Time No Known Allergies Allergy Verified 08/16/25 21:55 Consultations 08/17/25 00:01 ED Decision to Admit Stat Ordered Studies 08/16/25 20:07 CT abd pelvis IV con only Stat FINDINGS: Lung bases: Unremarkable. No mass. No consolidation. ABDOMEN: Liver: Fatty infiltration of the liver and hepatomegaly with the liver measuring 19 cm craniocaudad. No focal liver mass lesion is seen. Gallbladder and bile ducts: Several 3 mm gallstones within a nondilated gallbladder. No surrounding inflammation, biliary duct dilation, or choledocholithiasis. Pancreas: Unremarkable. No mass. No ductal dilation. Spleen: Unremarkable. No splenomegaly. Adrenals: Unremarkable. No mass. Kidneys and ureters: Unremarkable. No solid mass. No hydronephrosis. Stomach and bowel: Bowel loops are nondilated. There is severe diverticulosis of the sigmoid colon without evidence of acute diverticulitis. No acute inflammatory changes are seen involving the bowel. PELVIS: Appendix: No findings to suggest acute appendicitis. Bladder: Unremarkable. No mass. Reproductive: Unremarkable as visualized. ABDOMEN and PELVIS: Intraperitoneal space: Unremarkable. No free air. No significant fluid collection. Bones/joints: Mild degenerative changes in the spine. No acute fracture or subluxation is seen. Soft tissues: Unremarkable. Vasculature: The abdominal aorta is severely calcified but nondilated measuring 2.2 cm. No aneurysm or dissection. Lymph nodes: Unremarkable. No enlarged lymph nodes. IMPRESSION: 1. Fatty infiltration of the liver and hepatomegaly with the liver measuring 19 cm craniocaudad. No focal liver mass lesion is seen. 2. Bowel loops are nondilated. There is severe diverticulosis of the sigmoid colon without evidence of acute diverticulitis. No acute inflammatory changes are seen involving the bowel. CT cervical spine wo con Stat FINDINGS: Vertebrae: There is a mild generalized curved to the right and mild kyphosis. No acute fracture. Discs/spinal canal/neural foramina: No acute findings. There is a critical spinal canal stenosis at C5-6 and severe stenosis at C3-4 and C6- 7. Soft tissues: Unremarkable. IMPRESSION: No evidence of acute cervical spine pathology. Critical spinal canal stenosis at C5-6. Recommend MRI of the cervical spine to evaluate for myelopathy CT chest diagnostic w con Stat FINDINGS: Lungs: Underinflated lungs and 4 cm elevation of the right diaphragm. There is bronchovascular crowding bilaterally and small amount of right basilar atelectasis versus infiltrate. No lobar consolidation. Pleural space: Unremarkable. No significant effusion. No pneumothorax. Heart: The heart is upper normal in size. There is moderate coronary calcification throughout all coronary vessels. No pericardial effusion. No cardiomegaly. Bones/joints: Mild degenerative changes in the spine. No acute fracture or destructive bone lesion is seen. Mild degenerative changes throughout the spine. No acute fracture or destructive bone lesion is seen. Soft tissues: Unremarkable. Vasculature: The thoracic aorta is mildly calcified. The aorta is nondilated. There is no aneurysm or dissection. Pulmonary arterial tree is well opacified with contrast. The lower lobe branches are mildly blurred by motion. No pulmonary embolism is identified. Lymph nodes: Unremarkable. No enlarged lymph nodes. IMPRESSION: 1. Underinflated lungs and 4 cm elevation of the right diaphragm. There is bronchovascular crowding bilaterally and small amount of right basilar atelectasis versus infiltrate. No lobar consolidation. 2. The heart is upper normal in size. There is moderate coronary calcification throughout all coronary vessels. No pericardial effusion. 3. The thoracic aorta is mildly calcified. The aorta is nondilated. There is no aneurysm or dissection. 4. Pulmonary arterial tree is well opacified with contrast. The lower lobe branches are mildly blurred by motion. No pulmonary embolism is identified. CT head/brain wo con Stat FINDINGS: Brain: Remote ischemic injury of the right frontal and temporal lobes with encephalomalacia and gliosis. No hemorrhage. No significant white matter disease. No edema. Ventricles: Mild to moderate ventriculomegaly. Bones/joints: Unremarkable. No acute fracture. Soft tissues: Unremarkable. Sinuses: Chronic maxillary and right maxillary sinusitis. No acute sinusitis. Mastoid air cells: Unremarkable as visualized. No mastoid effusion. IMPRESSION: No evidence of acute intracranial pathology. 08/17/25 08:00 MRI Cervical [MR cervical spine wo/w con] Routine FINDINGS: This exam is mildly compromised by motion artifact although is diagnostic. Reversal of the cervical lordosis is again noted. No cervical spine fractures are identified by MRI. No marrow edema or marrow replacement is present. Cervical cord signal and caliber are normal. There is no intracanalicular mass or fluid collection. Paravertebral soft tissues are unremarkable. C2-C3: The central canal and neural foramen are patent. There is mild facet arthrosis. C3-C4: Mild disc space narrowing. Posterior disc osteophyte complex indents the ventral aspect of the cord. There is mild to moderate central canal stenosis. Facet arthrosis and uncovertebral hypertrophy result in moderate right and mild left neural foraminal stenosis. C4-C5: There is moderate disc space narrowing. Posterior disc osteophyte complex contacts the ventral aspect of the cord. There is mild central canal stenosis. Left neural foramen is patent. Facet arthrosis and uncovertebral hypertrophy result in moderate right neural foraminal stenosis. C5-C6: There is moderate to space narrowing. Posterior disc osteophyte complex contacts the ventral aspect of the cord. There is mild to moderate central canal narrowing. Facet arthrosis and uncovertebral hypertrophy result in moderate bilateral neural foraminal stenosis. C6-C7: Moderate disc space narrowing. There is minimal posterior disc osteophyte complex without central canal stenosis. Right neural foramen is patent. There is mild left neural foraminal stenosis. C7-T1: The central canal and neural foramen are patent. IMPRESSION: 1. No severe central canal stenosis. Mild to moderate multilevel central canal stenosis, as detailed above. 2. Moderate multilevel degenerative disc disease and facet arthrosis within the cervical spine, as described above. 3. No cervical spine fractures by MRI. 4. Moderate multilevel neural foraminal stenosis. 08/17/25 13:59 US venous doppler LE BI Routine FINDINGS: Right deep veins: Unremarkable. The visualized deep veins of the right lower extremity are compressible with color flow. No visualized thrombus. Right superficial veins: Unremarkable. Left deep veins: Unremarkable. The visualized deep veins of the left lower extremity are compressible with color flow. No visualized thrombus. Left superficial veins: Unremarkable. No visualized thrombus in the GSV. Soft tissues: No acute findings. IMPRESSION: No DVT within the bilateral lower extremities. Hospital Course (1) Sepsis: 75-year-old male with past medical history significant for hypertension, history of CVA and left-sided weakness currently wheelchair-bound can transfer to the wheelchair, lumbar spinal stenosis, history of CAD status post stent, hyperlipidemia, bilateral carotid stenosis, who currently lives at [facility] comes because of not feeling well and fall. Patient was not feeling well today. In the evening when he was getting transferred from his wheelchair his left side felt weaker than normal and fell to the ground. Did not hit his head. No loss of consciousness. He had a flu shot a couple of days ago. Patient denies any headache. No chest pain. No back pain. Complains of mild abdominal discomfort. States he has prostate issues and micturate frequently. Say he was shaky when he fell down. No nausea. No cough. No runny nose or sore throat. Appetite is okay. No difficulty swallowing. Normal bowel and bladder movements. In the ER patient was spiking temperature. WBC 19. Lactic acid 3.5. UA is unremarkable. Lyme screen and respiratory BioFire negative. Imaging studies no acute findigs. Refused to exam for any sacral ulcers and says no ulcers in the back. Currently resting comfortably and hemodynamically stable. Possible sepsis, + SIRS criteria Fever, tachycardia, elevated lactic acid, leukocytosis UA is unremarkable. Respiratory bio fire negative. Lyme screen negative. Anaplasma , Babesia screen negative. CTA chest no lobar consolidation. NO PE CT abd/pelvis - 1. Fatty infiltration of the liver and hepatomegaly with the liver measuring 19 cm craniocaudad. No focal liver mass lesion is seen. 2. Bowel loops are nondilated. There is severe diverticulosis of the sigmoid colon without evidence of acute diverticulitis. No acute inflammatory changes are seen involving the bowel. In the ER empirically received Zosyn and doxy Nasal MRSA screen negative Blood cultures - negat. in 48 hrs received IV fluids Follow repeat labs and lactic acid, lactic acid down trended Closely monitor hemodynamics 08/18 WBC down from 20K to 13K. Pt afebrile. Pt is feeling well. cultures so far negative. SIRS criteria met on admission possibly secondary to urinary retention, now pt w/ Plunkett 08/19 WBC down to 8K, afebrile, feeling well. History of CVA Left-sided weakness Wheelchair-bound Continue home aspirin and Plavix and statin and Zetia LEs US doppler - negat. Urinary retention - pt found to retain 1L of urine, Plunkett placed started Flomax will need close follow up w/ urology (says had to see urology in the past) Critical Cervical stenosis on CT scan - obtained Mri of c-spine - ruled out. History of CAD status post stent On aspirin, Plavix, statin and Zetia and metoprolol succinate Hyperlipidemia On atorvastatin and Zetia Diabetes On glipizide and metformin Sliding scale Will monitor Hypertension Continue amlodipine, metoprolol succinate and losartan with holding parameters LAILA Presented with creatinine 1.4 -> now back to baseline Baseline seems to be around 1 Avoid nephrotoxic agents Total Time Total Time Spent Total Time Spent (In Minutes): 40 Discharge Plan Discharge Items Patient Disposition: Home - Home Health Services Reason For Visit: SEPSIS Discharge Diagnosis: +SIRS, Urinary retention, poss. sepsis Condition on Discharge: Fair Activity: Per Instructions section Non-emergency contact: Primary Care Provider, Specialist and Urologist Call non-emergency contact if: you have any medication questions and your symptoms worsen Follow-up/Referrals: Rachid Lozano [Primary Care Provider] - Diet: Carb Consistent or DM2 and Heart Healthy Addtl Attending Provider Instructions: Follow up with your primary care provider and urologist. You will need to have Plunkett catheter at least for now. Recommend taking flomax every evening as prescribed. Pending Studies at Discharge: Yes Studies:: final blood cultures results Stand-Alone Forms: My [employer], Smoking Cessation Medications and DC Order Prescriptions: New Advanced Probiotic 625 mg (10 billion cell) Capsule 1 cap PO DAILY Qty: 7 0RF tamsulosin 0.4 mg Capsule 0.4 mg PO HS Qty: 30 0RF Continued losartan 50 mg tablet 50 mg PO BID Qty: 180 3RF acetaminophen [Tylenol] 325 mg Tablet 650 mg PO QID MDD 3 GRAMS APAP/24 HOURS Rx Instructions: 0800, 1200, 1600, & 2000 glipizide 10 mg tablet 10 mg PO BID Rx Instructions: 0800 & 1900 metformin 850 mg tablet 850 mg PO BID Rx Instructions: 0800 & 1900 amlodipine 5 mg tablet 5 mg PO QAM atorvastatin 80 mg tablet 80 mg PO QAM clopidogrel 75 mg tablet 75 mg PO QAM aspirin 81 mg tablet,delayed release (DR/EC) 81 mg PO QAM metoprolol succinate 25 mg tablet extended release 24 hr 25 mg PO QAM ezetimibe 10 mg tablet 10 mg PO QAM Discharge Orders: Discharge Order (Routine); Ordered 08/20/25 Ordered By: Rai Giles/Other Patient Handouts: Managing Type 2 Diabetes Admission Data Admit Date/Time: 08/17/25 03:57 Attending Provider: Rai Bartlett Admit Provider: Hammad Flores Primary Care Provider: Rachid Lozano Other Providers: Hammad Flores
== END 2025-08-20 15:05 | disposition home or self-care (01) | DRG 872 ==
LOC: ED 19:43 → 2S 08-17 03:57 → INTOOBSV 08-17 03:57 → 2S 08-17 05:49

== ENCOUNTER 2025-10-28 00:31 | Inpatient (IN) ==
[2025-10-28] MEDS: OPTIRAY 320 125ml IV ONE (00:41)
[2025-10-28] MEDS ORDERED: ONDANSETRON INJ 2 MG/ML 2 ML VIAL IV PRN ×2 (00:44→05:44)
--- NOTE | 2025-10-28 01:07 | Emergency Department Note ---
Impression & Plan Stroke-like symptoms, Hypomagnesemia, Tachycardia ED Provider Note ED Provider Note NAME: SITA CARSON AGE:75 SEX: Male : 1950 ARRIVES VIA: EMS INFORMANT: Patient, EMS ED PROVIDER(s): Lana Tobin DO CHIEF COMPLAINT: Left-sided weakness, left facial droop HPI: This is a 75-year-old male presents via EMS due to staff concern facility where he resides for increased left-sided weakness and left facial droop. EMS initially reported with staff at told family that the patient seemed in his usual state of health around 9 PM after sustaining a fall. When they went to check on him at 11:45 PM, he seemed increasingly weak with an increased facial droop and increased difficulty speaking. They report patient has had a prior stroke, is on aspirin and Plavix, and does have chronic left-sided weakness but can typically speak normally, participate in conversation, and pivot/transfer without any assistance. He states he did have 2 falls tonight was, however he did not strike his head or lose consciousness. No seizure-like activity was noted. EMS reports on their arrival he definitely has left-sided weakness and left facial droop but is able to speak with them. They reported a prehospital blood sugar of 160, blood pressure 140/90 and noted the patient was tachycardic. On arrival here patient denies any headaches, vision changes, dizziness, numbness or tingling. He confirms he did not strike his head during the fall. Patient was nauseated and route but did not vomit. He denied any recent fevers, chills, or URI symptoms. He states no recent change in any medications. Patient was made a stroke alert prehospital concern immediately to CT. PAST MEDICAL HISTORY:See Below PAST SURGICAL HISTORY:See Below FAMILY HISTORY:See Below SOCIAL HISTORY:See Below HOME MEDICATIONS:See Below ALLERGIES:See Below VITALS:See Below PHYSICAL EXAMINATION: GENERAL: alert, well appearing, well nourished, no distress, non-toxic EYE EXAM: normal conjunctiva, PERRL and EOM's grossly intact OROPHARYNX: no exudate, no erythema, lips, buccal mucosa, and tongue normal and mucous membranes are dry NECK: supple, no nuchal rigidity, no adenopathy, non-tender LUNGS: Clear to auscultation. Normal chest wall mechanics, no w/r/r HEART: no murmurs, S1 normal and S2 normal ABDOMEN: abdomen soft, non-tender, normo-active bowel sounds, no masses, no rebound or guarding. SKIN: no rashes, petechiae, orbruising UPPER EXTREMITIES: upper extremities are grossly normal. FROM, nml pulses b/l. LOWER EXTREMITIES: No pitting edema. FROM, nml pulses b/l. NEURO EXAM: Normal sensorium, cranial nerves II-XII grossly intact, normal speech, left facial droop,LUE and LLE weakness. Gross sensation intact. No ataxia. NIHSS 9 Vital Signs: reviewed and remarkable Differential Diagnosis: ischemic Stroke, hemorrhagic stroke, bells palsy, mass, neoplasm, migraine headache, seizure, subarachnoid hemorrhage, TIA, transient global amnesia, medication ADR, as well as others were considered MEDICAL DECISION MAKING: This is a 75 yo male patient who presents via EMS after being made a stroke alert prehospital due to concern for increased left-sided weakness and left facial droop compared to prior. Patient has had a prior stroke. He does take aspirin and Plavix. Patient noted to be tachycardic however other vital signs stable and patient afebrile. Patient sent emergently for CT/CTA. Upon arrival in the regular room labs are drawn and sent, IV established, EKG and chest x-ray performed at bedside and interpreted by me and he was monitored on telemetry. Case discussed with on-call [facility] neurology who performed a bedside evaluation and reviewed the CT/CTA as read by outside radiology. Patient started on IV fluid hydration. He was noted to be hypomagnesemic and additional IV magnesium was also added. After further discussion, neurology felt this was unlikely to be an acute stroke and patient was not a TNK candidate or candidate for any acute interventions. They advise continued hydration, repletion of his electrolytes, admission for further evaluation and monitoring for any changes. It was felt that his increased left-sided weakness noted by staff was more likely related to dehydration, metabolic or infectious etiology. Patient's heart rate did begin to improve with IV fluids. Patient was noted to be clinically dehydrated. A mild anion gap was noted. He did have mild hyperglycemia as of the anion gap is more likely related to his dehydration, less likely DKA. Urinalysis is still pending at the time of discussion with the hospitalist team for further inpatient evaluation. Consultation(s): 0100: Discussed with Dr. Kenny, [facility] [place]. He will evaluate the patient. 0122: Discussed with radiology. 0203: Discussed with Dr. Kenny again. He states patient states that left- sided weakness and facial droop are at his normal baseline. He did review the CT/CTA. Does not feel patient is a TNK candidate at this time and no indication for other acute neurointervention. Advised against continued IV fluid hydration, repletion of magnesium, admission for MRI, and allowing hypertension up to 180/100. ER Treatment Provided: See below Diagnostics Interpreted By Me: -ECG: Sinus tachycardia at 125, normal axis, normal intervals, no acute ST/T wave changes -Cardiac Monitoring: An order was placed for continuous cardiac monitoring. The monitor shows a rate of 120 with sinus tachycardia rhythm. -Laboratory studies: As stated above and show below. -Imaging studies: ct head: no ich X-ray Chest: A single view study of the chest was reviewed and was negative for cardiomegaly, focal infiltrate, effusion, pulmonary edema, or wide mediastinum. Triage Nursing Note Reviewed Prior/Outside Records Reviewed Critical Care: Critical care of 42 min performed to assess and manage high likelihood of life-threatening stroke like symptoms, involving labs and imaging performed with assessment to evaluate left sided weakness and facial droop diagnosis with frequent reassessment. This time includes bedside time, treatment discussions with patient/family/consultants, documentation time and excludes procedure time. Past Med/Surg History Problem List (Updated 10/28/25 @ 05:07 by Lana Tobin, ) Tachycardia (Acute) Hypomagnesemia (Acute) Stroke-like symptoms (Acute) High anion gap metabolic acidosis UTI (urinary tract infection) Hypomagnesemia History of CVA with residual deficit Left leg weakness Sepsis Systemic inflammatory response syndrome (SIRS) (Acute) Fall (Acute) Weakness (Acute) Carotid artery stenosis AAA (abdominal aortic aneurysm) without rupture PAD (peripheral artery disease) Presence of drug-eluting stent in right coronary artery CAD (coronary artery disease) Labile hypertension ST elevation myocardial infarction (STEMI) of inferior wall HLD (hyperlipidemia) DMII (diabetes mellitus, type 2) ST elevation myocardial infarction (STEMI) (Acute) Elevated troponin (Acute) COVID-19 (Acute) Chest pain (Acute) Skin tag (Acute) Diabetes mellitus (Chronic) Bilateral impacted cerumen (Acute) Embolic cerebral infarction (Chronic ~02/2013) Fall (Acute) Hypertension (Acute) Physical deconditioning Vertigo (Acute) Vertigo (Acute) Visual changes (Acute) Visual changes (Acute) Medical History History of eczema History of stroke History of palpitations History of pulmonary embolism Surgical History No significant past surgical history Family History Other Coronary arteriosclerosis Diabetes Hypertension Denies family history of Ovarian cancer Prostate cancer Myocardial infarction Breast cancer Social History Smoking Status: Former smoker Tobacco Type: Cigarettes Second Hand Exposure: No; Do You Dip or Chew Tobacco: No; Hx Alcohol Use: No Hx Substance Use: No Preferred Language: Occitan Communication Ability: Effective Visual Impairment: No Limitations Hearing Ability: Normal Director Distribution Required: No Beliefs That Will Affect Care: None marital status: Current Living Situation: Personal Care Facility Current Living Situation Comment: [facility] current occupational status: disabled Feels Safe at Home: Yes Assistive Devices: Wheelchair Allergies Allergies Allergy/AdvReac Type Severity Reaction Status Date / Time No Known Allergies Allergy Verified 10/28/25 02:51 Home Meds Home Medications Medication Instructions Recorded Confirmed acetaminophen 325 mg tablet 650 mg PO QID 10/20/23 10/28/25 (Tylenol) glipizide 10 mg tablet 10 mg PO BID 10/20/23 10/28/25 metformin 850 mg tablet 850 mg PO BID 10/20/23 10/28/25 aspirin 81 mg tablet,delayed 81 mg PO QAM 06/24/24 10/28/25 release atorvastatin 80 mg tablet 80 mg PO QAM 06/24/24 10/28/25 clopidogrel 75 mg tablet 75 mg PO QAM 06/24/24 10/28/25 ezetimibe 10 mg tablet 10 mg PO QAM 06/24/24 10/28/25 metoprolol succinate 25 mg 25 mg PO QAM 06/24/24 10/28/25 tablet,extended release 24 hr amlodipine 5 mg tablet 5 mg PO QAM 08/16/25 10/28/25 docusate sodium 100 mg capsule 100 mg PO BID 10/28/25 10/28/25 nitroglycerin 0.4 mg sublingual 0.4 mg sublingual .EVERY 5 MINUTES 10/28/25 10/28/25 tablet PRN Chest Pain Previous Rx's Medication Instructions Recorded losartan 50 mg tablet 50 mg PO BID #180 tabs 07/07/24 sennosides 8.6 mg tablet (Natural 8.6 mg PO BID #60 tabs 09/10/25 Senna Laxative) alfuzosin 10 mg tablet,extended 10 mg PO DAILY #30 tabs 09/21/25 release 24 hr Results & Data (ED) Vital Signs Vital Signs - 24 hr 10/28/25 00:35 10/28/25 00:53 10/28/25 01:00 Temperature 36.5 C Temperature Source Oral Pulse Rate 124 H 128 H 119 H Respiratory Rate 24 24 Respiratory Effort / Characteristics Non-Labored Spontaneous Respiratory Depth Normal Blood Pressure 164/104 H 144/83 H Blood Pressure Mean 124 103 Pulse Oximetry 96 94 Oxygen Delivery Method Room Air Sepsis Recent Fever Within 48 Hours No Sepsis New/Unexplained Change in Mental Status N/A Sepsis Action Taken by Nursing No Action Required 10/28/25 01:30 10/28/25 02:00 10/28/25 02:30 Temperature Temperature Source Pulse Rate 122 H 122 H 119 H Respiratory Rate 20 24 24 Respiratory Effort / Characteristics Respiratory Depth Blood Pressure 126/68 111/70 131/83 Blood Pressure Mean 87 83 99 Pulse Oximetry 91 91 90 Oxygen Delivery Method Sepsis Recent Fever Within 48 Hours Sepsis New/Unexplained Change in Mental Status Sepsis Action Taken by Nursing 10/28/25 02:30 10/28/25 04:37 Temperature Temperature Source Pulse Rate 108 H Respiratory Rate Respiratory Effort / Characteristics Respiratory Depth Blood Pressure 131/83 Blood Pressure Mean 100 Pulse Oximetry Oxygen Delivery Method Sepsis Recent Fever Within 48 Hours Sepsis New/Unexplained Change in Mental Status Sepsis Action Taken by Nursing Laboratory Data 10/28/25 00:57 10/28/25 00:57 Lab Results 10/28/25 10/28/25 10/28/25 Range/Units 00:53 00:57 01:00 WBC 9.51 (4.8-10.8) K/ul RBC 3.95 L (4.70-6.10) M/uL Hgb 11.7 L (14.0-18.0) g/dL Hct 36.9 L (42.0-52.0) % MCV 93.4 (80.0-100.0) fL MCH 29.6 (25.0-34.0) pg MCHC 31.7 L (32.0-36.0) g/dL RDW Std Deviation 46.5 H (36.4-46.3) fL RDW Coeff of Megan 13.5 (11.5-14.5) % Plt Count 258 (130-400) K/uL MPV 8.6 L (9.4-12.4) fL Immature Gran % (Auto) 0.3 % Neut % (Auto) 90.6 % Lymph % (Auto) 4.3 % Bibb % (Auto) 4.6 % Eos % (Auto) 0.0 % Baso % (Auto) 0.2 % Neut # (Auto) 8.61 H (1.40-6.50) K/uL Lymph # (Auto) 0.41 L (1.20-3.40) K/uL Bibb # (Auto) 0.44 (0.11-0.59) K/uL Eos # (Auto) 0.00 (0.00-0.50) K/uL Baso # (Auto) 0.02 (0.00-0.20) K/uL Immature Gran # (Auto) 0.03 (0.01-0.20) K/uL Dohle Bodies 1+ Echinocytes 1+ PT 11.2 (9.0-12.0) Seconds INR 1.1 (0.9-1.1) APTT 24 (21-31) Seconds PTT Ratio 0.9 Sodium 135 L (136-145) mmol/L Potassium 4.7 (3.5-5.1) mmol/L Chloride 100 (98-107) mmol/L Carbon Dioxide 19 L (21-32) mmol/L Anion Gap 16 H (3-11) BUN 22 (6-23) mg/dl Creatinine 1.24 (0.6-1.4) mg/dl Est Cr Clr Drug Dosing 50.6 ml/min eGFR 61.01 BUN/Creatinine Ratio 17.7 (10-20) Glucose 173 H (70-99(Fasting)) mg/dl POC Glucose 179 H (70-99) mg/dl Calcium 9.0 (8.6-10.3) mg/dl Magnesium 1.6 L (1.7-2.4) mg/dl Total Bilirubin 0.4 (0.2-1.0) mg/dl AST 25 (13-39) U/L ALT 24 (7-52) U/L Alkaline Phosphatase 48 (34-104) U/L Troponin I High Sens 6.9 (0-20) pg/ml Total Protein 7.0 (6.0-8.3) gm/dl Albumin 3.8 (3.4-5.0) gm/dl Globulin 3.2 (2.5-4.0) gm/dl Albumin/Globulin Ratio 1.2 (0.9-2) Procalcitonin (0-0.5) ng/ml Urine Color Urine Appearance (Clear) Urine pH (4.5-7.5) Ur Specific [place] (1.000-1.030) Urine Protein (Negative) Urine Glucose (UA) (Negative) Urine Ketones (Negative) Urine Blood (Negative) Urine Nitrite (Negative) Urine Bilirubin (Negative) Urine Urobilinogen (Negative) Ur Leukocyte Esterase (Negative) Urine WBC (Auto) (0-5) /hpf Urine RBC (Auto) (0-2) /hpf U Hyaline Cast (Auto) (0-2) /lpf U Epithel Cells (Auto) (0-2) /hpf Urine Bacteria (Auto) (None Seen) Urine Comment Adenovirus (PCR) Not Detected (NotDetected) B. pertussis DNA (PCR) Not Detected (NotDetected) B.parapertussis DNA PCR Not Detected (NotDetected) C. pneumoniae DNA (PCR) Not Detected (NotDetected) Coronavirus OC43 (PCR) Not Detected (NotDetected) Coronavirus HKU1 (PCR) Not Detected (NotDetected) Coronavirus 229E (PCR) Not Detected (NotDetected) SARS-CoV-2 (PCR) Not Detected (NotDetected) Coronavirus NL63 (PCR) Not Detected (NotDetected) Human Metapneumovir PCR Not Detected (NotDetected) Influenza Type A (PCR) Not Detected (NotDetected) Influenza Type B (PCR) Not Detected (NotDetected) M. pneumoniae (PCR) Not Detected (NotDetected) Parainfluenza 1 (PCR) Not Detected (NotDetected) Parainfluenza 2 (PCR) Not Detected (NotDetected) Parainfluenza 3 (PCR) Not Detected (NotDetected) Parainfluenza 4 (PCR) Not Detected (NotDetected) RSV (PCR) Not Detected (NotDetected) Entero/Rhino (PCR) Not Detected (NotDetected) Blood Type A Positive Antibody Screen NEGATIVE 10/28/25 10/28/25 Range/Units 01:01 02:45 WBC (4.8-10.8) K/ul RBC (4.70-6.10) M/uL Hgb (14.0-18.0) g/dL Hct (42.0-52.0) % MCV (80.0-100.0) fL MCH (25.0-34.0) pg MCHC (32.0-36.0) g/dL RDW Std Deviation (36.4-46.3) fL RDW Coeff of Megan (11.5-14.5) % Plt Count (130-400) K/uL MPV (9.4-12.4) fL Immature Gran % (Auto) % Neut % (Auto) % Lymph % (Auto) % Bibb % (Auto) % Eos % (Auto) % Baso % (Auto) % Neut # (Auto) (1.40-6.50) K/uL Lymph # (Auto) (1.20-3.40) K/uL Bibb # (Auto) (0.11-0.59) K/uL Eos # (Auto) (0.00-0.50) K/uL Baso # (Auto) (0.00-0.20) K/uL Immature Gran # (Auto) (0.01-0.20) K/uL Dohle Bodies Echinocytes PT (9.0-12.0) Seconds INR (0.9-1.1) APTT (21-31) Seconds PTT Ratio Sodium (136-145) mmol/L Potassium (3.5-5.1) mmol/L Chloride (98-107) mmol/L Carbon Dioxide (21-32) mmol/L Anion Gap (3-11) BUN (6-23) mg/dl Creatinine (0.6-1.4) mg/dl Est Cr Clr Drug Dosing ml/min eGFR BUN/Creatinine Ratio (10-20) Glucose (70-99(Fasting)) mg/dl POC Glucose (70-99) mg/dl Calcium (8.6-10.3) mg/dl Magnesium (1.7-2.4) mg/dl Total Bilirubin (0.2-1.0) mg/dl AST (13-39) U/L ALT (7-52) U/L Alkaline Phosphatase (34-104) U/L Troponin I High Sens (0-20) pg/ml Total Protein (6.0-8.3) gm/dl Albumin (3.4-5.0) gm/dl Globulin (2.5-4.0) gm/dl Albumin/Globulin Ratio (0.9-2) Procalcitonin 1.09 H (0-0.5) ng/ml Urine Color Yellow Urine Appearance Clear (Clear) Urine pH 5.5 (4.5-7.5) Ur Specific [place] > 1.045 H (1.000-1.030) Urine Protein 1+ H (Negative) Urine Glucose (UA) Negative (Negative) Urine Ketones Trace H (Negative) Urine Blood 1+ H (Negative) Urine Nitrite Negative (Negative) Urine Bilirubin Negative (Negative) Urine Urobilinogen Negative (Negative) Ur Leukocyte Esterase Trace H (Negative) Urine WBC (Auto) 11-20 H (0-5) /hpf Urine RBC (Auto) 0-2 (0-2) /hpf U Hyaline Cast (Auto) 0-2 (0-2) /lpf U Epithel Cells (Auto) 0-2 (0-2) /hpf Urine Bacteria (Auto) None Seen (None Seen) Urine Comment Adenovirus (PCR) (NotDetected) B. pertussis DNA (PCR) (NotDetected) B.parapertussis DNA PCR (NotDetected) C. pneumoniae DNA (PCR) (NotDetected) Coronavirus OC43 (PCR) (NotDetected) Coronavirus HKU1 (PCR) (NotDetected) Coronavirus 229E (PCR) (NotDetected) SARS-CoV-2 (PCR) (NotDetected) Coronavirus NL63 (PCR) (NotDetected) Human Metapneumovir PCR (NotDetected) Influenza Type A (PCR) (NotDetected) Influenza Type B (PCR) (NotDetected) M. pneumoniae (PCR) (NotDetected) Parainfluenza 1 (PCR) (NotDetected) Parainfluenza 2 (PCR) (NotDetected) Parainfluenza 3 (PCR) (NotDetected) Parainfluenza 4 (PCR) (NotDetected) RSV (PCR) (NotDetected) Entero/Rhino (PCR) (NotDetected) Blood Type Antibody Screen Administered Medications Sodium Chloride (Nss) 1,000 mls @ 125 mls/hr IV .Q8H [facility] Stop: 10/28/25 09:14 Last Admin: 10/28/25 01:16 Dose: 125 mls/hr Documented By: YOGESH Discontinued Medications Magnesium Sulfate/Dextrose (Magnesium Sulfate / D5w) 1 gm in 100 mls @ 100 mls/hr IV NOW STA Stop: 10/28/25 03:04 Last Infusion: 10/28/25 03:26 Dose: Infused Documented By: milena Admin: 10/28/25 02:12 Dose: 100 mls/hr Documented By: YOGESH Magnesium Sulfate/Dextrose (Magnesium Sulfate / D5w) 1 gm in 100 mls @ 100 mls/hr IV NOW STA Stop: 10/28/25 03:30 Last Infusion: 10/28/25 04:54 Dose: Infused Documented By: milena Admin: 10/28/25 03:37 Dose: 100 mls/hr Documented By: milena Cefepime HCl (Maxipime 2000mg) 2,000 mg in 20 mls @ 5 mls/min IV NOW STA; Protocol Stop: 10/28/25 03:31 Last Admin: 10/28/25 04:11 Dose: 5 mls/min Documented By: milena Ioversol (Optiray 320 125ml) 117 ml IV ONCE ONE Stop: 10/28/25 00:41 Last Admin: 10/28/25 00:41 Dose: 117 ml Documented By: DAVION Miscellaneous (Patient's Height &/Or Weight Needed) 1 each N/A ONE STA Stop: 10/28/25 00:34 Last Admin: 10/28/25 01:11 Dose: 1 each Documented By: KML Imaging Data Radiologist's Impression: Chest X-Ray 10/28/25 00:35 EXAM: XR chest 1V portable CLINICAL HISTORY: neuro deficit, acute stroke suspected TECHNIQUE: An X-ray image of the chest is obtained in AP projection. COMPARISON: 08/16/2025 X-ray. FINDINGS: Pulmonary Parenchyma: Left lower lung lobe haziness seen likely sub-segmental atelectasis (stable). No evidence of consolidation, collapse, or focal opacities. No pulmonary nodules are identified. No evidence of pleural effusion or pleural thickening. Heart and Mediastinum: Heart size and shape are normal. Prominent aortic arch seen. No mediastinal widening or masses. No hilar or mediastinal lymphadenopathy. Bony Thorax: Old united fracture of the left 6th, 7th and 8th ribs posteriorly. Soft Tissues: Soft tissues overlying the chest wall are unremarkable. IMPRESSION: 1. No acute cardiopulmonary abnormality (stable). 2. Stable sub-segmental atelectasis in the left lower lobe. 3. Old, healed fractures of the posterior left 6th?8th ribs (Stable). Electronically signed by Chauncey Horvath 10-28-2025 02:[address] 10/28/25 00:35 EXAM: CT head/brain wo con CLINICAL HISTORY: Neuro deficit, acute stroke suspected TECHNIQUE: Axial non-contrast CT scan of the brain was performed from the skull base to the high parietal region in axial, sagittal and coronal reconstructions. One of the following dose reduction techniques were utilized for this exam: Automated exposure control, adjustment of the mA and/or kV according to patient size, use of iterative reconstruction. COMPARISON: 08/16/2025 FINDINGS: Brain Parenchyma: No evidence of acute infarct, hemorrhage, or mass effect. Stable encephalomalacia in the right frontal and temporal lobe inlvolving the right basal ganglia with ex-vacuo dilatation of the ipsilateral lateral ventricle. Patchy hypodensities in the bilateral periventricular white matter, likely chronic microvascular ischemic changes. No other abnormal areas of hypo- or hyperattenuation. Ventricular System: No evidence of hydrocephalus. Subarachnoid Spaces: Widened sulci and cisterns denoting age-matched senile atrophy. No evidence of subarachnoid hemorrhage or extra-axial fluid collections. Cerebellum and Brainstem: No masses, lesions, or areas of abnormal density. Orbits: Normal appearance of the globes, optic nerves, and extraocular muscles. No evidence of orbital masses or abnormal density. Sinuses: Bilateral maxillary sinus mucus retention cysts. Mastoid Air Cells: Clear mastoid air cells. No evidence of mastoiditis. Skull: Normal skull morphology. IMPRESSION: 1. No evidence of acute infarct, hemorrhage, or mass effect. 2. Stable encephalomalacia in the right frontal and temporal lobe invloving the right basal ganglia with ex-vacuo dilatation of the ipsilateral lateral ventricle. 3. Chronic microvascular white matter ischemic changes and age-matched senile brain atrophy. 4. Advised clinical correlation, and if warranted MRI with DWI may be done. [facility] ER was called at [phone] at 12:20 AM MUSIC MINISTRIES DIRECTOR, 10/28/[address] Tobin was informed regarding the negative stroke results. Electronically signed by Chauncey Horvath 10-28-2025 01:22 AM Head CTA 10/28/25 00:35 EXAM: CT angio head w con CLINICAL HISTORY: Neuro deficit, acute stroke suspected TECHNIQUE: CT angiography of the head was performed following the intravenous administration. Contiguous axial images were obtained from the base of the skull to the vertex. Coronal and sagittal reformatted images were also reviewed. One of these 3D techniques was utilized: Maximum Intensity Pixel (MIP), 3D Reconstructed Images, Volume Rendered Images, Surface Shaded Rendering. One of the following dose reduction techniques was utilized for this exam. Automated exposure control, adjustment of the mA and/or kV according to patient size, and use of iterative reconstruction. COMPARISON: Same day CT head 10/27/2025 23:54:00 MUSIC MINISTRIES DIRECTOR was reviewed. FINDINGS: Intracranial Arteries: Moderate stenosis of the right ICA, with calcified plaques in the cavernous segment. The right anterior cerebral artery is relatively smaller in caliber than the right, denoting mild to moderate stenosis, with good opacification. The M1 segment of the right MCA is also small in caliber denoting moderate stenosis with good opacification. Distally, the rest of the MCA are faintly to non-visualized. The rest of the intracranial arteries, including the left anterior cerebral artery, left middle cerebral artery, posterior cerebral arteries, basilar artery, and vertebral arteries, are all patent without evidence of significant stenosis, aneurysm, or dissection. There is no evidence of vascular malformations. [place]: Left PCOM (anatomic variant). Venous System: The visualized portions of the venous system, including the dural venous sinuses, are patent with no evidence of thrombosis. Brain Parenchyma: Right frontotemporal encephalomalacia. Please see dedicated CT brain. Bones: The bony structures of the skull are intact without evidence of fracture or destructive lesions. Soft Tissues: The visualized soft tissues of the head are unremarkable. Additional Findings: No other significant findings are noted. IMPRESSION: 1. Moderate stenosis of the right ICA, with calcified plaques in the cavernous segment. 2. Relatively smaller caliber right anterior cerebral artery, denoting mild to moderate stenosis, with good opacification. 3. Smaller caliber M1 segment of the right MCA, denoting moderate stenosis with good opacification. Distally, the rest of the MCA are faintly to non-visualized. 4. The above findings could be chronic, related to prior history of stroke. Advised clinical correlation. [facility] ER was called at [phone] at 12:31 AM MUSIC MINISTRIES DIRECTOR, 10/28/[address] Tobin was informed regarding the negative stroke results. Electronically signed by Chauncey Horvath 10-28-2025 01:33 AM Neck CTA 10/28/25 00:35 EXAM: CT angio neck with con CLINICAL HISTORY: neuro deficit, acute stroke suspected TECHNIQUE: CT angiography of the neck was performed following the intravenous administration. Axial images were obtained from the aortic arch to the vertex. Coronal and sagittal reformatted images were also reviewed. One of the following dose reduction techniques was utilized for this exam. Automated exposure control, adjustment of the mA and/or kV according to patient size, and use of iterative reconstruction. One of these 3D techniques was utilized: Maximum Intensity Pixel (MIP), 3D Reconstructed Images, Volume Rendered Images, Surface Shaded Rendering. COMPARISON: No previous studies are available for comparison. FINDINGS: Carotid Arteries: Calcified plaques in the right proximal ICA, with short non-opacified area and rest showing faint opacification, denoting severe stenosis to occlusion. Distally the right ICA is smaller in caliber denoting moderate stenosis. Calcified plaques in the left carotid bulb extending to the left proximal ICA causing moderate stenosis No evidence of aneurysm or dissection. Vertebral Arteries: Calcified plaque at the ostium of the left vertbral artery causing mild stenosis. Otherwise, the vertebral arteries are patent bilaterally. No evidence of aneurysm or dissection. Thyroid Gland: The thyroid gland is normal in size and appearance with no focal lesions. Lymph Nodes: There is no evidence of significant lymphadenopathy in the neck. Soft Tissues: The soft tissues of the neck are unremarkable with no evidence of masses or abnormal collections. Additional Findings: Atherosclerotic aorta. IMPRESSION: 1. Calcified plaques in the right proximal ICA, with short non-opacified area and rest showing faint opacification, denoting severe stenosis to occlusion. Distally the right ICA is smaller in caliber denoting moderate stenosis. 2. Calcified plaques in the left carotid bulb extending to the left proximal ICA causing moderate stenosis 3. Calcified plaque at the ostium of the left vertbral artery causing mild stenosis. Otherwise, the vertebral arteries are patent bilaterally. [facility] was called at [phone] at 12:41 AM MUSIC MINISTRIES DIRECTOR, 10/28/[address] Tobin was informed regarding the Significant findings in the stroke results. Electronically signed by Chauncey Horvath 10-28-2025 01:44 AM Discharge Plan Visit Data Chief Complaint: Stroke Alert Stated Complaint: STROKE ALERT ED Provider: Lana Tobin Discharge Problem: Stroke-like symptoms, Hypomagnesemia, Tachycardia Patient Disposition: Being Evaluated by Hospitalist Condition: Fair Forms Stand Alone Forms: My [facility] Prescriptions Prescriptions: No Action sennosides [Natural Senna Laxative] 8.6 mg tablet 8.6 mg PO BID Qty: 60 0RF Rx Instructions: take 1 tablet 2x daily until having soft bm daily or every other day, if having more than 2 bowel movements daily reduce senna to 1x daily, if still having more than 2 bowel movements daily stop senna alfuzosin 10 mg tablet extended release 24 hr 10 mg PO DAILY Qty: 30 2RF Rx Instructions: administer after the same meal each day losartan 50 mg tablet 50 mg PO BID Qty: 180 3RF acetaminophen [Tylenol] 325 mg Tablet 650 mg PO QID MDD 3 GRAMS APAP/24 HOURS Rx Instructions: 0800, 1200, 1600, & 2000 glipizide 10 mg tablet 10 mg PO BID Rx Instructions: 0800 & 1900 metformin 850 mg tablet 850 mg PO BID Rx Instructions: 0800 & 1900 amlodipine 5 mg tablet 5 mg PO QAM nitroglycerin 0.4 mg Tablet, Sublingual 0.4 mg sublingual .EVERY 5 MINUTES MDD FOR 3 DOSES PRN (Reason: Chest Pain) docusate sodium 100 mg Capsule 100 mg PO BID atorvastatin 80 mg tablet 80 mg PO QAM clopidogrel 75 mg tablet 75 mg PO QAM aspirin 81 mg tablet,delayed release (DR/EC) 81 mg PO QAM metoprolol succinate 25 mg tablet extended release 24 hr 25 mg PO QAM ezetimibe 10 mg tablet 10 mg PO QAM Referrals Referrals: Rachid Lozano [Primary Care Provider] -
[2025-10-28] MEDS: Patient's HEIGHT &/or WEIGHT Needed STA (01:11)
[2025-10-28] MEDS: SODIUM CHLORIDE 0.9% 1,000 ML IV SCH (01:16)
--- NOTE | 2025-10-28 01:23 | CT Scan Report ---
EXAM: CT head/brain wo con CLINICAL HISTORY: Neuro deficit, acute stroke suspected TECHNIQUE: Axial non-contrast CT scan of the brain was performed from the skull base to the high parietal region in axial, sagittal and coronal reconstructions. One of the following dose reduction techniques were utilized for this exam: Automated exposure control, adjustment of the mA and/or kV according to patient size, use of iterative reconstruction. COMPARISON: 08/16/2025 FINDINGS: Brain Parenchyma: No evidence of acute infarct, hemorrhage, or mass effect. Stable encephalomalacia in the right frontal and temporal lobe inlvolving the right basal ganglia with ex-vacuo dilatation of the ipsilateral lateral ventricle. Patchy hypodensities in the bilateral periventricular white matter, likely chronic microvascular ischemic changes. No other abnormal areas of hypo- or hyperattenuation. Ventricular System: No evidence of hydrocephalus. Subarachnoid Spaces: Widened sulci and cisterns denoting age-matched senile atrophy. No evidence of subarachnoid hemorrhage or extra-axial fluid collections. Cerebellum and Brainstem: No masses, lesions, or areas of abnormal density. Orbits: Normal appearance of the globes, optic nerves, and extraocular muscles. No evidence of orbital masses or abnormal density. Sinuses: Bilateral maxillary sinus mucus retention cysts. Mastoid Air Cells: Clear mastoid air cells. No evidence of mastoiditis. Skull: Normal skull morphology. IMPRESSION: 1. No evidence of acute infarct, hemorrhage, or mass effect. 2. Stable encephalomalacia in the right frontal and temporal lobe invloving the right basal ganglia with ex-vacuo dilatation of the ipsilateral lateral ventricle. 3. Chronic microvascular white matter ischemic changes and age-matched senile brain atrophy. 4. Advised clinical correlation, and if warranted MRI with DWI may be done. [facility] was called at [phone] at 12:20 AM [employer] DIRECTOR, 10/28/[address] Tobin was informed regarding the negative stroke results. Electronically signed by Chauncey Horvath 10-28-2025 01:22 AM
[2025-10-28 01:28] LABS: Hematocrit (blood only) 36.9 % (42.0-52.0); Hemoglobin 11.7 g/dL (14.0-18.0); Mean Corpuscular Hemoglobin 29.6 pg (25.0-34.0); Mean Corpuscular Volume 93.4 fL (80.0-100.0); Platelet Count 258 K/uL (130-400); RDW Standard Deviation 46.5 fL (36.4-46.3); Red Blood Count 3.95 M/uL (4.70-6.10); White Blood Count 9.51 K/ul (4.8-10.8)
--- NOTE | 2025-10-28 01:34 | CT Scan Report ---
EXAM: CT angio head w con CLINICAL HISTORY: Neuro deficit, acute stroke suspected TECHNIQUE: CT angiography of the head was performed following the intravenous administration. Contiguous axial images were obtained from the base of the skull to the vertex. Coronal and sagittal reformatted images were also reviewed. One of these 3D techniques was utilized: Maximum Intensity Pixel (MIP), 3D Reconstructed Images, Volume Rendered Images, Surface Shaded Rendering. One of the following dose reduction techniques was utilized for this exam. Automated exposure control, adjustment of the mA and/or kV according to patient size, and use of iterative reconstruction. COMPARISON: Same day CT head 10/27/2025 23:54:00 DOBBY LOOM WEAVER was reviewed. FINDINGS: Intracranial Arteries: Moderate stenosis of the right ICA, with calcified plaques in the cavernous segment. The right anterior cerebral artery is relatively smaller in caliber than the right, denoting mild to moderate stenosis, with good opacification. The M1 segment of the right MCA is also small in caliber denoting moderate stenosis with good opacification. Distally, the rest of the MCA are faintly to non-visualized. The rest of the intracranial arteries, including the left anterior cerebral artery, left middle cerebral artery, posterior cerebral arteries, basilar artery, and vertebral arteries, are all patent without evidence of significant stenosis, aneurysm, or dissection. There is no evidence of vascular malformations. [place]: Left PCOM (anatomic variant). Venous System: The visualized portions of the venous system, including the dural venous sinuses, are patent with no evidence of thrombosis. Brain Parenchyma: Right frontotemporal encephalomalacia. Please see dedicated CT brain. Bones: The bony structures of the skull are intact without evidence of fracture or destructive lesions. Soft Tissues: The visualized soft tissues of the head are unremarkable. Additional Findings: No other significant findings are noted. IMPRESSION: 1. Moderate stenosis of the right ICA, with calcified plaques in the cavernous segment. 2. Relatively smaller caliber right anterior cerebral artery, denoting mild to moderate stenosis, with good opacification. 3. Smaller caliber M1 segment of the right MCA, denoting moderate stenosis with good opacification. Distally, the rest of the MCA are faintly to non-visualized. 4. The above findings could be chronic, related to prior history of stroke. Advised clinical correlation. [facility] was called at [phone] at 12:31 AM DOBBY LOOM WEAVER, 10/28/[address] Tobin was informed regarding the negative stroke results. Electronically signed by Chauncey Horvath 10-28-2025 01:33 AM
--- NOTE | 2025-10-28 01:44 | CT Scan Report ---
EXAM: CT angio neck with con CLINICAL HISTORY: neuro deficit, acute stroke suspected TECHNIQUE: CT angiography of the neck was performed following the intravenous administration. Axial images were obtained from the aortic arch to the vertex. Coronal and sagittal reformatted images were also reviewed. One of the following dose reduction techniques was utilized for this exam. Automated exposure control, adjustment of the mA and/or kV according to patient size, and use of iterative reconstruction. One of these 3D techniques was utilized: Maximum Intensity Pixel (MIP), 3D Reconstructed Images, Volume Rendered Images, Surface Shaded Rendering. COMPARISON: No previous studies are available for comparison. FINDINGS: Carotid Arteries: Calcified plaques in the right proximal ICA, with short non-opacified area and rest showing faint opacification, denoting severe stenosis to occlusion. Distally the right ICA is smaller in caliber denoting moderate stenosis. Calcified plaques in the left carotid bulb extending to the left proximal ICA causing moderate stenosis No evidence of aneurysm or dissection. Vertebral Arteries: Calcified plaque at the ostium of the left vertbral artery causing mild stenosis. Otherwise, the vertebral arteries are patent bilaterally. No evidence of aneurysm or dissection. Thyroid Gland: The thyroid gland is normal in size and appearance with no focal lesions. Lymph Nodes: There is no evidence of significant lymphadenopathy in the neck. Soft Tissues: The soft tissues of the neck are unremarkable with no evidence of masses or abnormal collections. Additional Findings: Atherosclerotic aorta. IMPRESSION: 1. Calcified plaques in the right proximal ICA, with short non-opacified area and rest showing faint opacification, denoting severe stenosis to occlusion. Distally the right ICA is smaller in caliber denoting moderate stenosis. 2. Calcified plaques in the left carotid bulb extending to the left proximal ICA causing moderate stenosis 3. Calcified plaque at the ostium of the left vertbral artery causing mild stenosis. Otherwise, the vertebral arteries are patent bilaterally. [facility] was called at [phone] at 12:41 AM RADIO MESSAGE ROUTER, 10/28/[address] Tboin was informed regarding the Significant findings in the stroke results. Electronically signed by Chauncey Horvath 10-28-2025 01:44 AM
[2025-10-28 01:46] LABS: Alanine Aminotransferase 24.0 U/L (7-52); Albumin Globulin Ratio 1.2 (0.9-2); Albumin Level 3.8 gm/dl (3.4-5.0); Alkaline Phosphatase 48.0 U/L (34-104); Anion Gap 16.0 (3-11); Bilirubin,Total 0.4 mg/dl (0.2-1.0); Blood Urea Nitrogen 22.0 mg/dl (6-23); Calcium 9.0 mg/dl (8.6-10.3); Carbon Dioxide 19.0 mmol/L (21-32); Chloride 100.0 mmol/L (98-107); Creatinine Clr Calc Pharmacy 50.6 ml/min; Globulin 3.2 gm/dl (2.5-4.0); Glucose 173.0 mg/dl (70-99(Fasting)); Magnesium 1.6 mg/dl (1.7-2.4); Potassium 4.7 mmol/L (3.5-5.1); Sodium 135.0 mmol/L (136-145); Total Protein 7.0 gm/dl (6.0-8.3)
[2025-10-28 01:53] LABS: Dohle Bodies 1+; Immature Granulocytes # (auto) 0.03 K/uL (0.01-0.20); Immature Granulocytes % (auto) 0.3 %
[2025-10-28 02:00] LABS: INR 1.1 (0.9-1.1); Partial Thromboplastin Time 24 Seconds (21-31); Prothrombin Time 11.2 Seconds (9.0-12.0)
[2025-10-28 02:06] LABS: Chlamydia pneumoniae PCR Not Detected (NotDetected); Coronavirus 229E PCR Not Detected (NotDetected); Coronavirus CoV-2 (COVID19)PCR Not Detected (NotDetected); Coronavirus HKU1 PCR Not Detected (NotDetected); Coronavirus NL63 PCR Not Detected (NotDetected); Coronavirus OC43PCR Not Detected (NotDetected); Human Metapneumovirus PCR Not Detected (NotDetected); Parainfluenza Virus 1 PCR Not Detected (NotDetected); Parainfluenza Virus 2 PCR Not Detected (NotDetected); Parainfluenza Virus 3 PCR Not Detected (NotDetected); Parainfluenza Virus 4 PCR Not Detected (NotDetected); Respiratory Syncytial VirusPCR Not Detected (NotDetected); Rhinovirus/Enterovirus PCR Not Detected (NotDetected)
[2025-10-28] MEDS: MAGNESIUM SULFATE / D5W 1 GM/100 ML BAG IV STA ×2 (02:12→03:37)
--- NOTE | 2025-10-28 02:37 | XRay Report ---
EXAM: XR chest 1V portable CLINICAL HISTORY: neuro deficit, acute stroke suspected TECHNIQUE: An X-ray image of the chest is obtained in AP projection. COMPARISON: 08/16/2025 X-ray. FINDINGS: Pulmonary Parenchyma: Left lower lung lobe haziness seen likely sub-segmental atelectasis (stable). No evidence of consolidation, collapse, or focal opacities. No pulmonary nodules are identified. No evidence of pleural effusion or pleural thickening. Heart and Mediastinum: Heart size and shape are normal. Prominent aortic arch seen. No mediastinal widening or masses. No hilar or mediastinal lymphadenopathy. Bony Thorax: Old united fracture of the left 6th, 7th and 8th ribs posteriorly. Soft Tissues: Soft tissues overlying the chest wall are unremarkable. IMPRESSION: 1. No acute cardiopulmonary abnormality (stable). 2. Stable sub-segmental atelectasis in the left lower lobe. 3. Old, healed fractures of the posterior left 6th?8th ribs (Stable). Electronically signed by Chauncey Horvath 10-28-2025 02:36 AM
--- NOTE | 2025-10-28 02:46 | History & Physical Report ---
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 Patient presented via EMS from [facility] as a stroke alert due to worsening left-sided leg weakness resulting in 2 falls during wheelchair transfers. Diagnostic imaging in the ED revealed severe stenosis however no acute changes. He is being admitted for further stroke work up however weakness could be considered secondary to hypomagnesemia or UTI. #left leg weakness - left leg weakness worse than baseline, patient reports present all day and resulted in 2 falls. Neck CTA with severe stenosis to occlusion of right proximal ICA, left proximal ICA moderate stenosis. Head CTA with moderate stenosis of right anterior cerebral artery and M1 segment of right MCA. Head CT was stable encephalomalacia in right frontal and temporal lobe involving right basal ganglia. - stroke without TNK order set (outside of TNK window, patient reports symptoms present all day) - passive ROM, no IVs left side, Q4H neuro checks, pt/ot evals - Continue baby aspirin and Plavix Continue home atorvastatin 80 mg and Zetia - Allow for permissive hypertension with goal parameters 220/110 until MRI resulted; hold losartan, metoprolol, amlodipine - Telemetry monitoring - MRI brain and echo with bubble study ordered - lipid panel and A1C with AM labs - tele neurology consulted #Hypomagnesemiamag 1.6, other electrolytes stable, renal function stable. Patient denies any GI losses. 2G IV magnesium ordered Trend magnesium and BMP #UTI/hx of urinary retentionhistory of urinary retention and sepsis in August 2025, had Plunkett removed 09/28, follows with Dr. Covarrubias. UA concerning for infection with trace LE, 11-20 WBC. Pro-Ramses elevated to 1.09. - bladder scan prn Continue alfuzosin Patient denies any urinary symptoms however with weakness above will treat for UTI History of Pseudomonas aeruginosa 09/05/2025 IV cefepime ordered Follow urine cultures Trend CBC #Elevated anion gapanion gap 16, CO2 19, renal function stable. Lactate, acetaminophen level, salicylate level ordered Patient appears clinically dehydrated with dry mucous membranes, elevated urine specific gravity NSS at 125 mL/hour times 1L ordered by ED; continue Repeat BMP with a.m. labs after IVF resuscitation - VBG with am labs #HTNholding amlodipine, losartan, metoprolol with permissive hypertensive precautions above #Type II DMhold metformin and glipizide with IV contrast use Loose SSI ordered - a1c with am labs #Carotid artery stenosisknown history of carotid artery stenosis and currently following with cardiology, Dr. Gonzáles - deferring endarterectomy for now. 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 Patient presented via EMS from [facility] as a stroke alert due to worsening left-sided leg weakness resulting in 2 falls during wheelchair transfers. Diagnostic imaging in the ED revealed severe stenosis however no acute changes. He is being admitted for further stroke workup. Patient seen at bedside. He stated he had a stroke in 2012 resulting in left- sided leg weakness and left-sided upper extremity weakness as well as a left facial droop. His left arm is significantly atrophied and he is unable to move it at baseline. He stated all day today he had worsening left leg weakness. He is typically able to stand for transfers however was unable to stand at all today resulting in him sliding on the floor twice with nursing staff. He stated his left facial droop is at his baseline. He denies any other strokelike symptoms such as dizziness, lightheadedness, blurred vision, slurred speech, difficulty finding words, numbness, tingling. He denies any chest pain, shortness of breath, recent nausea, vomiting, diarrhea. Patient has a noted history of urinary retention after sepsis in August in which she was hospitalized. He stated he just had his Plunkett catheter out with urology several weeks ago and they plan for surgical management of his large prostate to prevent against this again. He denies any dysuria or difficulty urinating recently. Patient was a former smoker smoking approximately 40 years however quit in 2012 when he had his previous stroke. He is due for his evening medications. Is still on both aspirin and Plavix. He wishes to be DNR/DNI. Handoff from ER provider stated that telestroke recommending no TNK but to admit for further workup including brain MRI. Allergies Allergy/AdvReac Type Severity Reaction Status Date / Time No Known Allergies Allergy Verified 10/28/25 02:51 Home Medications Medication Instructions Recorded Confirmed Type acetaminophen 325 mg tablet 650 mg PO QID 10/20/23 10/28/25 History (Tylenol) glipizide 10 mg tablet 10 mg PO BID 10/20/23 10/28/25 History metformin 850 mg tablet 850 mg PO BID 10/20/23 10/28/25 History aspirin 81 mg tablet,delayed 81 mg PO QAM 06/24/24 10/28/25 History release atorvastatin 80 mg tablet 80 mg PO QAM 06/24/24 10/28/25 History clopidogrel 75 mg tablet 75 mg PO QAM 06/24/24 10/28/25 History ezetimibe 10 mg tablet 10 mg PO QAM 06/24/24 10/28/25 History metoprolol succinate 25 mg 25 mg PO QAM 06/24/24 10/28/25 History tablet,extended release 24 hr losartan 50 mg tablet 50 mg PO BID #180 tabs 07/07/24 10/28/25 Rx amlodipine 5 mg tablet 5 mg PO QAM 08/16/25 10/28/25 History sennosides 8.6 mg tablet (Natural 8.6 mg PO BID #60 tabs 09/10/25 10/28/25 Rx Senna Laxative) alfuzosin 10 mg tablet,extended 10 mg PO DAILY #30 tabs 09/21/25 10/28/25 Rx release 24 hr docusate sodium 100 mg capsule 100 mg PO BID 10/28/25 10/28/25 History nitroglycerin 0.4 mg sublingual 0.4 mg sublingual .EVERY 5 MINUTES 10/28/25 10/28/25 History tablet PRN Chest Pain Past Med/Surg History Problem List Tachycardia (Acute) Hypomagnesemia (Acute) Stroke-like symptoms (Acute) High anion gap metabolic acidosis UTI (urinary tract infection) Hypomagnesemia History of CVA with residual deficit Left leg weakness Sepsis Systemic inflammatory response syndrome (SIRS) (Acute) Fall (Acute) Weakness (Acute) Carotid artery stenosis AAA (abdominal aortic aneurysm) without rupture PAD (peripheral artery disease) Presence of drug-eluting stent in right coronary artery CAD (coronary artery disease) Labile hypertension ST elevation myocardial infarction (STEMI) of inferior wall HLD (hyperlipidemia) DMII (diabetes mellitus, type 2) ST elevation myocardial infarction (STEMI) (Acute) Elevated troponin (Acute) COVID-19 (Acute) Chest pain (Acute) Skin tag (Acute) Diabetes mellitus (Chronic) Bilateral impacted cerumen (Acute) Embolic cerebral infarction (Chronic ~02/2013) Fall (Acute) Hypertension (Acute) Physical deconditioning Vertigo (Acute) Vertigo (Acute) Visual changes (Acute) Visual changes (Acute) Medical History History of eczema History of stroke History of palpitations History of pulmonary embolism Surgical History No significant past surgical history Family History Other Coronary arteriosclerosis Diabetes Hypertension Denies family history of Ovarian cancer Prostate cancer Myocardial infarction Breast cancer Social History Smoking Status: Former smoker Tobacco Type: Cigarettes Smoking End Date: 2012; Second Hand Exposure: No; Do You Dip or Chew Tobacco: No; Hx Alcohol Use: Yes Alcohol type: wine Hx Substance Use: Yes Last Used Substance Other:: used cocaine years ago, prior to CVA Preferred Language: Chinese Communication Ability: Effective Visual Impairment: No Limitations Hearing Ability: Normal Budget And Policy Analyst Required: No Beliefs That Will Affect Care: None marital status: Current Living Situation: Personal Care Facility Current Living Situation Comment: [facility] current occupational status: disabled Feels Safe at Home: Yes Safety Concerns: Feels Safe At This Time Assistive Devices: Wheelchair Review of Systems Review of Systems: see HPI Physical Exam Physical Exam: The patient is awake, alert and oriented 3, well developed and well nourished, normocephalic and atraumatic, in no acute distress. Non-toxic appearing. HEENT- EOMI, mucous membranes dry. Hearing grossly intact. Heart-normal S1 and S2. No murmurs, rubs or gallops. Lungs-clear bilaterally, no respiratory distress, no accessory muscle use. Abdomen-normal bowel sounds and soft. No ascites noted. Non-tender. Extremities- no clubbing, cyanosis, or edema. Psychiatric-normal affect. Musculoskeletal: 5/5 strength RUE 0/5 strength LUE - baseline 5/5 strength RLE 2/5 strength LLE - patient reports basel ine Neurologic: not confused Motor/Sensory: no sensory deficit Cranial Nerves: PERRL, EOM intact bilaterally and normal hearing left facial droop - baseline Results & Data Results & Data Vital Signs (Past 12 Hours) Vital Signs Temp Pulse Resp BP Pulse Ox O2 Del Method 10/28/25 01:30 122 H 20 126/68 91 10/28/25 01:00 119 H 24 144/83 H 94 10/28/25 00:53 128 H 10/28/25 00:35 36.5 C 124 H 24 164/104 H 96 Room Air Laboratory Results reviewed CBC, CMP, PT/INR, magnesium, Pro-Ramses, UA, BioFire Diagnostic Findings reviewed neck CTA, head CTA, head CT, CXR Medications Administered ED2G IV magnesium, Zofran 4 Mg IV, NSS at 125 mL/hour x 1 l ECG Additional Comments: ordered Code Status & VTE Plan Code Status dnr/dni VTE Prophylaxis Plan VTE Prophylaxis will be ordered: Yes Supervising Physician Co-Signing Physician Notes Attending addendum: I have physically seen this patient, have supervised the PRINCESS's activities, and agree with the H&P unless as otherwise noted. Assessment and Plan: The patient is a 75-year-old male with a past medical history including CVA 2012 with residual left-sided weakness and is wheelchair-bound, hypertension, CAD status post stent, HTN, HLD, and bilateral carotid stenosis. He presented to the ED via EMS from [facility], as a stroke alert due to worsening of his chronic left-sided leg weakness resulting in 2 falls during wheelchair transfers. CT imaging found no acute changes, and the patient is being admitted for further stroke workup, and treatment of his low magnesium and urinary tract infection. Strokelike symptoms/worsening of chronic left lower extremity weakness- Went over the house reports that his left leg weakness is worse than baseline. Stroke alert with telestroke neurology does not recommend TNK. CTA of head shows moderate stenosis of the right anterior cerebral artery and M1 segment of right MCA. CT of head was showed stable encephalomalacia in the right frontal and temporal lobes and the right basal ganglia. Permissive hypertension Continue baby aspirin and Plavix Continue atorvastatin and Zetia The patient will be admitted to telemetry for serial cardiac enzymes, serial EKG's, cardiac rhythm monitoring and a 2-D echocardiogram with Dopplers. MRI brain Check a fasting lipid panel and hemoglobin A1c Consult teleneurology Known history of carotid artery stenosis, following with vascular surgery Dr. Gonzáles Hypomagnesemia- Magnesium 1.6 on admission Received 2 g magnesium sulfate IV Recheck laboratories in the a.m. Urinary tract infection/urinary retention history- Continue alfuzosin with formulary interchange to tamsulosin History of Pseudomonas aeruginosa 09/05/2025 Cefepime 2 g IV every 12 hours Follow urine culture sensitivity Hypertension- Hold amlodipine, losartan and metoprolol for permissive hypertension Diabetes mellitus- Hold metformin and glipizide Place in Accu-Cheks with NovoLog SSI PG Care Time/CCT Total # of Minutes Spent Total Time Spent with Patient: Total time spent is greater than 50% in coordination of care (as documented) at patient's floor/unit and/or counseling patient: Coding Level of Care Code 97328 INT INP/OBS CARE 3/75MIN Diagnoses Left leg weakness R29.898 History of CVA with residual deficit I69.30 Hypomagnesemia E83.42 UTI (urinary tract infection) N39.0 High anion gap metabolic acidosis E87.29
[2025-10-28 03:00] LABS: Appearance Urine Clear (Clear); Bacteria Urine Automated None Seen (None Seen); Cast Urine Automated 0-2 /lpf (0-2); Epithelial Cell Urine Auto 0-2 /hpf (0-2); Glucose Urine UA Negative (Negative); RBC Urine Automated 0-2 /hpf (0-2)
[2025-10-28] MEDS: CEFEPIME 2000MG 2,000 MG/20 ML SYR IV STA (04:11)
[2025-10-28 05:44] LABS: Appearance Urine Clear (Clear); Bacteria Urine Automated None Seen (None Seen); Cast Urine Automated 0-2 /lpf (0-2); Epithelial Cell Urine Auto 0-2 /hpf (0-2); Glucose Urine UA Negative (Negative); RBC Urine Automated 0-2 /hpf (0-2)
[2025-10-28] MEDS ORDERED: DEXTROSE 50% 50 ML SYRINGE IV PRN (05:44)
[2025-10-28] MEDS ORDERED: GLUCOSE 10 TAB/TUBE PO PRN (05:44)
[2025-10-28] MEDS ORDERED: PHARMACIST DISCHARGE MED REC CONSULT PRN (05:44)
[2025-10-28] MEDS ORDERED: GLUCAGON FOR INJ 1 MG VIAL SQ PRN (05:44)
[2025-10-28] MEDS ORDERED: MELATONIN 3 MG TAB PO PRN (05:44)
[2025-10-28] MEDS ORDERED: GLUCOSE 40% GEL 15 GM TUBE PO PRN (05:44)
[2025-10-28] MEDS ORDERED: CARBOHYDRATES FOR HYPOGLYCEMIA PO PRN (05:44)
[2025-10-28] MEDS ORDERED: POLYETHYLENE (MIRALAX) 17 GM PACK PO PRN (05:44)
[2025-10-28 06:34] LABS: Acetaminophen < 3 ug/ml (10-30); Salicylate < 3.0 mg/dl (3.0-30)
[2025-10-28] MEDS: INSULIN ASPART PER UNIT CHARGE SC SCH (09:07)
--- NOTE | 2025-10-28 09:45 | Electrocardiogram Report ---
Test Reason : Blood Pressure : */* mmHG Vent. Rate : 125 BPM Atrial Rate : 125 BPM P-R Int : 138 ms QRS Dur : 86 ms QT Int : 320 ms P-R-T Axes : 66 33 44 degrees QTcB Int : 461 ms Sinus tachycardia Nonspecific ST and T wave abnormality Abnormal ECG When compared with ECG of 16-Aug-2025 20:53, Criteria for Inferior infarct are no longer Present Nonspecific T wave abnormality has replaced inverted T waves in Inferior leads Confirmed by Diego Lopez ([id number]) on 10/28/2025 9:45:17 AM Referred By: REFERRED SELF Confirmed By: Diego Lopez
[2025-10-28] MEDS: ATORVASTATIN 40 MG TAB PO SCH (10:28)
[2025-10-28] MEDS: EZETIMIBE 10 MG TAB PO SCH (10:28)
[2025-10-28] MEDS: CLOPIDOGREL BISULFATE 75 MG TAB PO SCH (10:29)
[2025-10-28] MEDS: ASPIRIN 81 MG ECTAB PO SCH (10:29)
[2025-10-28] MEDS: DOCUSATE SODIUM 100 MG CAP PO PRN (10:31)
--- NOTE | 2025-10-28 10:42 | XCELERA ---
[id number]
--- NOTE | 2025-10-28 10:43 | Neurology Consultation ---
Date of Consultation October 28, 2025 Assessment & Plan (1) Stroke-like symptoms: Worsening left leg weakness. Does have risk factors for stroke including diabetes hyperlipidemia has history of prior stroke with residual left leg and arm weakness. CT scan of the head does not show acute changes does show old encephalomalacia on the right. Differential for worsening left leg weakness is pseuo exacerbation of old stroke given new infection versus new acute ischemic infarct. Plans are for MRI of the brain to look for new areas of infarct. Plan: - Continue aspirin and Plavix at the current doses no change. -Continue blood pressure medications and goal is to keep systolic blood pressure below 170 mmHg/90mmHg to allow adequate cerebral perfusion. - Continue treatment for dyslipidemia - Will review MRI of the brain once this is available for review. 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 Also noted is moderate left internal carotid artery disease. 10/28/2025 MRI brain reviewed at 1313 pm and shows no acute infarct /stroke. Shows old known ischemic infarct/stroke on the right subcortex. (2) History of CVA with residual deficit: (3) Left leg weakness: (4) Fall: (5) CAD (coronary artery disease): (6) DMII (diabetes mellitus, type 2): (7) History of stroke: Plan - Reviewed CT scan of the head with no acute abnormalities shows old ischemic infarct/stroke on the right with areas of encephalomalacia.. - Await MRI of the brain ruled out new acute ischemic infarct - Primary team to treat urinary tract infection plans are for antibiotic treatment - Continue blood pressure control as above -Continue statin therapy-for risk factor stratification -Continue aspirin and Plavix for now no signs of hemorrhage on CT scan of the head - Physical therapy/Occupational Therapy evaluation - Speech therapy as needed - Neurology will continue to follow this patient Thank you for this telehealth consultation. Please [place] text me with any questions. Jr Cooley MD Neurology Total time spent on telehealth consultation was 90 minutes. Of these 27 minutes was spent on the video call and the rest of 63 minutes was spent reviewing patient chart/data including diagnostics and preparing documentation/communication with providers. Telehealth Consultation Telehealth Information Telehealth Information: I performed this visit using a real-time telehealth connection between my location and the patients originating location ([facility]). After connecting through interactive tele-video, patient was identified by name and date of and/or wristband check.Patient (or authorized healthcare hotel services sales representative) was informed that this was a telemedicine visit and it was being conducted confidentially over secure lines. My office door was closed and no one else was present in the room with me.Patient (or authorized healthcare hotel services sales representative) provided consent to proceed with the visit, expressed an understanding of privacy and security of the telemedicine visit, and gave permission to have a hospital hotel services sales representative in the room in order to assist with the visit and to conduct portions of the visit, as needed. I informed the patient (or authorized healthcare hotel services sales representative) that I reviewed their record and presented the opportunity for them to ask any questions regarding the visit today. The patient agreed to participate. History of Present Illness Reason for Consultation: Left leg weakness Requesting Physician: LETTY Isbell Attending Physician: Leonid Rosa MD History of Present Illness 75-year-old with left leg weakness that worsened in the past several days. He had 2 falls that happened at the bathroom he could not get up he is wheelchair- bound. Left leg has felt weaker in the past days. He had inability to get up from the wheelchair he had to get help [facility]. He has noticed over the past days increase in spasms at times and also has noted pain especially his hip region on the left. Most of the pain is in the thigh ar ea as well. History reveals a right ischemic infarct/stroke in 2012 he did have residual left arm and left weakness related to this. He has felt that his left leg has been weaker he denies any fevers or chills he does admit to some burning upon urination. He denies any facial symptoms such as speech disturbances or paresthesias he denies any new arm weakness. He was found to have UTI and plans are for treating him with cefepime. He has a history of internal carotid artery stenosis on both sides his right ICA is severely occluded he is followed by vascular surgery as an outpatient basis and also sees his sterile technician and has had 2 stents placed in the past. He is currently on blood pressure medications and also takes aspirin and Plavix. Since being admitted to the hospital he has not noticed any necessarily improvement of his left leg weakness since he has not been up or or attempting to ambulate. Other than above he denies any other complaints. Review of diagnostics was performed his CTA study showed bilateral mostly right occlusion of the ICA and also moderate occlusion of the left ICA. CT scan of the head did not show any acute abnormalities. There are areas of en cephalomalacia noted given prior ischemic stroke. Allergies Allergy/AdvReac Type Severity Reaction Status Date / Time No Known Allergies Allergy Verified 10/28/25 02:51 Home Medications Medication Instructions Recorded Confirmed Type acetaminophen 325 mg tablet 650 mg PO QID 10/20/23 10/28/25 History (Tylenol) glipizide 10 mg tablet 10 mg PO BID 10/20/23 10/28/25 History metformin 850 mg tablet 850 mg PO BID 10/20/23 10/28/25 History aspirin 81 mg tablet,delayed 81 mg PO QAM 06/24/24 10/28/25 History release atorvastatin 80 mg tablet 80 mg PO QAM 06/24/24 10/28/25 History clopidogrel 75 mg tablet 75 mg PO QAM 06/24/24 10/28/25 History ezetimibe 10 mg tablet 10 mg PO QAM 06/24/24 10/28/25 History metoprolol succinate 25 mg 25 mg PO QAM 06/24/24 10/28/25 History tablet,extended release 24 hr losartan 50 mg tablet 50 mg PO BID #180 tabs 07/07/24 10/28/25 Rx amlodipine 5 mg tablet 5 mg PO QAM 08/16/25 10/28/25 History sennosides 8.6 mg tablet (Natural 8.6 mg PO BID #60 tabs 09/10/25 10/28/25 Rx Senna Laxative) alfuzosin 10 mg tablet,extended 10 mg PO DAILY #30 tabs 09/21/25 10/28/25 Rx release 24 hr docusate sodium 100 mg capsule 100 mg PO BID 10/28/25 10/28/25 History nitroglycerin 0.4 mg sublingual 0.4 mg sublingual .EVERY 5 MINUTES 10/28/25 10/28/25 History tablet PRN Chest Pain Patient History Medical History History of eczema History of stroke History of palpitations History of pulmonary embolism Surgical History No significant past surgical history Family History Other Coronary arteriosclerosis Diabetes Hypertension Denies family history of Ovarian cancer Prostate cancer Myocardial infarction Breast cancer Social History Smoking Status: Former smoker Tobacco Type: Cigarettes Smoking End Date: 2012; Second Hand Exposure: No; Do You Dip or Chew Tobacco: No; Hx Alcohol Use: Yes Alcohol type: wine Hx Substance Use: Yes Last Used Substance Other:: used cocaine years ago, prior to CVA Preferred Language: Amharic Communication Ability: Effective Visual Impairment: No Limitations Hearing Ability: Normal Supervising Architect Required: No Beliefs That Will Affect Care: None marital status: Current Living Situation: Personal Care Facility Current Living [facility]uation Comment[facility] current occupational status: disabled Feels Safe at Home: Yes Safety Concerns: Feels Safe At This Time Assistive Devices: Wheelchair Review of Systems Other than above he denies any other complaints. Physical Exam Alert and attentive in no distress speech is fluent nondysarthric not aphasic his smile was symmetrical he was able to close his eyes tight tight and open them without any asymmetry noted. Reviewed stroke cards with him he had very mild difficulty with abstract thinking. Comprehension and repetition were normal. Again no dysarthria was noted no abnormal movements were noted. He was able to lift his right arm without difficulty coordination on the right arm was noted to be normal to finger to screen. He was not able to lift his left arm f or me. NIH stroke scale was a 1 given difficulty with abstract thinking and also very limited in naming the traffic light on the picture he called at a stoplight. He was examined in his stretcher. Results & Data Vital Signs (Past 12 Hours) Vital Signs Temp Pulse Pulse Resp BP BP Pulse Ox 10/28/25 08:45 37.2 C 96 H 18 131/79 96 10/28/25 05:44 36.8 C 103 H 18 134/73 94 10/28/25 05:38 18 92 10/28/25 04:56 105 H 18 118/77 92 10/28/25 04:37 108 H 10/28/25 02:30 131/83 10/28/25 02:30 119 H 24 131/83 90 10/28/25 02:00 122 H 24 111/70 91 10/28/25 01:30 122 H 20 126/68 91 10/28/25 01:00 119 H 24 144/83 H 94 10/28/25 00:53 128 H 10/28/25 00:35 36.5 C 124 H 24 164/104 H 96 O2 Del Method 10/28/25 08:45 Room Air 10/28/25 05:44 Room Air 10/28/25 05:38 10/28/25 04:56 Room Air 10/28/25 04:37 10/28/25 02:30 10/28/25 02:30 10/28/25 02:00 10/28/25 01:30 10/28/25 01:00 10/28/25 00:53 10/28/25 00:35 Room Air Laboratory Results Reviewed. Diagnostic Findings CTA study was reviewed and showed bilateral stenosis of the internal carotid arteries moderate on the left severely occluded on the right. CT study of the head was reviewed and does not show any acute abnormalities. Medications Administered Medications were reviewed with him. (5) CAD (coronary artery disease) Associated angina: without angina Coronary Disease-Associated Artery/Lesion type: [place] artery [place] vs. transplanted heart: [place] heart Qualified Code(s): I25.10 - Atherosclerotic heart disease of [place] coronary artery without angina pectoris (6) DMII (diabetes mellitus, type 2) Diabetes mellitus complication detail: with other circulatory complications Diabetes mellitus complication status: with circulatory complication Diabetes mellitus watermelon inspector insulin use: without watermelon inspector use Qualified Code(s): E11.59 - Type 2 diabetes mellitus with other circulatory complications
--- NOTE | 2025-10-28 12:26 | Magnetic Resonance Report ---
Technique: Multiple T1 and T2-weighted magnetic resonance images were obtained of the brain without gadolinium contrast Comparison is made to the CT examinations obtained today and 08/16/2025 Findings: There is an unchanged old infarct of the right frontal, parietal, and temporal lobes There is no sign of acute infarction with normal-appearing diffusion weighted images. There is cerebral atrophy, within expected limits for the patient's age. There are focal and confluent areas of increased T2 signal intensity within the periventricular white matter of the cerebral hemispheres bilaterally. This is most likely due to chronic small vessel ischemic disease. No definite mass lesion is seen on this noncontrast study. There is no intracranial hemorrhage or other fluid collection. No midline shift or other form of herniation is seen. There is no hydrocephalus. Normal flow-voids are seen within the arteries of the [id number]. The orbits. Unremarkable. There are small mucus retention cysts in the maxillary sinuses bilaterally. The mastoid air cells appear clear. Impression: 1. No sign of acute infarction 2. Unchanged large old infarct of the right frontal, parietal, and temporal lobes 3. Cerebral atrophy and chronic small vessel ischemic disease 4. Mild chronic sinusitis Electronically signed by Jakob Bee 10-28-2025 12:25 PM
[2025-10-28] MEDS: TAMSULOSIN HCL 0.4 MG CAP PO SCH (12:33)
[2025-10-28] MEDS: CEFEPIME 2000MG 2,000 MG/20 ML SYR IV SCH (16:45)
[2025-10-28] MEDS: ACETAMINOPHEN 325 MG TAB PO PRN (16:47)
[2025-10-29 03:09] VITALS: RESP 18
[2025-10-29 06:06] LABS: Base Excess VBG 1.7 mEq/L; HCO3 VBG 27 mmol/L; Oxygen Saturation VBG 71.6 %; PCO2 VBG 42 mmHg (38-50); PO2 VBG 40 mmHg; pH VBG 7.41 (7.36-7.41)
[2025-10-29 06:25] LABS: Anion Gap 10.0 (3-11); Blood Urea Nitrogen 18.0 mg/dl (6-23); Calcium 8.9 mg/dl (8.6-10.3); Carbon Dioxide 25.0 mmol/L (21-32); Chloride 105.0 mmol/L (98-107); Cholesterol 101.0 mg/dl (0-200); Creatinine Clr Calc Pharmacy 60.3 ml/min; Glucose 133.0 mg/dl (70-99(Fasting)); HDL Cholesterol 29.0 mg/dl; Magnesium 2.0 mg/dl (1.7-2.4); Potassium 4.0 mmol/L (3.5-5.1); Sodium 140.0 mmol/L (136-145); Triglycerides 137.0 mg/dl (0-150)
[2025-10-29 07:58] LABS: Hemoglobin A1C 6.4 % (4.5-5.6)
--- NOTE | 2025-10-29 10:02 | Neurology Progress Note ---
Date of Service October 29, 2025 Assessment & Plan (1) History of CVA with residual deficit: (2) Left leg weakness: (3) Chronic cerebral ischemia: (4) Carotid artery stenosis: Plan Patient has a history of significant sized right middle cerebral artery stroke in 2012 resulting in a significant left hemiparesis arm > leg > face. He has been on dual antiplatelet therapy for years. The patient had some increased left lower extremity weakness likely a temporary exacerbation of his old symptoms as he had no new stroke or hemorrhage noted by MRI of the brain or CT. The patient does have significant old small vessel ischemic disease as well as a right internal carotid artery occlusion. There is stenosis in the left internal carotid artery and an right sided intracerebral vessels as mentioned below. Diabetes and hypertension are his main risk factors for cerebrovascular disease. Urinary tract infection and acute hypertension could have easily brought out the increased leg weakness. Recommendations: 1. Continue dual antiplatelet therapy with aspirin and clopidogrel. 2. Continue atorvastatin 80 3. Continue physical and Occupational Therapy. He may be a very good rehab hospital candidate for strengthening before going back home 4. Control blood pressure as you are doing, aiming for mean arterial pressure of 95 to 100 5. Control glucose as you are doing trying to lower her hemoglobin A1c is close to 6 as possible. 6. I have no further neurologic testing or treatment recommendations to make at this time. Contact neurology as needed. Overall, I spent a total of 50 minutes with this case including review of records, review of CT and MRI films, direct evaluation the patient, report generation, and discussion of the case with the patient and RN at bedside and Dr Rosa, including differential diagnosis and treatment options.. Admission and Anticipated Discharge Date Admission Date: October 28, 2025 Subjective Patient himself feels little closer to baseline although his left leg is a little weaker now than it was before. There is no new problem today compared to yesterday. Nursing reports no new issues or problems today and blood pressure is 128/81 with a pulse of 90s and regular. CHEM profile is unremarkable and glucose is 133 with a hemoglobin A1c of 6.4. Triglycerides were 137 and total cholesterol was 101. Patient had a right middle cerebral artery ischemic stroke in January 2013 resulting in left hemiparesis, arm>leg >face. At that time he was noted to have a right internal carotid artery occlusion. He was discharged on aspirin and Plavix. He ended up being followed by Dr. Arellano in neurology last seen in July 2014. He has been fairly stable since. The patient came to the emergency room October 28 with increased left leg weakness compared to baseline. I note that his blood pressure was 164/104. He was evaluated by Dr. Jr Cooley, [facility] neurology. Apparently the patient has been on 81 mg aspirin, 75 mg clopidogrel, and 80 mg atorvastatin daily over time. CT scan of the head showed the old right middle cerebral artery distribution CVA. I reviewed these films. CT angiography of the head showed some moderate stenosis in the distal (cavernous) portion of the right ICA, the right SADI, and right M1 segment CT angiography of the neck revealed a proximal right ICA occlusion and moderate left ICA stenosis. There was mild left vertebral stenosis. MRI of the brain showed the old right middle cerebral artery stroke in the fronto/temporo/basal ganglia areas, without new stroke. There was significant generalized atrophy and old small vessel ischemic disease noted. I reviewed these films. Results & Data Vital Signs (Past 12 Hours) Vital Signs Temp Pulse Pulse Resp BP Pulse Ox O2 Del Method 10/29/25 08:31 37.1 C 91 H 18 128/81 94 Room Air 10/29/25 03:08 36.8 C 94 H 18 159/91 H 96 Room Air 10/28/25 22:55 37 C 91 H 16 151/89 H 96 Room Air 10/28/25 22:30 86 Exam (Neuro) Physical Exam: Patient is awake and alert. Speech is without aphasia or dysarthria. Mood is reasonable and affect is appropriate. Thought processes are intact conversation. Extraocular eye muscles are intact without nystagmus. There is a mild asymmetry with movement at the corner of mouth on the left compared to the right which is normal. Tongue is midline. Neck is supple. Coordination is normal in the right upper extremity with no tremor or ataxia. Motor strength is 5/5 diffusely in all major muscle groups of the right arm and leg both proximally and distally. The left arm and leg has 1/5 strength distally and is otherwise severely plegic. Stance sitting up in chair is normal PG Care Time/CCT Total # of Minutes Spent Total Time Spent with Patient: Total time spent is greater than 50% in coordination of care (as documented) at patient's floor/unit and/or counseling patient: Coding Level of Care Code 33832 SUB INP/OBS CARE 3/50MIN Diagnoses History of CVA with residual deficit I69.30 Left leg weakness R29.898 Chronic cerebral ischemia I67.82 Carotid artery stenosis I65.29
--- NOTE | 2025-10-29 11:24 | Hospitalist Progress Note ---
Date of Service October 29, 2025 Assessment & Plan (1) Left leg weakness: Plan: -neurology consult appreciated -MRI negative -- Continue baby aspirin and Plavix Continue home atorvastatin 80 mg and Zetia (2) UTI (urinary tract infection): Plan: IV cefepime Follow urine cultures + for Pseudomonas aeruginosa (3) DMII (diabetes mellitus, type 2): Plan: -RISS (4) Hypertension: Plan: -con't amlodipine, metoprolol, losartan Plan Patient is a 75-year-old male with past medical history of CVA in 2012 with residual left-sided weakness and is wheelchair-bound, HTN, CAD s/p stent, HLD, bilateral carotid stenosis. Patient presented via EMS from [facility] as a stroke alert due to worsening left-sided leg weakness resulting in 2 falls during wheelchair transfers. Diagnostic imaging in the ED revealed severe stenosis however no acute changes. He is being admitted for further stroke workup however weakness could be considered secondary to hypomagnesemia or UTI. D/C planning to [facility] in am 10/30 Admission and Anticipated Discharge Date Admission Date: October 28, 2025 Subjective No events overnight. Pt feeling much better, weakness has improved. Review of Systems Review of Systems: CONST: Negative for fever, body aches and chills. HENT: Negative for neck pain/stiffness, headache, congestion, sore throat, swelling. EYES: Negative for discharge/pain or vision changes. RESP: Negative for cough/hemoptysis and shortness of breath. CV: Negative chest pain, difficulty breathing, palpitations. ABD: Negative pain, nausea, vomiting. : Negative increase frequency, dysuria, blood in urine or stool. MUSC: Negative for muscle aches, edema. SKIN: Negative rash, lesions/sores. NEURO: Negative headache, dizziness, weakness. Physical Exam Physical Exam: GENERAL APPEARANCE NAD, activity normal for age, well developed/ well nourished, no cyanosis, pallor, or diaphoresis. EYES lids/conjunctiva normal. EARS/NOSE/THROAT Mucous membranes moist, nares normal, lips/teeth normal uvula midline without oral pharyngeal erythema, exudate or swelling TMs normal bilaterally. No lymphangitis/lymphedema. HEAD/NECK normocephalic atraumatic, no facial trauma, neck is supple. RESPIRATORY respiratory effort normal, speaks in full sentences, no tripod posi tion, no accessory muscle use. Lungs clear to auscultation without rhonchi, wheezes, rales CARDIAC Regular rate and rhythm, no edema. ABDOMINAL Soft, ND/NT. No evidence of fluid wave. No pulsatile masses on exam, rebound tenderness, Pelaez sign or pain over Mcburney's point. MUSCLES/EXTREMITIES No abnormal range of motion, no swelling. SKIN Warm, pink and dry. No rashes, dermatoses, petechiae or lesions. NEUROLOGICAL Speech is clear and appropriate. Normal level of consciousness. Gait and coordination are normal. 5/5 strength in all extremities. PSYCH Normal mood and affect. Judgement/competence is appropriate Results & Data Results & Data Vital Signs (Past 12 Hours) Vital Signs Temp Pulse Resp BP Pulse Ox O2 Del Method 10/29/25 08:31 37.1 C 91 H 18 128/81 94 Room Air 10/29/25 03:08 36.8 C 94 H 18 159/91 H 96 Room Air PG Care Time/CCT Total # of Minutes Spent Total Time Spent with Patient: Total time spent is greater than 50% in coordination of care (as documented) at patient's floor/unit and/or counseling patient: Coding Level of Care Code 48846 SUB INP/OBS CARE 2/35MIN Diagnoses Left leg weakness R29.898 UTI (urinary tract infection) N39.0 Type 2 diabetes mellitus with other circulatory complication, without long-term current use of insulin E11.59 Diabetes mellitus prison insulin use: without prison use Diabetes mellitus complication status: with circulatory complication Diabetes mellitus complication detail: with other circulatory complications Primary hypertension I10 Hypertension type: unspecified (3) DMII (diabetes mellitus, type 2) Diabetes mellitus prison insulin use: without parts counterman use Diabetes mellitus complication status: with circulatory complication Diabetes mellitus complication detail: with other circulatory complications Qualified Code(s): E11.59 - Type 2 diabetes mellitus with other circulatory complications (4) Hypertension Hypertension type: unspecified Qualified Code(s): I10 - Essential (primary) hypertension
[2025-10-29] MEDS: LOSARTAN POTASSIUM 50 MG TAB PO SCH (12:22)
[2025-10-29] MEDS: METOPROLOL SUCC 25MG EXT REL TAB PO SCH (12:22)
[2025-10-30 06:44] LABS: Anion Gap 10.0 (3-11); Blood Urea Nitrogen 23.0 mg/dl (6-23); Calcium 8.5 mg/dl (8.6-10.3); Carbon Dioxide 24.0 mmol/L (21-32); Chloride 106.0 mmol/L (98-107); Creatinine Clr Calc Pharmacy 60.3 ml/min; Glucose 140.0 mg/dl (70-99(Fasting)); Magnesium 1.8 mg/dl (1.7-2.4); Potassium 3.7 mmol/L (3.5-5.1); Sodium 140.0 mmol/L (136-145)
[2025-10-30 08:41] VITALS: BP 132/82; PULSE 72; TEMP 97.7; O2SAT 96
--- NOTE | 2025-10-30 09:23 | Discharge Summary ---
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 Patient presented via EMS from [facility] as a stroke alert due to worsening left-sided leg weakness resulting in 2 falls during wheelchair transfers. Diagnostic imaging in the ED revealed severe stenosis however no acute changes. He is being admitted for further stroke workup however weakness could be considered secondary to hypomagnesemia or UTI. D/C planning to [facility] in am 10/30 Admission HPI Per Admitting Provider Patient is a 75-year-old male with past medical history of CVA in 2013 with residual left-sided weakness and is wheelchair-bound, HTN, CAD s/p stent, HLD, bilateral carotid stenosis. Patient presented via EMS from [facility] as a stroke alert due to worsening left-sided leg weakness resulting in 2 falls during wheelchair transfers. Diagnostic imaging in the ED revealed severe stenosis however no acute changes. He is being admitted for further stroke workup. Patient seen at bedside. He stated he had a stroke in 2013 resulting in left- sided leg weakness and left-sided upper extremity weakness as well as a left facial droop. His left arm is significantly atrophied and he is unable to move it at baseline. He stated all day today he had worsening left leg weakness. He is typically able to stand for transfers however was unable to stand at all today resulting in him sliding on the floor twice with nursing staff. He stated his left facial droop is at his baseline. He denies any other strokelike symptoms such as dizziness, lightheadedness, blurred vision, slurred speech, difficulty finding words, numbness, tingling. He denies any chest pain, shortness of breath, recent nausea, vomiting, diarrhea. Patient has a noted history of urinary retention after sepsis in August in which she was hospitalized. He stated he just had his Plunkett catheter out with urology several weeks ago and they plan for surgical management of his large prostate to prevent against this again. He denies any dysuria or difficulty urinating recently. Patient was a former smoker smoking approximately 40 years however quit in 2012 when he had his previous stroke. He is due for his evening medications. Is still on both aspirin and Plavix. He wishes to be DNR/DNI. Handoff from ER provider stated that telestroke recommending no TNK but to admit for further workup including brain MRI. Discharge Exam GENERAL APPEARANCE NAD, activity normal for age, well developed/ well nourished, no cyanosis, pallor, or diaphoresis. EYES lids/conjunctiva normal. EARS/NOSE/THROAT Mucous membranes moist, nares normal, lips/teeth normal uvula midline without oral pharyngeal erythema, exudate or swelling TMs normal bilaterally. No lymphangitis/lymphedema. HEAD/NECK normocephalic atraumatic, no facial trauma, neck is supple. RESPIRATORY respiratory effort normal, speaks in full sentences, no tripod position, no accessory muscle use. Lungs clear to auscultation without rhonchi, wheezes, rales CARDIAC Regular rate and rhythm, no edema. ABDOMINAL Soft, ND/NT. No evidence of fluid wave. No pulsatile masses on exam, rebound tenderness, Pelaez sign or pain over Mcburney's point. MUSCLES/EXTREMITIES No abnormal range of motion, no swelling. SKIN Warm, pink and dry. No rashes, dermatoses, petechiae or lesions. NEUROLOGICAL Speech is clear and appropriate. Normal level of consciousness. Gait and coordination are normal. 5/5 strength in all extremities. PSYCH Normal mood and affect. Judgement/competence is appropriate Discharge Plan Discharge Items Patient Disposition: Home - Self-Care Reason For Visit: STROKE ALERT Discharge Diagnosis: Generalized weakness Condition on Discharge: Fair Activity: Resume your previous activity Non-emergency contact: Primary Care Provider Call non-emergency contact if: you have any medication questions Follow-up/Referrals: Rachid Lozano [Primary Care Provider] - Diet: Regular Addtl Attending Provider Instructions: Follow up with PMD in 2 weeks Pending Studies at Discharge: No Stand-Alone Forms: [employer] [place], Smoking Cessation Medications and DC Order Prescriptions: Continued sennosides [Natural Senna Laxative] 8.6 mg tablet 8.6 mg PO BID Qty: 60 0RF Rx Instructions: take 1 tablet 2x daily until having soft bm daily or every other day, if having more than 2 bowel movements daily reduce senna to 1x daily, if still having more than 2 bowel movements daily stop senna alfuzosin 10 mg tablet extended release 24 hr 10 mg PO DAILY Qty: 30 2RF Rx Instructions: administer after the same meal each day losartan 50 mg tablet 50 mg PO BID Qty: 180 3RF acetaminophen [Tylenol] 325 mg Tablet 650 mg PO QID MDD 3 GRAMS APAP/24 HOURS Rx Instructions: 0800, 1200, 1600, & 2000 glipizide 10 mg tablet 10 mg PO BID Rx Instructions: 0800 & 1900 metformin 850 mg tablet 850 mg PO BID Rx Instructions: 0800 & 1900 amlodipine 5 mg tablet 5 mg PO QAM nitroglycerin 0.4 mg Tablet, Sublingual 0.4 mg sublingual .EVERY 5 MINUTES MDD FOR 3 DOSES PRN (Reason: Chest Pain) docusate sodium 100 mg Capsule 100 mg PO BID atorvastatin 80 mg tablet 80 mg PO QAM clopidogrel 75 mg tablet 75 mg PO QAM aspirin 81 mg tablet,delayed release (DR/EC) 81 mg PO QAM metoprolol succinate 25 mg tablet extended release 24 hr 25 mg PO QAM ezetimibe 10 mg tablet 10 mg PO QAM Krames/Other Patient Handouts: Managing Type 2 Diabetes Admission Data Admit Date/Time: 10/28/25 02:59 Attending Provider: Leonid Rosa Admit Provider: Vik Schaefer Primary Care Provider: Rachid Lozano Other Providers: Vik Schaefer; [facility] Stay Data Consultations 10/28/25 02:09 ED Decision to Admit Stat 10/28/25 02:50 Consult Neurology Routine Diagnostic Imagining Performed 10/28/25 00:35 CT angio head w con Stat CT angio neck with con Stat CT head/brain wo con Stat 10/28/25 03:31 MRI Brain [MR brain wo con] Urgent Pending Results Patient Have Any Pending Studies at Discharge: No Discharge Instructions Given to Patient (Per Discharging Provider) Follow up with PMD in 2 weeks Total Time Total Time Spent Total Time Spent (In Minutes): 50 Coding Level of Care Code 95845 INP/OBS DISCH >30 MIN Diagnoses Left leg weakness R29.898 UTI (urinary tract infection) N39.0 Type 2 diabetes mellitus with other circulatory complication, without long-term current use of insulin E11.59 Diabetes mellitus retirement insulin use: without retirement use Diabetes mellitus complication status: with circulatory complication Diabetes mellitus complication detail: with other circulatory c omplications Primary hypertension I10 Hypertension type: unspecified
== END 2025-10-30 11:41 | disposition home health service (06) | DRG 556 ==
LOC: SUATTDRO → ED 00:31 → SUATTDRO 02:59 → 4W 02:59